=== PATIENT | female | born 1965 | race Caucasian/White ===

== ENCOUNTER 2016-12-28 13:19 | Emergency (ER) ==
--- NOTE | 2016-12-28 14:07 | PROVIDER DOCUMENTATION ---
HPI-Abdominal Pain/GI Problem - General Source: patient - History of Present Illness-ABD Nature of Presenting Problems: 51 y/o F presents to ED cc of abd pain. Pt states she was vomiting on Saturday and Saturday and was running a low grade temperature. Pt reports abd pain x 2 days with no vomiting. Pt does have a stoma present with a localized rash around the edges.On exam pt has LLQ/RLQ tenderness. Pt also reports being Nausea on exam. Denies any rectal bleeding/cp/sob. Abdominal Pain Onset Location: reports: RLQ, LLQ Pain Radiation: reports: no radiation Quality of Pain: reports: aching Severity in ED: reports: mild Onset/Duration: reports: just prior to arrival Timing: reports: still present Activities at Onset: reports: light activity Modifying Factors: improves with: nothing Associated Symptoms: reports: fever/chills, nausea, vomiting, other (RLQ/LLQ pain). denies: chest pain, shortness of breath Rectal Bleeding: reports: none Rectal Pain: reports: none Bruising or Bleeding Gums?: No Similar Symptoms Previously?: No Recently seen or treated by another doctor?: No <Keyanna Medeiros - Last Filed: 12/28/16 16:45> <Wolf Larios - Last Filed: 12/29/16 06:15> - General Chief Complaint: Flank Pain Stated Complaint: LT FLANK/BACK PAIN Time Seen by Provider: 12/28/16 13:45 Allergies/Adverse Reactions: Patient Allergies Allergy/AdvReac Type Severity Reaction Status Date / Time latex Allergy Unknown Verified 12/28/16 14:10 Home Medications: Home Medication List Medication Instructions Recorded Confirmed Last Taken Type Acetaminophen with Codeine 1 each PO BID #10 tablet 12/28/16 Unknown Rx [Tylenol with Codeine #3 Tablet] Sulfamethoxazole/Trimethoprim 1 each PO BID #14 tablet 12/28/16 Unknown Rx [Septra 80-400 Tablet] Review of Systems - Adult - REVIEW OF SYSTEMS - ADULT Constitutional: reports: chills, fever Ears, Nose, Mouth & Throat: denies: ear pain, throat pain Cardiovascular: denies: chest pain, palpitations Respiratory: denies: cough, shortness of breath Gastrointestinal: reports: abdominal pain, nausea, vomiting. denies: diarrhea Genitourinary: denies: dysuria, hematuria Musculoskeletal: denies: bone pain, back pain Neurological: denies: dizziness/vertigo, headache/migraines <MedeirosKeyanna - Last Filed: 12/28/16 16:45> Past History - Adult - PAST MEDICAL HISTORY-ADULT Review of Records: reports: Old Records Reviewed, Nursing Assessment Review Gastrointestinal: reports: cholelithiasis Other Conditions: reports: denies history - PRIOR SURGERIES/PROCEDURES Surgical/Procedure History: reports: - IMMUNIZATION STATUS Childhood Immunizations: See Nurse Assessment Flu Vaccine: See Nurse Assessment - SOCIAL HISTORY Smoking: greater than 1 pack/day Provider spent 3-5 mins advising pt. on dangers of tobacco.: Discussed manners to quit use, and f/u contacts for add'l counseling. Substance Use: denies <MedeirosKeyanna - Last Filed: 12/28/16 16:45> Physical Exam-General - CONSTITUTIONAL General Appearance: appears well, alert, no apparent distress - EYES Eyes: PERRL/EOMI, pink conjunctivae, fundi clear, no AV nicking - NECK Neck: non-tender, full range of motion - RESPIRATORY Respiratory: chest non-tender, lungs clear, normal breath sounds - CARDIOVASCULAR Cardiovascular: normal peripheral pulses, no edema, tachycardia - GASTROINTESTINAL (ABDOMEN) Abdominal Exam: normal bowel sounds, soft, tenderness (RLQ/LLQ) - LYMPHATIC Lymphatic: no adenopathy - MUSCULOSKELETAL Back Exam: normal inspection, no CVA tenderness Extremity: normal range of motion, non-tender, normal gait - SKIN Integumentary: normal color, normal turgor, warm/dry - 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 DR LARIOS REVIEWED AND HAS ORDERED NEW MEDICATIONS Laboratory Tests 12/28/16 12/28/16 12/28/16 13:58 13:58 13:58 WBC 11.18 H RBC 3.71 L Hgb 10.2 L Hct 30.1 L MCV 81.1 MCH 27.5 MCHC 33.9 RDW Std Deviation 12.8 Plt Count 368 MPV 9.9 Immature Gran % (Auto) 0.4 Neut % (Auto) 73.2 Lymph % (Auto) 13.5 L Posey % (Auto) 11.7 H Eos % (Auto) 0.9 Baso % (Auto) 0.3 Immature Gran # (Auto) 0.04 Neut # (Auto) 8.19 H Lymph # (Auto) 1.51 Posey # (Auto) 1.31 H Eos # (Auto) 0.10 Baso # (Auto) 0.03 Sodium 135 L Potassium 2.7 L Chloride 94 L Carbon Dioxide 26 Anion Gap 15 BUN 12 Creatinine 0.9 Estimated GFR/1.73 m2 > 60 BUN/Creatinine Ratio 13 Glucose 98 Calculated Osmolality 270 Calcium 9.1 Total Bilirubin 0.57 AST 15 ALT 14 Alkaline Phosphatase 145 H Total Protein 7.8 Albumin 3.3 L Globulin 4.5 Albumin/Globulin Ratio 0.7 Amylase 26 Lipase 22 Urine Source CLEAN CATCH Urine Color ORANGE Urine Turbidity TURBID Urine pH 6.5 Ur Specific [place] 1.026 Urine Protein 200 A Ur Glucose (Stick) NEGATIVE Ur Ketones (Stick) NEGATIVE Urine Blood MODERATE A Urine Nitrite NEGATIVE Urine Bilirubin NEGATIVE Urobilinogen Dipstick NORMAL Urine Leukocytes LARGE A Urine WBC (Auto) TNTC A Urine RBC (Auto) 20-40 A U Epithel Cells (Auto) <10 Urine Bacteria (Auto) 2+ Urine Crystals NONE SEEN Small Round Cells NONE SEEN Urine Casts NONE SEEN Urine Yeast-like Cells PRESENT Orders Category Date Time Status Saline Loc DIRECTED Care 12/28/16 14:[address] ABD/PELVIS W/ IV CONT ONLY [CT] Stat Exams 12/28/16 14:12 Completed AMYLASE [CHEM] Stat Lab 12/28/16 13:58 Completed CBC WITH ELECTRONIC DIFF [HEME] Stat Lab 12/28/16 13:58 Completed COMPREHENSIVE METABOLIC PANEL [CHEM] Stat Lab 12/28/16 13:58 Completed LIPASE [CHEM] Stat Lab 12/28/16 13:58 Completed URINALYSIS W/POSS RFLX CULT [URINALYSIS] Stat Lab 12/28/16 13:58 Completed URINE CULTURE [RM] Routine Lab 12/28/16 15:10 Received URINE MANUAL MICROSCOPIC [URINALYSIS] Stat Lab 12/28/16 13:58 Completed CefTRIAXONE 1 GM/NS [Rocephin 1 gm/Ns] 50 ml Med 12/28/16 16:31 Active IV NOW Ketorolac [Toradol] Med 12/28/16 16:39 Discontinued 15 mg IV NOW ONE Morphine Med 12/28/16 16:31 Discontinued 4 mg IV NOW ONE Ondansetron [Zofran] Med 12/28/16 16:32 Discontinued 4 mg IV NOW ONE Vital Signs - 24 hr 12/28/16 13:23 Temperature 98.3 F Pulse Rate 111 H Respiratory 16 Rate Blood Pressure 144/96 O2 Sat by Pulse 100 Oximetry - REASSESSMENT Reassessment #1 Time Reassessed: 16:30 Status: improving (Pt reports she is still in pain but does not want morphine . Pt understands results of labs/scans and understands the plan.) - CT/MRI 1 CT Study: Abdomen, Pelvis Impression: Normal (1.status post interval colectomy with RLQ.Herniation of the remaining distal ileum through the colostomy defect. No identaction of bowel obstruction.(2) round and fluid denstiy lesions at left adnexa which may relate to ovarian CS or tuboovarian abscesses.There are possibly a coupld of small low density at the right adnexa.(3) apparent proctitis (4) small amount of free fluid. No free air.) CT Results: see results- (radiologist) <Keyanna Medeiros - Last Filed: 12/28/16 16:45> Departure - Departure Time of Disposition Order: 16:33 Certified Medical Emergency: Emergent <Keyanna Medeiros - Last Filed: 12/28/16 16:45> <Wolf Larios - Last Filed: 12/29/16 06:15> - Departure DIAGNOSIS: UTI (urinary tract infection) Qualifiers: Urinary tract infection type: site unspecified Hematuria presence: without hematuria Qualified Code(s): N39.0 - Urinary tract infection, site not specified Ovarian cyst Qualifiers: Laterality: unspecified laterality Qualified Code(s): N83.209 - Unspecified ovarian cyst, unspecified side Abdominal pain Qualifiers: Abdominal location: unspecified location Qualified Code(s): R10.9 - Unspecified abdominal pain Disposition: HOME 01 Condition: Stable Additional Instructions: ED Follow Up Instructions: You have been treated by a care provider in the Emergency Department. These instructions are being provided to you so you can have an understanding of how to care for yourself upon discharge. Upon discharge from the Emergency Department, you are responsible for making arrangements for follow-up care by a physician of your choice. Take all prescribed medications as directed. Return to the Emergency Department immediately for any new or worsening symptoms. You may call the Physician Referral phone number at [phone] to obtain a list of Physicians who are taking new patients. Prescriptions: Sulfamethoxazole/Trimethoprim [Septra 80-400 Tablet] 1 each PO BID #14 tablet Acetaminophen with Codeine [Tylenol with Codeine #3 Tablet] 1 each PO BID #10 tablet Referrals: None,PCP [Primary Care Provider] - Forms: Return to School/Parent Work Instructions: Abdominal Pain, Adult, Urinary Tract Infection, [id number], Ovarian Cyst, [id number] Attestation - Scribe Verification/Attestation Scribe:: Keyanna Medeiros Acting as Scribe for:: Wolf Larios Scribe documention review:: This chart was documented by a scribe and accurately reflects the service the provider performed and the decisions made by the provider. <Keyanna Medeiros - Last Filed: 12/28/16 16:45> Physician Attestation - Physician Attestation I, the provider, attest to the following statement:: Wolf Larios Physician documentation Attestation:: This documentation recorded by the scribe accurately reflects the service I personally performed and the decisions made by me. <Wolf Larios - Last Filed: 12/29/16 06:15>
[2016-12-28 14:39] LABS: MANUAL DIFF NEEDED? NO; URINE SOURCE CLEAN CATCH
[2016-12-28 14:45] LABS: BASO% 0.3 % (0.0-0.8); BILIRUBIN URINE NEGATIVE (NEGATIVE); BLOOD URINE MODERATE (NEGATIVE); COLOR ORANGE; EOS% 0.9 % (0.0-10.0); GLUCOSE URINE NEGATIVE (NEGATIVE); HEMATOCRIT 30.1 % (37.0-47.0); HEMOGLOBIN 10.2 g/dL (12.0-16.0); IMM GRAN# 0.04 X1000 (0.0-0.04); IMM GRAN% 0.4 % (0.0-0.5); LEUKOCYTES URINE LARGE (NEGATIVE); LYMPH# 1.51 X1000 (1.2-3.4); LYMPH% 13.5 % (20.5-51.1); MCH 27.5 PG (27-31); MCHC 33.9 g/dL (33-37); MCV 81.1 FL (81-99); MONO# 1.31 X1000 (0.11-0.59); MONO% 11.7 % (1.7-9.3); MPV 9.9 FL (7.4-10.4); NEUT% 73.2 % (42.2-75.2); NITRITE URINE NEGATIVE (NEGATIVE); PH URINE 6.5; PLT 368 X1000 (130-400); PROTEIN URINE 200 mg/dL (NEGATIVE); RBC 3.71 XMIL (4.2-5.4); SP GRAVITY URINE 1.026; TURBIDITY URINE TURBID (CLEAR); UROBILINOGEN URINE NORMAL (NORMAL)
[2016-12-28 15:00] LABS: AGAP 15; ALBUMIN 3.3 g/dL (3.5-5.0); ALKALINE PHOSPHATASE 145 U/L (32-104); AMYLASE 26 U/L (20-200); BUN 12 mg/dL (8-22); CALCIUM 9.1 mg/dL (8.8-10.2); CHLORIDE 94 mmol/L (98-107); COSMO 270; GOT 15 U/L (10-30); GPT 14 U/L (10-36); LIPASE 22 U/L (13-60); POTASSIUM 2.7 mmol/L (3.5-5.1); SODIUM 135 mmol/L (136-145); TCO2 26 mmol/L (25-35); TOTAL BILIRUBIN 0.57 mg/dL (0.20-1.00); TOTAL PROTEIN 7.8 g/dL (6.3-8.3)
[2016-12-28 15:05] LABS: UR EPITHELIAL CELLS <10 /HPF (<10); URINE BACTERIA 2+ /HPF; URINE CULTURE NEEDED? YES; URINE MICRO REVIEW NEEDED? YES; URINE RBC 20-40 /HPF (<10); URINE WBC TNTC /HPF (<10)
[2016-12-28 15:11] LABS: URINE CASTS NONE SEEN; URINE CRYSTALS NONE SEEN; URINE SMALL ROUND CELLS NONE SEEN
--- NOTE | 2016-12-28 16:13 | Diag Imaging Result Document ---
PROCEDURE NAME: CT ABD/PELVIS W/ IV CONT ONLY - 12/28/2016 CT ABDOMEN PELVIS WITH IV CONTRAST ONLY: FINDINGS: Exam performed with intravenous contrast only per request of the referring provider. A dose reduction protocol was used. Compared without contrast exam of 02/14/2015. There has been an interval colectomy. There is a right lower quadrant ileostomy. There is herniation of the remaining distal ileum through the colostomy defect. There is no substantial small bowel distention identified to indicate small bowel obstruction. There are rounded and serpiginous fluid density lesions at the left adnexa. These may relate to ovarian cysts or tuboovarian abscesses. There are low-density lesions at the right adnexa which are smaller number and smaller in size than those on the left. There is a small amount of free fluid. There is no free air identified. The li of the rectal stump appear thickened and there is mild presacral edema , suggesting proctitis. There are no acute abnormalities of the liver, spleen, adrenal glands, or pancreas identified. There are no calcified gallstones identified. There is chronic obstruction of lower probability of the left kidney by a 1 cm stone at the lower pole ureteropelvic junction, similar to the previous exam. There is progressive thinning of renal cortex at the lower pole of left kidney. There is some thickening of the margins of the left renal pelvis. There is no gross perinephric edema identified. There is a small nonobstructing stone in the upper left kidney. The upper left kidney and the right kidney enhances homogeneously. There is no right hydronephrosis. IMPRESSION: 1. Status post interval colectomy with right lower quadrant ileostomy. Herniation of the remaining distal ileum through the colostomy defect. No indication of bowel obstruction. 2. Round and serpiginous fluid density lesions at left adnexa which may relate to ovarian cysts or tuboovarian abscesses. There are a couple of small low-density lesion at the right adnexa. 3. Apparent proctitis. 4. Small amount of free fluid. No free air. [facility]
[2016-12-28] MEDS ORDERED: MORPHINE IV ONE (16:31)
[2016-12-28] MEDS ORDERED: ROCEPHIN 1 GM/NS 50 ML IV ONE (16:31)
[2016-12-28] MEDS ORDERED: ZOFRAN IV ONE (16:32)
[2016-12-28] MEDS ORDERED: TORADOL IV ONE (16:39)
[2016-12-28 18:16] VITALS: BP 129/79
== END 2016-12-28 18:14 | disposition home or self-care (01) ==
LOC: ED 13:19
DX: N39.0 Urinary tract infection, site not specified (principal); N83.209 Unspecified ovarian cyst, unspecified side; R10.9 Unspecified abdominal pain; R10.31 Right lower quadrant pain; R10.32 Left lower quadrant pain; R50.9 Fever, unspecified; R21 Rash and other nonspecific skin eruption; R10.814 Left lower quadrant abdominal tenderness; R10.813 Right lower quadrant abdominal tenderness; R11.2 Nausea with vomiting, unspecified; M54.9 Dorsalgia, unspecified; R00.0 Tachycardia, unspecified; F17.210 Nicotine dependence, cigarettes, uncomplicated; Z71.6 Tobacco abuse counseling; Z90.49 Acquired absence of other specified parts of digestive tract
CPT/HCPCS: 74177; 80053; 81001; 82150; 83690; 85025; 87077; 87088; 87186; J0696; J1885; J2405; Q9967

== ENCOUNTER 2018-11-27 09:04 | Inpatient (IN) ==
[2018-11-27] MEDS ORDERED: TYLENOL ONE (14:17)
[2018-11-27] MEDS ORDERED: ZOFRAN 16 MG in NS 100 ML IV ONE (14:30)
[2018-11-27] MEDS ORDERED: BENADRYL 25 MG in NS 100 ML INJ ONE (15:00)
[2018-11-27] MEDS ORDERED: [UNRECOGNIZED DRUG - OTHER] IV ONE (15:30)
[2018-11-27] MEDS ORDERED: NS IV ONE ×3 (15:30→18:30)
[2018-11-27] MEDS ORDERED: DECADRON IV ONE (16:00)
[2018-11-27] MEDS ORDERED: CAMPTOSAR IV ONE (16:30)
[2018-11-27] MEDS ORDERED: [UNRECOGNIZED DRUG - OTHER] IV ONE (16:30)
[2018-11-27] MEDS ORDERED: D5W IV ONE ×2 (16:30)
[2018-11-27] MEDS ORDERED: ATROPINE IV ONE (16:30)
[2018-11-27] MEDS ORDERED: [UNRECOGNIZED DRUG - OTHER] IV ONE (18:30)
[2018-11-27] MEDS ORDERED: DILUENT IV ONE (18:30)
[2018-11-27] MEDS ORDERED: [UNRECOGNIZED DRUG - OTHER] IV ONE (18:30)
[2018-11-27] MEDS ORDERED: ZOFRAN ODT PO PRN (19:57)
[2018-11-27] MEDS ORDERED: PHENERGAN PO PRN (19:57)
[2018-11-27] MEDS: PRILOSEC PO SCH (20:57)
[2018-11-27] MEDS: MS CONTIN PO SCH (20:57)
[2018-11-28] MEDS: MORPHINE IR PO PRN ×2 (05:40→17:15)
--- NOTE | 2018-11-28 08:40 | HISTORY AND PHYSICAL ---
CHIEF COMPLAINT: The patient has been admitted for her metastatic rectal carcinoma to her liver where she will receive her 3 day treatment of chemotherapy while in the hospital. HISTORY OF PRESENT ILLNESS: Ms. Post is a 52-year-old female who follows in the clinic for rectal adenocarcinoma with metastasis to liver. The patient will be admitted to the hospital while she receives her chemotherapy. The patient will continue with her FOLFIRI at 100% of the dose, in as well as her Vectibix at 100% of the dose. PAST MEDICAL HISTORY: Stage IV colorectal cancer, obstructive uropathy, perforated abdominal viscus, peritonitis, nicotine dependence, pelvic abscesses. PAST SURGICAL HISTORY: Colostomy, multiple biopsies, Port-A-Cath placement, ureteral stenting. SOCIAL HISTORY: The patient continues to smoke daily. The patient denies any alcohol or illicit drug use. FAMILY HISTORY: Liver failure and brain aneurysms. ALLERGIES: Latex. HOME MEDICATIONS: MS Contin, morphine R, Prilosec, Zofran, Reglan, and Phenergan. REVIEW OF SYSTEMS: Negative. PHYSICAL EXAMINATION: VITAL SIGNS: Temperature 97.6 degrees, heart rate 77, respiratory rate 20, blood pressure 107/60, saturation 100% on room air. GENERAL: The patient is awake, lying in bed, no acute distress noted. HEENT: Anicteric. Pupils PERRLA. Mucous membranes appear to be moist. NECK: Supple. Trachea midline. No JVD. LYMPH NODE SURVEY: No palpable lymphadenopathy. CARDIOVASCULAR: S1, S2. Regular rate and rhythm. LUNGS: Bilateral breath sounds, clear to auscultation. ABDOMEN: Soft, nontender. Bowel sounds present in all 4 quadrants. SKIN: Warm, dry, and intact. No petechiae, no clubbing, no rashes, cyanosis. NEUROLOGIC: Alert and oriented x3. No focal deficits noted. ASSESSMENT AND PLAN: 1. Metastatic rectal adenocarcinoma: The patient will receive her FOLFIRI and Vectibix at 100% of the doses. We will continue to monitor the patient's side effects and monitor closely. 2. Antinausea prophylaxis: The patient will receive Zofran prior to treatments. The patient also has Reglan and Phenergan that she can take on an as needed basis if needed for any nausea. We will continue to monitor her closely. 3. Neutropenia prophylaxis: We will continue to monitor for any fevers greater than 100.5. 4. Antidiarrhea prophylaxis. The patient will continue to receive atropine prior to treatment. The patient also has Imodium ordered for on an as needed basis if needed. 5. Deep venous thrombosis prophylaxis. The patient will get out of bed as much as possible. 6. Supportive care. The patient will continue protein shakes 4 times daily. The patient will get out of bed as much as possible. The patient will continue exercises as instructed while in the hospital. Dictated by CHRISTIAN Acuna for Asa Hein MD cc: CHRISTIAN Acuna MD [facility]
[2018-11-28] MEDS: PRILOSEC PO SCH ×2 (10:27→20:54)
[2018-11-28] MEDS: MS CONTIN PO SCH ×2 (10:27→20:54)
[2018-11-28] MEDS ORDERED: ZOFRAN ODT PO PRN (10:39)
[2018-11-28] MEDS ORDERED: ZOFRAN 16 MG in NS 100 ML IV ONE (16:30)
[2018-11-28] MEDS ORDERED: [UNRECOGNIZED DRUG - OTHER] IV ONE (17:00)
[2018-11-28] MEDS ORDERED: NS IV ONE (17:00)
[2018-11-28] MEDS ORDERED: [UNRECOGNIZED DRUG - OTHER] IV ONE (17:00)
[2018-11-28] MEDS ORDERED: DILUENT IV ONE (17:00)
[2018-11-29] MEDS: PRILOSEC PO SCH (08:19)
[2018-11-29] MEDS: MS CONTIN PO SCH (08:19)
[2018-11-29] MEDS: MORPHINE IR PO PRN (13:03)
[2018-11-29 14:59] VITALS: BP 98/61
--- NOTE | 2018-11-29 22:45 | HEMO/ONC PROGRESS NOTE ---
DATE: 11/29/2018 SUBJECTIVE: The patient continues tolerating chemotherapy well. The patient denies any complaints at this time. OBJECTIVE: Vital Signs: Temperature 97.8 degrees, heart rate 61, respiratory rate 20, blood pressure 133/71, saturating 99% on room air. General: Patient is awake, lying in bed. No acute distress noted. HEENT: Anicteric pupils. PERRLA. ENT moist. Cardiovascular: S1, S2. Regular rate and rhythm. Chest: Breath sounds clear to auscultation. Abdomen: Soft, nontender. Bowel sounds present in all 4 quadrants. Neurologic: Alert and oriented x3. No focal deficits noted. ASSESSMENT AND PLAN: 1. Metastatic rectal adenocarcinoma: Patient will continue with Vectibix while in the hospital. Patient tolerating well. We will continue to monitor closely. 2. Nausea prophylaxis: Patient denies any nausea at this time. Patient has Reglan. He should take on an as needed basis if needed. We will continue to monitor. 3. Neutropenia prophylaxis: We will continue to monitor. Count at 105. 4. Deep venous thrombosis prophylaxis: Patient getting out of bed as much as possible. 5. Supportive care: Patient will continue protein shakes 4 times a day. Patient will continue to get out of bed as much possible. Patient will continue exercises and stretches while in the hospital. Dictated by CHRISTIAN Acuna for Asa Hein MD cc: CHRISTIAN Acuna MD
== END 2018-11-29 18:40 | disposition home or self-care (01) | DRG 847 ==
LOC: DIRADM 09:04 → 3N 16:46
PROVIDERS: ADMIT Internal Medicine Medical Oncology; ATTEND Internal Medicine Medical Oncology
CPT/HCPCS: A9270; J0461; J0641; J1200; J2405; J7030; J7060; J9190; J9205; J9206; J9303

== ENCOUNTER 2019-01-07 10:10 | Inpatient (IN) ==
[2019-01-07 14:28] LABS: BASO# 0.03 X1000 (0.0-0.2); BASO% 0.3 % (0.0-0.8); EOS# 0.17 X1000 (0.0-0.7); EOS% 1.9 % (0.0-10.0); HEMATOCRIT 34.7 % (37.0-47.0); HEMOGLOBIN 11.4 g/dL (12.0-16.0); IMM GRAN# 0.02 X1000 (0.0-0.04); IMM GRAN% 0.2 % (0.0-0.5); LYMPH# 1.99 X1000 (1.2-3.4); LYMPH% 22.3 % (20.5-51.1); MCH 29.8 PG (27-31); MCHC 32.9 g/dL (33-37); MCV 90.8 FL (81-99); MONO# 0.36 X1000 (0.11-0.59); MPV 9.5 FL (7.4-10.4); NEUT# 6.36 X1000 (1.4-6.5); NEUT% 71.3 % (42.2-75.2); PLT 260 X1000 (130-400); RBC 3.82 XMIL (4.2-5.4); RDW 13.4 % (11.5-14.5); WBC 8.93 X1000 (4.8-10.8)
[2019-01-07 15:01] LABS: AGAP 9; ALB/GLOB RATIO 0.9; ALBUMIN 3.7 g/dL (3.5-5.0); ALKALINE PHOSPHATASE 66 U/L (32-104); BUN 9 mg/dL (8-22); CALCIUM 9.5 mg/dL (8.8-10.2); CHLORIDE 100 mmol/L (98-107); COSMO 268; ESTIMATED GFR 58; GLUCOSE 109 mg/dL (70-104); GOT 8 U/L (10-30); GPT < 5 U/L (10-36); MAGNESIUM 1.6 mg/dL (1.5-2.7); POTASSIUM 3.7 mmol/L (3.5-5.1); SODIUM 134 mmol/L (136-145); TCO2 25 mmol/L (25-35); TOTAL PROTEIN 7.8 g/dL (6.3-8.3)
[2019-01-07] MEDS ORDERED: DECADRON IV ONE ×2 (18:00→20:30)
[2019-01-07] MEDS ORDERED: NS IV ONE ×4 (18:00→23:00)
[2019-01-07] MEDS ORDERED: MAGNESIUM SULFATE 2 GM/S.W.I. 2 GM/50 ML IVPB IV SCH (18:00)
[2019-01-07] MEDS ORDERED: TYLENOL PO ONE (19:00)
[2019-01-07] MEDS ORDERED: ZOFRAN 16 MG in NS 100 ML IV ONE (19:00)
[2019-01-07] MEDS ORDERED: BENADRYL 25 MG in NS 100 ML INJ ONE ×5 (19:20→20:30)
[2019-01-07] MEDS: PRILOSEC PO SCH (20:00)
[2019-01-07] MEDS: MS CONTIN PO SCH (20:00)
[2019-01-07] MEDS ORDERED: [UNRECOGNIZED DRUG - OTHER] IV ONE (20:00)
[2019-01-07] MEDS ORDERED: D5W IV ONE ×2 (21:00)
[2019-01-07] MEDS ORDERED: CAMPTOSAR IV ONE (21:00)
[2019-01-07] MEDS ORDERED: ATROPINE IV ONE (21:00)
[2019-01-07] MEDS ORDERED: LEUCOVORIN IV ONE (21:00)
[2019-01-07] MEDS ORDERED: [UNRECOGNIZED DRUG - OTHER] IV ONE (23:00)
[2019-01-07] MEDS ORDERED: DILUENT IV ONE (23:00)
[2019-01-07] MEDS ORDERED: [UNRECOGNIZED DRUG - OTHER] IV ONE (23:00)
[2019-01-07] MEDS: MORPHINE IR PO PRN (23:55)
[2019-01-08] MEDS: PRILOSEC PO SCH ×2 (06:20→18:06)
[2019-01-08] MEDS: MORPHINE IR PO PRN ×2 (06:21→17:03)
[2019-01-08] MEDS: PHENERGAN PO PRN ×2 (06:23→20:32)
--- NOTE | 2019-01-08 08:42 | HISTORY AND PHYSICAL ---
CHIEF COMPLAINT: The patient has been admitted for a metastatic rectal adenocarcinoma to her liver where she will receive her three day treatment of chemotherapy while in the hospital. HISTORY OF PRESENT ILLNESS: Ms. Post is a 52-year-old female who follows in the clinic for rectal adenocarcinoma with metastasis to the liver. The patient has been admitted to the hospital while she received her chemotherapy. The patient receiving 100% of her FOLFIRI and Vectibix. Patient has tolerated previous treatments very well. PAST MEDICAL HISTORY: Stage IV colorectal cancer, obstructive uropathy, perforated abdominal viscus, peritonitis, nicotine dependence, and pelvic abscesses. PAST SURGICAL HISTORY: Colostomy, multiple biopsies, Port-A-Cath placement, ureteral stenting. SOCIAL HISTORY: Smokes daily. Denies any alcohol or illicit drug use. FAMILY HISTORY: Liver failure and brain aneurysms. ALLERGIES: Latex. HOME MEDICATIONS: MS Contin, morphine IR, Prilosec, Zofran, Reglan, and Phenergan. REVIEW OF SYSTEMS: Negative unless noted in the HPI. PHYSICAL EXAMINATION: VITAL SIGNS: Temperature of 98.2 degrees, heart rate 84, respiratory rate 16, blood pressure 113/65, saturating 97% on room air. GENERAL: Patient is awake, lying in bed. No acute distress noted. HEENT: Anicteric. Mucous membranes appear to be moist. CARDIOVASCULAR: S1, S2. Regular rate and rhythm. CHEST: Bilateral breath sounds clear to auscultation. ABDOMEN: Soft, nontender. Bowel sounds present in all 4 quadrants. SKIN: Warm, dry, and intact. NEUROLOGIC: Alert and oriented x3. No focal deficits noted. LABORATORY DATA: White cell count 8.93, hemoglobin 11.4, hematocrit 34.7, platelets are 260,000. Potassium 3.7, BUN 9, creatinine 1.0. ASSESSMENT AND PLAN: 1. Metastatic rectal adenocarcinoma: The patient will receive her next cycle of FOLFIRI and Vectibix at 100% of doses. Continue to monitor closely for any side effects and infusion reactions. 2. Antinausea prophylaxis: Patient will receive Zofran prior to treatments. Patient also has Reglan and Phenergan that she can take on as needed basis for any nausea. We will continue to monitor. 3. Neutropenia prophylaxis: Continue to monitor for any temperature greater than 100.5. 4. Antidiarrheal prophylaxis: Patient will receive atropine prior to treatment. The patient also has Imodium if needed on an as-needed basis. 5. Deep venous thrombosis prophylaxis: The patient will get out of bed as much as possible. 6. Supportive care: The patient will continue her protein shakes 3 times a day. The patient will get out of bed as much as possible. Patient will continue exercises as instructed. 7. Nicotine cessation: Nicotine cessation education was provided. Dictated by CHRISTIAN Acuna for Asa Hein MD Patient seen and examined. As above. Patient admitted for next cycle of chemotherapy for metastatic rectal adenocarcinoma. Continue current management. Monitor for side effects. Asa Hein M.D. cc: CHRISTIAN Acuna MD [facility]
[2019-01-08] MEDS: MS CONTIN PO SCH ×2 (09:22→20:32)
[2019-01-08] MEDS ORDERED: PHENERGAN IV PRN (09:30)
[2019-01-08] MEDS ORDERED: SODIUM CHLORIDE 0.9% INJ PRN (09:30)
[2019-01-08] MEDS: REGLAN IV PRN (16:54)
[2019-01-08] MEDS ORDERED: ZOFRAN 16 MG in NS 100 ML IV ONE (21:00)
[2019-01-08] MEDS ORDERED: DILUENT IV ONE (21:30)
[2019-01-08] MEDS ORDERED: NS IV ONE (21:30)
[2019-01-08] MEDS ORDERED: [UNRECOGNIZED DRUG - OTHER] IV ONE (21:30)
[2019-01-08] MEDS ORDERED: [UNRECOGNIZED DRUG - OTHER] IV ONE (21:30)
[2019-01-09] MEDS: MORPHINE IR PO PRN ×3 (00:15→16:15)
[2019-01-09] MEDS: PRILOSEC PO SCH ×2 (06:11→18:44)
--- NOTE | 2019-01-09 08:40 | HEMO/ONC PROGRESS NOTE ---
DATE: 01/09/2019 SUBJECTIVE: Patient tolerating chemotherapy well. Patient denies any complaints at this time. OBJECTIVE: Vital Signs: Temperature 98.2 degrees, heart rate 59, respiratory rate 17, blood pressure was 102/65, saturation 97% on room air. General: Patient is awake, lying in bed, no acute distress noted. HEENT: Anicteric. Pupils PERRLA. Mucous membranes moist. Cardiovascular: S1, S2. Regular rate and rhythm. Chest: Bilateral breath sounds clear to auscultation. Abdomen: Soft, nontender. Bowel sounds present all 4 quadrants. Neurologic: Alert and oriented x3. No focal deficits noted. ASSESSMENT AND PLAN: 1. Metastatic rectal adenocarcinoma: The patient will continue at 3 day treatment of chemotherapy. Patient tolerating therapy very well. We will continue to monitor. 2. Antinausea prophylaxis. The patient denies any nausea at this time. The patient does have p.r.n. medications as needed. We will continue to monitor. 3. Neutropenia prophylaxis. Continue to monitor for any fevers greater than 100.5. 4. Deep venous thrombosis prophylaxis. Continue to have the patient get out of bed as much possible. 5. Supportive care: The patient can be protein shakes t.i.d. Patient will get out of bed as much as possible. Patient will continue exercises as instructed. Dictated by CHRISTIAN Acuna for Asa Hein MD cc: CHRISTIAN Acuna MD
[2019-01-09] MEDS: MS CONTIN PO SCH ×2 (09:16→21:14)
[2019-01-09] MEDS: PHENERGAN PO PRN (09:20)
[2019-01-09] MEDS: REGLAN IV PRN (16:11)
[2019-01-09 20:04] VITALS: BP 111/98
== END 2019-01-09 22:30 | disposition home or self-care (01) | DRG 847 ==
LOC: DIRADM 10:10 → 3N 13:04
PROVIDERS: ADMIT Internal Medicine Medical Oncology; ATTEND Internal Medicine Medical Oncology
CPT/HCPCS: 80053; 82378; 83735; 85025; A9270; J0461; J0640; J1200; J2405; J2550; J2765; J3475; J7030; J7060; J9190; J9205; J9206; J9303

== ENCOUNTER 2019-01-21 08:36 | Inpatient (IN) ==
[2019-01-21 17:12] LABS: BASO# 0.03 X1000 (0.0-0.2); BASO% 0.6 % (0.0-0.8); EOS# 0.15 X1000 (0.0-0.7); EOS% 2.9 % (0.0-10.0); HEMATOCRIT 31.4 % (37.0-47.0); HEMOGLOBIN 10.5 g/dL (12.0-16.0); LYMPH# 2.01 X1000 (1.2-3.4); LYMPH% 38.6 % (20.5-51.1); MCH 29.8 PG (27-31); MCHC 33.4 g/dL (33-37); MCV 89.2 FL (81-99); MONO# 0.39 X1000 (0.11-0.59); MONO% 7.5 % (1.7-9.3); MPV 9.3 FL (7.4-10.4); NEUT# 2.63 X1000 (1.4-6.5); NEUT% 50.4 % (42.2-75.2); PLT 216 X1000 (130-400); RBC 3.52 XMIL (4.2-5.4); RDW 13.3 % (11.5-14.5); WBC 5.21 X1000 (4.8-10.8)
[2019-01-21 17:40] LABS: AGAP 10; ALBUMIN 3.9 g/dL (3.5-5.0); ALKALINE PHOSPHATASE 69 U/L (32-104); BUN 7 mg/dL (8-22); CALCIUM 9.1 mg/dL (8.8-10.2); CHLORIDE 99 mmol/L (98-107); COSMO 269; CREATININE 0.9 mg/dL (0.5-0.9); ESTIMATED GFR > 60; GLUCOSE 113 mg/dL (70-104); GOT 10 U/L (10-30); GPT < 5 U/L (10-36); MAGNESIUM 1.8 mg/dL (1.5-2.7); POTASSIUM 2.5 mmol/L (3.5-5.1); SODIUM 135 mmol/L (136-145); TCO2 26 mmol/L (25-35); TOTAL BILIRUBIN 0.41 mg/dL (0.20-1.00); TOTAL PROTEIN 7.8 g/dL (6.3-8.3)
[2019-01-21] MEDS ORDERED: PHENERGAN PO PRN (17:45)
[2019-01-21] MEDS ORDERED: TYLENOL PO ONE (18:00)
[2019-01-21] MEDS ORDERED: POTASSIUM CHLORIDE 40 MEQ/SWI 40 MEQ/100 ML IVPB IV ONE (18:08)
[2019-01-21] MEDS ORDERED: ZOFRAN 16 MG in NS 100 ML IV ONE (18:30)
[2019-01-21] MEDS ORDERED: BENADRYL 25 MG in NS 100 ML INJ ONE (18:40)
[2019-01-21] MEDS ORDERED: NS IV ONE ×3 (19:00→22:00)
[2019-01-21] MEDS ORDERED: [UNRECOGNIZED DRUG - OTHER] IV ONE (19:00)
[2019-01-21] MEDS ORDERED: DECADRON IV ONE (19:30)
[2019-01-21] MEDS ORDERED: ATROPINE IV ONE (19:50)
[2019-01-21] MEDS ORDERED: LEUCOVORIN IV ONE (20:00)
[2019-01-21] MEDS ORDERED: D5W IV ONE ×2 (20:00)
[2019-01-21] MEDS ORDERED: CAMPTOSAR IV ONE (20:00)
[2019-01-21] MEDS: MORPHINE IR PO PRN (20:05)
[2019-01-21] MEDS: MS CONTIN PO SCH (21:18)
[2019-01-21] MEDS ORDERED: DILUENT IV ONE (22:00)
[2019-01-21] MEDS ORDERED: [UNRECOGNIZED DRUG - OTHER] IV ONE (22:00)
[2019-01-21] MEDS ORDERED: [UNRECOGNIZED DRUG - OTHER] IV ONE (22:00)
[2019-01-22] MEDS: MORPHINE IR PO PRN ×2 (03:08→17:18)
[2019-01-22] MEDS: PRILOSEC PO SCH ×3 (04:26→21:35)
[2019-01-22 07:59] LABS: AGAP 10; ALB/GLOB RATIO 0.9; ALBUMIN 3.4 g/dL (3.5-5.0); ALKALINE PHOSPHATASE 69 U/L (32-104); BUN 8 mg/dL (8-22); CALCIUM 9.5 mg/dL (8.8-10.2); CHLORIDE 107 mmol/L (98-107); COSMO 279; CREATININE 0.9 mg/dL (0.5-0.9); ESTIMATED GFR > 60; GLUCOSE 118 mg/dL (70-104); GOT 10 U/L (10-30); GPT 5 U/L (10-36); POTASSIUM 3.6 mmol/L (3.5-5.1); SODIUM 140 mmol/L (136-145); TCO2 23 mmol/L (25-35); TOTAL BILIRUBIN 0.42 mg/dL (0.20-1.00); TOTAL PROTEIN 7.1 g/dL (6.3-8.3)
[2019-01-22] MEDS: MS CONTIN PO SCH ×2 (09:15→21:35)
[2019-01-22] MEDS ORDERED: REGLAN IV PRN (09:15)
[2019-01-22] MEDS: PHENERGAN IV PRN (09:39)
--- NOTE | 2019-01-22 13:38 | HISTORY AND PHYSICAL ---
CHIEF COMPLAINT: Patient being admitted for metastatic rectal adenocarcinoma and to receive her 3 day treatment of chemotherapy while in the hospital. HISTORY OF PRESENT ILLNESS: Ms. Post is a 52-year-old female who follows up in clinic for rectal adenocarcinoma metastasis to liver. The patient is admitted to the hospital now to receive a 3 day restrictive chemotherapy. Patient receiving 100% of her FOLFIRI and Vectibix. The patient has tolerated previous treatments extremely well. PAST MEDICAL HISTORY: Stage IV colorectal cancer, obstructive uropathy, perforated abdominal viscus, peritonitis, nicotine dependence, and pelvic abscesses. PAST SURGICAL HISTORY: Colostomy, multiple biopsies, Port-A-Cath placement, and ureteral stenting. SOCIAL HISTORY: Smokes daily. Denies any alcohol or illicit drug use. FAMILY HISTORY: Liver failure and brain aneurysm. ALLERGIES: Allergies to latex. HOME MEDICATIONS: MS Contin, morphine R, Prilosec, Zofran, Reglan, and Phenergan. REVIEW OF SYSTEMS: Negative other than HPI. PHYSICAL EXAMINATION: VITAL SIGNS: Temperature 97.6 degrees, heart rate 67, respiratory rate 14, blood pressure 97/61 and satting 99% on room air. GENERAL: Patient is awake, lying in bed in no acute distress noted. HEENT: Anicteric. Pupils equal, round, and reactive to light. Mucous membranes moist. CARDIOVASCULAR: S1, S2. Regular rate and rhythm. NECK: Supple. Trachea midline. No JVD. No evidence of any palpable lymphadenopathy. CHEST: Bilateral breath sounds. Clear to auscultation. ABDOMEN: Soft, nontender. Bowel sounds present in all 4 quadrants neurologic. SKIN: Warm, dry and intact. NEUROLOGIC: Alert and oriented x3. No focal deficits noted. LABORATORY DATA: White blood cell count is 5.1, hemoglobin 10.5, hematocrit 1.4, and platelets are 216,000. Potassium 3.6, BUN 8, and creatinine 0.9. ASSESSMENT AND PLAN: 1. Metastatic rectal adenocarcinoma: Patient received her next cycle of FOLFIRI and Vectibix at 100% of dose while in the hospital. We will continue to monitor closely for any reactions or side effects. 2. Hypokalemia: The patient's potassium was 3.5. Patient received 40 mEq of potassium. Potassium is improved at this time. Continue to monitor closely. 3. Antinausea prophylaxis. Patient continues to receive Zofran prior to treatment. The patient also has Reglan and Phenergan that she can take on an as needed basis if needed for nausea. We will continue to monitor closely. 4. Neutropenia prophylaxis. We will continue to monitor for any fevers greater than 100.5. 5. Antidiarrheal prophylaxis: Patient will receive atropine prior to treatment. The patient has Imodium ordered as needed. 6. Deep venous thrombosis prophylaxis: Patient continue to get out of bed as much as possible. 7. Supportive care: The patient to continue eating protein shakes 3 times a day. The patient will be up as much as possible. The patient to continue strength exercises as instructed. 8. Nicotine cessation: Nicotine cessation education provided. 9. Plan of care discussed with Dr. Hein. Dictated by CHRISTIAN Acnua for Asa Hein MD cc: CHRISTIAN Acuna MD
[2019-01-22] MEDS ORDERED: ZOFRAN 16 MG in NS 100 ML IV ONE (20:00)
[2019-01-22] MEDS ORDERED: DILUENT IV ONE (20:30)
[2019-01-22] MEDS ORDERED: NS IV ONE (20:30)
[2019-01-22] MEDS ORDERED: [UNRECOGNIZED DRUG - OTHER] IV ONE (20:30)
[2019-01-22] MEDS ORDERED: [UNRECOGNIZED DRUG - OTHER] IV ONE (20:30)
[2019-01-23] MEDS: PHENERGAN IV PRN ×3 (01:41→22:59)
[2019-01-23] MEDS: MORPHINE IR PO PRN ×4 (01:42→22:59)
[2019-01-23] MEDS: SODIUM CHLORIDE 0.9% INJ PRN ×2 (01:42→22:59)
[2019-01-23] MEDS ORDERED: NS 500 ML ONE (02:03)
[2019-01-23] MEDS: MS CONTIN PO SCH ×2 (09:48→21:02)
[2019-01-23] MEDS: PRILOSEC PO SCH ×2 (09:48→21:02)
--- NOTE | 2019-01-23 13:27 | HEMO/ONC PROGRESS NOTE ---
DATE: 01/23/2019 SUBJECTIVE: Patient is tolerating chemotherapy well. Patient has no complaints at this time. OBJECTIVE: Vital Signs: Temperature 97.9 degrees, heart rate 61, respiratory rate 20, blood pressure 94/50, saturations 99% on room air. General: Patient is awake lying in bed in no acute distress noted. HEENT: Anicteric. Pupils PERRLA, mucous membranes moist. Cardiovascular: S1, S2. Regular rate and rhythm. Chest: Bilateral breath sounds clear to auscultation. Abdomen: Soft, nontender, bowel sounds present in all 4 quadrants. Neurologic: Alert and oriented x3, no focal deficits noted. ASSESSMENT AND PLAN: 1. Metastatic rectal adenocarcinoma: Patient tolerating chemotherapy extremely well at this time. Continue to monitor closely. 2. Antinausea prophylaxis: Patient continue receive Zofran prior to treatments. Patient's nausea has been well controlled. Patient has p.r.n. medications as needed. Will continue to monitor. 3. Neutropenia prophylaxis: Continue to monitor for fever 100.5. The patient no nausea at this time. 4. Antidiarrhea prophylaxis. Patient has Imodium ordered as needed no diarrhea at this time. 5. Deep venous thrombosis prophylaxis: The patient will continue out of bed as much as possible. Plan of care discussed Hein. Dictated by CHRISTIAN Acuna for Asa Hein MD cc: CHRISTIAN Acuna MD [facility]
[2019-01-23] MEDS ORDERED: REGLAN IV PRN (20:00)
[2019-01-23] MEDS ORDERED: PHENERGAN IV PRN (20:00)
[2019-01-24 04:34] VITALS: BP 102/59
[2019-01-24] MEDS: MORPHINE IR PO PRN (06:14)
== END 2019-01-24 06:25 | disposition home or self-care (01) | DRG 847 ==
LOC: DIRADM 08:36 → 3N 14:25
PROVIDERS: ADMIT Internal Medicine Medical Oncology; ATTEND Internal Medicine Medical Oncology
CPT/HCPCS: 80053; 83735; 85025; A9270; J0461; J0640; J1200; J2405; J2550; J2765; J3480; J7030; J7040; J7060; J9190; J9205; J9206; J9303

== ENCOUNTER 2019-02-04 12:16 | Inpatient (IN) ==
[2019-02-04 13:09] LABS: HEMATOCRIT 29.7 % (37.0-47.0); HEMOGLOBIN 10.3 g/dL (12.0-16.0); MCH 29.9 PG (27-31); MCHC 34.7 g/dL (33-37); MCV 86.3 FL (81-99); MPV 9.6 FL (7.4-10.4); RBC 3.44 XMIL (4.2-5.4); RDW 13.1 % (11.5-14.5); WBC 5.28 X1000 (4.8-10.8)
[2019-02-04 13:50] LABS: ALB/GLOB RATIO 0.9; ALBUMIN 3.8 g/dL (3.5-5.0); CALCIUM 9.4 mg/dL (8.8-10.2); MAGNESIUM 1.8 mg/dL (1.5-2.7); TOTAL BILIRUBIN 0.43 mg/dL (0.20-1.00); TOTAL PROTEIN 8.2 g/dL (6.3-8.3)
--- NOTE | 2019-02-05 11:28 | HISTORY AND PHYSICAL ---
CHIEF COMPLAINT: The patient is being admitted for metastatic rectal adenocarcinoma and to receive her 3 day treatment of chemotherapy while in the hospital. HISTORY OF PRESENT ILLNESS: Ms. Post is a 53-year-old female who follows up in our clinic for rectal adenocarcinoma with metastasis to the liver. The patient has been admitted to the hospital now to receive her 3 day treatment of chemotherapy. The patient has been receiving 100% of her dose FOLFIRI and Vectibix, and doing well with it. PAST MEDICAL HISTORY: Stage IV colorectal cancer, obstructive uropathy, perforated abdominal viscus, peritonitis, nicotine dependence, pelvic abscesses. PAST SURGICAL HISTORY: Colostomy, multiple biopsies, Port-A-Cath placement, ureteral stenting. SOCIAL HISTORY: She smokes daily. Denies any alcohol or illicit drug use. FAMILY HISTORY: Liver failure and brain aneurysm. ALLERGIES: Latex. HOME MEDICATIONS: MS Contin, morphine R, Prilosec, Zofran, Reglan, and Phenergan. REVIEW OF SYSTEMS: Negative other than the HPI. PHYSICAL EXAMINATION: VITAL SIGNS: Temperature 97.6, heart rate 76, respiratory rate 16, blood pressure is 118/82, saturating 98% on room air. GENERAL: Patient is awake, lying in bed. No acute distress noted. HEENT: Anicteric. Pupils PERRLA. Mucous membranes appear to be moist. CARDIOVASCULAR: S1, S2. Regular rate and rhythm. NECK: Supple. Trachea midline. No JVD. LYMPH NODE SURVEY: No palpable lymphadenopathy. CHEST: Bilateral breath sounds clear to auscultation. ABDOMEN: Soft, nontender. Bowel sounds present in all 4 quadrants. SKIN: Warm, dry, and intact. No petechiae. No clubbing, no rashes, no cyanosis. NEUROLOGIC: Alert and oriented x3. No focal deficits noted. LABORATORY DATA: White blood cell count is 5.28, hemoglobin 10.2, hematocrit 29.7, platelets are 252,000. Potassium 3.0, BUN 10, creatinine 1.0. ASSESSMENT AND PLAN: 1. Metastatic rectal adenocarcinoma: Patient will continue to receive her next cycle of FOLFIRI and Vectibix at 100% of dose while in the hospital. The patient tolerated all previous treatments very well. We will continue to monitor closely for any reactions or side effects. 2. Antinausea prophylaxis: The patient will continue to receive Zofran prior to treatment. The patient also has Reglan and Phenergan that she can take on an as needed basis for nausea. We will continue to monitor. 3. Neutropenia prophylaxis: We will continue to monitor for any fevers greater than 100.5. 4. Antidiarrheal prophylaxis: The patient will receive atropine prior to treatment. The patient has Imodium ordered as needed. 5. Deep venous thrombosis prophylaxis: The patient will continue to get out of bed as much as possible. 6. Supportive care: The patient will receive protein shakes 3 times a day. The patient will be out of bed as much as possible. The patient will continue strengthening exercises as instructed. 7. Nicotine cessation: Nicotine cessation education provided. Dictated by CHRISTIAN Acuna for Asa Hein MD Patient seen and examined. As above. Asa Hein M.D. cc: Asa Hein MD [facility]
[2019-02-05] MEDS ORDERED: PHENERGAN PO PRN (13:02)
[2019-02-05] MEDS: MS CONTIN PO SCH (13:28)
[2019-02-05] MEDS: MORPHINE IR PO PRN ×2 (13:29→19:38)
[2019-02-05] MEDS: PRILOSEC PO SCH ×2 (13:29→21:17)
[2019-02-05 14:36] LABS: BASO# 0.03 X1000 (0.0-0.2); BASO% 0.7 % (0.0-0.8); EOS# 0.05 X1000 (0.0-0.7); EOS% 1.2 % (0.0-10.0); HEMATOCRIT 26.4 % (37.0-47.0); HEMOGLOBIN 9.1 g/dL (12.0-16.0); LYMPH# 1.99 X1000 (1.2-3.4); LYMPH% 47.5 % (20.5-51.1); MCH 29.4 PG (27-31); MCHC 34.5 g/dL (33-37); MCV 85.2 FL (81-99); MONO# 0.48 X1000 (0.11-0.59); MONO% 11.5 % (1.7-9.3); MPV 9.8 FL (7.4-10.4); NEUT# 1.64 X1000 (1.4-6.5); NEUT% 39.1 % (42.2-75.2); PLT 281 X1000 (130-400); RDW 12.9 % (11.5-14.5); WBC 4.19 X1000 (4.8-10.8)
[2019-02-05] MEDS: KLOR-CON PO SCH ×2 (14:39→21:18)
[2019-02-05] MEDS ORDERED: TYLENOL PO ONE (15:30)
[2019-02-05] MEDS ORDERED: ZOFRAN 16 MG in NS 100 ML IV ONE (15:30)
[2019-02-05] MEDS ORDERED: BENADRYL 25 MG in NS 100 ML INJ ONE (16:00)
[2019-02-05] MEDS ORDERED: REGLAN IV PRN (16:16)
[2019-02-05] MEDS ORDERED: NS IV ONE ×3 (16:30→20:00)
[2019-02-05] MEDS ORDERED: [UNRECOGNIZED DRUG - OTHER] IV ONE (16:30)
[2019-02-05] MEDS ORDERED: DECADRON IV ONE (17:00)
[2019-02-05] MEDS ORDERED: LEUCOVORIN IV ONE (17:30)
[2019-02-05] MEDS ORDERED: CAMPTOSAR IV ONE (17:30)
[2019-02-05] MEDS ORDERED: ATROPINE IV ONE (17:30)
[2019-02-05] MEDS ORDERED: D5W IV ONE ×2 (17:30)
[2019-02-05] MEDS ORDERED: [UNRECOGNIZED DRUG - OTHER] IV ONE (19:30)
[2019-02-05] MEDS ORDERED: DILUENT IV ONE (19:30)
[2019-02-05] MEDS ORDERED: [UNRECOGNIZED DRUG - OTHER] IV ONE (20:00)
[2019-02-05] MEDS: PHENERGAN IV PRN (21:16)
[2019-02-05] MEDS: SODIUM CHLORIDE 0.9% INJ PRN (21:19)
[2019-02-06] MEDS ORDERED: NS 250 ML ONE
[2019-02-06] MEDS: MORPHINE IR PO PRN ×4 (00:04→23:45)
[2019-02-06] MEDS: MS CONTIN PO SCH ×3 (03:30→21:32)
[2019-02-06] MEDS: PHENERGAN IV PRN ×2 (07:02→16:42)
[2019-02-06] MEDS: SODIUM CHLORIDE 0.9% INJ PRN ×2 (07:02→16:42)
[2019-02-06] MEDS: PRILOSEC PO SCH ×2 (09:48→21:32)
[2019-02-06] MEDS: KLOR-CON PO SCH ×2 (09:48→21:32)
--- NOTE | 2019-02-06 11:52 | HEMO/ONC PROGRESS NOTE ---
DATE: 02/06/2019 SUBJECTIVE: The patient tolerated chemotherapy well. The patient has no complaints at this time. OBJECTIVE: Vital Signs: Temperature 98.5 degrees, heart rate 61, respiratory rate 18, blood pressure is 89/58, sat 98% on room air. General: The patient is awake, lying in bed, no acute distress noted. HEENT: Anicteric. PERRLA. Mucous membranes moist. Cardiovascular: S1, S2. Regular rate and rhythm. Chest: Bilateral breath sounds clear to auscultation. Abdomen: Soft, nontender. Bowel sounds present in all 4 quadrants. Neurologic: Alert and oriented x3. No focal deficits noted. ASSESSMENT AND PLAN: 1. Metastatic rectal adenocarcinoma: The patient will continue with her chemotherapy at this time. The patient is tolerating it well. We will continue to monitor the patient for side effects. 2. Antinausea prophylaxis: The patient will continue to receive Zofran prior to treatments. The patient also has Reglan and Phenergan that she can take on as needed basis for nausea. The nausea has been well controlled. We will continue to monitor. 3. Neutropenia prophylaxis: Continue to monitor for temp greater than 100.5. 4. Antidiarrheal prophylaxis: The patient has Imodium ordered as needed. No diarrhea at this time. 5. Deep venous thrombosis prophylaxis. Continue out of bed as much possible. 6. Supportive care: The patient will continue protein shakes 3 times a day. The patient will continue out of bed as much as possible. The patient will continue strengthening exercises as instructed. Dictated by CHRISTIAN Acuna for Asa Hein MD Patient seen and examined. As above. Asa Hein MD cc: CHRISTIAN Acuna MD [facility]
[2019-02-06] MEDS ORDERED: ZOFRAN 16 MG in NS 100 ML IV ONE ×2 (17:30→18:00)
[2019-02-06] MEDS ORDERED: [UNRECOGNIZED DRUG - OTHER] IV ONE (18:00)
[2019-02-06] MEDS ORDERED: NS IV ONE (18:00)
[2019-02-06] MEDS ORDERED: DILUENT IV ONE (18:00)
[2019-02-06] MEDS ORDERED: [UNRECOGNIZED DRUG - OTHER] IV ONE (18:00)
[2019-02-07] MEDS: MORPHINE IR PO PRN ×2 (07:43→16:20)
[2019-02-07] MEDS: PHENERGAN IV PRN ×2 (07:53→18:14)
[2019-02-07] MEDS: SODIUM CHLORIDE 0.9% INJ PRN ×2 (07:53→18:14)
[2019-02-07] MEDS: MS CONTIN PO SCH ×2 (09:59→21:31)
[2019-02-07] MEDS: PRILOSEC PO SCH ×2 (09:59→21:31)
[2019-02-07] MEDS: KLOR-CON PO SCH ×2 (09:59→21:31)
[2019-02-08 04:10] VITALS: BP 140/78
== END 2019-02-08 04:27 | disposition home or self-care (01) | DRG 847 ==
LOC: LABPTONLY 12:16 → DIRADM 14:32 → EDIPHOLD 19:16 → 3N 02-05 10:31
PROVIDERS: ADMIT Internal Medicine Medical Oncology; ATTEND Internal Medicine Medical Oncology
CPT/HCPCS: 36415; 80053; 83735; 85025; 85027; A9270; J0461; J0640; J1200; J2405; J2550; J7030; J7050; J7060; J9190; J9205; J9206; J9303

== ENCOUNTER 2019-02-18 11:05 | Inpatient (IN) ==
[2019-02-18 13:30] LABS: BASO# 0.03 X1000 (0.0-0.2); BASO% 0.6 % (0.0-0.8); EOS# 0.06 X1000 (0.0-0.7); EOS% 1.3 % (0.0-10.0); HEMOGLOBIN 9.1 g/dL (12.0-16.0); LYMPH# 2.07 X1000 (1.2-3.4); LYMPH% 43.8 % (20.5-51.1); MCV 85.8 FL (81-99); MONO# 0.54 X1000 (0.11-0.59); MONO% 11.4 % (1.7-9.3); MPV 9.1 FL (7.4-10.4); NEUT# 2.03 X1000 (1.4-6.5); NEUT% 42.9 % (42.2-75.2); PLT 284 X1000 (130-400); RBC 3.03 XMIL (4.2-5.4); RDW 14.1 % (11.5-14.5); WBC 4.73 X1000 (4.8-10.8)
[2019-02-18 14:26] LABS: AGAP 13; ALB/GLOB RATIO 0.9; ALBUMIN 3.7 g/dL (3.5-5.0); ALKALINE PHOSPHATASE 83 U/L (32-104); BUN 6 mg/dL (8-22); CHLORIDE 99 mmol/L (98-107); COSMO 266; CREATININE 0.8 mg/dL (0.5-0.9); ESTIMATED GFR > 60; GLUCOSE 100 mg/dL (70-104); GOT 8 U/L (10-30); GPT < 5 U/L (10-36); MAGNESIUM 1.6 mg/dL (1.5-2.7); POTASSIUM 2.4 mmol/L (3.5-5.1); SODIUM 134 mmol/L (136-145); TCO2 22 mmol/L (25-35); TOTAL BILIRUBIN 0.49 mg/dL (0.20-1.00); TOTAL PROTEIN 7.7 g/dL (6.3-8.3)
[2019-02-18] MEDS ORDERED: D5W IV ONE ×3 (16:00→20:00)
[2019-02-18] MEDS ORDERED: LEUCOVORIN IV ONE ×2 (16:00→20:00)
[2019-02-18] MEDS ORDERED: POTASSIUM CHLORIDE 60 MEQ in NS 500 ML IV ONE (16:00)
[2019-02-18] MEDS ORDERED: SODIUM CHLORIDE 0.9% INJ PRN (16:02)
[2019-02-18] MEDS ORDERED: REGLAN IV PRN (16:02)
[2019-02-18] MEDS: MORPHINE IR PO PRN ×2 (17:20→22:38)
[2019-02-18] MEDS: PHENERGAN PO PRN (17:21)
[2019-02-18] MEDS ORDERED: BENADRYL 25 MG in NS 100 ML INJ ONE (18:30)
[2019-02-18] MEDS ORDERED: TYLENOL PO ONE (18:30)
[2019-02-18] MEDS ORDERED: ZOFRAN 16 MG in NS 100 ML IV ONE (18:30)
[2019-02-18] MEDS ORDERED: NS IV ONE ×3 (19:00→22:00)
[2019-02-18] MEDS ORDERED: [UNRECOGNIZED DRUG - OTHER] IV ONE (19:00)
[2019-02-18] MEDS ORDERED: DECADRON IV ONE (19:30)
[2019-02-18] MEDS ORDERED: ATROPINE IV ONE (20:00)
[2019-02-18] MEDS ORDERED: CAMPTOSAR IV ONE (20:00)
[2019-02-18] MEDS: MS CONTIN PO SCH (21:09)
[2019-02-18] MEDS: PRILOSEC PO SCH (21:09)
[2019-02-18] MEDS ORDERED: [UNRECOGNIZED DRUG - OTHER] IV ONE (22:00)
[2019-02-18] MEDS ORDERED: DILUENT IV ONE (22:00)
[2019-02-18] MEDS ORDERED: [UNRECOGNIZED DRUG - OTHER] IV ONE (22:00)
[2019-02-19] MEDS: PHENERGAN PO PRN (07:56)
[2019-02-19] MEDS: MS CONTIN PO SCH ×2 (07:59→20:16)
[2019-02-19] MEDS ORDERED: POTASSIUM CHLORIDE 60 MEQ in NS 500 ML IV PRN (08:00)
[2019-02-19] MEDS: PRILOSEC PO SCH ×2 (08:02→20:17)
[2019-02-19] MEDS: MORPHINE IR PO PRN ×2 (14:16→22:26)
[2019-02-19] MEDS: PHENERGAN IV PRN ×2 (14:24→20:17)
[2019-02-19] MEDS ORDERED: ZOFRAN 16 MG in NS 100 ML IV ONE (19:30)
[2019-02-19] MEDS ORDERED: DILUENT IV ONE (21:00)
[2019-02-19] MEDS ORDERED: [UNRECOGNIZED DRUG - OTHER] IV ONE (21:00)
[2019-02-19] MEDS ORDERED: [UNRECOGNIZED DRUG - OTHER] IV ONE (21:00)
[2019-02-19] MEDS ORDERED: NS IV ONE (21:00)
[2019-02-20] MEDS ORDERED: NS 250 ML ONE (01:44)
[2019-02-20] MEDS: PHENERGAN IV PRN ×3 (01:47→21:30)
[2019-02-20] MEDS: MORPHINE IR PO PRN ×4 (03:21→21:40)
--- NOTE | 2019-02-20 07:55 | GENERAL SURGERY CONSULTATION ---
DATE: 02/19/2019 REASON FOR CONSULTATION: Rectal mass. HISTORY OF PRESENT ILLNESS: This is a 53-year-old female well known to me from previous admissions, who has a known history of metastatic rectal cancer. She also has undergone total abdominal colectomy with end ileostomy, but has a remaining mass in the rectal pouch of the primary rectal tumor. She has undergone numerous drainage procedures for pelvic abscesses, and this has required frequent hospitalizations. However, that appears to have significantly decreased over the last year. She has been undergoing palliative chemotherapy under Dr. Hein's care, and has generally been doing better. She denies severe pelvic or rectal pain. She has good function of her ileostomy, and she is eating a little better, has gained some weight, and recently had some scans that showed some regression of her disease. Recently she started noticing a change in the rectal discharge that she experiences. She normally has mucus pass from her rectum daily. However, recently she has noted having stool that is just like what she is passing in her ileostomy. It causes some burning around the anus, but otherwise is not causing any other trouble. It happens several minutes after she eats. She denies fever or chills, nausea or vomiting, and I have been asked to evaluate her for these concerns. PAST MEDICAL HISTORY: Metastatic rectal cancer, history of colon perforation, chronic left ureteropelvic stone obstruction and hydronephrosis. PAST SURGICAL HISTORY: Total abdominal colectomy with end-ileostomy, exploratory laparotomy with drainage of intra-abdominal abscess, insertion of Port-A-Cath, placement of ureteral stents and cystoscopy. ALLERGIES: Latex. FAMILY HISTORY: Reviewed and noncontributory. HOME MEDICATIONS: MS Contin, morphine, Prilosec, Zofran, Reglan, Phenergan. SOCIAL HISTORY: She smokes daily. She denies alcohol or illicit drug use. REVIEW OF SYSTEMS: Ten systems reviewed and negative, except as noted above. PHYSICAL EXAMINATION: Vital Signs: Temperature 98 degrees, pulse 69, respirations 20, blood pressure 96/58. General: She is well developed, fairly well nourished, no acute distress, looks her stated age. HEENT: Normocephalic, atraumatic. Extraocular muscles intact. Pupils equal, round, reactive to light. Sclerae anicteric. Neck: Supple. No thyromegaly. Lymph: No cervical, supraclavicular or periumbilical lymph nodes appreciated. CV: Regular rate and rhythm. Respiratory: Bilateral equal breath sounds. No work of breathing. GI: Soft, nontender, nondistended. She has a functioning right lower quadrant ileostomy. Well-healed midline incision. Rectal Exam: Deferred. Extremities: No clubbing, cyanosis or edema. Skin: Warm and dry. No rash. Musculoskeletal: Moves all extremities equally and well. LABORATORY: White blood cell count 4.7, hemoglobin 9.1, hematocrit 26, platelet count 284. Electrolytes reviewed and unremarkable. CEA level is 5.2, albumin 3.7. IMAGING: None this admission, but CT scan of the chest, abdomen and pelvis from 01/19/2019 shows improved hepatic metastatic disease, improved pelvic mass on the left, and postsurgical changes in the pelvis. ASSESSMENT/PLAN: A 53-year-old female with stage IV rectal cancer, now passing stool through the rectum and anus. 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 It probably is of little clinical significance. We will check a barium enema for further evaluation, but I have given her some reassurance that this does not require emergent surgery for her, and she can manage this as she normally would by making sure she is near a toilet whenever she eats, and to notify me if anything changes. cc: MD Asa Pope MD
--- NOTE | 2019-02-20 08:01 | HISTORY AND PHYSICAL ---
CHIEF COMPLAINT/HISTORY OF PRESENT ILLNESS: Patient is a 53-year-old female with rectal adenocarcinoma and liver metastasis, admitted to the hospital for her chemotherapy. She has been tolerating chemotherapy reasonably well. Last scans revealed good response. She has mild nausea with chemotherapy which is managed well. During this period of time, she has gained weight. She has a colostomy bag and denies any diarrhea. Recently she did notice some rectal pain with some stool from the rectum. She would like to discuss this with Dr. Torres. PAST MEDICAL HISTORY: Obstructive uropathy with stents, pelvic abscesses status post drainage. PAST SURGICAL HISTORY: Colostomy, Port-A-Cath placement, ureteral stenting. FAMILY HISTORY: History of liver failure and brain aneurysms. SOCIAL HISTORY: Patient is a chronic smoker. She denies alcohol or substance abuse. HOME MEDICATION: 1. MSIR. 2. MS Contin. 3. Prilosec. 4. Zofran. 5. Reglan. ALLERGIES: Latex. REVIEW OF SYSTEMS: As dictated above. All other review of systems are negative. PHYSICAL EXAMINATION: GENERAL: The patient is a thinly developed female, in no acute distress. VITAL SIGNS: Temperature 97.7 degrees, pulse 59, blood pressure 76/48. HEENT: Eyes EOMI. PERRLA. Anicteric. Mucous membranes are moist. CARDIOVASCULAR: Regular rate and rhythm. Normal S1, S2. CHEST: Clear to auscultation. ABDOMEN: Soft, nontender, without hepatosplenomegaly or masses. EXTREMITIES: No cyanosis, clubbing, or edema. NEUROLOGICAL: Alert and oriented x3. No focal motor deficits. ASSESSMENT AND PLAN: 1. Metastatic colorectal adenocarcinoma: She appears to be responding well to chemotherapy. Continue current chemotherapy. Monitor for infection reactions and side effects. Next dose in 2 weeks. 2. Nausea prophylaxis: Continue Zofran and Decadron. She will take Reglan and Zofran p.r.n. 3. Neutropenic prophylaxis: Continue to monitor for fevers and neutropenia. 4. Pain management: Continue current MS Contin and MSIR. She is doing well. 5. Rectal discomfort: She has had on and off rectal discomfort. This may be related to her tumor and prior infection and scarring. Lately she has also started to have stool from her rectum and wanted to discuss this further with Dr. Torres. We will consult with him. cc: Asa Hein MD
[2019-02-20] MEDS: MS CONTIN PO SCH ×2 (09:18→21:30)
[2019-02-20] MEDS: PRILOSEC PO SCH ×2 (09:19→21:30)
--- NOTE | 2019-02-20 13:45 | Diag Imaging Result Doc PS360 ---
EXAM: BARIUM ENEMA INDICATION: evaluate rectal stump for colorectal fistula TECHNIQUE: Water-soluble iodinated contrast was infused per rectum under fluoroscopy. Spot images were obtained. COMPARISON: None. FINDINGS: There was normal filling of the rectal pouch with contrast. No abnormal contrast extravasation is appreciated. Specifically, there is no evidence of colorectal fistula. Postevacuation images show essentially complete clearance of the contrast from the rectal pouch. IMPRESSION: No evidence of colorectal fistula. Electronically signed by Nick Velázquez 02/20/2019 1:43 PM
[2019-02-21] MEDS: PHENERGAN IV PRN ×2 (06:27→12:05)
[2019-02-21] MEDS: MORPHINE IR PO PRN ×2 (06:27→12:05)
[2019-02-21] MEDS: MS CONTIN PO SCH (08:47)
[2019-02-21] MEDS: PRILOSEC PO SCH (08:48)
[2019-02-21 09:07] VITALS: BP 122/77
--- NOTE | 2019-02-21 14:17 | HEMO/ONC PROGRESS NOTE ---
DATE: 02/20/2019 SUBJECTIVE: Patient reports that she is doing well without any nausea issues with chemotherapy. She is eating well. Dr. Torres has seen her and obtained barium study. No other complaints at this time. OBJECTIVE: Vital signs: Temperature 97.8 degrees, pulse 74, blood pressure 100/63. HEENT: Eyes anicteric. Mucous membranes are moist. Cardiac: Regular rate and rhythm. Normal S1, S2. Chest: Clear to auscultation. Abdomen: Soft, nontender. Colostomy bag in place. Extremities: No edema. ASSESSMENT AND PLAN: 1. Stage IV colorectal cancer: She is tolerating chemotherapy well. Continue to monitor. Discharge home when done. 2. Nausea prophylaxis: Continue Zofran, Reglan and Phenergan per protocol. 3. Hypokalemia: She received a dose of IV potassium. Potassium level is back to normal. She has been advised to be compliant with her potassium at home. 4. Pain management: Pain is well controlled on MS Contin 60 mg q.12 and MSIR 15 mg as needed. cc: Asa Hein MD
== END 2019-02-21 16:19 | disposition home or self-care (01) | DRG 847 ==
LOC: DIRADM 11:05 → 3N 12:18
PROVIDERS: ADMIT Internal Medicine Medical Oncology; ATTEND Internal Medicine Medical Oncology
CPT/HCPCS: 74270; 80053; 82378; 83735; 84132; 85025; A9270; J0461; J0640; J1200; J2405; J2550; J3480; J7030; J7040; J7050; J7060; J9190; J9205; J9206; J9303; Q9958

== ENCOUNTER 2019-03-18 10:23 | Inpatient (IN) ==
[2019-03-18 15:46] LABS: AGAP 16; ALB/GLOB RATIO 0.9; ALBUMIN 3.3 g/dL (3.5-5.0); ALKALINE PHOSPHATASE 90 U/L (32-104); BUN 7 mg/dL (8-22); CALCIUM 7.7 mg/dL (8.8-10.2); CHLORIDE 93 mmol/L (98-107); COSMO 261; ESTIMATED GFR 58; GLUCOSE 110 mg/dL (70-104); GOT 8 U/L (10-30); GPT < 5 U/L (10-36); SODIUM 131 mmol/L (136-145); TCO2 22 mmol/L (25-35); TOTAL BILIRUBIN 0.79 mg/dL (0.20-1.00); TOTAL PROTEIN 6.9 g/dL (6.3-8.3)
[2019-03-18 15:52] LABS: BASO# 0.02 X1000 (0.0-0.2); BASO% 0.8 % (0.0-0.8); EOS# 0.04 X1000 (0.0-0.7); EOS% 1.5 % (0.0-10.0); HEMATOCRIT 22.1 % (37.0-47.0); HEMOGLOBIN 7.6 g/dL (12.0-16.0); LYMPH# 1.06 X1000 (1.2-3.4); LYMPH% 40.9 % (20.5-51.1); MCH 30.3 PG (27-31); MCHC 34.4 g/dL (33-37); MONO# 0.84 X1000 (0.11-0.59); MONO% 32.4 % (1.7-9.3); MPV 9.9 FL (7.4-10.4); NEUT# 0.63 X1000 (1.4-6.5); NEUT% 24.4 % (42.2-75.2); PLT 261 X1000 (130-400); RBC 2.51 XMIL (4.2-5.4); WBC 2.59 X1000 (4.8-10.8)
[2019-03-18 15:56] LABS: POTASSIUM 2.2 mmol/L (3.5-5.1)
[2019-03-18] MEDS ORDERED: EPOGEN SUBQ ONE (16:28)
[2019-03-18] MEDS ORDERED: MAGNESIUM SULFATE 2 GM/S.W.I. 2 GM/50 ML IVPB IV ONE (16:30)
[2019-03-18] MEDS ORDERED: PHENERGAN PO PRN (16:32)
[2019-03-18 16:55] LABS: LARGE PLATELETS OCCASIONAL; LYMPHS 50 % (21-51); MONO 21 % (1-9); SEGS 28 % (42-75)
[2019-03-18 16:59] LABS: ANISOCYTOSIS 1+
[2019-03-18] MEDS: LEVAQUIN PO SCH (17:07)
[2019-03-18] MEDS: MORPHINE IR PO PRN (17:20)
[2019-03-18] MEDS: PRILOSEC PO SCH (18:27)
[2019-03-18] MEDS ORDERED: POTASSIUM CHLORIDE 60 MEQ in NS 500 ML IV ONE (20:00)
--- NOTE | 2019-03-18 20:47 | HISTORY AND PHYSICAL ---
CHIEF COMPLAINT: The patient is being admitted for IV antibiotics and potassium replacement. HISTORY OF PRESENT ILLNESS: Ms. Post is a 53-year-old female with rectal adenocarcinoma with liver metastasis, who is undergoing chemotherapy. The patient has been tolerating chemotherapy every month very well. She has had a good response to chemotherapy. She has some nausea, which she manages well at home. The patient's appetite has improved and she has gained some weight. We originally intended to admit for her next round of chemo but her labs showed severe neutropenia and hypokalemia. PAST MEDICAL HISTORY: Obstructive uropathy with stents; pelvic abscesses, status post drainage. PAST SURGICAL HISTORY: Colostomy, Port-A-Cath placement, ureteral stenting. FAMILY HISTORY: Liver failure and brain aneurysm. SOCIAL HISTORY: She currently smokes. She denies any alcohol or substance abuse. HOME MEDICATIONS: MS Contin, Prilosec, Zofran, Reglan, MSIR. ALLERGIES: Latex. REVIEW OF SYSTEMS: Negative other than HPI. PHYSICAL EXAMINATION: VITAL SIGNS: Temperature 100.4 degrees, pulse rate 95, respiratory rate 16, blood pressure 101/62, 100% on room air. Pain 8/10. GENERAL: The patient is awake, lying in bed, in no acute distress. HEENT: Anicteric. PERRLA. Mucous membranes appear moist. NECK: Supple. Trachea midline. LYMPHATIC: On lymph node survey, no palpable lymphadenopathy. CARDIOVASCULAR: S1, S2 noted. Regular rate and rhythm. CHEST: Clear to auscultation. ABDOMEN: Soft, nontender. No pain with palpation. SKIN: In the abdominal scar line is a small open wound. NEUROLOGIC: Alert and oriented x3. No focal deficits. LABORATORY DATA: White blood cells 2.59, hemoglobin 7.6, hematocrit 22.1, platelets 261,000, ANC 0.63. Sodium 131, potassium 2.2, creatinine 1.0, calcium 7.7, magnesium 0.8. ASSESSMENT AND PLAN: 1. Metastatic colorectal adenocarcinoma: We will hold FOLFIRI and Vectibix this week due to neutropenia. Patient will require antibiotics. We will evaluate restarting it next week. 3. Pain management. Continue home pain medications as ordered. 4. Supportive care. The patient will continue protein shakes and exercises while in the hospital. 5. Hypokalemia. The patient will receive intravenous potassium replacement. 6. Hypomagnesemia. The patient will receive intravenous magnesium replacement. Plan of care was discussed with Dr. Hein. Dictated by CHRISTIAN Mckinney for Asa Hein MD Patient seen and examined. Patient admitted for next round of chemotherapy but noted to have neutropenia and severe hypokalemia. She has been on potassium replacement. She reports of having diarrhea, however she is not following diarrhea protocol at home. We will start her on Levaquin to prevent neutropenic fever. Proceed with IV potassium and magnesium replacement. Imodium per protocol. Hold chemotherapy. Plan for chemotherapy next week. Asa Hein M.D. cc: Asa Hein MD [facility]
[2019-03-18 21:09] LABS: MAGNESIUM 0.8 mg/dL (1.5-2.7)
[2019-03-18] MEDS: MS CONTIN PO SCH (22:02)
[2019-03-19] MEDS: PRILOSEC PO SCH ×2 (05:27→07:25)
[2019-03-19] MEDS: MORPHINE IR PO PRN ×2 (05:27→10:09)
[2019-03-19 07:00] LABS: BASO# 0.01 X1000 (0.0-0.2); BASO% 0.4 % (0.0-0.8); EOS# 0.07 X1000 (0.0-0.7); EOS% 2.6 % (0.0-10.0); HEMOGLOBIN 7.3 g/dL (12.0-16.0); LYMPH# 1.19 X1000 (1.2-3.4); LYMPH% 43.6 % (20.5-51.1); MCH 29.7 PG (27-31); MCHC 33.2 g/dL (33-37); MCV 89.4 FL (81-99); MONO# 0.76 X1000 (0.11-0.59); MONO% 27.8 % (1.7-9.3); MPV 9.7 FL (7.4-10.4); NEUT% 25.6 % (42.2-75.2); PLT 261 X1000 (130-400); RBC 2.46 XMIL (4.2-5.4); RDW 15.1 % (11.5-14.5); WBC 2.73 X1000 (4.8-10.8)
[2019-03-19 07:12] LABS: EOS 2 % (1-10); LYMPHS 49 % (21-51); MONO 22 % (1-9); SEGS 27 % (42-75)
[2019-03-19 07:29] LABS: AGAP 10; ALB/GLOB RATIO 0.8; ALBUMIN 2.8 g/dL (3.5-5.0); ALKALINE PHOSPHATASE 83 U/L (32-104); BUN 5 mg/dL (8-22); CALCIUM 7.7 mg/dL (8.8-10.2); CHLORIDE 100 mmol/L (98-107); COSMO 267; CREATININE 0.9 mg/dL (0.5-0.9); ESTIMATED GFR > 60; GLUCOSE 101 mg/dL (70-104); GOT 7 U/L (10-30); GPT < 5 U/L (10-36); POTASSIUM 2.8 mmol/L (3.5-5.1); SODIUM 135 mmol/L (136-145); TCO2 25 mmol/L (25-35); TOTAL BILIRUBIN 0.58 mg/dL (0.20-1.00); TOTAL PROTEIN 6.4 g/dL (6.3-8.3)
[2019-03-19] MEDS: MS CONTIN PO SCH (08:10)
[2019-03-19] MEDS ORDERED: POTASSIUM CHLORIDE 60 MEQ in NS 500 ML IV ONE ×2 (09:02→11:49)
[2019-03-19 13:51] VITALS: BP 86/56
[2019-03-19] MEDS: LEVAQUIN PO SCH (15:04)
--- NOTE | 2019-03-19 19:58 | HEMO/ONC PROGRESS NOTE ---
DATE: 03/19/2019 SUBJECTIVE: The patient is sitting up in bed, eating her breakfast. She has no complaints today. She denies any pain. Her appetite is good, and she feels well. OBJECTIVE: Vital signs: Temperature 97.8 degrees, heart rate 76, respiratory rate 16, blood pressure 100/64. She is 100% on room air. She denies pain to me. General: The patient is awake, sitting up in bed eating breakfast, in no acute distress.HEENT: Anicteric. PERRLA. Mucous membranes moist. Cardiovascular: S1, S2 noted. Regular rate and rhythm. Respiratory: Chest is clear to auscultation. Abdomen: Soft and nontender. No masses felt. Neurologic: Alert and oriented x3. No focal deficits. LABORATORY DATA: WBC 2.73, hemoglobin 7.3, hematocrit 22.0, platelet count 261,000. Sodium 135, potassium 2.8, creatinine 0.9, magnesium 1.5, albumin 2.8. ASSESSMENT AND PLAN: 1. Metastatic colorectal adenocarcinoma: We will hold the patient's chemotherapy for another week due to neutropenia. We will evaluate restarting it next week. 2. Pain management: Continue the patient on her home medications as ordered. 3. Hypokalemia: The patient will receive one more intravenous dose of potassium today. 4. Hypomagnesemia: The patient's magnesium has resolved to a normal level. We will continue to monitor. 5. Supportive care: The patient will continue protein shakes and exercises while in the hospital. Discharge home. Dictated by CHRISTIAN Mckinney for Asa Hein MD cc: Asa Hein MD [facility]
== END 2019-03-19 15:37 | disposition home or self-care (01) | DRG 809 ==
LOC: DIRADM 10:23 → 3N 14:18
PROVIDERS: ADMIT Internal Medicine Medical Oncology; ATTEND Internal Medicine Medical Oncology
CPT/HCPCS: 80053; 82378; 83735; 85025; A9270; J0885; J3475; J3480; J7040

== ENCOUNTER 2019-03-25 14:01 | Inpatient (IN) ==
--- NOTE | 2019-03-25 17:03 | HISTORY AND PHYSICAL ---
CHIEF COMPLAINT: The patient is being admitted for a course of chemotherapy. HISTORY OF PRESENT ILLNESS: Ms. Post is a 53-year-old female with rectal adenocarcinoma with liver metastasis, who is undergoing chemotherapy. The patient has been tolerating her chemotherapy every month very well. She has had a good response to chemotherapy. The patient has had some very mild nausea with chemotherapy, which has been managed well at home. The patient's appetite has improved, and she has been gaining weight. The patient had a low potassium and a low ANC last week and, therefore, chemotherapy could not be given. Her levels have improved this week, and we will proceed with therapy. PAST MEDICAL HISTORY: Obstructive uropathy with stent, pelvic abscesses status post drainage. PAST SURGICAL HISTORY: Colostomy, Port-A-Cath placement, and ureteral stenting. FAMILY HISTORY: Liver failure and brain aneurysm. SOCIAL HISTORY: She currently smokes. She denies any alcohol or substance use. HOME MEDICATIONS: MS Contin, Prilosec, Zofran, and Reglan. ALLERGIES: Latex. REVIEW OF SYSTEMS: Negative other than HPI. PHYSICAL EXAMINATION: VITAL SIGNS: Temperature 98 degrees, pulse rate 85, respiratory rate 16, blood pressure 93/61, and O2 saturation 100% on room air. She is in 8/10 back and hip pain. GENERAL: The patient is awake and alert and in no acute distress. HEENT: Anicteric. Pupils PERRLA. Mucous membranes appear to be moist. LYMPH NODE SURVEY,: No palpable lymph nodes. CARDIOVASCULAR: S1, S2 noted. CHEST: Clear to auscultation. ABDOMEN: Soft, nontender, nondistended. Bowel sounds present in all 4 quadrants. SKIN: Warm, dry, and intact. NEUROLOGICAL: Oriented x3. No focal deficits noted. LABORATORY DATA: WBC 12.6, hemoglobin 9.2, hematocrit 27.7, platelet count 376,000, potassium 2.9, creatinine 1, magnesium 1.1, CEA 3.6. ASSESSMENT AND PLAN: 1. Metastatic colorectal adenocarcinoma: The patient has been tolerating chemotherapy and receiving every month. Patient will continue on FOLFIRI and Vectibix at 100% of the dose. We will continue to monitor for side effects. 2. Nausea prophylaxis. The patient will continue to receive Zofran and Decadron prior to treatment. The patient also has Reglan and Zofran to take at home on an as-needed basis. 3. Neutropenia prophylaxis. Continue to monitor for any fevers greater than 100.5 and neutropenia. 4. Pain management: Continue home pain medications as ordered. 5. Diarrhea prophylaxis: The patient will receive atropine prior to infusion. Patient has p.r.n. medications as needed. 6. Supportive care: The patient will continue protein shakes and exercise as well in the hospital. Dictated by CHRISTIAN Mckinney for Asa Hein MD cc: Asa Hein MD
[2019-03-25] MEDS: MAGNESIUM SULFATE 2 GM/S.W.I. 2 GM/50 ML IVPB IV SCH (17:36)
[2019-03-25] MEDS: KLOR-CON PO SCH (17:37)
[2019-03-25] MEDS ORDERED: PHENERGAN PO PRN (18:23)
[2019-03-25] MEDS: MS CONTIN PO SCH (20:51)
[2019-03-25] MEDS: PRILOSEC PO SCH (20:52)
[2019-03-26] MEDS: MORPHINE IR PO PRN ×3 (02:07→16:55)
[2019-03-26] MEDS: MAGNESIUM SULFATE 2 GM/S.W.I. 2 GM/50 ML IVPB IV SCH (04:27)
[2019-03-26] MEDS: PRILOSEC PO SCH ×3 (07:53→21:10)
[2019-03-26 08:39] LABS: BASO# 0.04 X1000 (0.0-0.2); BASO% 0.4 % (0.0-0.8); EOS# 0.15 X1000 (0.0-0.7); EOS% 1.4 % (0.0-10.0); HEMATOCRIT 30.4 % (37.0-47.0); IMM GRAN# 0.08 X1000 (0.0-0.04); IMM GRAN% 0.7 % (0.0-0.5); LYMPH# 2.84 X1000 (1.2-3.4); LYMPH% 25.9 % (20.5-51.1); MCH 30.5 PG (27-31); MCHC 32.9 g/dL (33-37); MCV 92.7 FL (81-99); MONO# 0.86 X1000 (0.11-0.59); MONO% 7.9 % (1.7-9.3); MPV 9.5 FL (7.4-10.4); NEUT# 6.98 X1000 (1.4-6.5); NEUT% 63.7 % (42.2-75.2); PLT 359 X1000 (130-400); RBC 3.28 XMIL (4.2-5.4); RDW 16.6 % (11.5-14.5); WBC 10.95 X1000 (4.8-10.8)
[2019-03-26 08:45] LABS: AGAP 12; BUN 5 mg/dL (8-22); CHLORIDE 99 mmol/L (98-107); COSMO 268; CREATININE 0.8 mg/dL (0.5-0.9); ESTIMATED GFR > 60; GLUCOSE 106 mg/dL (70-104); POTASSIUM 2.7 mmol/L (3.5-5.1); SODIUM 135 mmol/L (136-145); TCO2 24 mmol/L (25-35)
[2019-03-26 08:46] LABS: ALB/GLOB RATIO 0.7; ALBUMIN 3.2 g/dL (3.5-5.0); ALKALINE PHOSPHATASE 116 U/L (32-104); CALCIUM 8.8 mg/dL (8.8-10.2); GOT 11 U/L (10-30); GPT < 5 U/L (10-36); TOTAL BILIRUBIN 0.57 mg/dL (0.20-1.00); TOTAL PROTEIN 7.6 g/dL (6.3-8.3)
[2019-03-26] MEDS ORDERED: REGLAN IV PRN (09:26)
[2019-03-26] MEDS ORDERED: ZOFRAN 16 MG in NS 100 ML IV ONE (09:30)
[2019-03-26] MEDS ORDERED: TYLENOL PO ONE (09:30)
[2019-03-26] MEDS: KLOR-CON PO SCH (09:38)
[2019-03-26] MEDS: MS CONTIN PO SCH ×2 (09:39→21:13)
[2019-03-26] MEDS ORDERED: KLOR-CON PO ONE (09:46)
[2019-03-26 09:50] LABS: BANDS 1 % (0-1); EOS 1 % (1-10); LYMPHS 25 % (21-51); MONO 9 % (1-9); NRBC 2 % (0-0); SEGS 62 % (42-75)
[2019-03-26 09:51] LABS: LARGE PLATELETS 1+; POLYCHROM 1+
[2019-03-26] MEDS ORDERED: BENADRYL 25 MG in NS 100 ML INJ ONE (10:00)
[2019-03-26] MEDS ORDERED: [UNRECOGNIZED DRUG - OTHER] IV ONE (10:30)
[2019-03-26] MEDS ORDERED: NS IV ONE ×3 (10:30→13:30)
[2019-03-26] MEDS ORDERED: DECADRON IV ONE (11:00)
[2019-03-26] MEDS ORDERED: LEUCOVORIN IV ONE (11:30)
[2019-03-26] MEDS ORDERED: CAMPTOSAR IV ONE (11:30)
[2019-03-26] MEDS ORDERED: D5W IV ONE ×2 (11:30)
[2019-03-26] MEDS ORDERED: ATROPINE IV ONE (11:30)
[2019-03-26] MEDS ORDERED: [UNRECOGNIZED DRUG - OTHER] IV ONE (13:30)
[2019-03-26] MEDS ORDERED: [UNRECOGNIZED DRUG - OTHER] IV ONE (13:30)
[2019-03-26] MEDS ORDERED: DILUENT IV ONE (13:30)
--- NOTE | 2019-03-26 14:05 | HEMO/ONC PROGRESS NOTE ---
DATE: 03/26/2019 SUBJECTIVE: The patient is sitting up in bed, comfortable, watching TV. No complaints of pain. She is feeling quite well. Does not verbalize any needs today. OBJECTIVE: Vital signs: Temperature 98.1, pulse rate 79, respiratory rate 14, blood pressure 104/57, O2 saturation 100% on room air. She tells nursing staff 5/10 pain in her back and hip. General: The patient is awake and alert, in no acute distress. Lymph node survey, no palpable lymph nodes. Cardiovascular: S1, S2 noted. Regular rate and rhythm. Chest: Clear to auscultation. Abdomen: Soft, nontender, nondistended. Skin: Warm, dry, intact. Neurologic: Alert and oriented x3. No focal deficits. LABORATORY DATA: WBC 10.95, hemoglobin 10.0, hematocrit 38.4, platelet count 359. Sodium 135, potassium 2.7, creatinine 0.8. ASSESSMENT: 1. Metastatic colorectal adenocarcinoma. 2. Pain management. 3. Supportive care. PLAN: Patient will continue to receive chemotherapy with FOLFIRI and Vectibix at 100% of the dose. We will continue to monitor for side effects. She will continue Zofran and Decadron prior to her treatment. We will continue to monitor for any fevers greater than 100.5 with neutropenia. Nursing staff should notify our office for any of the above. Continue her home pain medications as ordered. Diarrhea prevention. Patient will receive atropine prior to her infusion. The patient needs to have protein shakes to get out of bed as often as possible and exercise while in the hospital. Dictated by CHRISTIAN Mckinney for Asa Hein MD cc: Asa Hein MD
[2019-03-26] MEDS: PHENERGAN IV PRN (16:55)
[2019-03-26] MEDS: SODIUM CHLORIDE 0.9% INJ PRN (16:56)
[2019-03-27] MEDS: MORPHINE IR PO PRN ×2 (03:11→15:34)
[2019-03-27] MEDS: MS CONTIN PO SCH ×2 (09:08→20:33)
[2019-03-27] MEDS: KLOR-CON PO SCH (09:08)
[2019-03-27] MEDS: PRILOSEC PO SCH ×2 (09:08→20:33)
[2019-03-27] MEDS: PHENERGAN IV PRN ×3 (09:12→20:36)
[2019-03-27] MEDS: SODIUM CHLORIDE 0.9% INJ PRN ×2 (09:12→15:34)
[2019-03-27] MEDS ORDERED: ZOFRAN 16 MG in NS 100 ML IV ONE (11:30)
[2019-03-27] MEDS ORDERED: DILUENT IV ONE (12:00)
[2019-03-27] MEDS ORDERED: [UNRECOGNIZED DRUG - OTHER] IV ONE (12:00)
[2019-03-27] MEDS ORDERED: NS IV ONE (12:00)
[2019-03-27] MEDS ORDERED: [UNRECOGNIZED DRUG - OTHER] IV ONE (12:00)
--- NOTE | 2019-03-27 17:16 | HEMO/ONC PROGRESS NOTE ---
DATE: 03/27/2019 SUBJECTIVE: Ms. Post is sitting up in bed. She is comfortable. She feels good. She denies any complaints. I brought her 2-week prescription for her pain medication to her this morning, placed it in her front pocket of her bag per her instructions. OBJECTIVE: Vital Signs: Temperature 98.0 degrees, pulse rate 77, respiratory rate 19, blood pressure 95/53, O2 saturation 100% on room air, 3/10 pain. General: The patient is awake and alert. She does not appear to be in any acute distress. Respiratory: Lungs clear to auscultation. Cardiovascular: S1 and S2 noted. Regular rate and rhythm. Abdomen: Soft, nontender, nondistended. Appetite good. Skin: Warm, dry, and intact. Neurological: Alert and oriented x3. No focal motor deficits. LABORATORY DATA: Labs today are pending. ASSESSMENT: 1. Metastatic colorectal adenocarcinoma. 2. Pain management. 3. Supportive care. PLAN: We will continue to do her day 2 of chemotherapy today with FOLFIRI and Vectibix at 100% of the dose. We will continue to monitor for side effects. She will continue Zofran and Decadron prior to her treatments for nausea prophylaxis. She will continue to have atropine prior to her infusions for diarrhea prevention. Nursing staff has been instructed to notify us for any fevers greater than 100.5. We will continue to monitor for neutropenia. The patient should continue to have protein shakes at will and get out of bed as much as possible and continue her exercise as well in the hospital. The patient should be discharged tomorrow. Dictated by CHRISTIAN Mckinney for Asa Hein MD cc: Asa Hein MD [facility]
[2019-03-28] MEDS: SODIUM CHLORIDE 0.9% INJ PRN ×2 (06:42→12:22)
[2019-03-28] MEDS: PHENERGAN IV PRN ×2 (06:43→12:22)
[2019-03-28] MEDS: MORPHINE IR PO PRN ×2 (06:43→12:22)
[2019-03-28] MEDS: PRILOSEC PO SCH (08:20)
[2019-03-28] MEDS: MS CONTIN PO SCH (08:20)
[2019-03-28] MEDS: KLOR-CON PO SCH (08:20)
[2019-03-28 09:21] LABS: BASO# 0.03 X1000 (0.0-0.2); BASO% 0.4 % (0.0-0.8); EOS# 0.03 X1000 (0.0-0.7); EOS% 0.4 % (0.0-10.0); HEMATOCRIT 27.3 % (37.0-47.0); HEMOGLOBIN 8.5 g/dL (12.0-16.0); IMM GRAN# 0.04 X1000 (0.0-0.04); IMM GRAN% 0.5 % (0.0-0.5); LYMPH# 2.07 X1000 (1.2-3.4); LYMPH% 24.5 % (20.5-51.1); MCH 29.9 PG (27-31); MCHC 31.1 g/dL (33-37); MCV 96.1 FL (81-99); MONO# 0.24 X1000 (0.11-0.59); MONO% 2.8 % (1.7-9.3); MPV 9.5 FL (7.4-10.4); NEUT# 6.04 X1000 (1.4-6.5); NEUT% 71.4 % (42.2-75.2); PLT 224 X1000 (130-400); RBC 2.84 XMIL (4.2-5.4); RDW 16.7 % (11.5-14.5); WBC 8.45 X1000 (4.8-10.8)
[2019-03-28 09:33] LABS: AGAP 11; ALB/GLOB RATIO 0.8; ALBUMIN 2.7 g/dL (3.5-5.0); ALKALINE PHOSPHATASE 90 U/L (32-104); BUN 12 mg/dL (8-22); CALCIUM 8.4 mg/dL (8.8-10.2); CHLORIDE 107 mmol/L (98-107); COSMO 277; ESTIMATED GFR 58; GLUCOSE 96 mg/dL (70-104); GOT 9 U/L (10-30); GPT < 5 U/L (10-36); POTASSIUM 3.6 mmol/L (3.5-5.1); SODIUM 139 mmol/L (136-145); TCO2 21 mmol/L (25-35); TOTAL BILIRUBIN 0.53 mg/dL (0.20-1.00); TOTAL PROTEIN 6.1 g/dL (6.3-8.3)
[2019-03-28 12:01] VITALS: BP 90/54
== END 2019-03-28 16:20 | disposition home or self-care (01) | DRG 847 ==
LOC: DIRADM 14:01 → 3N 15:10
PROVIDERS: ADMIT Internal Medicine Medical Oncology; ATTEND Internal Medicine Medical Oncology
CPT/HCPCS: 80053; 85025; A9270; J0461; J0640; J1200; J2405; J2550; J3475; J7030; J7060; J9190; J9205; J9206; J9303

== ENCOUNTER 2019-04-08 11:56 | Inpatient (IN) ==
[2019-04-08] MEDS ORDERED: REGLAN IV PRN (16:13)
[2019-04-08] MEDS ORDERED: ZOFRAN 16 MG in NS 100 ML IV ONE (16:30)
[2019-04-08] MEDS ORDERED: BENADRYL 25 MG in NS 100 ML INJ ONE (16:30)
[2019-04-08] MEDS ORDERED: TYLENOL PO ONE (16:30)
[2019-04-08] MEDS: MAGNESIUM SULFATE 4 GM/S.W.I. 4 GM/100 ML IVPB IV SCH (16:32)
[2019-04-08] MEDS ORDERED: [UNRECOGNIZED DRUG - OTHER] IV ONE (17:00)
[2019-04-08] MEDS ORDERED: NS IV ONE ×3 (17:00→20:00)
--- NOTE | 2019-04-08 17:25 | HISTORY AND PHYSICAL ---
CHIEF COMPLAINT: The patient is being admitted for a course of chemotherapy for metastatic rectal carcinoma. HISTORY OF PRESENT ILLNESS: Ms. Post is a 53-year-old female with rectal adenocarcinoma with liver metastasis, who is undergoing chemotherapy. She has continued to tolerate her chemotherapy very well every month. She has had a good response so far to therapy. The patient's appetite continues to improve. Her weight is stable. PAST MEDICAL HISTORY: Obstructive uropathy with stent pelvic abscess due to status post drainage. PAST SURGICAL HISTORY: Colostomy, Port-A-Cath placement, and ureteral stenting. FAMILY HISTORY: Liver failure and brain aneurysm. SOCIAL HISTORY: She currently smokes. She denies alcohol or substance use. HOME MEDICATIONS: MS Contin, MSIR, Phenergan, Reglan, Zofran, Prilosec. ALLERGIES: Latex. REVIEW OF SYSTEMS: Negative other than HPI. PHYSICAL EXAMINATION: Pulse rate 84, blood pressure 91/61, blood pressure 91/64, O2 saturation 100% on room air. PAIN: She is in 0/10 pain. GENERAL: The patient is awake, alert, and in no acute distress. HEENT: Anicteric. Pupils: PERRLA. Mucous membranes appear to be moist. LYMPH NODE SURVEY: No palpable lymph nodes. CARDIOVASCULAR: S1, S2 noted. Regular rate and rhythm. CHEST: Clear to auscultation. Normal respiratory effort. ABDOMEN: Soft, nontender, nondistended. Bowel sounds present in all 4 quadrants. SKIN: Warm, dry, and intact. There is an open area along the scar line below her umbilicus. NEUROLOGICAL: Oriented x3. No focal deficits. DIAGNOSTIC STUDIES: WBCs 4.11, hemoglobin is 8.7, hematocrit 26.3, platelet count is 327,000. Sodium is 126, potassium 3.2, creatinine is 1.2, magnesium is 1.1. CEA is 2.9. ASSESSMENT AND PLAN: 1. Metastatic colorectal adenocarcinoma: The patient has been tolerating chemotherapy and receiving it every month. The patient will continue FOLFIRI and Vectibix at 100% of the dose. We will continue to monitor for side effects. 2. Nausea prophylaxis. The patient will continue to receive Zofran and Decadron prior to treatment. The patient also has Reglan and Zofran to take at home on an as-needed basis. 3. Neutropenia prophylaxis. Continue to monitor for any fevers greater than 100.5 and neutropenia. 4. Pain management. Continue home pain medications as ordered. 5. Diarrhea prophylaxis. The patient will receive atropine prior to infusion. Patient has p.r.n. medications as needed. 6. Supportive care. The patient will continue protein shakes and exercises while in the hospital. Dictated by CHRISTIAN Mckinney for Asa Hein MD cc: Asa Hein MD
[2019-04-08] MEDS ORDERED: DECADRON IV ONE (17:30)
[2019-04-08] MEDS ORDERED: PHENERGAN PO PRN (17:33)
[2019-04-08] MEDS ORDERED: D5W IV ONE ×2 (18:00)
[2019-04-08] MEDS ORDERED: ATROPINE IV ONE (18:00)
[2019-04-08] MEDS ORDERED: LEUCOVORIN IV ONE (18:00)
[2019-04-08] MEDS ORDERED: CAMPTOSAR IV ONE (18:00)
[2019-04-08] MEDS: MORPHINE IR PO PRN (18:41)
[2019-04-08] MEDS ORDERED: [UNRECOGNIZED DRUG - OTHER] IV ONE (20:00)
[2019-04-08] MEDS ORDERED: [UNRECOGNIZED DRUG - OTHER] IV ONE (20:00)
[2019-04-08] MEDS ORDERED: DILUENT IV ONE (20:00)
[2019-04-08] MEDS: MS CONTIN PO SCH (20:44)
[2019-04-08] MEDS: PRILOSEC PO SCH (20:45)
[2019-04-08] MEDS: KLOR-CON PO SCH (20:45)
[2019-04-09] MEDS: PHENERGAN IV PRN ×4 (03:44→22:28)
[2019-04-09] MEDS: MORPHINE IR PO PRN ×2 (03:44→16:17)
[2019-04-09] MEDS: KLOR-CON PO SCH ×2 (09:32→21:09)
[2019-04-09] MEDS: PRILOSEC PO SCH ×2 (09:32→21:09)
[2019-04-09] MEDS: MS CONTIN PO SCH ×2 (09:32→21:08)
--- NOTE | 2019-04-09 13:34 | HEMO/ONC PROGRESS NOTE ---
DATE: 04/09/2019 SUBJECTIVE: Ms. Post is awake sitting up in bed this morning. She has eaten her breakfast. She continues to feel well. She says she has a good appetite. She denies any side effects from her chemotherapy. Her pain is tolerable. OBJECTIVE: Vital signs: Temperature 97.5, pulse rate 62, blood pressure 82/49, O2 saturation 99% on room air. She states 7/10 pain to bilateral hip and back. PHYSICAL EXAMINATION: General: The patient is awake, alert, and in no acute distress. Cardiovascular: S1, S2 noted. Chest: Clear to auscultation. Normal respiratory effort. Abdomen: Soft, nontender, nondistended, bowel sounds in all 4 quadrants. Colostomy bag in place. Skin: Warm, dry, and intact. There is a wound along the scar line below her umbilicus. She is following up with Dr. Torres. Neurological: Awake, alert, and oriented x3, no focal deficits. No diagnostic studies today. ASSESSMENT AND PLAN: 1. Metastatic colorectal adenocarcinoma: The patient continues to tolerate chemotherapy very well. She will continue to receive it monthly. She is receiving FOLFIRI and Vectibix 100% of the dose. We will continue to monitor for infusional reactions and side effects. 2. Nausea prophylaxis: The patient will continue to receive Zofran and Decadron prior to the treatments. The patient also has Reglan and Zofran to take home on as needed basis. 3. Neutropenia prophylaxis: Continue to monitor for any fevers greater than 100.5 and neutropenia. 4. Pain management: Continue home pain medications as ordered. 5. Diarrhea prophylaxis: The patient will receive atropine prior to infusion. The patient has p.r.n. medications as needed for home care. 6. Supportive care: The patient will continue protein shakes and exercises while in the hospital. Dictated by CHRISTIAN Mckinney for Asa Hein MD cc: Asa Hein MD [facility]
[2019-04-09] MEDS: MAGNESIUM SULFATE 4 GM/S.W.I. 4 GM/100 ML IVPB IV SCH (15:18)
[2019-04-09] MEDS: SODIUM CHLORIDE 0.9% INJ PRN ×2 (16:18→22:28)
[2019-04-09] MEDS ORDERED: ZOFRAN 16 MG in NS 100 ML IV ONE (19:30)
[2019-04-09] MEDS ORDERED: [UNRECOGNIZED DRUG - OTHER] IV ONE (20:00)
[2019-04-09] MEDS ORDERED: [UNRECOGNIZED DRUG - OTHER] IV ONE (20:00)
[2019-04-09] MEDS ORDERED: NS IV ONE (20:00)
[2019-04-09] MEDS ORDERED: DILUENT IV ONE (20:00)
[2019-04-09] MEDS ORDERED: MAGNESIUM SULFATE 4 GM/S.W.I. 4 GM/100 ML IVPB IV ONE (22:00)
[2019-04-10] MEDS ORDERED: ZOFRAN 16 MG in NS 100 ML IV ONE ×2
[2019-04-10] MEDS ORDERED: [UNRECOGNIZED DRUG - OTHER] IV ONE (00:30)
[2019-04-10] MEDS ORDERED: DILUENT IV ONE (00:30)
[2019-04-10] MEDS ORDERED: [UNRECOGNIZED DRUG - OTHER] IV ONE (00:30)
[2019-04-10] MEDS ORDERED: NS IV ONE (00:30)
[2019-04-10 07:09] LABS: BASO# 0.01 X1000 (0.0-0.2); BASO% 0.3 % (0.0-0.8); EOS# 0.04 X1000 (0.0-0.7); EOS% 1.2 % (0.0-10.0); HEMATOCRIT 24.8 % (37.0-47.0); HEMOGLOBIN 8.1 g/dL (12.0-16.0); LYMPH% 34.1 % (20.5-51.1); MCH 29.6 PG (27-31); MCHC 32.7 g/dL (33-37); MCV 90.5 FL (81-99); MONO# 0.44 X1000 (0.11-0.59); MONO% 13.6 % (1.7-9.3); MPV 9.3 FL (7.4-10.4); NEUT# 1.64 X1000 (1.4-6.5); NEUT% 50.8 % (42.2-75.2); PLT 250 X1000 (130-400); RBC 2.74 XMIL (4.2-5.4); RDW 14.3 % (11.5-14.5); WBC 3.23 X1000 (4.8-10.8)
[2019-04-10] MEDS: PHENERGAN IV PRN ×3 (07:15→18:08)
[2019-04-10] MEDS: MORPHINE IR PO PRN ×3 (07:15→18:08)
[2019-04-10 07:32] LABS: ALBUMIN 3.2 g/dL (3.5-5.0); CALCIUM 8.3 mg/dL (8.8-10.2); CREATININE 1.1 mg/dL (0.5-0.9); MAGNESIUM 3.2 mg/dL (1.5-2.7); TOTAL BILIRUBIN 0.34 mg/dL (0.20-1.00); TOTAL PROTEIN 6.5 g/dL (6.3-8.3)
[2019-04-10] MEDS: PRILOSEC PO SCH ×2 (08:31→20:29)
[2019-04-10] MEDS: KLOR-CON PO SCH ×2 (08:31→20:29)
[2019-04-10] MEDS: MS CONTIN PO SCH ×2 (08:31→20:28)
--- NOTE | 2019-04-10 12:24 | DISCHARGE SUMMARY ---
ADMISSION DATE: 04/08/2019 DISCHARGE DATE: 04/10/2019 DIAGNOSIS: Metastatic rectal adenocarcinoma. HOSPITAL SUMMARY: The patient was admitted for her 3 day rounds of chemotherapy while in the hospital. The patient tolerated FOLFIRI and Vectibix at 100% of the doses very well. She understands her outpatient schedule and knows to follow up. She will continue to have chemotherapy every 2 weeks. DISCHARGE MEDICATIONS: 1. MS Contin. 2. MSIR. 3. Phenergan. 4. Reglan. 5. Zofran. FOLLOW-UP: The patient has been given a schedule of her routine follow appointment. She verbalized understanding of the plan. The patient is stable at this time. Dictated by CHRISTIAN Mckinney for Asa Hein MD cc: Asa Hein MD
[2019-04-10] MEDS ORDERED: EPOGEN SQ ONE (20:00)
[2019-04-11] MEDS: MORPHINE IR PO PRN (02:41)
[2019-04-11] MEDS: PHENERGAN IV PRN (02:41)
[2019-04-11 03:48] VITALS: BP 83/49
== END 2019-04-11 06:30 | disposition home or self-care (01) | DRG 847 ==
LOC: DIRADM 11:56 → 3N 13:21
PROVIDERS: ADMIT Internal Medicine Medical Oncology; ATTEND Internal Medicine Medical Oncology
CPT/HCPCS: 80053; 83735; 85025; A9270; J0461; J0640; J0885; J1200; J2405; J2550; J3475; J7030; J7060; J9190; J9205; J9206; J9303

== ENCOUNTER 2019-04-17 10:35 | Inpatient (IN) ==
--- NOTE | 2019-04-17 11:02 | Diag Imaging Result Doc PS360 ---
EXAM: CHEST-1 VIEW HISTORY: POSSIBLE SEPSIS TECHNIQUE: Chest single view COMPARISON: 11/05/2018 FINDINGS: The lungs are well expanded. No change in the right jugular portacatheter. No pneumothorax. The heart is not enlarged. The vessels are not distended. There are no infiltrates. No effusion identified. IMPRESSION: No pneumonia. Electronically signed by Denny Estrella 04/17/2019 11:00 AM
[2019-04-17] MEDS ORDERED: VANCOMYCIN 1 GM/NS 1 GM/250 ML IVPB IV ONE (11:40)
[2019-04-17] MEDS ORDERED: ZOSYN 4.5 GM in NS 100 ML IV ONE (11:40)
[2019-04-17] MEDS ORDERED: NS 1,000 ML IV ONE ×3 (11:40→22:50)
[2019-04-17] MEDS ORDERED: ZOFRAN IV ONE (11:40)
[2019-04-17] MEDS ORDERED: MORPHINE IV ONE (11:40)
[2019-04-17 11:57] LABS: INR 1.33; PROTIME 17.5 Seconds (11.0-16.0)
[2019-04-17 11:58] LABS: PTT 23.7 Seconds (22.3-41.8)
[2019-04-17 12:07] LABS: BASO# 0.01 X1000 (0.0-0.2); BASO% 0.6 % (0.0-0.8); EOS# 0.01 X1000 (0.0-0.7); EOS% 0.6 % (0.0-10.0); HEMOGLOBIN 6.9 g/dL (12.0-16.0); IMM GRAN# 0.16 X1000 (0.0-0.04); IMM GRAN% 10.3 % (0.0-0.5); LYMPH# 0.64 X1000 (1.2-3.4); LYMPH% 41.3 % (20.5-51.1); MCH 29.7 PG (27-31); MCHC 34.5 g/dL (33-37); MCV 86.2 FL (81-99); MONO# 0.49 X1000 (0.11-0.59); MONO% 31.6 % (1.7-9.3); MPV 11.3 FL (7.4-10.4); NEUT# 0.24 X1000 (1.4-6.5); NEUT% 15.6 % (42.2-75.2); PLT 85 X1000 (130-400); RBC 2.32 XMIL (4.2-5.4); RDW 13.1 % (11.5-14.5); WBC 1.55 X1000 (4.8-10.8)
[2019-04-17 12:08] LABS: ALB/GLOB RATIO 0.9; ALBUMIN 3.2 g/dL (3.5-5.0); CALCIUM 8.8 mg/dL (8.8-10.2); POTASSIUM 2.7 mmol/L (3.5-5.1); TOTAL BILIRUBIN 1.4 mg/dL (0.20-1.00); TOTAL PROTEIN 6.9 g/dL (6.3-8.3)
[2019-04-17 12:18] LABS: BANDS 4 % (0-1); LYMPHS 54 % (21-51); MONO 10 % (1-9); SEGS 32 % (42-75)
[2019-04-17] MEDS: POTASSIUM CHLORIDE 20 MEQ/SWI 20 MEQ/100 ML IVPB IV ONE ×2 (13:00→20:15)
--- NOTE | 2019-04-17 13:08 | PROVIDER DOCUMENTATION ---
This chart was entered by Chelsi Valentine Scribe, acting as scribe for Felton Tate MD. HPI-Abdominal Pain/GI Problem - General Chief Complaint: SEPSIS ALERT - D Stated Complaint: WEAKNESS,VOMITING/COLON CANCER Time Seen by Provider: 04/17/19 11:22 Source: patient Allergies/Adverse Reactions: Patient Allergies Allergy/AdvReac Type Severity Reaction Status Date / Time latex Allergy SWELLING Verified 03/04/19 14:36 Home Medications: Home Medication List Medication Instructions Recorded Confirmed Last Taken Type Promethazine [Phenergan] 25 mg PO Q4H PRN PRN 06/10/18 04/08/19 03/25/19 History Omeprazole [Prilosec] 20 mg PO BID 09/09/18 04/08/19 03/25/19 History Morphine Ir 15 mg PO Q4H PRN PRN 11/27/18 04/08/19 03/25/19 History Morphine E.r. [Ms Contin] 30 mg PO Q12HR tab 03/19/19 04/08/19 03/25/19 Rx Potassium Chloride 20 meq PO BID #60 tablet.er 03/19/19 04/08/19 03/25/19 Rx - History of Present Illness-ABD Nature of Presenting Problems: Patient is a 53 year old female who presents with generalized abdominal pain, nausea, vomiting, weakness, and fever that has been present for 5 days. Reports she was discharged from the hospital 6 days ago. History of colon cancer that is monitored by Dr. Hein. States last chemo was 6 days ago. Abdominal Pain Onset Location: reports: generalized abdomen Pain Radiation: reports: no radiation Quality of Pain: reports: aching, cramping Severity in ED: reports: mild Onset/Duration: reports: 5 days ago Timing: reports: still present, getting worse Associated Symptoms: reports: fever/chills (fever), nausea, vomiting, weakness Rectal Bleeding: reports: none Bruising or Bleeding Gums?: No Similar Symptoms Previously?: Yes Recently seen or treated by another doctor?: Yes Review of Systems - Adult - REVIEW OF SYSTEMS - ADULT Constitutional: reports: see HPI, fever. denies: chills, fatique Eyes: reports: no symptoms reported Ears, Nose, Mouth & Throat: reports: sinus problem (drainage). denies: ear pain, nose pain, throat pain Cardiovascular: reports: no symptoms reported Respiratory: reports: cough. denies: shortness of breath, wheezing Gastrointestinal: reports: see HPI, abdominal pain (generalized), nausea, vomiting. denies: diarrhea Genitourinary: reports: dysuria. denies: flank pain, hematuria Musculoskeletal: reports: see HPI, muscle weakness. denies: back pain, neck pain Integumentary: reports: no symptoms reported Neurological: reports: no symptoms reported Psychiatric: reports: no symptoms reported Endocrine: reports: no symptoms reported Hematologic/Lymphatic: reports: no symptoms reported Allergic/Immunologic: reports: no symptoms reported All Other Systems: Reviewed and Negative Past History - Adult - PAST MEDICAL HISTORY-ADULT Review of Records: reports: Old Records Reviewed, Nursing Assessment Review, Medications Reviewed, Social history reviewed & non-contributory. Major Childhood Illnesses: reports: denies history Cardiovascular: reports: denies history Respiratory: reports: denies history Gastrointestinal: reports: cholelithiasis, cancer, other Obstetrical/Gynecological: reports: denies history Genitourinary: reports: kidney stones, other Musculoskeletal: reports: cancer, chronic pain Neurological: reports: denies history Psychiatric: reports: denies history Endocrine/Immune: reports: denies history Other Conditions: reports: denies history - PRIOR SURGERIES/PROCEDURES Surgical/Procedure History: reports: BTL, , other (colostomy bag) - IMMUNIZATION STATUS Childhood Immunizations: See Nurse Assessment Flu Vaccine: See Nurse Assessment - FAMILY HISTORY Family History: reviewed, not pertinent - SOCIAL HISTORY Smoking: cigarettes, greater than 1 pack/day Provider spent 3-5 mins advising pt. on dangers of tobacco.: Discussed manners to quit use, and f/u contacts for add'l counseling. Substance Use: denies Physical Exam-General - PHYSICAL EXAM-ADULT Initial Vital Signs Reviewed: Yes - CONSTITUTIONAL General Appearance: alert, no apparent distress, thin - RESPIRATORY Respiratory: chest non-tender, lungs clear, normal breath sounds. negative: rales, rhonchi, wheezing - CARDIOVASCULAR Cardiovascular: normal peripheral pulses, regular rate, rhythm. negative: tachycardia, systolic murmur - GASTROINTESTINAL (ABDOMEN) Abdominal Exam: tenderness (generalized), other (colostomy bag to RLQ. 1 cm fistula to right midline scar with surround yeast type rash). negative: distended, rigid - MUSCULOSKELETAL Extremity: non-tender, normal inspection. negative: deformity, erythema - SKIN Integumentary: normal turgor, warm/dry, other (1 cm open skin wound to right midline scar with surround yeast type rash). negative: cyanosis, ecchymosis, jaundice - NEUROLOGIC Neurologic: grossly normal. negative: aphasia, facial droop - PSYCHIATRIC Psych/Mental Status: normal mood/affect, oriented x 3. negative: anxious Progress - PLAN OF CARE/RESULTS Progress/Plan/Lab Results: Vital Signs - 8 hr 04/17/19 10:39 Temperature 97.5 F L Pulse Rate 123 H Respiratory Rate 22 Blood Pressure 110/70 O2 Sat by Pulse Oximetry 100 Orders Category Date Time Status Cardiac Monitoring DIRECTED Care 04/17/19 10:45 Active IV Insertion ORDERED Care 04/17/19 10:45 Active Notify MD of + Sepsis Screen NOW Care 04/17/19 10:45 Active Notify Physician As Ordered Care 04/17/19 10:45 Active Wound Care/ET Consult Routine Cons 04/17/19 11:00 Active CHEST-1 VIEW [RAD] Stat Exams 04/17/19 10:45 Completed BLOOD CULTURE [BLDCUL] Stat Lab 04/17/19 10:45 Uncollected CBC WITH DIFF [HEME] Stat Lab 04/17/19 10:45 Uncollected CK PROFILE [SP CHEM] Stat Lab 04/17/19 10:45 Uncollected COMPREHENSIVE METABOLIC PANEL [CHEM] Stat Lab 04/17/19 10:45 Uncollected LACTATE, PLASMA [CHEM] Lab 04/17/19 10:45 Uncollected LACTATE, PLASMA [CHEM] Lab 04/17/19 13:45 Uncollected LACTATE, PLASMA [CHEM] Lab 04/17/19 16:45 Uncollected PROTIME WITH INR [COAG] Stat Lab 04/17/19 10:45 Uncollected PTT [COAG] Stat Lab 04/17/19 10:45 Uncollected ROUTINE CULTURE [RM] Stat Lab 04/17/19 10:45 Uncollected TROPONIN T Stat Lab 04/17/19 10:45 Uncollected URINALYSIS W/POSS RFLX CULT [URINALYSIS] Stat Lab 04/17/19 10:45 Uncollected Oxygen Device Stat Oth 04/17/19 10:45 Active Result Diagrams: 04/17/19 11:29 04/17/19 11:29 - REASSESSMENT Reassessment #1 Time Reassessed: 12:58 Status: improving (WIth IVF and IV antibiotics. Patient states she is NOT a Dr. Martinez patient, that she has no primary care provider. Patient meets criteria for sepsis, likely d/t GI related with fistula. CT pending. Will admit to hospitlaist. Has been given Vanco/Zosyn and IVF) - XRAY 1 XRAY Study: Chest Impression: See EMR Report ( EXAM: CHEST-1 VIEW HISTORY: POSSIBLE SEPSIS TECHNIQUE: Chest single view COMPARISON: 11/05/2018 FINDINGS: The lungs are well expanded. No change in the right jugular portacatheter. No pneumothorax. The heart is not enlarged. The vessels are not distended. There are no infiltrates. No effusion identified. IMPRESSION: No pneumonia. Electronically signed by Denny Estrella 04/17/2019 11:00 AM 04/17/19 1100 Interpreting Physician: Denny Estrella MD Dictated Date/Time: 04/17/19 1100 cc: Felton Tate MD; None,PCP) - CT/MRI 1 CT Study: Abdomen, Pelvis Impression: See EMR Report ( EXAM: CT ABD/PELVIS W/PO AND IV CON HISTORY: abd pain, colon ca, open fistula lower abdomen TECHNIQUE: CT abdomen and pelvis with intravenous contrast COMPARISON: 01/19/2019 FINDINGS: There are scattered calcified hepatic masses. These have not increased in size or number. The larger lesions are slightly smaller. The largest lesion measures 2.3 cm in maximum diameter. The spleen is not enlarged. Prominent gastrosplenic varices. Normal pancreas, gallbladder, and adrenal glands. The lower pole of the left kidney is atrophic. There are several left renal stones. There are two right ureteral stents. The right kidney is hypertrophic compared to the left. There is dilatation of the renal pelvis and calyces similar to the prior study. No aortic aneurysm. Prominent atherosclerosis. There is a right anterior abdo elkin wall ostomy with bowel loops in the subcutaneous fat. No obstruction. No wall thickening. The urinary bladder is moderately distended and is normal. Slight decrease in the size of the left adnexal cyst measuring 4.0 cm in maximum diameter. There is presacral soft tissue fullness with several oblong thick- walled fluid collections. The largest measures 1.2 x 3.1 cm anterior to the sacrum. Several of these contain air. There is thickening to the wall of the rectum. IMPRESSION: 1.Stable to slightly improved hepatic masses 2.Slight decrease in the size of the left adnexal cystic mass 3.Right-sided hydronephrosis remains even though there are two ureteral stents 4.Small presacral fluid collections now contain air. These may represent small abscesses. This exam was performed using automated exposure control, adjustment of mA or kV according to patient size, and/or use of iterative re construction technique. Electronically signed by Denny Estrella 04/17/2019 2:32 PM 04/17/19 1432 Interpreting Physician: Denny Estrella MD Dictated Date/Time: 04/17/19 1422 cc: Felton Tate MD; None,PCP) - CONSULTS/PCP/HOSPITALIST Notification #1 *Consult/PCP/Hospitalist*: Mary Jane hospitalist CHRISTIAN, paged at 1300 Time Discussed: 13:07 Consult Disposition: Will see in ED (Lucio to admit) #2 Consult: Dr. Torres, surgeon, paged at 1300 Time Discussed: 13:24 Reason/Comments: Dr. Tate consulted with Dr. Torres about patient. Consult Disposition: other (Dr. Torres states call online activist surgeon) #3 Consult: Georges Time Discussed: 14:00 Consult Disposition: Will see in ED Departure - Departure Date of Disposition Decision: 04/17/19 Time of Disposition Decision: 13:04 DIAGNOSIS: Severe sepsis with acute organ dysfunction, Pancytopenia with fever, Primary colon cancer with metastasis to other site, Abdominal wall fistula, Hyponatremia syndrome, Hypokalemia due to loss of potassium Disposition: ADMITTED INPATIENT 09 Certified Medical Emergency: Emergent Condition: Critical - Critical Care Note This patient required my direct & personal management of CC.: Yes Total Time (mins): 45 (multiple physician consults, CVS stabilization necessary) Critical Care Statement: This patient required my direct personal management to treat or rule out processes, the absence of which, could potentiallly result in sudden, clinically significant life or limb threatening deterioration. Attestation - Physician/ ABY Attestation The physician spent face to face time with patient:: Yes Advanced Practice Provider documentation review:: Supervising physician onsite and consulted in the evaluation and care of this patient. The physician did have a face to face encounter with the patient. This chart was documented by the indicated scribe, (Chelsi Valentine, Hussain) and accurately reflects the services I performed and decisions made by me, Felton Tate MD, as attested by the provider's signature.
[2019-04-17] MEDS: TOBRAMYCIN IV ONE ×2 (14:00→19:08)
[2019-04-17] MEDS: NS IV ONE ×2 (14:00→19:08)
--- NOTE | 2019-04-17 14:06 | HISTORY AND PHYSICAL ---
HISTORY: The patient presented on 04/17/2019. She was last in the hospital on 04/08/2019. I do not believe she has a primary care physician, but she is followed by Dr. Hein. The last time she was admitted for course of chemotherapy for metastatic rectal carcinoma. This is a 53-year-old with rectal adenocarcinoma and liver metastasis undergoing chemotherapy. She has continued to tolerate chemotherapy fairly well every month with good response up to this point. PAST MEDICAL HISTORY: Obstructive uropathy with stent placed. Pelvic abscess due to status post drainage of pelvic abscess related to the cancer. Rectal cancer. PAST SURGICAL HISTORY: 1. Status post colostomy. 2. Port-A-Cath placement. 3. Ureteral stenting. FAMILY HISTORY: Liver failure and brain aneurysm. SOCIAL HISTORY: Continues to smoke. Denies alcohol or substance use. MEDICATIONS: MS Contin, MSIR, Phenergan, Reglan, Zofran, and Prilosec. ALLERGIES: Latex. REVIEW OF SYSTEMS: She has continued to lose weight, and in general has not felt good since her discharge from hospital. She has denied fever or chills.HEENT: No change in visual or hearing acuity. Respiratory: No increased work of breathing or dyspnea. Cardiovascular: No chest pain or tachy palpitation. GI/: As above. Her main complaint, she has felt weak and then she noticed today that she has leaking from her abdomen. It is right below her navel, but she has fecal material. Anytime, she eats or drinks, she has liquid leaking from it consistent with a colocutaneous fistula. PHYSICAL EXAMINATION: VITAL SIGNS: Otherwise, temperature 97.5 degrees, pulse 120, respirations 22, blood pressure 110/70. Weight 115 pounds. Height 5 feet 5 inches. HEENT AND NECK: Pupils are equal and round. No distended neck veins. Conjunctiva pale. LUNGS: Clear in all lung sarmiento. CARDIOVASCULAR: Regular rhythm and rate without murmur or S3. Blood pressure in the 80's. ABDOMEN: Soft. SKIN: Warm and dry. NEUROLOGIC: She is mentating well. No focal neurologic deficit. She has marked erythema and atrophy in the anterior abdomen and liquid through the fistula and skin. LABORATORY DATA: White count 1550, hematocrit is 20, hemoglobin 6.9, and platelet count 85,000. Sodium 126, potassium 2.7, chloride 87, BUN 9, and creatinine 1.0, calcium 8.8. AST is 14, ALT is 8, alkaline phosphatase is 72, albumin is 3.7. ProTime is 17.5, PTT is 23. Chest x-ray: No pneumonia. There is a right jugular Port-A-Cath. No pneumothorax. No sign of infiltrate. ASSESSMENT/PLAN: Fistula, rectal cancer, metastatic. We will have General Surgery evaluate. I am going to give her normal saline. Blood pressure is marginal, so I am going to type and cross her for 2 units and plan on transfusing those now. Her hemoglobin 6.9 and hematocrit 20. Note that her white count is low at 1550, but believe adequate neutrophils. We are going to cover with broad-spectrum antibiotics for anaerobes, gram-negative and gram-positive. Platelet count was 85,000. She particularly has some neutropenia as well with only 15% of 1500 white blood cells and neutrophils. We will ask Dr. Hein to help and see what we can do. Obviously, this is a poor prognosis. cc: Markus Lucio MD
--- NOTE | 2019-04-17 14:34 | Diag Imaging Result Doc PS360 ---
EXAM: CT ABD/PELVIS W/PO AND IV CON HISTORY: abd pain, colon ca, open fistula lower abdomen TECHNIQUE: CT abdomen and pelvis with intravenous contrast COMPARISON: 01/19/2019 FINDINGS: There are scattered calcified hepatic masses. These have not increased in size or number. The larger lesions are slightly smaller. The largest lesion measures 2.3 cm in maximum diameter. The spleen is not enlarged. Prominent gastrosplenic varices. Normal pancreas, gallbladder, and adrenal glands. The lower pole of the left kidney is atrophic. There are several left renal stones. There are two right ureteral stents. The right kidney is hypertrophic compared to the left. There is dilatation of the renal pelvis and calyces similar to the prior study. No aortic aneurysm. Prominent atherosclerosis. There is a right anterior abdominal wall ostomy with bowel loops in the subcutaneous fat. No obstruction. No wall thickening. The urinary bladder is moderately distended and is normal. Slight decrease in the size of the left adnexal cyst measuring 4.0 cm in maximum diameter. There is presacral soft tissue fullness with several oblong thick-walled fluid collections. The largest measures 1.2 x 3.1 cm anterior to the sacrum. Several of these contain air. There is thickening to the wall of the rectum. IMPRESSION: 1.Stable to slightly improved hepatic masses 2.Slight decrease in the size of the left adnexal cystic mass 3.Right-sided hydronephrosis remains even though there are two ureteral stents 4.Small presacral fluid collections now contain air. These may represent small abscesses. This exam was performed using automated exposure control, adjustment of mA or kV according to patient size, and/or use of iterative reconstruction technique. Electronically signed by Denny Estrella 04/17/2019 2:32 PM
[2019-04-17 15:19] LABS: URINE SOURCE CATH
[2019-04-17 15:34] LABS: BILIRUBIN URINE NEGATIVE (NEGATIVE); BLOOD URINE SMALL (NEGATIVE); COLOR YELLOW; GLUCOSE URINE NEGATIVE (NEGATIVE); KETONE URINE NEGATIVE (NEGATIVE); LEUKOCYTES URINE LARGE (NEGATIVE); NITRITE URINE NEGATIVE (NEGATIVE); PH URINE 6.5; PROTEIN URINE 70 mg/dL (NEGATIVE); SP GRAVITY URINE 1.007; TURBIDITY URINE HAZY (CLEAR); UROBILINOGEN URINE NORMAL (NORMAL)
[2019-04-17 15:36] LABS: UR EPITHELIAL CELLS <10 /HPF (<10); URINE BACTERIA 2+ /HPF; URINE RBC <10 /HPF (<10); URINE WBC TNTC /HPF (<10)
[2019-04-17] MEDS ORDERED: MAGNESIUM SULFATE 4 GM/S.W.I. 4 GM/100 ML IVPB IV ONE (15:38)
[2019-04-17] MEDS ORDERED: VANCOMYCIN IV PER PHARMACY MISC SCH (15:38)
[2019-04-17] MEDS: NS 1,000 ML IV SCH ×2 (17:37→22:57)
[2019-04-17] MEDS ORDERED: VANCOMYCIN 1.3 GM in NS 250 ML IV ONE (20:00)
[2019-04-17] MEDS: MORPHINE IV PRN (21:22)
[2019-04-17] MEDS: ZOSYN 3.375 GM in NS 50 ML IV SCH (21:54)
--- NOTE | 2019-04-17 23:41 | GENERAL SURGERY CONSULTATION ---
DATE: 04/17/2019 HPI: In brief, this is a 53-year-old female who has metastatic rectal carcinoma. Several years ago she underwent a total abdominal colectomy by Dr. Torres with end ileostomy. She has undergone palliative therapy after she was found to have cancer within the rectal stump and liver metastasis. Several months ago, there was some question as to the fact that she may have developed a entero rectal fistula but workup did not really demonstrate this. She has had an ileostomy and she has noted drainage from her lower midline wound succus and pretty much anything she drinks comes out of this would diminish ileostomy output. She was admitted through the ER. She was found to be pancytopenic with significant electrolyte abnormalities. She is quite weak and dehydrated. MEDICAL HISTORY: Obstructive uropathy related to pelvic disease, pelvic abscess with drainage, metastatic rectal cancer, undergoing palliative chemotherapy. SURGICAL HISTORY: She has had an ileostomy and a total abdominal colectomy, Port-A-Cath and bilateral ureteral stenting. SOCIAL HISTORY: She does smoke. No alcohol. No other drugs. REVIEW OF SYSTEMS: Ten point negative. FAMILY HISTORY: Reviewed noncontributory. EXAM: She is very frail and ill appearing but no fevers in the ER. No tachycardia. Blood pressure 100/62, oxygen saturation 100%. General: She is cachectic, chronically ill. HEENT: Is no scleral icterus. No cervical masses. Cardiovascular: Normal rate. Pulmonary: No increased work of breathing. Abdomen: Is soft. She has a right upper quadrant ileostomy. She also has succus draining from a lower midline wound consistent with an enterocutaneous fistulas bilious and significant excoriation of the skin and ulcerations surrounding this. There is no crepitus. There is no necrosis. Integument: Is warm, dry without jaundice. Psychiatric: Appropriate affect. Neurologic: She is generally weak. Peripheral vascular: No lower extremity edema. LABS: White count is 1, hematocrit 20, platelets are 85,000. INR is 1.33. Creatinine is 1.0, magnesium 0.9, potassium is 2.7, sodium is low at 126, troponins are clear. Urinalysis does show large leukocytes. I reviewed her CT scan. ASSESSMENT AND PLAN: This is a 53-year-old female with metastatic rectal carcinoma. She has significant electrolyte and hematologic abnormalities related to her chemotherapy and dehydration. 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 Unfortunately she is not a surgical candidate for this right now, she needs volume resuscitation, transfusion, electrolyte correction, will work on her local wound care and skin care here with barrier protectant and ostomy appliances to hopefully contain this fistula. Will keep her N.P.O., start TPN as well. Discussed plan with her nurse, Dr. Lucio. Would recommend engaging Hein as well regarding her pancytopenia. Very grim prognosis for this unfortunate lady. cc: Eliza Su MD
[2019-04-18] MEDS: LEVOPHED 8 MG in D5 1/2 NS 250 ML IV SCH ×2 (00:41→23:49)
[2019-04-18] MEDS: MORPHINE IV PRN ×10 (01:02→21:50)
[2019-04-18] MEDS: NS 1,000 ML IV SCH ×7 (01:16→21:02)
[2019-04-18] MEDS: ZOSYN 3.375 GM in NS 50 ML IV SCH ×4 (03:40→21:03)
[2019-04-18 05:18] LABS: WBC 1.78 X1000 (4.8-10.8)
[2019-04-18 05:19] LABS: BASO# 0.02 X1000 (0.0-0.2); BASO% 1.1 % (0.0-0.8); EOS# 0.07 X1000 (0.0-0.7); EOS% 3.9 % (0.0-10.0); HEMATOCRIT 26.9 % (37.0-47.0); HEMOGLOBIN 9.2 g/dL (12.0-16.0); LYMPH% 50.6 % (20.5-51.1); MCH 30.7 PG (27-31); MCHC 34.2 g/dL (33-37); MCV 89.7 FL (81-99); MONO# 0.56 X1000 (0.11-0.59); MONO% 31.5 % (1.7-9.3); MPV 11.1 FL (7.4-10.4); NEUT# 0.23 X1000 (1.4-6.5); NEUT% 12.9 % (42.2-75.2); PLT 60 X1000 (130-400); RDW 13.6 % (11.5-14.5)
[2019-04-18 06:14] LABS: BASO 1 % (0-1); EOS 2 % (1-10); LYMPHS 58 % (21-51); MONO 24 % (1-9); SEGS 15 % (42-75)
[2019-04-18 07:11] LABS: AGAP 20; ALB/GLOB RATIO 0.6; ALBUMIN 2.2 g/dL (3.5-5.0); ALKALINE PHOSPHATASE 59 U/L (32-104); BUN 9 mg/dL (8-22); CALCIUM 7.7 mg/dL (8.8-10.2); CHLORIDE 102 mmol/L (98-107); COSMO 268; CREATININE 0.7 mg/dL (0.5-0.9); ESTIMATED GFR > 60; GLUCOSE 76 mg/dL (70-104); GOT 18 U/L (10-30); GPT 9 U/L (10-36); SODIUM 135 mmol/L (136-145); TCO2 13 mmol/L (25-35); TOTAL BILIRUBIN 3.08 mg/dL (0.20-1.00); TOTAL PROTEIN 5.6 g/dL (6.3-8.3)
[2019-04-18 07:13] LABS: POTASSIUM 2.4 mmol/L (3.5-5.1)
[2019-04-18] MEDS: POTASSIUM CHLORIDE 20 MEQ/SWI 20 MEQ/100 ML IVPB IV SCH ×2 (08:30→10:24)
[2019-04-18] MEDS ORDERED: NEUPOGEN SUBQ ONE (11:10)
[2019-04-18] MEDS: GRANIX SUBQ ONE ×2 (11:21→12:21)
[2019-04-18] MEDS ORDERED: NS 250 ML ONE (11:47)
--- NOTE | 2019-04-18 18:52 | GENERAL SURGERY PROGRESS NOTE ---
DATE: 04/18/2019 SUBJECTIVE: Ostomy appliance was placed and is doing well. She was hemodynamically stable overnight with improved hypertension. No fevers. OBJECTIVE: Ostomy is in place as well an appliance over her enterocutaneous fistula. LABORATORY DATA: White count is 1.78, hematocrit is up to 26, platelets remain low. Potassium is low at 2.4. Creatinine 0.7. Her magnesium is now 2. ASSESSMENT AND PLAN: A 53-year-old female with metastatic rectal cancer. She has an enterocutaneous fistulas that is quite proximal. We can give her some clear liquids for comfort. We are going to start total parenteral nutrition via peripherally inserted central catheter line and continue to replace her electrolytes and manage her pancytopenia going forward. No plans for surgical intervention. cc: Eliza Su MD
[2019-04-19] MEDS: NS 1,000 ML IV SCH ×5 (01:24→20:36)
[2019-04-19] MEDS: MORPHINE IV PRN ×8 (01:24→21:36)
[2019-04-19] MEDS: ZOSYN 3.375 GM in NS 50 ML IV SCH ×4 (03:07→21:37)
--- NOTE | 2019-04-19 08:30 | PROGRESS NOTE ---
DATE: 04/19/2019 Ms. Post was requesting something, some broth or Jell-O by mouth, and so I will advance her to a full liquid diet. She is leaking from around her bag, but she has a fistula, colo or an enterocutaneous fistula. OBJECTIVE: Vitals: She has remained afebrile. Pulse 59, respirations 16, blood pressure 95/59. Eyes: Pupils are equal and round. Lungs: Clear in all lung sarmiento. Cardiovascular: Regular rate without murmur or S3. LABS: Urine output was 5200 mL. ASSESSMENT AND PLAN: Metastatic rectal cancer. Has an enterocutaneous fistula, several fistulas in her quite proximal. We will give her full liquids at her request. We are going to start parenteral nutrition. I will get Nutrition to help. We have a PICC line in place and continue to work on replacing her electrolytes. Of course, malabsorption is going to be a problem. Her potassium is 2.4 from yesterday, and we supplemented that, and we supplemented her magnesium. We will try and get her on parenteral nutrition. cc: Markus Lucio MD
[2019-04-19] MEDS ORDERED: GRANIX SUBQ SCH (09:00)
[2019-04-19] MEDS: VANCOMYCIN 1 GM/NS 1 GM/250 ML IVPB IV SCH (09:11)
[2019-04-19] MEDS: LOVENOX SUBQ SCH (11:38)
--- NOTE | 2019-04-19 11:45 | HEMO/ONC CONSULTATION ---
DATE: 04/19/2019 REQUESTING PHYSICIAN: Dr. Lucio. REASON FOR CONSULTATION: Colon cancer, known to you, now with a fistula. HISTORY OF PRESENT ILLNESS: The patient is a 53-year-old female who is well known to me. She has been on chemotherapy for metastatic colorectal cancer since 08/2018. Last chemotherapy here about a week ago or so. She went home and subsequently started having stool draining through her fistula. She had a small wound in the midline that had been draining serous fluid for the last couple of months or so. Dr. Torres had seen her and told her that this was a fistula. Now, about a week ago, she started draining stool from this area. She came in for further management. She was noted to be hypotensive upon evaluation in the ER. She was admitted to the ICU for Levophed, IV antibiotics, and IV fluids. Currently, there are plans for TPN through a PICC line. Dr. Su has seen her. She has hypokalemia and hypomagnesemia which is being repleted. She denies fevers or chills at home. PAST MEDICAL HISTORY: Stage IV colorectal cancer, perforated abdominal viscus with pelvic abscesses requiring drainage in the past, fistula. PAST SURGICAL HISTORY: Colostomy, intra-abdominal/pelvic abscesses requiring multiple drainages in the past, ureteral stents. ALLERGIES: Latex. SOCIAL HISTORY: Patient is a smoker. Denies alcohol or substance abuse. She has poor family support. She has transportation issues and due to this, sometimes is noncompliant with her chemotherapy appointments. FAMILY HISTORY: Positive for brain aneurysm and liver disease. CURRENT MEDICATIONS: Vancomycin, Zosyn, Neupogen, normal saline. REVIEW OF SYSTEMS: She denies nausea or vomiting at this time. Pain is well controlled. No cough, shortness of breath, or chest pain. No tingling or numbness in her extremities. All other review of systems are negative. PHYSICAL EXAMINATION: Temperature 97.6 degrees, pulse 64, blood pressure 99/65. Eyes: EOMI. PERRLA. Anicteric. Mucous membranes appear partly moist. Neck: Supple without JVD, thyromegaly, or nodules. Cardiac Examination: Regular rate and rhythm. Normal S1, S2. Chest: Clear to auscultation. Abdomen: Soft, nontender. Right-sided colostomy bag is noted. Midline fistula is noted which is leaking stool. A bag is over that. Extremities: No cyanosis, clubbing, or edema. Neurological Examination: Alert and oriented x3. No focal motor deficits. Constitutional Examination: In no acute distress and looks like her baseline. LABS: On 04/18/2019, white count 1.78, hemoglobin 9.2, platelets 60,000, ANC 0.23. BUN 9, creatinine 0.7, potassium 2.4, magnesium 2.0. On 04/17/2019, magnesium 0.9, potassium 2.7, ANC 0.24. ASSESSMENT/PLAN: 1. Metastatic colorectal cancer: Patient has been on FOLFIRI and Vectibix chemotherapy since August 2018. Her scans show control of disease. Last chemotherapy was about a week ago. Some of her cytopenias are likely related to chemotherapy. In the past, she has not had significant neutropenia. 2. Neutropenia: Continue Neupogen support daily until ANC is greater than 1.0. Check CBC today. 3. Hypokalemia: Continue to monitor BMP and replete potassium. 4. Hypomagnesemia: This is most likely due to her Vectibix therapy. Continue to give intravenous magnesium as needed. 5. Deep venous thrombosis prophylaxis: Start Lovenox subcutaneous daily. She is at high risk for deep venous thromboses. 6. Anemia: She is status post 2 units of packed red blood cells. Hemoglobin and hematocrit have improved nicely. Continue to monitor for now. She is a candidate for Procrit. 7. Enterocutaneous fistula: Surgery on board. She is on intravenous antibiotics. Total parenteral nutrition is being considered. cc: MD BLAKE Yang
[2019-04-19 11:57] LABS: AGAP 13; BUN 6 mg/dL (8-22); CALCIUM 7.8 mg/dL (8.8-10.2); CHLORIDE 107 mmol/L (98-107); COSMO 272; CREATININE 0.7 mg/dL (0.5-0.9); ESTIMATED GFR > 60; GLUCOSE 83 mg/dL (70-104); POTASSIUM 2.2 mmol/L (3.5-5.1); SODIUM 138 mmol/L (136-145); TCO2 18 mmol/L (25-35)
[2019-04-19 12:02] LABS: BASO# 0.01 X1000 (0.0-0.2); BASO% 0.4 % (0.0-0.8); EOS# 0.04 X1000 (0.0-0.7); EOS% 1.5 % (0.0-10.0); HEMATOCRIT 25.1 % (37.0-47.0); HEMOGLOBIN 8.4 g/dL (12.0-16.0); LYMPH# 0.93 X1000 (1.2-3.4); LYMPH% 33.9 % (20.5-51.1); MCH 29.1 PG (27-31); MCHC 33.5 g/dL (33-37); MCV 86.9 FL (81-99); MONO# 0.71 X1000 (0.11-0.59); MONO% 25.9 % (1.7-9.3); MPV 10.9 FL (7.4-10.4); NEUT# 1.05 X1000 (1.4-6.5); NEUT% 38.3 % (42.2-75.2); PLT 123 X1000 (130-400); RBC 2.89 XMIL (4.2-5.4); RDW 14.3 % (11.5-14.5); WBC 2.74 X1000 (4.8-10.8)
[2019-04-19] MEDS: ZOFRAN IV PRN (12:17)
[2019-04-19 13:01] LABS: BANDS 8 % (0-1); SEGS 36 % (42-75)
[2019-04-19 13:02] LABS: ANISOCYTOSIS 1+; HYPOCHROM 1+; LYMPHS 36 % (21-51); MONO 16 % (1-9); POIKILOCYTOSIS 1+
[2019-04-19 13:03] LABS: LARGE PLATELETS 1+
[2019-04-19] MEDS: POTASSIUM CHLORIDE 40 MEQ/SWI 40 MEQ/100 ML IVPB IV SCH ×2 (13:27→16:29)
--- NOTE | 2019-04-19 13:53 | GENERAL SURGERY PROGRESS NOTE ---
DATE: 04/19/2019 SUBJECTIVE: Feels much better, more alert, more energy. Hemodynamically, she is much better. OBJECTIVE: Marginal pouching of her fistula. No tachycardia. The skin being protected with barrier creams. DIAGNOSTIC STUDIES: I reviewed her labs that are pending this morning, but yesterday's were showing some improvement. ASSESSMENT AND PLAN: A 53-year-old female with: 1. Enterocutaneous fistula. 2. Metastatic rectal cancer. 3. Pancytopenia. We will continue TPN which is being started today via the left arm PICC line. They are going to give her clear liquids. This is reasonable for comfort. Otherwise, we will continue local wound care and ostomy and fistula care. cc: Eliza Su MD
[2019-04-19] MEDS: PHENERGAN IV PRN ×2 (14:35→20:33)
[2019-04-19] MEDS ORDERED: MAGNESIUM SULFATE 2 GM/S.W.I. 2 GM/50 ML IVPB IV ONE (14:50)
[2019-04-19] MEDS ORDERED: POTASSIUM PHOSPHATE 40 MEQ in NS 250 ML IV ONE (15:16)
[2019-04-19] MEDS: LIPOSYN 20% 250 ML IV SCH (16:29)
[2019-04-19] MEDS ORDERED: D10W 1,000 ML IV PRN (17:00)
[2019-04-19] MEDS ORDERED: TPN ELECTROLYTES 20 ML, MAGNESIUM SULFATE 5 MEQ, POTASSIUM CHLORIDE 20 MEQ, SODIUM PHOS... IV SCH ×7 (17:00)
[2019-04-19] MEDS: SODIUM CHLORIDE 0.9% INJ PRN (20:33)
[2019-04-19] MEDS: VALIUM PO ONE ×2 (22:01→22:03)
[2019-04-19 23:35] LABS: MAGNESIUM 1.5 mg/dL (1.5-2.7); POTASSIUM 2.7 mmol/L (3.5-5.1)
[2019-04-20] MEDS ORDERED: KLOR-CON PO ONE (00:31)
[2019-04-20] MEDS ORDERED: POTASSIUM CHLORIDE 40 MEQ/SWI 40 MEQ/100 ML IVPB IV ONE (00:33)
[2019-04-20] MEDS: MORPHINE IV PRN ×7 (01:30→20:15)
[2019-04-20] MEDS: NS 1,000 ML IV SCH ×3 (04:34→17:25)
[2019-04-20] MEDS: ZOSYN 3.375 GM in NS 50 ML IV SCH ×4 (04:34→21:45)
[2019-04-20] MEDS: PHENERGAN IV PRN ×3 (04:49→17:00)
[2019-04-20] MEDS: SODIUM CHLORIDE 0.9% INJ PRN ×3 (04:49→17:00)
[2019-04-20 06:40] LABS: BASO# 0.02 X1000 (0.0-0.2); BASO% 0.6 % (0.0-0.8); EOS# 0.03 X1000 (0.0-0.7); EOS% 0.9 % (0.0-10.0); HEMOGLOBIN 8.5 g/dL (12.0-16.0); IMM GRAN# 0.11 X1000 (0.0-0.04); IMM GRAN% 3.2 % (0.0-0.5); LYMPH# 1.41 X1000 (1.2-3.4); LYMPH% 41.3 % (20.5-51.1); MCH 29.6 PG (27-31); MCV 87.1 FL (81-99); MONO# 0.64 X1000 (0.11-0.59); MONO% 18.8 % (1.7-9.3); NEUT% 35.2 % (42.2-75.2); PLT 127 X1000 (130-400); RBC 2.87 XMIL (4.2-5.4); RDW 14.4 % (11.5-14.5); WBC 3.41 X1000 (4.8-10.8)
[2019-04-20 07:12] LABS: AGAP 8; BUN 3 mg/dL (8-22); CALCIUM 7.6 mg/dL (8.8-10.2); CHLORIDE 115 mmol/L (98-107); CHOLESTEROL 67 mg/dL (0-200); COSMO 280; CREATININE 0.6 mg/dL (0.5-0.9); ESTIMATED GFR > 60; GLUCOSE 101 mg/dL (70-104); GOT 15 U/L (10-30); MAGNESIUM 1.4 mg/dL (1.5-2.7); PHOSPHORUS 2.5 mg/dL (2.7-4.5); POTASSIUM 3.5 mmol/L (3.5-5.1); PREALBUMIN 6.4 mg/dL (20-40); SODIUM 142 mmol/L (136-145); TCO2 19 mmol/L (25-35); TRIGLYCERIDES 57 mg/dL (35-135)
[2019-04-20 07:44] LABS: BANDS 15 % (0-1); EOS 2 % (1-10); LYMPHS 41 % (21-51); MONO 15 % (1-9); SEGS 23 % (42-75)
[2019-04-20] MEDS: ATIVAN IV PRN ×3 (09:20→20:15)
[2019-04-20] MEDS: LOVENOX SUBQ SCH (10:00)
--- NOTE | 2019-04-20 10:40 | GENERAL SURGERY PROGRESS NOTE ---
DATE: 04/20/2019 SUBJECTIVE: The patient complains of drainage and pain of her lower midline abdominal wound. OBJECTIVE: Vital Signs: She is afebrile. Vital signs are stable. General: She is awake, alert, and oriented x3. No acute distress. CV: Regular rate and rhythm. Respiratory: No work of breathing. GI: Soft, nondistended. She has a lower midline enterocutaneous fistula draining quite a bit of succus. The surrounding skin is severely erythematous and tender to palpation. Her ileostomy is patent with succus in the bag. LABORATORY DATA: White blood cell count 3.4, hemoglobin 8.5, hematocrit 25, platelet count 127,000. Electrolytes were reviewed and unremarkable, except for a low magnesium. Prealbumin is 6.4. IMAGING: Her abdomen and pelvis CT scan on 04/17/2019 was reviewed and it shows stable hepatic masses, decrease in left adnexal cystic mass, stable right-sided hydronephrosis, possible presacral small abscesses. ASSESSMENT AND PLAN: A 53-year-old female with stage IV rectal cancer, undergoing chemotherapy. She is status post total colectomy with end ileostomy. She now has developed an enterocutaneous fistula of her lower midline wound. The skin is severely inflamed and macerated. It is in a difficult panniculus fold. Therefore, pouching it will be difficult. The location of the fistula along her gastrointestinal tract is unclear whether it is very proximal or in her distal ileum. We are going to make her nothing by mouth for the time being to decrease the output of the fistula and try to get some healing of the skin so we can pouch it, and then make further recommendations. cc: Blaine Torres MD
--- NOTE | 2019-04-20 10:41 | PROGRESS NOTE ---
DATE: 04/20/2019 SUBJECTIVE: Ms. Post is feeling much better she said than when she came into the hospital. She would like something for anxiety and will have some Ativan. OBJECTIVE: Vital Signs: On exam, she remains afebrile. Blood pressure 121/77, pulse 74, respirations 18. Lungs: Clear in all lung sarmiento. Cardiovascular: Regular rate without murmur or S3. Abdomen: She has an abdominal fistula. Difficult time keeping the fistula sealed. We will see if Wound Care can help, Beth, can help at all with this. LABORATORY STUDIES: Urine output is 5900 mL. Of course a large amount of output from her fistula. Blood sugars 115, 103, 88. ASSESSMENT AND PLAN: 1. Metastatic colorectal cancer. Been on FOLFIRI and Vectibix chemotherapy since August 2018. Last scans revealed normal disease. Last chemotherapy was about a week ago and some of her cytopenia is related to chemotherapy in the past. She has not had any significant neutropenia. 2. Neutropenia. Continue Neupogen. Absolute neutrophil count is greater than 1000. 3. Replenish electrolytes, potassium and magnesium. 4. Deep venous thrombosis, gets subcutaneous Lovenox daily. 5. Anemia. We did give her 2 units of packed red blood cells and she is a candidate for Procrit apparently. 6. Enterocutaneous fistula. See if there is a way to control the drainage and Surgery and Oncology to discuss whether there are any surgical plans for fixing the fistula. Would want her nutrition and electrolytes maximized. cc: Markus Lucio MD
[2019-04-20 11:23] LABS: ALB/GLOB RATIO 0.9; ALBUMIN 2.4 g/dL (3.5-5.0); DIRECT BILIRUBIN 0.3 mg/dL (0.00-0.20); TOTAL BILIRUBIN 0.7 mg/dL (0.20-1.00); TOTAL PROTEIN 5.1 g/dL (6.3-8.3)
[2019-04-20] MEDS ORDERED: LMX 5 CREAM TOP PRN (11:34)
[2019-04-20] MEDS: DILAUDID IV PRN (11:53)
--- NOTE | 2019-04-20 13:23 | HEMO/ONC CONSULTATION ---
DATE: 04/20/2019 CHIEF COMPLAINT: We are consulted on the patient regarding her metastatic rectal adenocarcinoma. HISTORY OF PRESENT ILLNESS: Ms. Post is a 53-year-old female with rectal adenocarcinoma with liver metastases who is currently undergoing chemotherapy every 2 weeks. She is continuing to tolerate her chemotherapy very well. She has had a wound below her umbilicus for some time now and she is following up with Dr. Torres. She states that last week the leaking from the wound became increased. She became weak. She began noticing fecal material leaking from the wound. PHYSICAL EXAMINATION: Vital Signs: Temperature 98 degrees, pulse rate 79, respiratory rate 15, blood pressure 129/73, O2 saturation 100% on room air. 10/10 abdominal pain. General: The patient is awake and alert and in no acute distress. Lymph nodes: No palpable lymph nodes. Cardiovascular: S1, S2 noted. Regular heart rate and rhythm. Lungs: Chest is clear to auscultation. Normal respiratory rate. Abdomen: Upper abdomen soft, nontender, nondistended. Bowel sounds were present. Below umbilicus is covered in gauze. The wound appears open below umbilicus with dark yellow drainage. Neurological: Oriented x3. No focal deficits. LABORATORY: WBC 3.41, hemoglobin 8.5, hematocrit 25.0, platelet count 127,000. Potassium 3.5, magnesium 1.4. ASSESSMENT/PLAN: 1. Metastatic colorectal cancer: Patient has been on FOLFIRI and Vectibix chemotherapy since August 2018. Her scans show control of disease. Last chemotherapy was about a week ago. Some of her cytopenias are likely related to chemotherapy. In the past, she has not had significant neutropenia. 2. Neutropenia: Continue Neupogen support daily until ANC is greater than 1.0. Check CBC today. 3. Hypokalemia: Continue to monitor BMP and replete potassium. 4. Hypomagnesemia: This is most likely due to her Vectibix therapy. Continue to give intravenous magnesium as needed. 5. Deep venous thrombosis prophylaxis: Start Lovenox subcutaneous daily. She is at high risk for deep venous thromboses. 6. Anemia: She is status post 2 units of packed red blood cells. Hemoglobin and hematocrit have improved nicely. Continue to monitor for now. She is a candidate for Procrit. 7. Enterocutaneous fistula: Surgery on board. She is on intravenous antibiotics. Total parenteral nutrition. Dictated by CHRISTIAN Mckinney for Asa Hein MD cc: Asa Hein MD [facility]
[2019-04-20] MEDS ORDERED: TPN ELECTROLYTES IV SCH ×7 (17:00)
[2019-04-20] MEDS ORDERED: MAGNESIUM SULFATE IV SCH ×7 (17:00)
[2019-04-20] MEDS ORDERED: [UNRECOGNIZED DRUG - OTHER] IV SCH ×7 (17:00)
[2019-04-20] MEDS ORDERED: POTASSIUM CHLORIDE IV SCH ×7 (17:00)
[2019-04-20] MEDS: LIPOSYN 20% 250 ML IV SCH (17:26)
[2019-04-20] MEDS: VANCOMYCIN 1 GM/NS 1 GM/250 ML IVPB IV SCH (22:11)
[2019-04-21] MEDS: MORPHINE IV PRN ×8 (00:14→21:54)
[2019-04-21] MEDS: NS 1,000 ML IV SCH ×3 (01:06→15:13)
[2019-04-21] MEDS: ATIVAN IV PRN ×5 (03:10→22:26)
[2019-04-21] MEDS: ZOSYN 3.375 GM in NS 50 ML IV SCH ×3 (03:52→15:38)
[2019-04-21] MEDS: PHENERGAN IV PRN ×2 (06:03→16:55)
[2019-04-21] MEDS: SODIUM CHLORIDE 0.9% INJ PRN ×2 (06:03→16:55)
[2019-04-21 06:45] LABS: AGAP 9; BUN 5 mg/dL (8-22); CALCIUM 7.2 mg/dL (8.8-10.2); CHLORIDE 115 mmol/L (98-107); COSMO 286; CREATININE 0.7 mg/dL (0.5-0.9); ESTIMATED GFR > 60; GLUCOSE 96 mg/dL (70-104); MAGNESIUM 1.3 mg/dL (1.5-2.7); PHOSPHORUS 3.2 mg/dL (2.7-4.5); POTASSIUM 2.6 mmol/L (3.5-5.1); SODIUM 145 mmol/L (136-145); TCO2 21 mmol/L (25-35)
[2019-04-21 07:00] LABS: BASO# 0.02 X1000 (0.0-0.2); BASO% 0.5 % (0.0-0.8); EOS# 0.06 X1000 (0.0-0.7); EOS% 1.4 % (0.0-10.0); HEMATOCRIT 23.4 % (37.0-47.0); HEMOGLOBIN 7.7 g/dL (12.0-16.0); IMM GRAN# 0.08 X1000 (0.0-0.04); IMM GRAN% 1.9 % (0.0-0.5); LYMPH# 1.65 X1000 (1.2-3.4); LYMPH% 39.2 % (20.5-51.1); MCH 29.5 PG (27-31); MCHC 32.9 g/dL (33-37); MCV 89.7 FL (81-99); MONO# 0.51 X1000 (0.11-0.59); MONO% 12.1 % (1.7-9.3); MPV 10.4 FL (7.4-10.4); NEUT# 1.89 X1000 (1.4-6.5); NEUT% 44.9 % (42.2-75.2); PLT 153 X1000 (130-400); RBC 2.61 XMIL (4.2-5.4); RDW 14.6 % (11.5-14.5); WBC 4.21 X1000 (4.8-10.8)
[2019-04-21 07:10] LABS: BANDS 6 % (0-1); LYMPHS 44 % (21-51); MONO 4 % (1-9); SEGS 46 % (42-75)
[2019-04-21] MEDS ORDERED: MAGNESIUM SULFATE 2 GM/S.W.I. 2 GM/50 ML IVPB IV ONE (09:00)
--- NOTE | 2019-04-21 09:31 | PROGRESS NOTE ---
DATE: 04/21/2019 SUBJECTIVE: This patient is lying comfortably in bed. She is not complaining of pain at this moment. She feels anxious, though. Magnesium and potassium are low. I will replace them through her PICC line. OBJECTIVE: Vital Signs: Temperature 98 degrees, pulse 77, respiratory rate 19, blood pressure 103/70, oxygen saturation 99 on room air. HEENT: Head normocephalic. No trauma. PERRLA. Neck: Supple. No JVD. No masses. Central trachea. Chest: Clear to auscultation. No wheezing. No rales. Abdomen: Soft. She has a midline enterocutaneous fistula draining. Also, she has an ileostomy that is working fine. Her abdomen is soft. Neurological Examination: The patient is alert and oriented x3. No focal deficits. Laboratory: WBC 4.2, hemoglobin 7.7, hematocrit 23.4, platelets 153,000. Sodium 145, potassium 2.6, chloride 115, bicarbonate 21, BUN 5, creatinine 0.7, glucose 96, calcium 7.2, magnesium 1.3. ASSESSMENT AND PLAN: 1. Metastatic colon cancer. Now she has an enterocutaneous fistula that has been managed by the surgery department. Hematology/oncology department is also following this patient closely. We will monitor. 2. Enterocutaneous fistula. This patient has been placed nothing per oral and she is getting total parenteral nutrition. We will continue following the recommendations of the surgery department. 3. Neutropenia, better today. These has been followed closely by the hematology/oncology department. 4. Hypokalemia. I will replace it. 5. Hypomagnesemia. I will replace the magnesium as well. This is probably due to her treatment with Vectibix therapy. 6. Deep vein thrombosis prophylaxis with Lovenox. 7. Anemia, status post 2 units of packed red blood cells. We will monitor this closely. I will repeat a hemoglobin and hematocrit today at 6 p.m. 8. This patient is Full Code. 9. The patient seems to be getting better. I will probably transfer this patient to the medical floor. We will continue to monitor this patient closely. cc: Ricardo Ramirez MD
[2019-04-21] MEDS ORDERED: POTASSIUM CHLORIDE 40 MEQ/SWI 40 MEQ/100 ML IVPB IV ONE (10:00)
[2019-04-21] MEDS: LOVENOX SUBQ SCH (10:52)
[2019-04-21] MEDS ORDERED: LMX 5 CREAM TOP PRN (11:24)
[2019-04-21] MEDS: DILAUDID IV PRN (11:42)
[2019-04-21] MEDS: POTASSIUM CHLORIDE IV SCH ×8 (17:19)
[2019-04-21] MEDS: [UNRECOGNIZED DRUG - OTHER] IV SCH ×8 (17:19)
[2019-04-21] MEDS: TPN ELECTROLYTES IV SCH ×8 (17:19)
[2019-04-21] MEDS: MAGNESIUM SULFATE IV SCH ×8 (17:19)
[2019-04-21] MEDS: LIPOSYN 20% 250 ML IV SCH (17:23)
--- NOTE | 2019-04-21 18:16 | HEMO/ONC PROGRESS NOTE ---
DATE: 04/21/2019 SUBJECTIVE: She is lying in bed, resting this morning. She awakes easily to my voice. She is in a pleasant mood. She denies any pain. She states that her abdomen is actually getting better. OBJECTIVE: Vital Signs: Temperature 97.5, pulse rate 88, respiratory rate 19, blood pressure 115/73. O2 sat 98% on room air. She has 9/10 back pain. PHYSICAL EXAMINATION: Respiratory: Chest is clear to auscultation. Normal respiratory effort. Cardiovascular: Normal S1, S2. Regular rate and rhythm. Abdomen: Soft, nontender. Right- sided colostomy bag is noted. Midline fistula is noted. She has a midline enterocutaneous fistula draining. Abdomen is soft, nontender otherwise. Neurologic: Alert and oriented x 3. No focal deficits. LABORATORY: WBC is 4.21, hemoglobin 7.7, hematocrit 23.4, platelet count 153,000. Sodium 145, potassium 2.6, calcium 7.2, magnesium 1.3. ASSESSMENT AND PLAN: 1. Metastatic colorectal cancer. The patient has been on FOLFIRI and Vectibix chemotherapy since August 2018. Her scans now show control of her disease. Last chemotherapy was approximately 2 weeks ago. Some of her cytopenias most likely may be related to the chemotherapy in the past. She has not had a significant neutropenia. 2. Neutropenia. Continue Neupogen support daily until ANC is greater than 1.0. 3. Hypokalemia. Continue to monitor BMP and replete potassium per protocol. 4. Hypomagnesemia. This is most likely due to her Vectibix therapy. Continue to give her IV magnesium to replete. 5. Deep venous thrombosis prophylaxis. Lovenox daily. She is at high risk for DVT. 6. Anemia. She is status post 2 units packed red blood cells. Hemoglobin and hematocrit have improved somewhat. Continue to monitor. Continue the Procrit protocol. 7. Enterocutaneous fistula. Awaiting plans per Surgery. She is on intravenous antibiotics, total parenteral nutrition is being considered. Dictated by CHRISTIAN Mckinney for Asa Hein MD Patient seen and examined. As above. Continue surgical management per Dr. Torres for enterocutaneous fistula. I will hold chemotherapy for now. Asa Hein M.D. cc: Asa Hein MD [facility]
[2019-04-21 19:40] LABS: HEMATOCRIT 24.1 % (37.0-47.0); HEMOGLOBIN 7.8 g/dL (12.0-16.0)
--- NOTE | 2019-04-21 20:35 | GENERAL SURGERY PROGRESS NOTE ---
DATE: 04/21/2019 SUBJECTIVE: The patient feels better overall. She is having less drainage into the fistula and more into her ileostomy today since she has been made n.p.o. she does have a bag now intact over the fistula site. OBJECTIVE: Vital Signs: She is afebrile. Vital signs are stable. General: She is awake, alert, and oriented x3, in no acute distress. GI: Soft, nondistended, less tender. The red skin remains. LABORATORY: Reviewed and unremarkable. ASSESSMENT AND PLAN: A 53-year-old female with metastatic rectal cancer, now with enterocutaneous fistula. She will be kept n.p.o. and on total parenteral nutrition for now to try to decrease the drainage and allow the skin to heal. cc: Blaine Torres MD
[2019-04-21] MEDS: VANCOMYCIN 1,300 MG in NS 250 ML IV SCH (21:12)
[2019-04-22] MEDS: ZOSYN 3.375 GM in NS 50 ML IV SCH ×5 (00:55→18:23)
[2019-04-22] MEDS: NS 1,000 ML IV SCH ×3 (00:58→18:22)
[2019-04-22] MEDS: ZOFRAN IV PRN (05:19)
[2019-04-22] MEDS: MORPHINE IV PRN ×5 (05:19→18:24)
[2019-04-22] MEDS: PHENERGAN IV PRN ×3 (08:14→22:22)
[2019-04-22] MEDS: SODIUM CHLORIDE 0.9% INJ PRN ×2 (08:14→15:06)
--- NOTE | 2019-04-22 09:32 | PROGRESS NOTE ---
DATE: 04/22/2019 SUBJECTIVE: This patient is lying comfortably in bed. She is not complaining of pain at this moment. A little bit of anxiety and she is hungry. Pending lab work today. OBJECTIVE: Vital Signs: Temperature 98.3 degrees, pulse 76, respiratory rate 18, blood pressure 108/62, oxygen saturation 98 on room air. HEENT: Head normocephalic. No trauma. PERRLA. Neck: Supple. No JVD. No masses. Central trachea. Chest: Clear to auscultation. No wheezing. No rales. Abdomen: Soft. She has a midline enterocutaneous fistula draining. Also, she has an ileostomy that is working fine. Her abdomen is soft with a little bit of discomfort to palpation. Neurological Examination: This patient is alert and oriented x3. No focal deficits. Laboratory: Pending lab work today. Glucose 111. ASSESSMENT AND PLAN: 1. Metastatic colon cancer. Now, she has an enterocutaneous fistula that has been managed by the surgery department. She is getting total parenteral nutrition. She is nothing per oral. We will continue with the same management. 2. Enterocutaneous fistula. This patient has been placed nothing per oral and she is getting total parenteral nutrition. Like I mentioned before, we will continue following the recommendations of surgery department. The fistula is still draining. 3. Neutropenia. Pending lab work today. Hematology/oncology department on board. 4. Hypokalemia. This had been replaced yesterday. Pending lab work today. 5. Hypomagnesemia. Pending lab work today. 6. Deep vein thrombosis prophylaxis with Lovenox. 7. Anemia, status post 2 units of packed red blood cells. I rechecked her hemoglobin yesterday night and it was about the same compared with the morning. Pending lab work today. 8. This patient is Full Code. 9. The patient is feeling better. We will continue monitoring this patient closely. cc: Ricardo Ramirez MD
[2019-04-22 10:20] LABS: BASO# 0.02 X1000 (0.0-0.2); BASO% 0.5 % (0.0-0.8); EOS# 0.06 X1000 (0.0-0.7); EOS% 1.4 % (0.0-10.0); HEMATOCRIT 26.6 % (37.0-47.0); HEMOGLOBIN 8.6 g/dL (12.0-16.0); IMM GRAN# 0.21 X1000 (0.0-0.04); LYMPH# 1.37 X1000 (1.2-3.4); LYMPH% 32.8 % (20.5-51.1); MCH 29.2 PG (27-31); MCHC 32.3 g/dL (33-37); MCV 90.2 FL (81-99); MONO# 0.48 X1000 (0.11-0.59); MONO% 11.5 % (1.7-9.3); MPV 10.2 FL (7.4-10.4); NEUT# 2.04 X1000 (1.4-6.5); NEUT% 48.8 % (42.2-75.2); PLT 182 X1000 (130-400); RBC 2.95 XMIL (4.2-5.4); WBC 4.18 X1000 (4.8-10.8)
[2019-04-22] MEDS: ATIVAN IV PRN ×2 (10:20→16:31)
[2019-04-22] MEDS: DILAUDID IV PRN ×2 (10:22→22:09)
[2019-04-22 10:46] LABS: AGAP 12; BUN 10 mg/dL (8-22); CALCIUM 7.7 mg/dL (8.8-10.2); CHLORIDE 111 mmol/L (98-107); COSMO 290; CREATININE 0.7 mg/dL (0.5-0.9); ESTIMATED GFR > 60; GLUCOSE 104 mg/dL (70-104); MAGNESIUM 1.4 mg/dL (1.5-2.7); PHOSPHORUS 3.2 mg/dL (2.7-4.5); SODIUM 146 mmol/L (136-145); TCO2 23 mmol/L (25-35)
[2019-04-22 10:47] LABS: POTASSIUM 2.2 mmol/L (3.5-5.1)
[2019-04-22] MEDS ORDERED: POTASSIUM CHLORIDE 60 MEQ in NS 500 ML IV ONE (11:14)
[2019-04-22] MEDS ORDERED: MAGNESIUM SULFATE 2 GM/S.W.I. 2 GM/50 ML IVPB IV ONE (11:15)
[2019-04-22] MEDS: LOVENOX SUBQ SCH (12:16)
[2019-04-22] MEDS: TPN ELECTROLYTES IV SCH ×8 (16:47)
[2019-04-22] MEDS: [UNRECOGNIZED DRUG - OTHER] IV SCH ×8 (16:47)
[2019-04-22] MEDS: MAGNESIUM SULFATE IV SCH ×8 (16:47)
[2019-04-22] MEDS: POTASSIUM CHLORIDE IV SCH ×8 (16:47)
[2019-04-22] MEDS: LIPOSYN 20% 250 ML IV SCH (16:48)
--- NOTE | 2019-04-22 16:57 | HEMO/ONC PROGRESS NOTE ---
DATE: 04/22/2019 SUBJECTIVE: The patient is resting in bed at this time. She was moved to a floor bed last night. She wakes easily to voice. She appears comfortable. She is very happy with the pouch that protecting her skin and feels a lot better. OBJECTIVE: Vital Signs: Temperature 98.4 degrees, pulse rate 75, respiratory rate 16, blood pressure 111/67, O2 saturation 100% on room air. Pain: She is in 0/10 pain. Respiratory: Chest is clear to auscultation. Cardiovascular: Normal S1, S2. Regular rate and rhythm. Abdomen is soft and nontender. She has a bag over her fistula site now with minimal drainage. It is allowing her skin to heal. Neurological: Alert and oriented x3. LABORATORY: WBCs 4.18, hemoglobin 8.6, hematocrit 26.6, platelet count 882,000. Potassium 2.2, magnesium 1.4. ASSESSMENT AND PLAN: 1. Metastatic colon cancer. The patient has been on FOLFIRI and Vectibix chemotherapy since August 2018. Her scan shows control of her disease. Her last chemotherapy was 2 weeks ago today. Some of her cytopenias are most likely related to the chemotherapy. She has not had any significant neutropenia so far. 2. Neutropenia. ContinuesNuepogen support daily to keep her ANC greater than 1. 3. Hypokalemia. Continue to monitor BMP and replete potassium per protocol. 4. Hypomagnesemia. This is most likely due to her Vectibix therapy. Continue to give her IV magnesium to replete. 5. Deep vein thrombosis prophylaxis. The patient is to be on Lovenox daily. She is at high risk for DVT. 6. Anemia. She is status post 2 units packed red blood cells. Hemoglobin and hematocrit have improved somewhat but slow. Please continue to monitor and continue the Procrit protocol as needed. 7. Enterocutaneous fistula left. The patient is currently n.p.o. and is getting total parenteral nutrition in order to minimize the drainage to her fistula. She now has a bag over her fistula that is allowing the skin around it dry and heal. Dictated by CHRISTIAN Mckinney for Asa Hein MD cc: Asa Hein MD [facility]
--- NOTE | 2019-04-22 19:31 | GENERAL SURGERY PROGRESS NOTE ---
DATE: 04/22/2019 SUBJECTIVE: She is overall about the same. She is having some leakage from the fistula pouch, but most of it is being caught in the bag. OBJECTIVE: Vital Signs: She is afebrile. Vital signs are stable. General: She is awake, alert, oriented x3, in no acute distress. Gastrointestinal: Soft, nondistended. Mildly tender around her enterocutaneous fistula. 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 This is a very difficult problem. She is a poor operative candidate and, as best I can tell, this fistula has developed somewhat recently. We need to give this some time to scar in a fistulous tract. We need to keep her n.p.o. for the time being and support her with total parenteral nutrition. I anticipate several weeks of this and potentially an operation to resect the injured bowel; however, it would likely be a high risk operation, and we may decide it is not worth the risk if we can control her drainage. cc: Blaine Torres MD
[2019-04-22] MEDS: VANCOMYCIN 1,300 MG in NS 250 ML IV SCH (22:51)
[2019-04-23] MEDS: ATIVAN IV PRN ×3 (00:50→13:58)
[2019-04-23] MEDS: ZOSYN 3.375 GM in NS 50 ML IV SCH ×4 (01:05→17:31)
[2019-04-23] MEDS: NS 1,000 ML IV SCH ×4 (01:06→17:08)
[2019-04-23] MEDS: MORPHINE IV PRN ×6 (02:20→23:49)
[2019-04-23] MEDS: DILAUDID IV PRN ×2 (05:33→21:13)
[2019-04-23] MEDS: PHENERGAN IV PRN ×4 (05:35→21:12)
[2019-04-23 07:43] LABS: BASO# 0.03 X1000 (0.0-0.2); BASO% 0.6 % (0.0-0.8); EOS# 0.09 X1000 (0.0-0.7); EOS% 1.9 % (0.0-10.0); HEMATOCRIT 24.7 % (37.0-47.0); HEMOGLOBIN 7.8 g/dL (12.0-16.0); IMM GRAN% 4.3 % (0.0-0.5); LYMPH% 30.1 % (20.5-51.1); MCH 29.1 PG (27-31); MCHC 31.6 g/dL (33-37); MCV 92.2 FL (81-99); MONO# 0.68 X1000 (0.11-0.59); MONO% 14.6 % (1.7-9.3); MPV 10.2 FL (7.4-10.4); NEUT# 2.25 X1000 (1.4-6.5); NEUT% 48.5 % (42.2-75.2); PLT 166 X1000 (130-400); RBC 2.68 XMIL (4.2-5.4); RDW 15.2 % (11.5-14.5); WBC 4.65 X1000 (4.8-10.8)
[2019-04-23 08:11] LABS: LYMPHS 34 % (21-51); SEGS 66 % (42-75)
[2019-04-23 08:25] LABS: AGAP 9; BUN 14 mg/dL (8-22); CALCIUM 7.8 mg/dL (8.8-10.2); CHLORIDE 111 mmol/L (98-107); COSMO 288; CREATININE 0.9 mg/dL (0.5-0.9); ESTIMATED GFR > 60; GLUCOSE 112 mg/dL (70-104); MAGNESIUM 1.6 mg/dL (1.5-2.7); PHOSPHORUS 3.8 mg/dL (2.7-4.5); SODIUM 144 mmol/L (136-145); TCO2 24 mmol/L (25-35)
[2019-04-23 08:42] LABS: POTASSIUM 2.3 mmol/L (3.5-5.1)
[2019-04-23] MEDS ORDERED: MAGNESIUM SULFATE 2 GM/S.W.I. 2 GM/50 ML IVPB IV ONE (09:13)
[2019-04-23] MEDS: POTASSIUM CHLORIDE 40 MEQ/SWI 40 MEQ/100 ML IVPB IV SCH ×2 (09:47→17:46)
--- NOTE | 2019-04-23 09:50 | HEMO/ONC PROGRESS NOTE ---
DATE: 04/23/2019 SUBJECTIVE: Not much change in the patient today. She states that she actually feels much better than she did yesterday. She feels that her irritated skin is improving. She does appear comfortable today. OBJECTIVE: Vital Signs: Temperature 98.3 degrees, pulse rate 69, respiratory rate 20, blood pressure 107/67, O2 saturation 100% on room air. She was in 0/10 pain at the time of the exam. General: She is awake, alert, oriented x3, in no acute distress. Resting comfortably. Respiratory: Chest is clear to auscultation. Cardiovascular: Normal S1 and S2. Abdomen: Soft, nontender, nondistended. She has a fistula bag over her drainage site. Her skin is less red. Extremities: No edema noted. Moves all 4 extremities. LABORATORY: WBCs 4.65, hemoglobin 7.8, hematocrit 24.7, platelet count 166. Potassium 2.3, magnesium 1.6. ASSESSMENT AND PLAN: 1. Metastatic colon cancer. The patient has been on FOLFIRI and Vectibix chemotherapy since August of 2018. Her scans show control of her disease. Her last chemotherapy was approximately 2 weeks ago. Her cytopenias are most likely related to chemotherapy. 2. Neutropenia. Continue Neupogen as needed to keep an ANC greater than 1. 3. Hypokalemia. Continue to monitor daily basic metabolic panels and replete potassium per protocol. 4. Hypomagnesemia. This is most likely due to her Vectibix therapy. Continues to give her intravenous magnesium to replete per hospital protocol. 5. Deep venous thrombosis prophylaxis. The patient is high risk for deep vein thrombosis. Continue Lovenox treatment. 6. Anemia. She is status post 2 units packed red blood cells. Her hemoglobin and hematocrit continue to wax and wane, so we will continue to monitor. Use Procrit protocol as needed. 7. Enterocutaneous fistula. Recomendations per Dr. Torres. Dictated by CHRISTIAN Mckinney for Asa Hein MD Patient seen and examined. As above. Continue current management. No new recommendations from my standpoint. I will continue to hold chemotherapy for now. We will follow her peripherally. Asa Hein M.D. cc: Asa Hein MD [facility]
[2019-04-23] MEDS: SODIUM CHLORIDE 0.9% INJ PRN ×2 (11:05→18:17)
[2019-04-23] MEDS: LOVENOX SUBQ SCH (11:06)
--- NOTE | 2019-04-23 12:44 | PROGRESS NOTE ---
DATE: 04/23/2019 SUBJECTIVE: The patient is lying comfortably in bed. She is not complaining of pain at this moment. She is anxious and she is hungry. Potassium level is low and magnesium level is borderline low so I will replace both. OBJECTIVE: Vital Signs: Temperature 98.3 degrees, pulse 82, respiratory rate 12, blood pressure 116/76, oxygen saturation 100% on room air. HEENT: Head normocephalic. No trauma. PERRLA. Neck: Supple. No JVD. No masses. Central trachea. Chest: Clear to auscultation. No wheezing. No rales. Abdomen: Soft. She has a midline enterocutaneous fistula that is still draining a little bit. Also, she has an ileostomy that is working fine. Her abdomen is soft with a little bit of discomfort to palpation. Neurological Examination: This patient is alert. She is oriented x3. No focal deficits. Laboratory: WBC 4.6, hemoglobin 7.8, hematocrit 24.7, platelets 166,000. Sodium 144, potassium 2.3, chloride 111, bicarbonate 24, BUN 14, creatinine 0.9, glucose 112, calcium 7.8, magnesium 1.6. ASSESSMENT AND PLAN: 1. Metastatic colon cancer. Now, she has an enterocutaneous fistula that has been managed by the surgery department. She is getting total parenteral nutrition. She is nothing per oral. I think she is getting some ice chips. We will continue with the same management. 2. Enterocutaneous fistula, as above. Continue with nothing per oral, total parenteral nutrition. 3. Neutropenia, stable. Hematology/oncology department following this patient. 4. Hypokalemia. I will replace this patient's potassium today. 5. Hypomagnesemia. Today, it is borderline low. I will replace it. 6. Deep vein thrombosis prophylaxis with Lovenox. 7. Anemia, status post 2 units of packed red blood cells. Hemoglobin dropped from 8.6 to 7.8. If the hemoglobin drops below 7 or if she is having symptoms, I will transfuse her. 8. This patient is Full Code. cc: Ricardo Ramirez MD
[2019-04-23] MEDS ORDERED: [UNRECOGNIZED DRUG - OTHER] IV SCH ×8 (17:00)
[2019-04-23] MEDS ORDERED: MAGNESIUM SULFATE IV SCH ×8 (17:00)
[2019-04-23] MEDS ORDERED: POTASSIUM CHLORIDE IV SCH ×8 (17:00)
[2019-04-23] MEDS ORDERED: TPN ELECTROLYTES IV SCH ×8 (17:00)
[2019-04-23] MEDS: LIPOSYN 20% 250 ML IV SCH (17:09)
[2019-04-23] MEDS: VANCOMYCIN 1,300 MG in NS 250 ML IV SCH (21:13)
[2019-04-24] MEDS: ZOSYN 3.375 GM in NS 50 ML IV SCH ×5 (01:01→23:10)
[2019-04-24] MEDS: DILAUDID IV PRN ×3 (05:14→18:29)
[2019-04-24] MEDS: PHENERGAN IV PRN ×3 (05:14→18:29)
[2019-04-24] MEDS: NS 1,000 ML IV SCH ×4 (07:40→11:03)
[2019-04-24 07:45] LABS: BASO# 0.01 X1000 (0.0-0.2); BASO% 0.2 % (0.0-0.8); EOS% 2.3 % (0.0-10.0); HEMOGLOBIN 8.7 g/dL (12.0-16.0); IMM GRAN# 0.14 X1000 (0.0-0.04); IMM GRAN% 3.2 % (0.0-0.5); LYMPH# 1.41 X1000 (1.2-3.4); LYMPH% 32.6 % (20.5-51.1); MCH 29.6 PG (27-31); MCHC 32.2 g/dL (33-37); MCV 91.8 FL (81-99); MONO# 0.48 X1000 (0.11-0.59); MONO% 11.1 % (1.7-9.3); NEUT# 2.19 X1000 (1.4-6.5); NEUT% 50.6 % (42.2-75.2); PLT 169 X1000 (130-400); RBC 2.94 XMIL (4.2-5.4); RDW 15.3 % (11.5-14.5); WBC 4.33 X1000 (4.8-10.8)
[2019-04-24 08:10] LABS: CALCIUM 8.9 mg/dL (8.8-10.2); MAGNESIUM 1.6 mg/dL (1.5-2.7); PHOSPHORUS 3.5 mg/dL (2.7-4.5)
[2019-04-24] MEDS: MORPHINE IV PRN ×4 (08:10→23:28)
[2019-04-24 08:16] LABS: POTASSIUM 2.9 mmol/L (3.5-5.1)
[2019-04-24] MEDS ORDERED: POTASSIUM CHLORIDE 40 MEQ/SWI 40 MEQ/100 ML IVPB IV ONE (09:50)
[2019-04-24] MEDS ORDERED: D5W 1,000 ML IV SCH (10:00)
[2019-04-24] MEDS: SODIUM CHLORIDE 0.9% INJ PRN (10:58)
[2019-04-24] MEDS: ZYVOX 600 MG/D5W 600 MG/300 ML IVPB IV SCH ×2 (11:26→23:11)
[2019-04-24] MEDS: LOVENOX SUBQ SCH (11:33)
--- NOTE | 2019-04-24 15:22 | PROGRESS NOTE ---
DATE: 04/22/2019 SUBJECTIVE: Patient is lying comfortably in bed. She is not complaining of pain at this moment. She is anxious. Her potassium level is still low. I will replace it and the case has been discussed with the dietitian and we will increase the dose of potassium that goes through her TPN. Her sodium level is also slightly elevated so I will put this patient on D5 W, I will decrease the rate of the normal saline. OBJECTIVE: Vital Signs: Temperature 98.6 degrees, pulse 73, respiratory rate 17, blood pressure 121/77 oxygen saturation 100% on room air. HEENT: Head normocephalic, no trauma PERRLA. Neck: Supple. No JVD. No masses. Central trachea. Chest: Clear to auscultation. No wheezing. No rales. Abdomen: Soft. She has a midline enterocutaneous fistula that is still draining. Also she has an ileostomy that is working fine. Her abdomen is soft with a little bit of discomfort to palpation. Neurological: This patient is alert. She is oriented x3. No focal deficits. LABORATORY: WBC 4.3, hemoglobin 8.7, hematocrit 27, platelets 169,000. Sodium 147, potassium 2.9, chloride 113, bicarbonate 23, BUN 14, creatinine 1, glucose 92, calcium 8.9, magnesium 1.6. ASSESSMENT AND PLAN: 1. Metastatic colon cancer, now she has an enterocutaneous fistula that has been managed by surgery department. She is getting total parenteral nutrition. We will try to decrease the dose of the potassium that total parenteral nutrition bag. She is n.p.o., but she is tolerating some ice chips. We will continue with the same management for now. 2. Enterocutaneous fistula coma as above. Continue with nothing per mouth, and parenteral nutrition. 3. Hypernatremia. I will place this patient on D5W at 50 mL/hours and will monitor. 4. Neutropenia, stable Hematology-Oncology following this patient. 5. Hypokalemia. I will replace the potassium today. 6. Hypomagnesemia is borderline low, but I will monitor. 7. Deep vein thrombosis prophylaxis with Lovenox. 8. Anemia status post 2 packed red blood cells. Hemoglobin seems to be stable. Continue to monitor. 9. This patient is full code. cc: Ricardo Ramirez MD
[2019-04-24] MEDS: MAGNESIUM SULFATE IV SCH ×8 (18:05)
[2019-04-24] MEDS: POTASSIUM CHLORIDE IV SCH ×8 (18:05)
[2019-04-24] MEDS: [UNRECOGNIZED DRUG - OTHER] IV SCH ×8 (18:05)
[2019-04-24] MEDS: TPN ELECTROLYTES IV SCH ×8 (18:05)
[2019-04-24] MEDS: LIPOSYN 20% 250 ML IV SCH (18:24)
[2019-04-24] MEDS: ATIVAN IV PRN ×2 (19:47→23:28)
[2019-04-25] MEDS: DILAUDID IV PRN ×4 (01:14→22:02)
[2019-04-25] MEDS: PHENERGAN IV PRN ×3 (01:15→22:02)
[2019-04-25] MEDS: MORPHINE IV PRN ×6 (03:30→23:50)
[2019-04-25] MEDS: ZOSYN 3.375 GM in NS 50 ML IV SCH ×4 (03:30→20:08)
[2019-04-25] MEDS: ATIVAN IV PRN ×3 (03:30→20:00)
[2019-04-25] MEDS: NS 1,000 ML IV SCH (06:25)
[2019-04-25 07:27] LABS: BASO# 0.02 X1000 (0.0-0.2); BASO% 0.4 % (0.0-0.8); EOS# 0.11 X1000 (0.0-0.7); EOS% 2.4 % (0.0-10.0); HEMATOCRIT 26.7 % (37.0-47.0); HEMOGLOBIN 8.7 g/dL (12.0-16.0); IMM GRAN% 2.2 % (0.0-0.5); LYMPH# 1.47 X1000 (1.2-3.4); LYMPH% 31.7 % (20.5-51.1); MCH 29.6 PG (27-31); MCHC 32.6 g/dL (33-37); MCV 90.8 FL (81-99); MONO# 0.62 X1000 (0.11-0.59); MONO% 13.4 % (1.7-9.3); MPV 9.7 FL (7.4-10.4); NEUT# 2.32 X1000 (1.4-6.5); NEUT% 49.9 % (42.2-75.2); PLT 155 X1000 (130-400); RBC 2.94 XMIL (4.2-5.4); RDW 14.9 % (11.5-14.5); WBC 4.64 X1000 (4.8-10.8)
[2019-04-25 07:50] LABS: CALCIUM 7.8 mg/dL (8.8-10.2); CREATININE 1.1 mg/dL (0.5-0.9); MAGNESIUM 1.6 mg/dL (1.5-2.7); PHOSPHORUS 4.4 mg/dL (2.7-4.5); POTASSIUM 2.7 mmol/L (3.5-5.1); PREALBUMIN 12.2 mg/dL (20-40)
[2019-04-25] MEDS ORDERED: POTASSIUM CHLORIDE 40 MEQ/SWI 40 MEQ/100 ML IVPB IV ONE (09:36)
[2019-04-25] MEDS: ZYVOX 600 MG/D5W 600 MG/300 ML IVPB IV SCH ×2 (10:10→22:02)
[2019-04-25] MEDS: LOVENOX SUBQ SCH (10:18)
[2019-04-25] MEDS: 1/2 NS 1,000 ML IV SCH (10:27)
--- NOTE | 2019-04-25 12:17 | PROGRESS NOTE ---
DATE: 04/25/2019 SUBJECTIVE: Ms. Post is a 53-year-old white female patient of Dr. Blaine Torres, who is chronically ill. She has an ostomy. She has developed an enterocutaneous fistula. She has been admitted and she is now on TPN and only ice chips p.o. in hopes to get this enterocutaneous fistula to heal. This enterocutaneous fistula is being dressed with an ostomy bag. She is also receiving IV antibiotics. cc: Shanel Stevens MD
--- NOTE | 2019-04-25 13:57 | PROGRESS NOTE ---
DATE: 04/25/2019 SUBJECTIVE: No acute events overnight. Potassium level is low and I will replace it. I will stop the D5W and normal saline and I will put this patient on half NS. OBJECTIVE: Vital Signs: Temperature 97.8 degrees, pulse 84, respiratory rate 16, blood pressure 100/65, oxygen saturation 99 on room air. HEENT: Head normocephalic. No trauma. PERRLA. Neck: Supple. No JVD. No masses. Central trachea. Chest: Clear to auscultation. No wheezing. No rales. Abdomen: Soft. She has a midline enterocutaneous fistula and it looks like it is still draining still. Also she has an ileostomy that is working fine. Her abdomen is soft. A little bit of discomfort to palpation. Neurological: Alert and oriented x3. No focal deficits. LABORATORY: WBC 4.6, hemoglobin 8.7, hematocrit 26.7, platelets 155,000. Sodium 141, potassium 2.7, chloride 105, bicarbonate 26, BUN 17, creatinine 1.1, glucose 101, calcium 7.8. ASSESSMENT AND PLAN: 1. Metastatic colon cancer, now she has an enterocutaneous fistula that has been managed by Surgery Department. We will continue with the same management. She is on TPN, we replaced electrolytes. She is n.p.o. and she is tolerating some ice chips. 2. Hypernatremia resolved. 3. Enterocutaneous fistula as per #1. 4. Neutropenia, stable. Continue Hematology Oncology recommendations. 5. Hypokalemia. I will replace the magnesium. 6. Hypomagnesemia. It is borderline low, but I will monitor. 7. Deep vein thrombosis prophylaxis with Lovenox. 8. Anemia status post 2 PRBCs, stable. cc: Ricardo Ramirez MD
[2019-04-25] MEDS: [UNRECOGNIZED DRUG - OTHER] IV SCH ×8 (18:55)
[2019-04-25] MEDS: POTASSIUM CHLORIDE IV SCH ×8 (18:55)
[2019-04-25] MEDS: MAGNESIUM SULFATE IV SCH ×8 (18:55)
[2019-04-25] MEDS: TPN ELECTROLYTES IV SCH ×8 (18:55)
[2019-04-25] MEDS: LIPOSYN 20% 250 ML IV SCH (18:55)
[2019-04-25] MEDS: ZOFRAN IV PRN (20:01)
[2019-04-26] MEDS: 1/2 NS 1,000 ML IV SCH ×4 (00:10→16:26)
[2019-04-26] MEDS: MORPHINE IV PRN ×5 (01:47→21:58)
[2019-04-26] MEDS: ZOSYN 3.375 GM in NS 50 ML IV SCH ×4 (04:11→21:17)
[2019-04-26] MEDS: PHENERGAN IV PRN ×3 (04:12→17:33)
[2019-04-26] MEDS: DILAUDID IV PRN ×3 (04:12→17:36)
[2019-04-26] MEDS: SODIUM CHLORIDE 0.9% INJ PRN ×3 (04:12→17:34)
[2019-04-26 07:15] LABS: ALB/GLOB RATIO 0.8; ALBUMIN 2.4 g/dL (3.5-5.0); CALCIUM 8.2 mg/dL (8.8-10.2); CREATININE 1.2 mg/dL (0.5-0.9); MAGNESIUM 1.7 mg/dL (1.5-2.7); PHOSPHORUS 4.9 mg/dL (2.7-4.5); POTASSIUM 2.8 mmol/L (3.5-5.1); TOTAL BILIRUBIN 0.48 mg/dL (0.20-1.00); TOTAL PROTEIN 5.6 g/dL (6.3-8.3)
[2019-04-26 07:19] LABS: BASO# 0.02 X1000 (0.0-0.2); BASO% 0.4 % (0.0-0.8); EOS# 0.13 X1000 (0.0-0.7); EOS% 2.8 % (0.0-10.0); HEMATOCRIT 26.3 % (37.0-47.0); HEMOGLOBIN 8.4 g/dL (12.0-16.0); IMM GRAN# 0.07 X1000 (0.0-0.04); IMM GRAN% 1.5 % (0.0-0.5); LYMPH# 1.46 X1000 (1.2-3.4); LYMPH% 31.2 % (20.5-51.1); MCH 29.2 PG (27-31); MCHC 31.9 g/dL (33-37); MCV 91.3 FL (81-99); MONO# 0.54 X1000 (0.11-0.59); MONO% 11.5 % (1.7-9.3); MPV 10.4 FL (7.4-10.4); NEUT# 2.46 X1000 (1.4-6.5); NEUT% 52.6 % (42.2-75.2); PLT 152 X1000 (130-400); RBC 2.88 XMIL (4.2-5.4); RDW 15.1 % (11.5-14.5); WBC 4.68 X1000 (4.8-10.8)
[2019-04-26] MEDS: ATIVAN IV PRN ×3 (07:51→21:16)
--- NOTE | 2019-04-26 08:49 | PROGRESS NOTE ---
DATE: 04/26/2019 SUBJECTIVE: Ms. Cira Post has an enterocutaneous fistula, and we are trying to get it to close by keeping her n.p.o., and she is on parenteral nutrition. She is awake and comfortable this morning. Her heart rate is 77, blood pressure 101/66, O2 saturation 99%. She is afebrile. She has an ostomy bag over her enterocutaneous fistula. Her hematocrit is 26%. Her BUN and creatinine are 50 and 1.2. Her potassium is a little low this morning. This is being corrected. cc: Shanel Stevens MD
[2019-04-26] MEDS: ZYVOX 600 MG/D5W 600 MG/300 ML IVPB IV SCH ×2 (10:48→21:58)
[2019-04-26] MEDS ORDERED: POTASSIUM CHLORIDE 60 MEQ in NS 500 ML IV ONE (10:52)
[2019-04-26] MEDS: LOVENOX SUBQ SCH (10:55)
--- NOTE | 2019-04-26 13:55 | PROGRESS NOTE ---
DATE: 04/26/2019 SUBJECTIVE: No acute events overnight. Her potassium level is low and I will replace it. Continue with the same management for now. OBJECTIVE: Vital Signs: Temperature 98.4 degrees, pulse 96, respiratory rate 16, blood pressure 99/61, oxygen saturation 100% on room air. HEENT: Head normocephalic. No trauma. PERRLA. Neck: Supple. No JVD. No masses. Central trachea. Chest: Clear to auscultation. No wheezing. No rales. Abdomen: Soft. She has a midline enterocutaneous fistula and it looks like it is still draining. She has an ileostomy that is working fine. Her abdomen is soft. A little bit of discomfort to palpation. Neurological Examination: The patient is alert and oriented x3. No focal deficits. Laboratory: WBC 4.6, hemoglobin 8.4, hematocrit 26.3, platelets 152,000. Sodium 140, potassium 2.8, chloride 104, bicarbonate 31, BUN 20, creatinine 1.2, glucose 107, calcium 8.2, albumin 2.4. ASSESSMENT AND PLAN: 1. Metastatic colon cancer with an enterocutaneous fistula that has been managed by surgery department. We will continue with same management. She is getting total parenteral nutrition. I will replace the electrolytes. She is nothing per oral and tolerating ice chips. 2. Hypernatremia, resolved. 3. Enterocutaneous fistula, as per #1. 4. Neutropenia, stable. Continue with hematology/oncology recommendations. 5. Hypokalemia. I will replace the potassium. 6. Hypomagnesemia, resolved. 7. Deep vein thrombosis prophylaxis with Lovenox. 8. Anemia, status post 2 units of packed red blood cells, stable. cc: Ricardo Ramirez MD
[2019-04-26] MEDS ORDERED: [UNRECOGNIZED DRUG - OTHER] IV SCH ×8 (17:00)
[2019-04-26] MEDS ORDERED: TPN ELECTROLYTES IV SCH ×8 (17:00)
[2019-04-26] MEDS ORDERED: POTASSIUM CHLORIDE IV SCH ×8 (17:00)
[2019-04-26] MEDS ORDERED: MAGNESIUM SULFATE IV SCH ×8 (17:00)
[2019-04-26] MEDS: LIPOSYN 20% 250 ML IV SCH (17:36)
[2019-04-27] MEDS: DILAUDID IV PRN ×3 (00:27→21:47)
[2019-04-27] MEDS: PHENERGAN IV PRN ×3 (00:27→17:19)
[2019-04-27] MEDS: MORPHINE IV PRN ×4 (01:56→17:10)
[2019-04-27] MEDS: ZOSYN 3.375 GM in NS 50 ML IV SCH ×4 (03:29→21:43)
[2019-04-27] MEDS: 1/2 NS 1,000 ML IV SCH ×2 (04:51→15:02)
[2019-04-27 05:33] LABS: CALCIUM 8.6 mg/dL (8.8-10.2); CREATININE 1.2 mg/dL (0.5-0.9); MAGNESIUM 1.9 mg/dL (1.5-2.7); PHOSPHORUS 5.3 mg/dL (2.7-4.5); POTASSIUM 3.8 mmol/L (3.5-5.1); PREALBUMIN 14.5 mg/dL (20-40)
[2019-04-27] MEDS: ATIVAN IV PRN ×3 (08:30→19:08)
[2019-04-27] MEDS: SODIUM CHLORIDE 0.9% INJ PRN ×2 (08:30→17:11)
[2019-04-27] MEDS: ZYVOX 600 MG/D5W 600 MG/300 ML IVPB IV SCH ×2 (11:00→21:45)
[2019-04-27] MEDS: LOVENOX SUBQ SCH (11:20)
--- NOTE | 2019-04-27 11:51 | PROGRESS NOTE ---
DATE: 04/27/2019 SUBJECTIVE: No acute events overnight. Her potassium level is normal today. We will continue with the same management for now. She has a mild output from her fistula. OBJECTIVE: Vital Signs: Temperature 98.2 degrees, pulse 79, respiratory rate 18, blood pressure 93/60, and oxygen saturation 97% on room air. HEENT: Head normocephalic. No trauma. PERRLA. Neck: Supple. No JVD. No masses. Central trachea. Chest: Clear to auscultation. No wheezing. No rales. Abdomen: Soft. She has a midline enterocutaneous fistula, and it looks like it is still draining but just a little bit. She has an ileostomy that is working fine. Her abdomen is soft. A little bit discomfort to palpation. Neurological: Alert and oriented x3. No focal deficits but generalized weakness. LABORATORY: Sodium 135, potassium 3.8, chloride 100, bicarbonate 26, BUN 22, creatinine 1.2, glucose 84, and calcium 8.6. Phosphorus 5.3. AST 11. ASSESSMENT AND PLAN: 1. Metastatic colon cancer with an enterocutaneous fistula that has been managed by Surgery Department. She is still having some output from that fistula. She is getting TPN. We have been replacing her electrolytes. She is tolerating ice chips. 2. Hypernatremia, resolved. 3. Enterocutaneous fistula, as per #1. Surgery Department following this patient closely. 4. Neutropenia, stable. Hematology/Oncology Department on board. We will follow their recommendations. 5. Hypokalemia. Today, the potassium is normal. 6. Hypomagnesemia resolved. 7. Deep vein thrombosis prophylaxis with Lovenox. 8. Anemia status post 2 packed red blood cells, stable. I will get a new hemoglobin and hematocrit in the morning. cc: Ricardo Ramirez MD
[2019-04-27] MEDS ORDERED: POTASSIUM CHLORIDE IV SCH ×8 (17:00)
[2019-04-27] MEDS ORDERED: MAGNESIUM SULFATE IV SCH ×8 (17:00)
[2019-04-27] MEDS ORDERED: TPN ELECTROLYTES IV SCH ×8 (17:00)
[2019-04-27] MEDS ORDERED: [UNRECOGNIZED DRUG - OTHER] IV SCH ×8 (17:00)
[2019-04-27] MEDS: LIPOSYN 20% 250 ML IV SCH (17:15)
--- NOTE | 2019-04-27 18:21 | GENERAL SURGERY PROGRESS NOTE ---
DATE: 04/27/2019 SUBJECTIVE: She is feeling better. No abdominal pain, nausea, vomiting. She is having pretty good control of drainage from her ostomy appliance. OBJECTIVE: General: She is awake and alert in no acute distress. Gastrointestinal: Soft, nontender, nondistended. The fistula bag appears to have a good seal. Her right lower quadrant ileostomy bag also has a good seal. ASSESSMENT AND PLAN: A 53-year-old female with enterocutaneous fistula, stage IV rectal cancer, skin breakdown around the fistula, malnutrition. Overall, the plan is to try to obtain a fistulogram and small bowel series tomorrow to further evaluate the section of small bowel that is involved. She will continue with bowel rest and TPN for the next several weeks to allow the skin to continue to heal. At minimum, we are seeking to let the inflammation down for about 3 months before any operative intervention is entertained, and it is very possible this may heal completely without an operation with these conservative measures. cc: Blaine Torrse MD
[2019-04-28] MEDS: PHENERGAN IV PRN ×4 (00:27→21:06)
[2019-04-28] MEDS: MORPHINE IV PRN ×4 (00:30→21:07)
[2019-04-28] MEDS: 1/2 NS 1,000 ML IV SCH ×3 (00:35→18:00)
[2019-04-28] MEDS: ZOSYN 3.375 GM in NS 50 ML IV SCH ×4 (02:59→21:01)
[2019-04-28 05:21] LABS: BASO# 0.06 X1000 (0.0-0.2); BASO% 1.3 % (0.0-0.8); EOS# 0.15 X1000 (0.0-0.7); EOS% 3.1 % (0.0-10.0); HEMATOCRIT 26.7 % (37.0-47.0); HEMOGLOBIN 8.6 g/dL (12.0-16.0); IMM GRAN# 0.04 X1000 (0.0-0.04); IMM GRAN% 0.8 % (0.0-0.5); LYMPH# 1.32 X1000 (1.2-3.4); LYMPH% 27.5 % (20.5-51.1); MCH 30.4 PG (27-31); MCHC 32.2 g/dL (33-37); MCV 94.3 FL (81-99); MONO# 0.46 X1000 (0.11-0.59); MONO% 9.6 % (1.7-9.3); MPV 11.3 FL (7.4-10.4); NEUT# 2.77 X1000 (1.4-6.5); NEUT% 57.7 % (42.2-75.2); PLT 117 X1000 (130-400); RBC 2.83 XMIL (4.2-5.4); RDW 15.6 % (11.5-14.5)
[2019-04-28] MEDS: DILAUDID IV PRN ×3 (05:35→18:38)
[2019-04-28 05:51] LABS: CALCIUM 8.4 mg/dL (8.8-10.2); CREATININE 1.3 mg/dL (0.5-0.9); PHOSPHORUS 4.8 mg/dL (2.7-4.5); POTASSIUM 3.9 mmol/L (3.5-5.1)
[2019-04-28] MEDS: ATIVAN IV PRN (11:55)
[2019-04-28] MEDS: ZYVOX 600 MG/D5W 600 MG/300 ML IVPB IV SCH ×2 (11:58→23:37)
--- NOTE | 2019-04-28 11:58 | Diag Imaging Result Doc PS360 ---
SMALL BOWEL SERIES ONLY - 04/28/2019 INDICATION: enterocutaneous fistula evaluation TECHNIQUE: Total fluoroscopy time was 56 seconds. 19 images were obtained. COMPARISON: CT from 04/17/2019 FINDINGS: The stomach and proximal small bowel are nondilated. At the distal small bowel, there is a fistula rectum. This extends directly down and posteriorly, from the central pelvic inlet to the rectal stump. IMPRESSION: Enterorectal fistula. Electronically signed by Abdelrahman Bradshaw 04/28/2019 11:56 AM
[2019-04-28] MEDS: LOVENOX SUBQ SCH (12:06)
--- NOTE | 2019-04-28 12:08 | HEMO/ONC PROGRESS NOTE ---
DATE: 04/28/2019 CHIEF COMPLAINT/SUBJECTIVE: Patient continues to feel better. She denies abdominal pain, nausea, or vomiting. She is happy with the control of her drainage, allowing the skin to heal. OBJECTIVE: Vital Signs: Temperature 97.7 degrees, pulse rate 86, respiratory rate 19, blood pressure 87/56, O2 saturation 100, 0/10 pain. Physical Examination : Chest: Clear to auscultation. Cardiovascular: Normal S1, S2. Gastrointestinal: Abdomen is soft. Good seal around her fistula bag. Ileostomy bag intact with a good seal. Neurological: A and O x3. Laboratory: WBC is 4.8, hemoglobin 8.6, hematocrit 26.7, platelet count 117,000, ANC 2.77. Creatinine 1.3, calcium 8.4. ASSESSMENT: 1. Metastatic colon cancer. 2. Leukopenia. 3. Electrolyte abnormalities. 4. Deep venous thrombosis prophylaxis. 5. Anemia. 6. Enterocutaneous fistula. PLAN: We are following the plan per Dr. Torres. He continues to allow bowel rest and keep the fistula bag in place to allow her skin to heal. We continue to follow peripherally. Continue to manage potassium and magnesium deficiencies per protocol. Continue patient on Procrit protocol for her anemia. Please call if needed over the holiday weekend. Dictated by CHRISTIAN Mckinney for Asa Hein MD Patient seen and examined. As above. Continue to await recovery from her fistula. Plan to reinitiate chemotherapy when okay with Dr. Torres. We will continue to follow her peripherally. Call if needed. Asa Hein M.D. cc: Asa Hein MD [facility]
[2019-04-28] MEDS: LIPOSYN 20% 250 ML IV SCH (16:11)
[2019-04-28] MEDS: [UNRECOGNIZED DRUG - OTHER] IV SCH ×8 (16:36)
[2019-04-28] MEDS: POTASSIUM CHLORIDE IV SCH ×8 (16:36)
[2019-04-28] MEDS: MAGNESIUM SULFATE IV SCH ×8 (16:36)
[2019-04-28] MEDS: TPN ELECTROLYTES IV SCH ×8 (16:36)
--- NOTE | 2019-04-28 16:44 | PROGRESS NOTE ---
DATE: 04/28/2019 SUBJECTIVE: Ms. Post is feeling better. She is sitting up in a chair. She is requesting some food. She is on peripheral nutrition at this time, or IV nutrition. OBJECTIVE: Temperature is 98.8 degrees, pulse 96, respirations 17, blood pressure 89/61. Her blood pressures have remained between 88 and 102 over 48 to 67. Pupils are equal and round. Lungs are clear in all lung sarmiento.Cardiovascular: Regular rhythm and rate without murmur or S3. Abdomen is soft. Skin is warm and dry. ASSESSMENT AND PLAN: 1. Metastatic colon cancer. 2. Leukopenia. 3. Electrolyte abnormalities. 4. She has had history of deep venous thrombosis. 5. She has an enteric cutaneous fistula. We are trying to allow the bowel to rest and keep the fistula bag in place to allow her skin. Continue to manage her potassium and magnesium. She is anxious to go home, but I will discuss with Dr. Hein and Dr. Torres. DIAGNOSTIC STUDIES: Her white count has come up to 4800, hematocrit 26, hemoglobin is 8.6, platelet count 117,000. Sodium 136, potassium 3.9, chloride 101, BUN is 25, creatinine 1.3, blood sugars of 145, 131, and 110. REVIEW OF HER ORDERS: She is on Zosyn 3.375 g IV q.6 h. She is on linezolid 600 mg IV q.12 h. She is getting TPN. She does feel better. Electrolytes look good. Note magnesium is 2.0. We will discuss what our discharge plans are with the crew. cc: Markus Lucio MD
--- NOTE | 2019-04-28 19:35 | GENERAL SURGERY PROGRESS NOTE ---
DATE: 04/28/2019 SUBJECTIVE: The patient is doing okay today. No new changes. OBJECTIVE: Vital Signs: She is afebrile. Vital signs are stable. General: She is awake, alert, and oriented x3. No acute distress. IMAGING: Her small bowel series shows a fistula of the distal small bowel which interestingly appears to connect with the rectal stump as well as the skin. There is no distal bowel obstruction. ASSESSMENT AND PLAN: A 53-year-old female with enterocutaneous and enterorectal fistula. She is doing better now with good pouching of the fistulous tract. The skin is healing. Going forward, her biggest issues will be ongoing nutritional support with bowel rest. This will require total parenteral nutrition for at least 4 more weeks to allow this to heal. Then, we will introduce an oral diet to see what changes with her fistulous tract. Hopefully, this will close with simply conservative measures and not require a risky operation. cc: Blaine Torres MD
[2019-04-29] MEDS: ZOSYN 3.375 GM in NS 50 ML IV SCH ×4 (03:04→22:30)
[2019-04-29] MEDS: DILAUDID IV PRN ×3 (03:06→17:26)
[2019-04-29 05:27] LABS: CALCIUM 8.4 mg/dL (8.8-10.2); CREATININE 1.3 mg/dL (0.5-0.9); PHOSPHORUS 4.2 mg/dL (2.7-4.5); POTASSIUM 4.2 mmol/L (3.5-5.1)
[2019-04-29] MEDS: MORPHINE IV PRN ×3 (08:12→21:28)
[2019-04-29] MEDS: 1/2 NS 1,000 ML IV SCH ×3 (08:16→21:30)
[2019-04-29] MEDS: ATIVAN IV PRN (08:24)
[2019-04-29] MEDS: ZYVOX 600 MG/D5W 600 MG/300 ML IVPB IV SCH ×2 (10:09→23:00)
[2019-04-29] MEDS: LOVENOX SUBQ SCH (10:09)
[2019-04-29] MEDS: PHENERGAN IV PRN ×2 (12:22→19:47)
--- NOTE | 2019-04-29 14:03 | PROGRESS NOTE ---
DATE: 04/29/2019 SUBJECTIVE: Ms. Post was resting in bed, laying on her left side. Remains afebrile. OBJECTIVE: Temperature 97.4 degrees, pulse 91, respirations 17, blood pressure 105/65. Pupils are equal and round. Lungs are clear in all lung sarmiento. Cardiovascular Examination: Regular rhythm and rate without murmur or S3. Urine output was 5000 mL. ASSESSMENT AND PLAN: 1. A 53-year-old female with an enterocutaneous and enterorectal fistula. Doing better. She has good pouching of her fistula track. Skin seems to be healing. We will need to continue her intravenous nutritional support for at least 4 more weeks to allow this to heal and then probably initiate oral diet again and see how we do. See if we can set her up for total parenteral nutrition to go home. 2. Leukopenia, which is improved. 3. Electrolyte abnormalities. Continue to follow. 4. Malabsorption syndrome. Aware. 5. Metastatic colon cancer. Continue present orders. REVIEW OF LABS: Today, hematocrit is stable at 26, hemoglobin 8.6. Electrolytes unremarkable. Sodium 137, potassium 4.2, chloride 102, BUN 28, creatinine 1.3. Blood sugars 113, 116, 98, and 102. cc: Markus Lucio MD
[2019-04-29] MEDS: LIPOSYN 20% 250 ML IV SCH (16:00)
[2019-04-29] MEDS: [UNRECOGNIZED DRUG - OTHER] IV SCH ×8 (17:29)
[2019-04-29] MEDS: TPN ELECTROLYTES IV SCH ×8 (17:29)
[2019-04-29] MEDS: MAGNESIUM SULFATE IV SCH ×8 (17:29)
[2019-04-29] MEDS: POTASSIUM CHLORIDE IV SCH ×8 (17:29)
[2019-04-30] MEDS: DILAUDID IV PRN ×4 (01:12→20:10)
[2019-04-30] MEDS: ZOFRAN IV PRN ×2 (01:15→17:10)
[2019-04-30] MEDS: ZOSYN 3.375 GM in NS 50 ML IV SCH ×4 (04:59→22:56)
[2019-04-30] MEDS: PHENERGAN IV PRN ×3 (05:02→20:10)
[2019-04-30] MEDS: MORPHINE IV PRN (05:04)
[2019-04-30] MEDS: 1/2 NS 1,000 ML IV SCH ×2 (07:34→12:10)
[2019-04-30 07:49] LABS: CALCIUM 9.1 mg/dL (8.8-10.2); CREATININE 1.2 mg/dL (0.5-0.9); PHOSPHORUS 4.1 mg/dL (2.7-4.5); POTASSIUM 4.1 mmol/L (3.5-5.1)
[2019-04-30] MEDS: ZYVOX 600 MG/D5W 600 MG/300 ML IVPB IV SCH (09:15)
[2019-04-30] MEDS: ATIVAN IV PRN ×2 (09:52→22:51)
--- NOTE | 2019-04-30 10:23 | GENERAL SURGERY PROGRESS NOTE ---
DATE: 04/30/2019 ADDENDUM: In regards to her chemotherapy, this will need to be held for the next 4 to 6 weeks minimum until the fistula closes. cc: Blaine Torres MD
--- NOTE | 2019-04-30 10:23 | GENERAL SURGERY PROGRESS NOTE ---
DATE: 04/30/2019 SUBJECTIVE: She is doing fine. No new problems overnight. Her bag has not been changed in days, according to her. OBJECTIVE: She is afebrile. Vital signs are stable. General: She is awake, alert, and oriented x3. No acute distress. GI: Soft, nontender, nondistended. I removed the bag from the fistula. The skin is much improved. There is very minimal skin breakdown and redness. There is much less tenderness and there is scant drainage from the fistulous tract at this time. 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 She will need to remain nothing per oral for 1 more month, on total parenteral nutrition only. She may take ice chips and a small sip of water for oral medicines only. For the wound care, we are going to place Triad cream around the fistula on the skin and then cover it with gauze and tape today, and see how much leakage there is. If there is minimal leakage, we will continue with this indefinitely without an ostomy appliance bag to the fistula. If she has more significant leakage, then we will have to go back to placing a ostomy bag over it. Long-term plans include re-evaluation of healing of this fistula in the next 4 to 6 weeks. If it appears to be healed, we will reintroduce an oral diet and observe for any changes. If she requires an operation, we are at least 2 to 3 months away from an elective operation to deal with this fistula. cc: Blaine Torres MD
--- NOTE | 2019-04-30 10:35 | PROGRESS NOTE ---
DATE: 04/30/2019 SUBJECTIVE: Ms. Post does feel a little better. Feels like her abdomen is not leaking as much. It is a little less tender. She did have a lot of reflux last night. OBJECTIVE: Temperature 98.6 degrees, pulse 88, respirations 18, blood pressure 114/68. Pupils are equal and round. Lungs are clear in all lung sarmiento. Cardiovascular Examination: Regular rhythm and rate without murmur or S3. Abdomen is soft. Skin is warm and dry. Urine output 5000 mL. ASSESSMENT AND PLAN: 1. Enterocutaneous, enterorectal fistula. She is doing better. Good pouching of her fistula track. Holding her nothing per oral and getting intravenous parenteral nutrition. 2. Leukopenia, which has improved. 3. Electrolyte abnormalities. Following. Supplement as needed. 4. Malabsorption syndrome. 5. Metastatic colon cancer. Trying to arrange for her to be able to get home total parenteral nutrition. We will continue to work on that. LABORATORY DATA: From the 2nd appreciated. Electrolytes from today, sodium 137, potassium 4.1, bicarb 23, BUN 24, creatinine 1.2. Blood sugars 132, 147, and 117. cc: Markus Lucio MD
[2019-04-30] MEDS: LOVENOX SUBQ SCH (12:10)
[2019-04-30] MEDS: LIPOSYN 20% 250 ML IV SCH (17:10)
[2019-04-30] MEDS: TPN ELECTROLYTES IV SCH ×8 (18:44)
[2019-04-30] MEDS: MAGNESIUM SULFATE IV SCH ×8 (18:44)
[2019-04-30] MEDS: POTASSIUM CHLORIDE IV SCH ×8 (18:44)
[2019-04-30] MEDS: [UNRECOGNIZED DRUG - OTHER] IV SCH ×8 (18:44)
[2019-04-30] MEDS: SODIUM CHLORIDE 0.9% INJ PRN (20:10)
[2019-05-01] MEDS: ZYVOX 600 MG/D5W 600 MG/300 ML IVPB IV SCH ×3 (00:22→23:08)
[2019-05-01] MEDS: MORPHINE IV PRN (01:19)
[2019-05-01] MEDS: SODIUM CHLORIDE 0.9% INJ PRN ×4 (03:31→20:57)
[2019-05-01] MEDS: DILAUDID IV PRN ×4 (03:31→20:49)
[2019-05-01] MEDS: PHENERGAN IV PRN ×3 (03:32→15:39)
[2019-05-01] MEDS: ZOSYN 3.375 GM in NS 50 ML IV SCH ×5 (05:00→22:00)
[2019-05-01 05:27] LABS: CALCIUM 8.4 mg/dL (8.8-10.2); CREATININE 1.1 mg/dL (0.5-0.9); POTASSIUM 3.8 mmol/L (3.5-5.1)
[2019-05-01 05:28] LABS: MAGNESIUM 1.6 mg/dL (1.5-2.7); PHOSPHORUS 2.7 mg/dL (2.7-4.5)
[2019-05-01] MEDS: TYLENOL PO PRN ×2 (08:34→20:57)
[2019-05-01] MEDS: 1/2 NS 1,000 ML IV SCH ×3 (08:34→23:07)
[2019-05-01] MEDS: LOVENOX SUBQ SCH (10:30)
--- NOTE | 2019-05-01 12:44 | PROGRESS NOTE ---
DATE: 05/01/2019 SUBJECTIVE: Ms. Post feels a little better. She has less nausea than yesterday. OBJECTIVE: She remains afebrile. Temperature 99.6 degrees, pulse 112, respirations 20, and blood pressure 100/60. Pupils are equal and round.Lungs: Clear in all lung sarmiento. Cardiovascular: Regular rhythm and rate without murmur or S3. Abdomen: Soft. Skin: Warm and dry. Blood sugars 121, 115 and 153. ASSESSMENT AND PLAN: Enterocutaneous anorectal fistula. Continue TPN in hopes that it may close. Follow electrolytes and liver functions. Hematocrit stable at 26. Hemoglobin 8.6. Electrolytes look good. Her sodium is 131, potassium is 3.8, chloride 96, BUN 21, and creatinine 1.1. Blood sugars 149, 151 and 153. We are trying to find a way she can get TPN at home, and trying to get that arranged. Appreciate Nutrition's help. Continue Zosyn and linezolid. cc: Markus Lucio MD
[2019-05-01] MEDS: POTASSIUM CHLORIDE IV SCH ×8 (17:47)
[2019-05-01] MEDS: MAGNESIUM SULFATE IV SCH ×8 (17:47)
[2019-05-01] MEDS: TPN ELECTROLYTES IV SCH ×8 (17:47)
[2019-05-01] MEDS: LIPOSYN 20% 250 ML IV SCH (17:47)
[2019-05-01] MEDS: [UNRECOGNIZED DRUG - OTHER] IV SCH ×8 (17:47)
[2019-05-02] MEDS: ATIVAN IV PRN (01:20)
[2019-05-02] MEDS: 1/2 NS 1,000 ML IV SCH ×2 (02:59→12:47)
[2019-05-02] MEDS: ZOSYN 3.375 GM in NS 50 ML IV SCH ×4 (03:00→21:00)
[2019-05-02] MEDS: PHENERGAN IV PRN ×3 (03:00→20:59)
[2019-05-02] MEDS: SODIUM CHLORIDE 0.9% INJ PRN ×2 (03:01→21:00)
[2019-05-02] MEDS: DILAUDID IV PRN ×3 (03:04→18:38)
[2019-05-02] MEDS: MORPHINE IV PRN ×2 (07:43→20:59)
[2019-05-02 08:06] LABS: CALCIUM 8.2 mg/dL (8.8-10.2); CREATININE 1.1 mg/dL (0.5-0.9); MAGNESIUM 1.8 mg/dL (1.5-2.7); PREALBUMIN 15.7 mg/dL (20-40)
[2019-05-02] MEDS: ZYVOX 600 MG/D5W 600 MG/300 ML IVPB IV SCH ×2 (09:26→22:09)
[2019-05-02] MEDS: LOVENOX SUBQ SCH (10:59)
--- NOTE | 2019-05-02 12:09 | PROGRESS NOTE ---
DATE: 05/02/2019 SUBJECTIVE: Ms. Post is a little blue today, just a little depressed about being in the hospital. She does feel like her tummy is doing better. She has remained afebrile in the last 24 hours. OBJECTIVE: Vitals: T-max was 99.2 degrees, pulse 100, respirations 16, blood pressure 106/75. HEENT: Pupils are equal and round. Lungs: Clear in all lung sarmiento. Cardiovascular: Regular rhythm and rate, without murmur or S3. Abdomen: Soft. Skin: Warm and dry. DIAGNOSTIC DATA: Urine output was good. Blood sugars, last 3, 115, 116, and 124. ASSESSMENT AND PLAN: Enterocutaneous anorectal and an enterocutaneous fistula. Continue TPN. Holding NPO. It seems like the skin is healing a little bit around the stomach, and the plan is to continue TPN for at least several more weeks, see if we can arrange that for home following her electrolytes. I do not see any changes. cc: Markus Lucio MD
[2019-05-02] MEDS: MAGNESIUM SULFATE IV SCH ×8 (17:03)
[2019-05-02] MEDS: LIPOSYN 20% 250 ML IV SCH (17:03)
[2019-05-02] MEDS: TPN ELECTROLYTES IV SCH ×8 (17:03)
[2019-05-02] MEDS: [UNRECOGNIZED DRUG - OTHER] IV SCH ×8 (17:03)
[2019-05-02] MEDS: POTASSIUM CHLORIDE IV SCH ×8 (17:03)
[2019-05-03] MEDS: ZOFRAN IV PRN ×2 (00:20→09:15)
[2019-05-03] MEDS: DILAUDID IV PRN ×4 (00:20→18:35)
[2019-05-03] MEDS: MORPHINE IV PRN ×3 (03:21→21:04)
[2019-05-03] MEDS: ZOSYN 3.375 GM in NS 50 ML IV SCH ×4 (03:21→21:05)
[2019-05-03] MEDS: SODIUM CHLORIDE 0.9% INJ PRN ×3 (05:17→18:35)
[2019-05-03] MEDS: PHENERGAN IV PRN ×3 (05:17→18:35)
[2019-05-03] MEDS: ATIVAN IV PRN ×3 (05:17→16:01)
[2019-05-03 07:28] LABS: AGAP 12; BUN 18 mg/dL (8-22); CALCIUM 8.4 mg/dL (8.8-10.2); CHLORIDE 94 mmol/L (98-107); COSMO 260; CREATININE 0.9 mg/dL (0.5-0.9); ESTIMATED GFR > 60; GLUCOSE 125 mg/dL (70-104); MAGNESIUM 1.7 mg/dL (1.5-2.7); PHOSPHORUS 2.8 mg/dL (2.7-4.5); POTASSIUM 3.6 mmol/L (3.5-5.1); SODIUM 128 mmol/L (136-145); TCO2 22 mmol/L (25-35)
[2019-05-03] MEDS: 1/2 NS 1,000 ML IV SCH ×3 (09:15→22:04)
[2019-05-03] MEDS: LOVENOX SUBQ SCH (10:41)
[2019-05-03] MEDS: ZYVOX 600 MG/D5W 600 MG/300 ML IVPB IV SCH ×2 (10:41→22:04)
[2019-05-03 12:36] LABS: CALCIUM 8.2 mg/dL (8.8-10.2); MAGNESIUM 1.7 mg/dL (1.5-2.7); PHOSPHORUS 2.4 mg/dL (2.7-4.5); POTASSIUM 3.6 mmol/L (3.5-5.1)
[2019-05-03 12:53] LABS: PREALBUMIN 16.4 mg/dL (20-40)
[2019-05-03 13:10] LABS: ALB/GLOB RATIO 0.6; ALBUMIN 2.6 g/dL (3.5-5.0); DIRECT BILIRUBIN 0.2 mg/dL (0.00-0.20); TOTAL BILIRUBIN 0.39 mg/dL (0.20-1.00); TOTAL PROTEIN 6.6 g/dL (6.3-8.3)
[2019-05-03] MEDS: POTASSIUM CHLORIDE IV SCH ×8 (17:22)
[2019-05-03] MEDS: [UNRECOGNIZED DRUG - OTHER] IV SCH ×8 (17:22)
[2019-05-03] MEDS: MAGNESIUM SULFATE IV SCH ×8 (17:22)
[2019-05-03] MEDS: LIPOSYN 20% 250 ML IV SCH (17:22)
[2019-05-03] MEDS: TPN ELECTROLYTES IV SCH ×8 (17:22)
--- NOTE | 2019-05-03 19:45 | PROGRESS NOTE ---
DATE: 05/03/2019 May did feel a little better, no nausea today, abdomen is less uncomfortable. Vital Signs: Stable. Lungs: Are clear in all lung sarmiento. Cardiovascular: Regular rhythm, rate without murmur or S3. Abdomen: Dry. IV site looks good. No pedal edema. ASSESSMENT/PLAN: Metastatic colon cancer with internal cutaneous fistula hopefully this is closing up. Continue total parental nutrition and we probably will change her nutrition to normal saline, sodium is little lower and try to arrange for her to get TPN at home. cc: Markus Lucio MD
[2019-05-04] MEDS: PHENERGAN IV PRN ×4 (00:56→22:54)
[2019-05-04] MEDS: DILAUDID IV PRN ×4 (00:56→21:53)
[2019-05-04] MEDS: ZOSYN 3.375 GM in NS 50 ML IV SCH ×4 (03:21→21:00)
[2019-05-04] MEDS: 1/2 NS 1,000 ML IV SCH ×2 (03:26→12:50)
[2019-05-04] MEDS: MORPHINE IV PRN ×3 (05:25→20:36)
[2019-05-04 06:36] LABS: CALCIUM 7.9 mg/dL (8.8-10.2); MAGNESIUM 1.8 mg/dL (1.5-2.7); PHOSPHORUS 3.5 mg/dL (2.7-4.5); POTASSIUM 3.8 mmol/L (3.5-5.1)
[2019-05-04] MEDS: ZYVOX 600 MG/D5W 600 MG/300 ML IVPB IV SCH ×2 (10:37→22:56)
[2019-05-04] MEDS: LOVENOX SUBQ SCH (11:28)
[2019-05-04] MEDS: ATIVAN IV PRN ×2 (11:33→18:32)
--- NOTE | 2019-05-04 13:02 | HEMO/ONC PROGRESS NOTE ---
DATE: 05/04/2019 CHIEF COMPLAINT/SUBJECTIVE: Ms. Post is continuing to improve. She states that her fistula is improving. There is no drainage in the drain bag at this time. She is interested in resuming chemotherapy if she is still in the hospital this week. She is also interested in doing TPN at home if need be. She states she does have abdominal pain. OBJECTIVE: Vital Signs: Temperature 98.9 degrees, pulse rate 95, respiratory rate 16, blood pressure 84/51, O2 saturation 100% on room air. She is in 8/10 abdominal pain. Physical Examination: Lungs were clear to auscultation. Cardiovascular: Normal S1, S2. Abdomen was soft and nondistended. However, tender in upper quadrants. Skin site appears to be doing well. Ileostomy bag as well as fistula bag noted in place and intact. Skin otherwise pink, warm, and dry. Laboratory Data: Sodium is 129, creatinine 1.0. ASSESSMENT: 1. Metastatic colon cancer. 2. Leukopenia. 3. Electrolyte abnormalities. 4. Deep venous thrombosis prophylaxis. 5. Anemia. 6. Enterocutaneous fistula and enterorectal fistula. PLAN: We continue to follow the recommendations per Dr. Torres. We will consider proceeding with chemotherapy this week if it is okay per Dr. Torres. We are following the patient peripherally. Please let us know if we are needed for anything. Dictated by CHRISTIAN Mckinney for Asa Hein MD As above. Will discuss with Dr. Torres to see if we can reinitiate chemotherapy this week. Asa Hein M.D. cc: Asa Hein MD [facility]
[2019-05-04] MEDS: LIPOSYN 20% 250 ML IV SCH (17:23)
[2019-05-04] MEDS: [UNRECOGNIZED DRUG - OTHER] IV SCH ×8 (17:24)
[2019-05-04] MEDS: POTASSIUM CHLORIDE IV SCH ×8 (17:24)
[2019-05-04] MEDS: MAGNESIUM SULFATE IV SCH ×8 (17:24)
[2019-05-04] MEDS: TPN ELECTROLYTES IV SCH ×8 (17:24)
--- NOTE | 2019-05-04 18:13 | PROGRESS NOTE ---
DATE: 05/04/2019 SUBJECTIVE: She had a better day today. OBJECTIVE: Abdomen looks good and dry. Her lungs are clear. Breathing comfortably. No nausea today. Temperature 98.0 degrees, pulse 96, respirations 17, blood pressure 94/46. Pupils are equal. No pedal edema. ASSESSMENT AND PLAN: 1. Metastatic colon cancer. 2. Leukopenia. 3. Electrolyte abnormalities from an enterocutaneous fistula. 4. Deep venous thrombosis prophylaxis. Continue. 5. Anemia, stable. 6. Enterocutaneous fistula and anorectal fistula. On TPN feeding and it looks like the fistula is closing down, which is encouraging. We are trying to arrange for her to get home peripheral TPN and get her eligible for that. REVIEW OF ORDERS: I do not see any change on her orders. REVIEW OF LABORATORIES: Chemistries today: Sodium 129, potassium 3.8, chloride 96, BUN 18, creatinine 1.0, blood sugars have been 112, 113, 110, 140, and 116. Continue present measures. cc: Markus Lucio MD
[2019-05-05] MEDS: ATIVAN IV PRN ×3 (01:54→15:47)
[2019-05-05] MEDS: 1/2 NS 1,000 ML IV SCH ×2 (01:55→15:39)
[2019-05-05] MEDS: MORPHINE IV PRN ×3 (04:15→13:50)
[2019-05-05] MEDS: ZOSYN 3.375 GM in NS 50 ML IV SCH ×4 (04:50→22:25)
[2019-05-05] MEDS: DILAUDID IV PRN ×3 (05:12→17:42)
[2019-05-05 06:41] LABS: AGAP 12; BUN 16 mg/dL (8-22); CALCIUM 8.1 mg/dL (8.8-10.2); CHLORIDE 98 mmol/L (98-107); COSMO 267; CREATININE 0.9 mg/dL (0.5-0.9); ESTIMATED GFR > 60; GLUCOSE 114 mg/dL (70-104); MAGNESIUM 1.8 mg/dL (1.5-2.7); PHOSPHORUS 3.1 mg/dL (2.7-4.5); POTASSIUM 3.7 mmol/L (3.5-5.1); SODIUM 132 mmol/L (136-145); TCO2 22 mmol/L (25-35)
[2019-05-05] MEDS: PHENERGAN IV PRN ×2 (08:02→17:42)
[2019-05-05] MEDS: ZYVOX 600 MG/D5W 600 MG/300 ML IVPB IV SCH ×2 (10:42→22:25)
[2019-05-05] MEDS: LOVENOX SUBQ SCH (11:34)
[2019-05-05] MEDS: LIPOSYN 20% 250 ML IV SCH (17:14)
[2019-05-05] MEDS: [UNRECOGNIZED DRUG - OTHER] IV SCH ×8 (17:15)
[2019-05-05] MEDS: POTASSIUM CHLORIDE IV SCH ×8 (17:15)
[2019-05-05] MEDS: MAGNESIUM SULFATE IV SCH ×8 (17:15)
[2019-05-05] MEDS: TPN ELECTROLYTES IV SCH ×8 (17:15)
[2019-05-05] MEDS ORDERED: MORPHINE IV PRN (18:17)
--- NOTE | 2019-05-05 18:52 | PROGRESS NOTE ---
DATE: 05/05/2019 SUBJECTIVE: Overnight, no acute events on Ms. February. She did have a fever of 100.1 degrees, and she is tachycardic with pulse of 107. She is denying any chest pain, shortness of breath, abdominal pain. She has been on total parenteral nutrition, awaiting further social work arrangement of home TPN. We discussed about exam findings, long-term antibiotic plan, and answered all of her questions. VITAL SIGNS: Currently, temperature 99.1 degrees, pulse 107, respiratory rate 18, blood pressure 90/50, saturating 100% room air. PHYSICAL EXAMINATION: General: She does not appear in any acute distress. Oral Cavity: Moist. Lungs: Air entry bilaterally equal. No wheeze, rhonchi, crackles. Cardiovascular: S1, S2 normal. Tachycardic. No murmur, rub, or gallop. Abdomen: Soft. She has a right lower quadrant ileostomy with liquidy output. She also has about 2 x 2 cm enterocutaneous fistula in the midline under abdominal fold. Extremities: No lower extremity edema. She has left-sided PICC line through which she is receiving intravenous fluids. LABS: No CBC today. Her sodium and chloride are in acceptable range. I am going to stop the intravenous fluids and repeat BMP tomorrow. ASSESSMENT AND PLAN: 1. Rectal adenocarcinoma with liver metastases, status post ileostomy since August 2018, on FOLFIRI chemotherapy, who now presented with enterocutaneous and enterorectal fistula, with Escherichia coli and Klebsiella pneumoniae and Enterococcus faecalis. Continue n.p.o. status at least until 05/17/2019. Continue intravenous linezolid and intravenous Zosyn. My plan is to possibly discharge her on oral amoxicillin and cephalexin. Continue total parenteral nutrition. I will consult Infectious Disease for home antibiotic management plan. Resume her home extended release morphine and immediate release morphine tablets for pain control. 2. Suspected sepsis from enterocutaneous fistula. Follow up with CBC tomorrow. Follow up electrocardiogram for tachycardia. 3. Acute kidney injury on presentation, resolved. Will follow up with sodium level tomorrow and stop intravenous fluids. 4. Disposition. We are awaiting social work team arrangement of total parenteral nutrition at home. When that is set up, my plan is to discharge her on oral antibiotics. Plan of care discussed with the patient. All of her questions have been answered. cc: Irving Lee MD
[2019-05-05] MEDS: TYLENOL PO PRN (19:54)
[2019-05-05] MEDS: MS CONTIN PO SCH (21:59)
--- NOTE | 2019-05-05 22:31 | EKG Report ---
Test Performed on : 05/05/2019 6:32:55 PM Test Reason : Evaluate for tachycardia rhythm Blood Pressure : / mmHG Vent. Rate : 120 BPM Atrial Rate : 120 BPM P-R Int : 160 ms QRS Dur : 074 ms QT Int : 324 ms P-R-T Axes : 064 010 052 degrees QTc Int : 457 ms Sinus tachycardia. Otherwise normal ECG When compared with ECG of 23-OCT-2017 12:23, No significant change was found Confirmed by Liam Bliss MD ([id number]) on 05/06/2019 4:52:16 PM
[2019-05-06] MEDS: ZOSYN 3.375 GM in NS 50 ML IV SCH ×3 (04:57→17:22)
[2019-05-06 05:53] LABS: AGAP 11; BUN 14 mg/dL (8-22); CALCIUM 8.2 mg/dL (8.8-10.2); CHLORIDE 96 mmol/L (98-107); COSMO 259; CREATININE 0.8 mg/dL (0.5-0.9); ESTIMATED GFR > 60; GLUCOSE 123 mg/dL (70-104); MAGNESIUM 1.7 mg/dL (1.5-2.7); PHOSPHORUS 2.9 mg/dL (2.7-4.5); POTASSIUM 3.4 mmol/L (3.5-5.1); SODIUM 128 mmol/L (136-145); TCO2 21 mmol/L (25-35)
[2019-05-06 06:13] LABS: BASO# 0.02 X1000 (0.0-0.2); BASO% 0.6 % (0.0-0.8); EOS# 0.05 X1000 (0.0-0.7); EOS% 1.4 % (0.0-10.0); HEMATOCRIT 19.3 % (37.0-47.0); HEMOGLOBIN 6.4 g/dL (12.0-16.0); LYMPH# 0.72 X1000 (1.2-3.4); LYMPH% 19.9 % (20.5-51.1); MCH 29.1 PG (27-31); MCHC 33.2 g/dL (33-37); MCV 87.7 FL (81-99); MONO# 0.57 X1000 (0.11-0.59); MONO% 15.7 % (1.7-9.3); MPV 11.3 FL (7.4-10.4); NEUT# 2.26 X1000 (1.4-6.5); NEUT% 62.4 % (42.2-75.2); PLT 75 X1000 (130-400); RDW 14.6 % (11.5-14.5); WBC 3.62 X1000 (4.8-10.8)
--- NOTE | 2019-05-06 09:30 | Diag Imaging Result Doc PS360 ---
EXAM: CHEST-2 VIEWS HISTORY: fever TECHNIQUE: Chest two views COMPARISON: 04/17/2019 FINDINGS: The lungs are well expanded. The heart is not enlarged. No change in the right jugular portacatheter. Placement of a left-sided PICC line. The tip lies at the junction of the superior vena cava and right atrium. The vessels are not distended. There are no infiltrates. No pleural effusions. IMPRESSION: No pneumonia. Electronically signed by Denny Estrella 05/06/2019 9:27 AM
[2019-05-06] MEDS: MS CONTIN PO SCH ×2 (09:57→21:34)
[2019-05-06] MEDS: PHENERGAN IV PRN ×2 (10:18→17:53)
[2019-05-06] MEDS: SODIUM CHLORIDE 0.9% INJ PRN ×2 (10:18→17:53)
[2019-05-06] MEDS ORDERED: SODIUM CHLORIDE 0.9% 10 ML ONE (10:32)
--- NOTE | 2019-05-06 10:46 | Diag Imaging Result Doc PS360 ---
EXAM: CT ABD/PELVIS W/PO AND IV CON 05/06/2019 HISTORY: enterocutaneous fistula, fever TECHNIQUE: This exam was performed using automated exposure control, adjustment of mA or kV according to patient size, and/or use of iterative reconstruction technique. COMMENT: The current examination is compared with the previous study of 04/17/2019. There is platelike atelectasis in the lateral costophrenic sulcus of the left lower lobe which was not previously present. There are multiple partially calcified hepatic masses. These appear smaller than on the previous noncontrast study of 10/04/2018 and also somewhat smaller than on 04/17/2019. The aorta is not distended. The mesenteric and renal arteries are patent. There is some atherosclerotic calcifications. There are no apparent gallstones. The gallbladder is slightly distended. There is atrophy of the lower pole moiety of the left kidney. There is hydronephrosis on the right despite the presence of a stent. There are apparently two stents one in the upper and one in the lower pole of the right kidney. There is also a stone in the renal pelvis on the left measuring 11 mm in diameter. Both ureteral stents on the right are in the bladder. There is a ventral hernia associated with the ostomy anteriorly and superiorly on the right side. There is no evidence of bowel obstruction. Multiple small bowel loops are present in the hernia. There is an apparent second hernia on the medial aspect of the larger collection which contains a knuckle of small bowel. These findings were also present on the previous study. There are left periaortic nodes which have not changed appreciably since the previous study. The adrenal glands are stable in appearance. Pelvis: There is an apparent fistulous tract extending from the midline near the former surgical incision around image 108 posteriorly and caudally between the enlarged left ovary and the uterine fundus posteriorly where there is contrast within the fistula which may connect with the rectum. There may be some communication with a small bowel loop as well which is demonstrated best on image 128. There is increased soft tissue density in the presacral region with apparent fluid collections also on the left side deep to the sacrospinous ligament. This was also present previously and there was gas in the fluid collection in this location previously. The left ovarian cystic mass was also present previously and currently measures 3.9 cm in anterior posterior dimension, essentially unchanged since the previous study. The regional skeleton is stable in appearance. IMPRESSION: 1. Mild left lower lobe subsegmental atelectasis. 2. Improved hepatic calcified masses. 3. Right hydronephrosis despite the presence of stents. 4. [id number] fistula, apparently somewhat improved since 04/17/2019. 5. Stable left cystic ovarian mass. 6. Slightly improved pelvic fluid collections. Electronically signed by Yan Moreno 05/06/2019 10:44 AM
--- NOTE | 2019-05-06 10:56 | INFECTIOUS DISEASE CONSULT REP ---
DATE: 05/06/2019 CONCLUSION: The patient has fever; it went up to 102 degrees last night. The exact cause of the fever is uncertain to me. She could have an intra-abdominal focus of infection. RECOMMENDATION: I agree with treating the patient with Zosyn. I think we can stop Zyvox and Keflex. I have ordered a CT scan of the abdomen and pelvis and also a chest x-ray. I am also ordering blood cultures. DISCUSSION: 1. The patient was admitted the hospital. She had been having a fever and she had an enterocutaneous fistula. Her CBC shows a white count of 3620, hemoglobin 6.4, and platelet count 75,000. Creatinine is 0.8. GFR is greater than 60. From the patient's abdominal wound which is actually an enterocutaneous fistula, E coli, Enterococcus and Klebsiella were isolated. The patient's chest x-ray shows no pneumonia. The patient's CT scan of the abdomen and pelvis showed stable to slightly improved hepatic masses 2. Slight decrease in the size of the left adnexal cystic mass. 3. Right-sided hydronephrosis remains, even though there are 2 ureteral stents. 4. Small presacral fluid collections now contain air. These may represent small abscesses. PAST MEDICAL HISTORY/REVIEW OF SYSTEMS: Eyes and ears: She does not have any problems seeing or hearing. Neck: No stiffness. Respiratory: No cough or shortness of breath. Cardiac: No chest pain or palpitations. GI: The patient has an ileostomy, and she has developed an enterocutaneous fistula. : No dysuria or flank pain. The patient has on CT scan obstructive uropathy, even though the stents are in place. Neurologic: No seizures. No loss of motor or sensory function. 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 She has had a tubal ligation. PRESENT ILLNESS: The patient's urine and blood cultures are sterile. Abdominal wound culture grew E coli, Klebsiella and Enterococcus. PREVIOUS HOSPITALIZATIONS AND OPERATIONS: She has had labor and deliveries, tubal ligation, a colectomy with formation of an ileostomy. She has a right Port-A-Cath in place. MEDICAL DISEASES: Positive for rectal cancer with liver metastatic disease, bilateral obstructive uropathy, even though ureteral stents have been placed. INFECTIOUS DISEASE HISTORY: Positive for urinary tract infection. Negative for pneumonia. FAMILY HISTORY: The patient could not think of any illnesses that run in her family. SOCIAL HISTORY: [place] . She lives alone. She has a cat as a pet. ALLERGIES: Her chart lists an allergy to Lasix. HOME MEDICATIONS: Include morphine, Prilosec and Phenergan. PHYSICAL EXAMINATION: Vital Signs: Temperature is 102 degrees, pulse 116, respirations 14, blood pressure 112/67. Patient is 5 feet 5 inches tall, weighs 117 pounds. General: This is an ill- appearing, middle-aged female. She is in no acute distress. Head/eyes/ears/nose/throat: She can hear my spoken words and see near objects. She does not have any white patches on her tongue. Neck: No meningismus. Lungs: Clear to auscultation. Cardiovascular: Regular heart rate. Thorax: The patient has a Port-A-Cath present on the right side. The Port-A-Cath site is not swollen or red. Abdomen: Soft and nontender. Lower part of the abdomen: There is an enterocutaneous fistula. When I looked at it this morning, there was no drainage. The patient also has a functioning ileostomy. Neurologic: Patient is alert. She can move her extremities. There is no tremor. Her sensation is intact to touch. Her memory as regarding her medical history was intact. Integument: No rash noted. cc: Dionicio Whitt MD
[2019-05-06] MEDS ORDERED: NS 500 ML IV SCH (11:00)
[2019-05-06] MEDS: LOVENOX SUBQ SCH (11:05)
[2019-05-06] MEDS: TYLENOL PO PRN ×2 (12:45→18:32)
[2019-05-06 15:14] LABS: BASO# 0.01 X1000 (0.0-0.2); BASO% 0.3 % (0.0-0.8); EOS# 0.04 X1000 (0.0-0.7); HEMATOCRIT 20.2 % (37.0-47.0); HEMOGLOBIN 6.8 g/dL (12.0-16.0); LYMPH# 0.65 X1000 (1.2-3.4); LYMPH% 16.5 % (20.5-51.1); MCH 29.4 PG (27-31); MCHC 33.7 g/dL (33-37); MCV 87.4 FL (81-99); MONO# 0.44 X1000 (0.11-0.59); MONO% 11.2 % (1.7-9.3); MPV 11.6 FL (7.4-10.4); NEUT# 2.79 X1000 (1.4-6.5); PLT 91 X1000 (130-400); RBC 2.31 XMIL (4.2-5.4); RDW 14.8 % (11.5-14.5); WBC 3.93 X1000 (4.8-10.8)
[2019-05-06] MEDS: POTASSIUM CHLORIDE 20 MEQ/SWI 20 MEQ/100 ML IVPB IV SCH ×2 (15:28→17:59)
[2019-05-06] MEDS: NS 1,000 ML IV SCH (15:31)
[2019-05-06] MEDS ORDERED: KLOR-CON PO ONE (17:15)
[2019-05-06] MEDS: LIPOSYN 20% 250 ML IV SCH (17:36)
[2019-05-06] MEDS: MAGNESIUM SULFATE IV SCH ×8 (17:47)
[2019-05-06] MEDS: POTASSIUM CHLORIDE IV SCH ×8 (17:47)
[2019-05-06] MEDS: [UNRECOGNIZED DRUG - OTHER] IV SCH ×8 (17:47)
[2019-05-06] MEDS: TPN ELECTROLYTES IV SCH ×8 (17:47)
[2019-05-06] MEDS ORDERED: VANCOMYCIN IV PER PHARMACY MISC SCH (18:30)
[2019-05-06] MEDS ORDERED: VANCOMYCIN 1,500 MG in NS 250 ML IV ONE (19:00)
--- NOTE | 2019-05-06 19:50 | PROGRESS NOTE ---
DATE: 05/06/2019 INTERVAL HISTORY: The patient continues to develop multiple episodes of fever. Infectious Disease was consulted and she was recommended to be on Zosyn. She did have a drop in her hemoglobin, for which a blood transfusion was ordered. However, considering her persistent fever, it was held. She has been tachycardic with pulse of 112. Her blood cultures have been ordered. She has also been started on normal saline. SUBJECTIVE: She is not feeling well because of fever. Denies any new complaints. PHYSICAL EXAMINATION: vital signs: Temperature 99.9 degrees, pulse 111, respiratory rate 12, blood pressure 95/80, saturating 100% on room air. Oral cavity is dry. Air entry bilaterally equal. No wheeze, rhonchi, crackles. S1, S2 normal. Tachycardic. EKG had normal sinus rhythm and sinus tachycardia. No murmur, rub, or gallop. Abdomen is soft. She has right lower quadrant ileostomy with liquid output. She also has about 2 x 2 cm enterocutaneous fistula in the midline, draining some mucoid material under the abdominal fat. She had left upper extremity PICC line. The site appears not infected. No lower extremity edema. She is alert, oriented x3. LABORATORY: Suggestive of hemoglobin of 6.8, platelet of 91,000. Repeat blood cultures are in lab. IMAGING: CT scan of the abdomen and pelvis today suggested improved hepatic calcified masses, right hydronephrosis, despite the presence of stent. Entero-colocutaneous fistula somewhat improved since about 2 weeks ago. Left cystic ovarian mass and slightly improved pelvic fluid collection. ASSESSMENT AND PLAN: 1. Rectal adenocarcinoma with liver metastasis, status post ileostomy since August 2018. On FOLFIRI, the last dose in March 2019. Her chemotherapy is on hold considering her enterocutaneous and entero-rectal fistula. 2. Sepsis due to enterocutaneous and entero-rectal fistula with Escherichia coli, Klebsiella pneumoniae, Enterococcus faecalis. Continue intravenous Zosyn as per ID recommendation. I will appreciate recommendation regarding adding intravenous vancomycin considering her persistent fever. Continue NPO status until 05/17/2019. Continue home extended-release morphine and immediate-release morphine for pain control. 3. Acute symptomatic anemia with malaise and tachycardia. I will go ahead and give her 1 unit of PRBC if her fever episode resolves. 4. Acute kidney injury on presentation and frequent hyponatremia, hypochloremia, likely because of poor oral intake. I will continue her on intravenous fluid resuscitation. 5. Nutrition. Patient is on total parenteral nutrition until we can start oral feed once her fistula improves. 6. Disposition. Unfortunately, we would not be able to set up home TPN, so plan is to keep patient inside the hospital as we await improvement in her fistula and we can start feeding her by mouth. Plan of care discussed with the patient. All of her questions have been answered. Her hypokalemia is currently being repleted. cc: Irving Lee MD
[2019-05-06] MEDS ORDERED: TORADOL IV ONE (20:04)
[2019-05-06] MEDS ORDERED: AMOXIL PO SCH (21:00)
[2019-05-06] MEDS ORDERED: KEFLEX PO SCH (21:00)
[2019-05-07 07:55] LABS: AGAP 10; BUN 17 mg/dL (8-22); CALCIUM 8.6 mg/dL (8.8-10.2); CHLORIDE 98 mmol/L (98-107); COSMO 262; CREATININE 0.9 mg/dL (0.5-0.9); ESTIMATED GFR > 60; GLUCOSE 130 mg/dL (70-104); MAGNESIUM 1.9 mg/dL (1.5-2.7); PHOSPHORUS 2.9 mg/dL (2.7-4.5); POTASSIUM 4.4 mmol/L (3.5-5.1); SODIUM 129 mmol/L (136-145); TCO2 21 mmol/L (25-35)
[2019-05-07] MEDS: NS 1,000 ML IV SCH ×2 (09:17→11:30)
[2019-05-07] MEDS: MS CONTIN PO SCH ×2 (09:18→20:38)
[2019-05-07] MEDS: ZOSYN 3.375 GM in NS 50 ML IV SCH ×4 (09:20→20:39)
[2019-05-07] MEDS: LOVENOX SUBQ SCH (12:41)
[2019-05-07] MEDS: PHENERGAN IV PRN ×2 (12:41→22:25)
--- NOTE | 2019-05-07 14:13 | INFECTIOUS DISEASE PROGRESS NO ---
DATE: 05/07/2019 PRESENT ILLNESS: The patient has an enterocutaneous fistula and a right hydronephrosis. There is also decreased pelvic fluid, but she still is having fever. MEDICATIONS: The patient is on vancomycin, and I have re-added back Zosyn. PHYSICAL EXAMINATION: Vital Signs: Temperature is 99.4 degrees, pulse 97, respirations 12, blood pressure 99/60. General: This is an ill-appearing, middle-aged female. She is in no acute distress. HEENT: She can hear my spoken words and see near objects. She does not have any white coating on her tongue. Neck: No meningismus. Lungs: Clear to auscultation. Cardiovascular: Heart rate is regular. Abdomen: No tenderness. There is an ileostomy present and it is functional. The patient's enterocutaneous wound site is slightly erythematous, but there is no drainage. Extremities: The patient has a PICC in her left arm. The site is not erythematous or tender. Thorax: The patient has a Port-A-Cath present on the right side. That site is not erythematous or swollen or tender. Neurologic: The patient is alert. She can move her extremities. There is no tremor. Extremities: The patient has a PICC in the left arm. That site also is not erythematous, swollen, or tender. LAB AND RADIOLOGY: CBC-WBC 3.93, hgb 6.8, platelets 91K. Creatinine-0.9. GFR- >60. No new radiology. ASSESSMENT AND PLAN: This was discussed with Dr. Lee. For now, the plan is to keep the patient in the hospital under observation. Dr. Lee added vancomycin yesterday, and the patient had been on Zosyn, but it was stopped yesterday, so I have restarted it. The patient also is on hyperalimentation. The plan is to keep her in the hospital on vancomycin and Zosyn, and continue her hyperalimentation. COMORBIDITIES: The patient has rectal cancer with liver metastatic disease. She also has bilateral obstructive uropathy, even though stents are in place. cc: MD BLAKE Rowe
[2019-05-07] MEDS: VANCOMYCIN 1,200 MG in NS 250 ML IV SCH (15:57)
[2019-05-07] MEDS: [UNRECOGNIZED DRUG - OTHER] IV SCH ×8 (17:14)
[2019-05-07] MEDS: TPN ELECTROLYTES IV SCH ×8 (17:14)
[2019-05-07] MEDS: POTASSIUM CHLORIDE IV SCH ×8 (17:14)
[2019-05-07] MEDS: MAGNESIUM SULFATE IV SCH ×8 (17:14)
[2019-05-07] MEDS: LIPOSYN 20% 250 ML IV SCH (17:14)
[2019-05-07] MEDS: MORPHINE IV PRN ×2 (17:50→22:25)
--- NOTE | 2019-05-07 18:55 | PROGRESS NOTE ---
DATE: 05/07/2019 INTERVAL HISTORY: Ms. Post had a significant fever episode throughout the day, though all the temperatures were not charted. We could not give her blood transfusion because her fever was as high as 102 degrees Fahrenheit. Repeat blood count had suggested a hemoglobin of 6.8. I had added vancomycin to her regimen. SUBJECTIVE: She is feeling better today as compared to yesterday. However, she is still feeling a little feverish. We discussed about another antibiotic, CT scan finding. We also discussed about low hemoglobin. VITALS: Currently temperature of 99.9 degrees, pulse 101, respiratory rate 18, blood pressure 90/57, saturating 100% on room air. PHYSICAL EXAMINATION: General: Appears cachectic, not in acute distress. Mouth: Oral cavity is moist. Lungs: Air entry bilaterally equal. No wheeze, rhonchi, crackles. Cardiovascular: S1, S2 normal. Tachycardic. No murmur, rub, or gallop and regular rhythm. Abdomen: Soft. The right lower quadrant ileostomy with liquidy output. 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 Extremities: She had left upper extremity PICC line. The site appears not infected. No lower extremity edema. Neurologic: She is alert and oriented x3. LABS: The latest lab had WBC of 3.9, hemoglobin 6.8, platelet of 91,000. Chemistry suggestive of sodium of 129, chloride of 98, BUN and creatinine are within normal range. MICROBIOLOGY: Repeat blood cultures are in lab. ASSESSMENT AND PLAN: 1. 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 CT scan of the abdomen and pelvis had suggested slight decrease in the fistula. If she continues to spike fever despite dual antibiotic after discussion with Infectious Disease, I would consider removing her PICC line. Continue n.p.o. status at least until 05/17/2019. Continue total parenteral nutrition through left-sided PICC line. 2. Rectal adenocarcinoma with liver metastasis, status post ileostomy since August 2018, on FOLFIRI. The last dose in March 2019. The chemotherapy has been on hold considering current fistula. Continue her extended-release morphine, immediate-release morphine and IV morphine as needed for pain control. 3. Acute symptomatic anemia with amylase and tachycardia. She could not receive blood transfusion yesterday because of persistent high-grade fever. I will repeat blood count tomorrow and if it is still less than 7 and she is not febrile, I will give 1 packed red blood cells transfusion. 4. Electrolyte abnormalities including hyponatremia, hypochloremia and acute kidney injury. Since presentation have been in acceptable range, likely because of poor p.o. intake. Continue intravenous fluids and total parenteral nutrition. DISPOSITION: The patient would likely remain inside the hospital for total parenteral nutrition. Plan of care discussed with her. All of her questions have been answered. cc: Irving Lee MD
[2019-05-08] MEDS: MYCAMINE 100 MG in NS 100 ML IV SCH ×2 (00:29→23:35)
[2019-05-08] MEDS: ZOSYN 3.375 GM in NS 50 ML IV SCH ×2 (01:55→09:41)
[2019-05-08] MEDS: MORPHINE IR PO PRN (02:33)
[2019-05-08] MEDS: MORPHINE IV PRN (05:38)
[2019-05-08] MEDS: PHENERGAN IV PRN ×3 (05:38→21:51)
[2019-05-08] MEDS: NS 1,000 ML IV SCH ×2 (06:25→21:36)
[2019-05-08 08:36] LABS: BASO# 0.01 X1000 (0.0-0.2); BASO% 0.3 % (0.0-0.8); EOS# 0.11 X1000 (0.0-0.7); EOS% 3.1 % (0.0-10.0); HEMATOCRIT 17.9 % (37.0-47.0); HEMOGLOBIN 5.9 g/dL (12.0-16.0); IMM GRAN# 0.03 X1000 (0.0-0.04); IMM GRAN% 0.8 % (0.0-0.5); LYMPH# 0.92 X1000 (1.2-3.4); LYMPH% 25.9 % (20.5-51.1); MCH 29.6 PG (27-31); MCV 89.9 FL (81-99); MONO# 0.85 X1000 (0.11-0.59); MONO% 23.9 % (1.7-9.3); MPV 12.2 FL (7.4-10.4); NEUT# 1.63 X1000 (1.4-6.5); PLT 109 X1000 (130-400); RBC 1.99 XMIL (4.2-5.4); WBC 3.55 X1000 (4.8-10.8)
[2019-05-08 08:44] LABS: AGAP 11; BUN 17 mg/dL (8-22); CALCIUM 8.3 mg/dL (8.8-10.2); CHLORIDE 98 mmol/L (98-107); COSMO 264; CREATININE 0.9 mg/dL (0.5-0.9); ESTIMATED GFR > 60; GLUCOSE 126 mg/dL (70-104); MAGNESIUM 1.9 mg/dL (1.5-2.7); POTASSIUM 4.3 mmol/L (3.5-5.1); SODIUM 130 mmol/L (136-145); TCO2 21 mmol/L (25-35)
[2019-05-08 08:48] LABS: PREALBUMIN 15.6 mg/dL (20-40)
[2019-05-08] MEDS ORDERED: TYLENOL PO ONE (08:48)
[2019-05-08] MEDS: MS CONTIN PO SCH ×2 (09:41→21:51)
[2019-05-08] MEDS: SODIUM CHLORIDE 0.9% INJ PRN (11:57)
[2019-05-08] MEDS: LOVENOX SUBQ SCH (11:57)
[2019-05-08] MEDS: VANCOMYCIN 1,200 MG in NS 250 ML IV SCH (12:02)
[2019-05-08] MEDS: TYLENOL PO PRN (21:51)
[2019-05-09] MEDS: NS 1,000 ML IV SCH ×3 (03:07→22:53)
[2019-05-09] MEDS: PHENERGAN IV PRN ×4 (04:17→22:59)
[2019-05-09 08:12] LABS: BASO# 0.02 X1000 (0.0-0.2); BASO% 0.4 % (0.0-0.8); EOS# 0.13 X1000 (0.0-0.7); EOS% 2.6 % (0.0-10.0); HEMATOCRIT 24.6 % (37.0-47.0); HEMOGLOBIN 8.2 g/dL (12.0-16.0); IMM GRAN# 0.07 X1000 (0.0-0.04); IMM GRAN% 1.4 % (0.0-0.5); LYMPH# 0.96 X1000 (1.2-3.4); MCH 29.5 PG (27-31); MCHC 33.3 g/dL (33-37); MCV 88.5 FL (81-99); MONO# 1.04 X1000 (0.11-0.59); MONO% 20.6 % (1.7-9.3); MPV 11.2 FL (7.4-10.4); NEUT# 2.84 X1000 (1.4-6.5); RBC 2.78 XMIL (4.2-5.4); RDW 15.2 % (11.5-14.5); WBC 5.06 X1000 (4.8-10.8)
--- NOTE | 2019-05-09 08:30 | PROGRESS NOTE ---
DATE: 05/08/2019 INTERVAL HISTORY: Both the blood cultures are growing yeast. The patient was overnight started on intravenous micafungin. In the morning time her PICC line was removed. Peripheral IV access is pending. SUBJECTIVE: Patient is feeling low today since she has been in the hospital and has been accruing more and more medical problems. I discussed with her about exam findings, future nutrition plan and answered all of her questions. She denies any chest pain or shortness of breath. She denies nausea or vomiting. She has been febrile with temperature of 100 degrees Fahrenheit. Her pulse has been in 90s. Her blood pressure is 94/49. PHYSICAL EXAMINATION: Vital Signs: She is saturating 100% on room air. General: Cachectic, severe protein energy malnutrition, not in acute distress. HEENT: Oral cavity is dry. Lungs: Air entry bilaterally equal. No wheeze, rhonchi, crackles. Cardiovascular: S1, S2 normal. No murmur, rub, or gallop. Tachycardic and regular rhythm. Abdomen: Soft. Right lower quadrant ileostomy with liquidy greenish output, 2 x 2 cm enterocutaneous fistula in the midline and abdominal fold without any discharge. Extremities: Left upper extremity PICC line has been removed. No lower extremity edema. Neurologic: She is alert and oriented x3. LABS: Suggestive of hemoglobin of 5.9, WBC of 3.5, platelet of 109,000. Hyponatremia. Normal kidney function. Microbiology, both blood cultures growing fungus yeast. Fecal occult blood test is pending. ASSESSMENT AND PLAN: 1. 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 Her fistula on repeat CT scan on May 06 has been healing better and she does not have any more discharge. Her intravenous vancomycin and Zosyn have been stopped by Infectious Disease team. 2. Persistent fever due to fungemia associated with total parenteral nutrition and left PICC line, status post removal of PICC line on May 08. Continue intravenous micafungin as per Infectious Disease recommendation. Follow up with repeat blood culture. 3. Rectal adenocarcinoma with liver metastasis, status post ileostomy since August 2018, currently on FOLFIRI chemotherapy, last dose in March 2019. Chemotherapy has been on hold considering current fistula. Continue extended release morphine, immediate release morphine by mouth and IV morphine as needed for pain control. 4. Severe protein energy malnutrition in the setting of a metastatic malignancy. Plan is to get peripheral intravenous access and accordingly start intravenous Clinimix for peripheral nutrition tomorrow. We will repeat blood cultures in the future. Once they clear, then at that point total parenteral nutrition would be considered again after getting a new PICC line. The patient is n.p.o. at least until 05/17/2019 to allow sufficient time for her enterocutaneous and enterorectal fistula to heal as per Surgery recommendation. 5. Acute symptomatic anemia with tachycardia and malaise. She is status post 1 unit PRBC on May 08. Follow up fecal occult blood test. Her anemia could be in the setting of bone marrow suppression due to ongoing sepsis. 6. Others, continue intravenous fluids for hyponatremia. DISPOSITION: We could not set up total parenteral nutrition for patient for home considering insurance. The patient is self-pay. Plan is to keep patient inside the hospital until her fistula is healed and she is able to take oral by mouth. Plan of care discussed with the patient and her questions were answered. cc: Irving Lee MD
[2019-05-09 08:34] LABS: MAGNESIUM 1.7 mg/dL (1.5-2.7); PHOSPHORUS 4.3 mg/dL (2.7-4.5); POTASSIUM 4.4 mmol/L (3.5-5.1); PREALBUMIN 18.4 mg/dL (20-40)
--- NOTE | 2019-05-09 08:54 | INFECTIOUS DISEASE PROGRESS NO ---
DATE: 05/08/2019 PRESENT ILLNESS: The patient has a fungemia most likely originating from her PICC. She has an enterocutaneous fistula, but that has stopped draining for days. MEDICATIONS: The patient is on a combination of vancomycin and Zosyn and micafungin. PHYSICAL EXAMINATION: Vital Signs: Temperature is 100 degrees, pulse 97, respirations 18, blood pressure 98/60. General: This is an ill-appearing, middle-aged female. She is in no acute distress. Head/eyes/ears/nose/throat: She can hear my spoken words and see near objects. She does not have any white patches in her mouth. Neck: She does not have any neck pain when she moves her neck or turns her head. Lungs: Clear to auscultation. Cardiovascular: Heart rate is regular. Abdomen: Soft. It is not tender. There is an ileostomy which is functioning well. The patient has an enterocutaneous fistula site, but there is no drainage and no erythema. Extremities: The patient has a PICC in her left arm. The site is not erythematous or swollen or tender. Thorax: The patient did previously have a Port-A-Cath on the right side. That site is not erythematous or draining. Neurologic: The patient is alert. She can move her extremity. There is no tremor. LABORATORY AND RADIOLOGY: Patient's blood cultures are positive for a yeast. Her CBC shows a white count of 3550, hemoglobin 5.9, and platelet count 109,000. Creatinine is 0.9. GFR is greater than 60. ASSESSMENT AND PLAN: The patient has a fungemia. I agree with keeping the patient on micafungin pending the identification of the organism. I think the PICC has to be removed. I plan to repeat the patient's blood cultures in 2 days, and if they are sterile then a PICC can be reinserted. COMORBIDITIES: The patient has rectal cancer with liver metastatic disease. She also has obstructive uropathy, even though stents are in place. cc: Dionicio Whitt MD
[2019-05-09] MEDS: MS CONTIN PO SCH ×2 (09:30→20:05)
[2019-05-09 09:42] LABS: BANDS 1 % (0-1); EOS 4 % (1-10); LYMPHS 20 % (21-51); MONO 18 % (1-9); SEGS 57 % (42-75)
[2019-05-09 09:43] LABS: ANISOCYTOSIS 1+; LARGE PLATELETS OCCASIONAL; MICROCYTOSIS 1+; POLYCHROM 1+
[2019-05-09 09:44] LABS: PLT 165 X1000 (130-400)
[2019-05-09] MEDS: MORPHINE IV PRN ×2 (11:26→17:13)
[2019-05-09] MEDS: LOVENOX SUBQ SCH (11:27)
--- NOTE | 2019-05-09 19:51 | PROGRESS NOTE ---
DATE: 05/09/2019 SUBJECTIVE: The patient reports feeling fine. Denies any fever, chills or abdominal pain. OBJECTIVE: Vital signs: Temperature 98.7 degrees, heart rate 105, respiratory 16, blood pressure 110/72, O2 saturation 100% on room air. On general examination, this is a chronically ill- appearing 53-year-old female lying in bed, in no acute distress.HEENT: Head is normocephalic and atraumatic. Neck: No JVD noted. No carotid bruits. No lymphadenopathy. Cardiovascular: S1, S2 heard. No murmurs, gallops or rubs. Regular rate and rhythm. Respiratory: Clear bilaterally to auscultation. No rhonchi or crackles noted. Abdomen is soft. Right lower quadrant ileostomy with greenish drainage. There is a 2 x 2 enterocutaneous fistula in the midline in abdominal fold without any discharge. Extremities: There is a left upper extremity PICC line. No clubbing, cyanosis or edema. Peripheral pulses present in both legs. Neurological: The patient is alert and oriented x3. Moves all 4 extremities. LABORATORY DATA: Hemoglobin is 8.2. Normal CBC. Sodium 129, creatinine 1.0. ASSESSMENT AND PLAN: 1. 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 The patient has had temperature of 100 degrees yesterday. The patient does not seem to have any more discharge, so vancomycin and Zosyn have been stopped by Infectious Disease. Actually what we found out was a fungemia associated with total parenteral nutrition catheter and left peripherally inserted central catheter line. At this point, we will continue with intravenous micafungin as per Infectious Disease recommendation. 2. Rectal adenocarcinoma with liver metastasis, status post ileostomy since 08/2018. We will continue with current management. Actually chemotherapy has been placed on hold. 3. Severe protein-calorie malnutrition in the setting of metastatic malignancy. 4. Acute symptomatic anemia. The patient has been transfused 1 unit of blood. Hemoglobin is 8.2 today. 5. Disposition: The patient is self-pay so we could not set up total parenteral nutrition at home. We will continue with the same management at this time. cc: Hi Westbrook MD
[2019-05-09] MEDS: MYCAMINE 100 MG in NS 100 ML IV SCH (22:59)
[2019-05-10] MEDS: MORPHINE IV PRN ×3 (05:22→18:28)
[2019-05-10] MEDS: PHENERGAN IV PRN ×3 (05:23→18:28)
[2019-05-10 07:35] LABS: CALCIUM 8.8 mg/dL (8.8-10.2); MAGNESIUM 1.7 mg/dL (1.5-2.7); PHOSPHORUS 5.1 mg/dL (2.7-4.5); POTASSIUM 3.7 mmol/L (3.5-5.1)
[2019-05-10] MEDS: MS CONTIN PO SCH ×2 (10:23→20:00)
[2019-05-10] MEDS: DIFLUCAN 400 MG/NS 400 MG/200 ML IVPB IV SCH (10:26)
[2019-05-10] MEDS: NS 1,000 ML IV SCH (12:40)
[2019-05-10] MEDS: LOVENOX SUBQ SCH (12:41)
[2019-05-10 13:00] LABS: BASO# 0.02 X1000 (0.0-0.2); BASO% 0.3 % (0.0-0.8); EOS# 0.17 X1000 (0.0-0.7); EOS% 2.9 % (0.0-10.0); HEMATOCRIT 24.2 % (37.0-47.0); IMM GRAN# 0.08 X1000 (0.0-0.04); IMM GRAN% 1.4 % (0.0-0.5); LYMPH# 1.06 X1000 (1.2-3.4); LYMPH% 18.1 % (20.5-51.1); MCH 29.6 PG (27-31); MCHC 33.1 g/dL (33-37); MCV 89.6 FL (81-99); MONO# 1.32 X1000 (0.11-0.59); MONO% 22.5 % (1.7-9.3); MPV 10.9 FL (7.4-10.4); NEUT# 3.22 X1000 (1.4-6.5); NEUT% 54.8 % (42.2-75.2); PLT 224 X1000 (130-400); RDW 15.4 % (11.5-14.5); WBC 5.87 X1000 (4.8-10.8)
[2019-05-10 13:35] LABS: BANDS 2 % (0-1); EOS 3 % (1-10); LYMPHS 26 % (21-51); MONO 14 % (1-9); SEGS 54 % (42-75)
[2019-05-10 13:36] LABS: ANISOCYTOSIS 1+; LARGE PLATELETS 1+; POIKILOCYTOSIS 1+; POLYCHROM 1+; TARGET CELLS 1+
--- NOTE | 2019-05-10 15:04 | PROGRESS NOTE ---
DATE: 05/10/2019 SUBJECTIVE: The patient reports feeling fine. She asked about eating something by mouth. She reports muscle cramps and requests a muscle relaxer. OBJECTIVE: Vital Signs: Temperature 98.9 degrees, heart rate 91, respiratory 16, blood pressure 122/74, O2 saturation 100% on room air. General Examination: This is a chronically ill-appearing 53-year-old female lying in bed, in no acute distress. HEENT: Head is normocephalic, atraumatic. Neck: No JVD noted. No carotid bruits. No lymphadenopathy. Cardiovascular: S1, S2 heard. No murmurs, gallops, or rubs. Regular rate and rhythm. Respiratory: Clear bilaterally to auscultation. No work of breathing or using accessory muscles. Abdomen: Soft. Right lower quadrant ileostomy with greenish drainage. There is also a #2 enterocutaneous fistula in the midline in the abdominal fold without any discharge. Extremities: There is no clubbing or cyanosis or edema. Peripheral pulses present in both legs. Neurological: Patient alert oriented x3. Moves 4 extremities. LABORATORY DATA: Those are still pending at time of but the BMP shows sodium 132 with normal creatinine. ASSESSMENT AND PLAN: 1. 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 Patient has been on vancomycin and Zosyn but those medications have been stopped by ID. 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 At this point, we will continue following recommendations from ID. 2. Rectal adenocarcinoma with liver metastasis status post ileostomy since August 2019. At this point, recommendations from general surgery is to not have anything by mouth for least a month to re-evaluate that fistula. Chemotherapy has been placed on hold of course. 3. Severe protein calorie malnutrition in the setting of metastatic malignancy. The patient has been receiving total parenteral nutrition via PICC line but that has been removed because of infection. At this time, I think we are going to access the port for a couple days while we wait for results of blood cultures. If those are negative then we can place another PICC line. 4. Symptomatic anemia. At this point, the patient is definitely feeling much better. Hemoglobin is 8.2. We will continue to monitor. 5. Disposition. We will continue with current management. cc: Hi Westbrook MD
[2019-05-10] MEDS: POTASSIUM CHLORIDE IV SCH ×8 (15:16)
[2019-05-10] MEDS: [UNRECOGNIZED DRUG - OTHER] IV SCH ×8 (15:16)
[2019-05-10] MEDS: MAGNESIUM SULFATE IV SCH ×8 (15:16)
[2019-05-10] MEDS: TPN ELECTROLYTES IV SCH ×8 (15:16)
[2019-05-10] MEDS: SODIUM CHLORIDE 0.9% INJ PRN (18:28)
[2019-05-10] MEDS: ZANAFLEX PO SCH (20:01)
[2019-05-11] MEDS: MORPHINE IV PRN ×4 (00:52→20:06)
[2019-05-11] MEDS: PHENERGAN IV PRN ×4 (00:52→20:06)
[2019-05-11 07:17] LABS: BASO# 0.02 X1000 (0.0-0.2); BASO% 0.4 % (0.0-0.8); EOS# 0.15 X1000 (0.0-0.7); EOS% 2.7 % (0.0-10.0); HEMATOCRIT 21.8 % (37.0-47.0); HEMOGLOBIN 7.2 g/dL (12.0-16.0); IMM GRAN# 0.07 X1000 (0.0-0.04); IMM GRAN% 1.3 % (0.0-0.5); LYMPH# 1.39 X1000 (1.2-3.4); LYMPH% 25.1 % (20.5-51.1); MCH 29.4 PG (27-31); MONO# 1.15 X1000 (0.11-0.59); MONO% 20.8 % (1.7-9.3); MPV 10.5 FL (7.4-10.4); NEUT# 2.75 X1000 (1.4-6.5); NEUT% 49.7 % (42.2-75.2); PLT 278 X1000 (130-400); RBC 2.45 XMIL (4.2-5.4); RDW 15.4 % (11.5-14.5); WBC 5.53 X1000 (4.8-10.8)
[2019-05-11 07:33] LABS: CHLORIDE 102 mmol/L (98-107); POTASSIUM 4.1 mmol/L (3.5-5.1); SODIUM 134 mmol/L (136-145); TCO2 22 mmol/L (25-35)
[2019-05-11 07:34] LABS: AGAP 10; BUN 14 mg/dL (8-22); COSMO 269; CREATININE 0.8 mg/dL (0.5-0.9); ESTIMATED GFR > 60; GLUCOSE 110 mg/dL (70-104); MAGNESIUM 1.9 mg/dL (1.5-2.7); PHOSPHORUS 3.4 mg/dL (2.7-4.5)
[2019-05-11 07:53] LABS: EOS 2 % (1-10); LYMPHS 26 % (21-51); MONO 20 % (1-9); SEGS 52 % (42-75)
[2019-05-11] MEDS: ZANAFLEX PO SCH ×2 (10:09→22:26)
[2019-05-11] MEDS: MS CONTIN PO SCH ×2 (10:09→22:26)
[2019-05-11] MEDS: NS 1,000 ML IV SCH ×2 (10:12→15:50)
[2019-05-11] MEDS: DIFLUCAN 400 MG/NS 400 MG/200 ML IVPB IV SCH (10:13)
[2019-05-11] MEDS: LOVENOX SUBQ SCH (11:10)
[2019-05-11] MEDS: [UNRECOGNIZED DRUG - OTHER] IV SCH ×8 (14:20)
[2019-05-11] MEDS: POTASSIUM CHLORIDE IV SCH ×8 (14:20)
[2019-05-11] MEDS: TPN ELECTROLYTES IV SCH ×8 (14:20)
[2019-05-11] MEDS: MAGNESIUM SULFATE IV SCH ×8 (14:20)
--- NOTE | 2019-05-11 14:52 | PROGRESS NOTE ---
DATE: 05/11/2019 SUBJECTIVE: The patient reports feeling fine. Denies any fever or chills. OBJECTIVE: Vital Signs: Temperature 97.9 degrees, heart rate 80, respiratory rate 20, blood pressure 96/50, O2 saturation 100% on room air. General Examination: This is a chronically ill- appearing, 53-year-old, female lying in bed, in no acute distress. Cardiovascular Examination: S1 and S2 heard. No murmurs, gallops, or rubs. Regular rate and rhythm. Respiratory Examination: Clear bilaterally to auscultation. No work of breathing or using accessory muscles. Abdomen: Soft. Right lower quadrant ileostomy with greenish drainage. There is also #2 enterocutaneous fistula in the midline in the abdominal fold without any discharge. Extremities: No clubbing, cyanosis, or edema. Peripheral pulses present in both legs. Neurological Examination: The patient is alert and oriented x3. Moves 4 extremities. Laboratory Data: White cell count 5.53, hemoglobin 7.2, hematocrit 21.8, platelets 278,000. Sodium 134. ASSESSMENT AND PLAN: 1. Sepsis due to an enterorectal fistula with Escherichia coli and Klebsiella pneumoniae and Enterococcus faecalis. Persistent fever. 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 The patient currently is on intravenous Diflucan. We will continue with the same management. Blood culture is still pending to see if this infection is being eradicated or not. 2. Rectal adenocarcinoma with liver metastasis, status post ileostomy since August 2018. At this point, from general surgery, the plan is to keep her nothing per oral and total parenteral nutrition for at least a month to reevaluate this fistula. 3. Severe protein calorie malnutrition in the setting of metastatic malignancy. We will continue with total parenteral nutrition. 4. Symptomatic anemia. The patient's hemoglobin is 7.2 so we are going to transfuse 1 unit of blood. 5. Disposition. We will continue to monitor this patient closely. cc: Hi Westbrook MD
--- NOTE | 2019-05-11 17:25 | HEMO/ONC PROGRESS NOTE ---
DATE: 05/11/2019 CHIEF COMPLAINT: The patient does not have any complaints today. She states she is getting a little upset about being in here for so long. She feels like she may not ever leave. She denies any pain today. She states her fistula has greatly improved and is no longer draining. OBJECTIVE: Vital Signs: Temperature 98.4 degrees, pulse rate 94, heart rate 20, blood pressure 112/74, O2 saturation 100% on room air. She is in 0/10 pain. PHYSICAL EXAMINATION: General: Patient is sitting up in bed, in no acute distress. She appears weaker than normal. Respiratory: Her lungs are clear to auscultation. Cardiovascular: Normal S1, S2. Regular rate and rhythm. Abdomen: Soft, nontender, nondistended. Extremities: No edema noted. Neurological: She is awake, alert, oriented x3. Moves all 4 extremities well. No focal motor deficits. Skin: Her skin looked very good around her fistula and around her ileostomy. LABORATORY DATA: WBC is 5.53, hemoglobin is 7.2, hematocrit 21.8, platelet count 278,000. ANC 2.75, magnesium 1.9. Blood cultures were positive for Nancy albicans. ASSESSMENT: 1. Metastatic colon cancer. 2. Leukopenia. 3. Electrolyte abnormalities. 4. Deep venous thrombosis prophylaxis. 5. Anemia. 6. Fungemia. PLAN: Continue to follow along peripherally. We have nothing to add at this time. Dr. Torres states she needs 4 to 6 weeks off from chemotherapy while her fistula heals. We will restart chemotherapy at Dr. Torres's permission. Please contact us if needed for anything. Dictated by CHRISTIAN Mckinney for Asa Hein MD Patients and examined. As above. I understand that she is currently being treated for sepsis and fungemia. Dr. Whitt is following. Continue current management. I will be in touch with Dr. Torres to decide when we can restart her chemotherapy which I dont think will be any time soon. Asa Hein M.D. cc: Asa Hein MD [facility]
[2019-05-11] MEDS: SODIUM CHLORIDE 0.9% INJ PRN (20:06)
--- NOTE | 2019-05-11 20:20 | INFECTIOUS DISEASE PROGRESS NO ---
DATE: 05/11/2019 PRESENT ILLNESS: Ms. Post is being treated for fungemia most likely due to her PICC line which has been removed. She also has an enterocutaneous fistula which she states has not drained for days. MEDICATIONS: She is receiving fluconazole 400 mg IV once a day. PHYSICAL EXAMINATION: Vital Signs: Temperature is 98.5 degrees, pulse rate 81, respiratory rate 20, blood pressure 91/48, O2 saturation is 100% on room air. General: This is a chronically ill- appearing middle-aged female. She is sitting up in bed currently in no acute distress. HEENT: Atraumatic, normocephalic. Oral mucous membranes are pink and moist. Conjunctivae are pale. Neck: Supple. Trachea is midline. Respiratory: Lung sounds are clear to auscultation bilaterally. No work of breathing is noted. Cardiovascular: Heart rate is regular. Abdomen: Soft, flat and nontender. There is a an ileostomy pouch in place as well as an enterocutaneous fistula site, which is dry. Integument: There is a Port-A-Cath site to the right chest. That site is accessed, and without any edema, erythema or drainage. Neurologic: She is awake, alert, oriented, and able to move around in the bed independently. LABORATORY AND X-RAY: Today her white count is 5.53, hemoglobin 7.2, platelet count 278,000, creatinine is 0.8, estimated GFR is greater than 60. Blood cultures have grown Nancy albicans. Another set of blood cultures were drawn yesterday and are preliminary. No imaging reports today. ASSESSMENT AND PLAN: Ms. Post is being treated for a fungemia. We are awaiting the results of her most recent blood cultures. Once those are clear, she will need another PICC line inserted . At this point she is receiving fluconazole 400 mg intravenous daily, which we will continue. These plans have been discussed with and recommended by Dr. Whitt. COMORBIDITIES: Include rectal cancer with liver metastases, obstructive uropathy, persistent anemia, enterocutaneous and enterorectal fistulas, requiring the patient to be NPO with TPN for nutrition at this time. Dictated by CHRISTIAN Boyer for Dionicio Whitt MD cc: Dionicio Whitt MD [facility]ALTH PARTNERSLeanne
[2019-05-12] MEDS: MORPHINE IV PRN ×3 (03:00→16:29)
[2019-05-12] MEDS: PHENERGAN IV PRN ×4 (03:01→22:44)
[2019-05-12 07:59] LABS: HEMATOCRIT 25.6 % (37.0-47.0); HEMOGLOBIN 8.4 g/dL (12.0-16.0); MCH 29.9 PG (27-31); MCHC 32.8 g/dL (33-37); MCV 91.1 FL (81-99); PLT 319 X1000 (130-400); RBC 2.81 XMIL (4.2-5.4); RDW 15.3 % (11.5-14.5); WBC 5.98 X1000 (4.8-10.8)
[2019-05-12 08:00] LABS: BASO# 0.02 X1000 (0.0-0.2); BASO% 0.3 % (0.0-0.8); EOS# 0.28 X1000 (0.0-0.7); EOS% 4.7 % (0.0-10.0); IMM GRAN# 0.08 X1000 (0.0-0.04); IMM GRAN% 1.3 % (0.0-0.5); LYMPH# 1.23 X1000 (1.2-3.4); LYMPH% 20.6 % (20.5-51.1); MONO# 1.06 X1000 (0.11-0.59); MONO% 17.7 % (1.7-9.3); MPV 10.3 FL (7.4-10.4); NEUT# 3.31 X1000 (1.4-6.5); NEUT% 55.4 % (42.2-75.2)
[2019-05-12 08:21] LABS: AGAP 8; BUN 13 mg/dL (8-22); CALCIUM 8.7 mg/dL (8.8-10.2); CHLORIDE 103 mmol/L (98-107); COSMO 271; CREATININE 0.6 mg/dL (0.5-0.9); ESTIMATED GFR > 60; GLUCOSE 111 mg/dL (70-104); MAGNESIUM 1.9 mg/dL (1.5-2.7); PHOSPHORUS 3.3 mg/dL (2.7-4.5); POTASSIUM 4.9 mmol/L (3.5-5.1); SODIUM 135 mmol/L (136-145); TCO2 24 mmol/L (25-35)
[2019-05-12] MEDS: MS CONTIN PO SCH ×2 (09:33→21:00)
[2019-05-12] MEDS: DIFLUCAN 400 MG/NS 400 MG/200 ML IVPB IV SCH (09:33)
[2019-05-12] MEDS: ZANAFLEX PO SCH ×2 (09:34→21:35)
[2019-05-12] MEDS: NS 1,000 ML IV SCH (13:00)
[2019-05-12] MEDS: TPN ELECTROLYTES IV SCH ×8 (13:24)
[2019-05-12] MEDS: [UNRECOGNIZED DRUG - OTHER] IV SCH ×8 (13:24)
[2019-05-12] MEDS: LOVENOX SUBQ SCH (13:24)
[2019-05-12] MEDS: MAGNESIUM SULFATE IV SCH ×8 (13:24)
[2019-05-12] MEDS: POTASSIUM CHLORIDE IV SCH ×8 (13:24)
[2019-05-12] MEDS: LIPOSYN 20% 250 ML IV SCH (13:25)
[2019-05-12] MEDS: MORPHINE IR PO PRN (13:29)
--- NOTE | 2019-05-12 14:55 | PROGRESS NOTE ---
DATE: 05/12/2019 SUBJECTIVE: Patient reports feeling fine. No complaints at this time. OBJECTIVE: Vital Signs: Temperature 98.2, heart rate 79, respiratory rate 18, blood pressure 111/72, O2 saturation 100% on room air. General Examination: This is a chronically ill- appearing, 53-year-old female, lying in bed in no acute distress. Cardiovascular exam: S1, S2 heard. No murmurs, gallops, or rubs. Regular rate and rhythm. Respiratory exam: Clear bilaterally to auscultation. No work of breathing or using accessory muscles. Abdomen: Soft. There is a right lower quadrant ileostomy. Greenish drainage. There is intracutaneous fistula of the midline on the abdominal wall without any discharge. Extremities: No clubbing, cyanosis, or edema. Peripheral pulses present in both legs. Neurological exam: Patient alert and oriented x3. Moves 4 extremities. LABORATORY DATA: Reviewed. Hemoglobin is 8.4. ASSESSMENT AND PLAN: 1. Sepsis due to anorectal fistula with Escherichia coli and Klebsiella pneumonia and Enterococcus faecalis. Now, those infections are resolved. We have found fungemia secondary to Nancy albicans. So, she continues to receive intravenous Diflucan. Infectious Disease is following this patient. We will follow recommendations. Repeat blood cultures did not show any bacteria or fungal, so we are going to place a PICC line tomorrow morning. 2. Rectal adenocarcinoma with liver metastasis status post ileostomy since August 2018. At this point, from General Surgery review, we are going to keep this patient on nothing by mouth for a month with total parenteral nutrition, and we will re-evaluate this fistula by restarting diet on her, probably clear liquids. We will continue to monitor. 3. Severe protein calorie malnutrition in the setting of metastatic malignancy. Will continue with total parenteral nutrition. 4. Symptomatic anemia. The patient has been transfused 1 unit of blood and hemoglobin is 8.4 today. 5. Disposition: We will continue to monitor this patient closely. cc: Hi Westbrook MD
--- NOTE | 2019-05-12 18:42 | INFECTIOUS DISEASE PROGRESS NO ---
DATE: 05/12/2019 PRESENT ILLNESS: Ms. Post is being treated for Nancy albicans fungemia that is most likely related to her PICC line, which has been discontinued. 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 MEDICATIONS: She is receiving IV fluconazole 400 mg once a day. Based on her sterile blood cultures, today is day 2 of her treatment for the fungemia. PHYSICAL EXAMINATION: Vital Signs: Temperature is 98.2 degrees, pulse rate 79, respiratory rate 18, blood pressure 111/72, O2 saturation is 100% on room air. General: This is a chronically ill- appearing, middle-aged female. She is sitting up in bed, currently in no acute distress. HEENT: Atraumatic, normocephalic. Oral mucous membranes are pink and moist. Conjunctivae are pale. Neck: Supple. Trachea is midline. Cardiovascular: Heart rate is regular. Respiratory: Lung sounds are clear to auscultation bilaterally. There is no work of breathing noted. Abdomen: Soft, flat, nontender. Bowel sounds are hypoactive. She does have an ileostomy pouch as well as an enterocutaneous fistula site with no drainage noted. There is a Port-A-Cath access to the right chest. That site is without edema, erythema, or drainage. Neurologic: She is awake, alert, oriented, and can move around independently in the bed. LABORATORY AND X-RAY: Today, her white count is 4.21, hemoglobin 7.8, platelet count 153,00. Creatinine is 0.7, estimated GFR is greater than 60. Her blood cultures have grown out Nancy albicans. The most recent set of blood cultures are sterile. No imaging reports today. ASSESSMENT AND PLAN: Ms. Post is being treated for a Nancy fungemia and is currently NPO to allow gut rest for the enterocutaneous fistula. She is receiving IV fluconazole once a day, which we will continue. Her blood cultures are now sterile, making today day 2 of treatment for her fungemia. She will need a total of 14 days. I have talked to her about home IV administration. At this point, she does not have any insurance, so she says she will be able to come in to outpatient once a day for her IV fluconazole. Orders for a PICC line and morning blood work have been put into the computer. These plans have been discussed with and recommended by Dr. Whitt. COMORBIDITIES: Include rectal cancer with liver metastases, obstructive uropathy, persistent anemia, enterocutaneous and enterorectal fistula, and NPO status with protein- calorie malnutrition. Dictated by CHRISTIAN Boyer for Dionicio Whitt MD cc: Dionicio Whitt MD [facility]
[2019-05-13] MEDS: PHENERGAN IV PRN ×3 (04:51→18:00)
[2019-05-13] MEDS: NS 1,000 ML IV SCH ×2 (04:55→05:55)
[2019-05-13 05:53] LABS: INR 0.94; PROTIME 13.3 Seconds (11.0-16.0)
[2019-05-13 06:01] LABS: BASO# 0.03 X1000 (0.0-0.2); BASO% 0.5 % (0.0-0.8); EOS# 0.27 X1000 (0.0-0.7); EOS% 4.2 % (0.0-10.0); HEMATOCRIT 26.3 % (37.0-47.0); HEMOGLOBIN 8.5 g/dL (12.0-16.0); IMM GRAN% 1.6 % (0.0-0.5); LYMPH# 1.39 X1000 (1.2-3.4); LYMPH% 21.7 % (20.5-51.1); MCH 29.4 PG (27-31); MCHC 32.3 g/dL (33-37); MONO# 0.72 X1000 (0.11-0.59); MONO% 11.2 % (1.7-9.3); MPV 9.8 FL (7.4-10.4); NEUT# 3.91 X1000 (1.4-6.5); NEUT% 60.8 % (42.2-75.2); PLT 340 X1000 (130-400); RBC 2.89 XMIL (4.2-5.4); RDW 15.2 % (11.5-14.5); WBC 6.42 X1000 (4.8-10.8)
[2019-05-13 06:19] LABS: ALB/GLOB RATIO 0.6; ALBUMIN 2.5 g/dL (3.5-5.0); DIRECT BILIRUBIN 0.1 mg/dL (0.00-0.20); TOTAL BILIRUBIN 0.31 mg/dL (0.20-1.00); TOTAL PROTEIN 6.4 g/dL (6.3-8.3)
[2019-05-13 06:20] LABS: AGAP 11; BUN 12 mg/dL (8-22); CALCIUM 8.5 mg/dL (8.8-10.2); CHLORIDE 104 mmol/L (98-107); COSMO 270; CREATININE 0.6 mg/dL (0.5-0.9); ESTIMATED GFR > 60; GLUCOSE 105 mg/dL (70-104); MAGNESIUM 1.8 mg/dL (1.5-2.7); PHOSPHORUS 3.1 mg/dL (2.7-4.5); SODIUM 135 mmol/L (136-145); TCO2 20 mmol/L (25-35)
[2019-05-13] MEDS ORDERED: NS 250 ML ONE (08:30)
[2019-05-13] MEDS: MS CONTIN PO SCH ×2 (08:42→21:21)
[2019-05-13] MEDS: ZANAFLEX PO SCH ×2 (08:42→20:58)
[2019-05-13] MEDS: DIFLUCAN 400 MG/NS 400 MG/200 ML IVPB IV SCH (09:42)
[2019-05-13] MEDS: LOVENOX SUBQ SCH (11:18)
[2019-05-13] MEDS: SODIUM CHLORIDE 0.9% INJ PRN ×2 (11:18→18:00)
[2019-05-13] MEDS: MORPHINE IV PRN ×2 (11:20→18:00)
--- NOTE | 2019-05-13 13:32 | PROGRESS NOTE ---
DATE: 05/13/2019 SUBJECTIVE: The patient reports feeling okay. Denies any fever or chills. OBJECTIVE: Vital Signs: Temperature 97.9 degrees, heart rate 80, respiratory 16, blood pressure 132/79, and O2 saturation 100% on room air. General: This is a chronically ill-appearing, malnourished 53-year-old female lying in bed in no acute distress. Cardiovascular: S1, S2 heard. No murmurs, gallops, or rubs. Regular rate and rhythm. Respiratory: Clear bilaterally to auscultation. No work of breathing or using accessory muscles. Abdomen: Soft. There is a right lower quadrant colostomy with greenish drainage. There is an enterocutaneous fistula in the middle of the abdomen wall without any discharge. Extremities: No clubbing, cyanosis, or edema. Peripheral pulses present in both legs. Neurological: Patient alert and oriented x3. Moves all 4 extremities. LABORATORY DATA: Reviewed. Hemoglobin is 8.5 today. ASSESSMENT AND PLAN: 1. Sepsis due to enterocutaneous fistula with E. Coli and Klebsiella pneumonia. Enterococcus faecalis. Now, that condition is completely resolved, patient has a fungemia secondary to Nancy albicans. We have checked blood cultures, and those are negative. Currently, she is on Diflucan, actually day #[address] Whitt is on board. He is planning to provide 14 days of treatment. The patient already got a PICC line placed. From their standpoint, the patient is stable. 2. Rectal adenocarcinoma with liver metastasis status post ileostomy since August of 2019. At this point, from General Surgery, we have to keep this patient on NPO for a month on TPN. Then, we will reevaluated by the starting clear liquids to see if the fistula is still patent or not. If not, probably he can be restarted on regular food, and she can be discharged. We will follow recommendations from them. 3. Severe protein calorie malnutrition in the setting of metastatic malignancy. At this point, we will continue with TPN to complete a month. 4. Anemia of chronic disease. After she was transfused 1 unit of blood yesterday hemoglobin is stable. 5. Disposition. We will continue to monitor. cc: MD BLAKE Beth
[2019-05-13] MEDS: [UNRECOGNIZED DRUG - OTHER] IV SCH ×8 (14:10)
[2019-05-13] MEDS: TPN ELECTROLYTES IV SCH ×8 (14:10)
[2019-05-13] MEDS: MAGNESIUM SULFATE IV SCH ×8 (14:10)
[2019-05-13] MEDS: POTASSIUM CHLORIDE IV SCH ×8 (14:10)
[2019-05-13] MEDS: LIPOSYN 20% 250 ML IV SCH (14:10)
[2019-05-13] MEDS: MORPHINE IR PO PRN (14:22)
--- NOTE | 2019-05-13 17:17 | INFECTIOUS DISEASE PROGRESS NO ---
DATE: 05/13/2019 PRESENT ILLNESS: The patient is being treated for a Nancy albicans fungemia that most likely it arose from her PICC which has been removed. The patient also has an enterocutaneous fistula. However, there has been no drainage from the fistula for days, and hopefully that means it is closed off. MEDICATIONS: The only antimicrobial agent the patient is receiving his fluconazole 400 mg IV daily. The patient has had 3 days of treatment with fluconazole and will require 11 more days to complete a 2-week treatment. PHYSICAL EXAMINATION: Vital Signs: Temperature is 97.9 degrees, pulse 80, respirations 16, blood pressure 132/79. General: This is a chronically ill-appearing middle-aged female. She is in no acute distress. Head, Eyes, Ears, Nose, and Throat: She can hear my spoken words and see near objects. She does not have any white coating on her tongue. Neck: No meningismus. Cardiovascular: Heart rate is regular. Respiratory: Lungs clear to auscultation. Abdomen: Soft and nontender. The patient has an ileostomy in place. It is functional. The patient in the lower part of the her abdomen has what was thought to be a draining fistula. There has not been any drainage coming from the fistula for days and the site is not swelling and it is not erythematous. Neurologic: The patient is awake. She is able to ambulate. There is no tremor. DIAGNOSTIC STUDIES: CBC shows a white count of 6420, hemoglobin 8.5, and platelet count 340,000. Creatinine 0.6, GFR is greater than 60. Liver function studies are normal. ASSESSMENT AND PLAN: The patient has a Nancy fungemia. She has had already 3 days of treatment for the patient's fungemia and will require 11 more days to complete a 2-week treatment for the fungemia. The patient's fistula is not draining. I do not think she will need any more antibiotics for it at this time. I would suggest treating the patient with fluconazole 400 mg either p.o. if she is not having any drainage from her fistula or IV for a total of 11 more days to complete a 2-week treatment. The patient is on day 3 of treatment with fluconazole. The patient will need 11 more days of treatment to complete a 2-week treatment course. COMORBIDITIES: 1. The patient has rectal cancer with liver metastases. 2. She also has obstructive uropathy. 3. Persistent anemia. 4. Enterocutaneous and anorectal fistulae, both of which are not draining. 5. The patient is n.p.o. except for water. 6. She also has protein calorie malnutrition. I am signing off the patient's case now, but I am available to see her on a p.r.n. basis. Please continue fluconazole 400 mg IV for 11 more days. PATIENT'S COMORBIDITIES: 1. Rectal cancer with liver metastases. 2. Obstructive uropathy. 3. Persistent anemia. 4. Enterocutaneous and anorectal fistula and n.p.o. status with resulting protein-calorie malnutrition. INTEGUMENT: No rash noted. Thank you for allowing me to see the patient. I am signing off her case, but I am available to see her on a p.r.n. basis the Vannessa Whitt in. cc: Dionicio Whitt MD
[2019-05-14] MEDS: PHENERGAN IV PRN ×4 (00:22→22:47)
[2019-05-14] MEDS: MORPHINE IV PRN ×4 (00:23→19:02)
[2019-05-14] MEDS: NS 1,000 ML IV SCH (02:47)
[2019-05-14 07:37] LABS: AGAP 10; BUN 13 mg/dL (8-22); CALCIUM 8.7 mg/dL (8.8-10.2); CHLORIDE 103 mmol/L (98-107); CHOLESTEROL 106 mg/dL (0-200); COSMO 267; CREATININE 0.7 mg/dL (0.5-0.9); ESTIMATED GFR > 60; GLUCOSE 107 mg/dL (70-104); GOT 18 U/L (10-30); MAGNESIUM 1.8 mg/dL (1.5-2.7); PHOSPHORUS 3.9 mg/dL (2.7-4.5); PREALBUMIN 15.9 mg/dL (20-40); SODIUM 133 mmol/L (136-145); TCO2 20 mmol/L (25-35); TRIGLYCERIDES 114 mg/dL (35-135)
[2019-05-14] MEDS: DIFLUCAN 400 MG/NS 400 MG/200 ML IVPB IV SCH (09:44)
[2019-05-14] MEDS: MS CONTIN PO SCH ×2 (09:45→21:24)
[2019-05-14] MEDS: ZANAFLEX PO SCH ×2 (09:46→21:24)
--- NOTE | 2019-05-14 11:36 | PROGRESS NOTE ---
DATE: 05/14/2019 SUBJECTIVE: Patient reports feeling fine. No fever or chills. OBJECTIVE: Vital Signs: Temperature 98.1, heart rate 91, respiratory rate 16, blood pressure 113/74, O2 saturation 99% on room air. General Examination: This is a 53-year-old female, lying in bed in no acute distress. Cardiovascular exam: S1, S2 heard. No murmurs, gallops, or rubs. Regular rate and rhythm. Respiratory exam: Clear bilaterally to auscultation. No work of breathing. Not using accessory muscles. Abdomen: Abdomen is soft with the right lower quadrant colostomy revealing drainage, intracutaneous fistula in the middle of the abdomen with no drainage at all. Extremities: No clubbing, cyanosis or edema. Peripheral pulses present in both legs. Neurological exam: Patient is alert, oriented x3. Moves 4 extremities. LABORATORY DATA: Reviewed. ASSESSMENT AND PLAN: 1. Sepsis due to intracutaneous fistula with Escherichia coli and Klebsiella pneumonia. The condition is resolved. Now, we are treating Nancy fungemia. The patient is supposed to complete 14 days of treatment with fluconazole as per Dr. Whitt recommendation. We will continue with the same management. 2. Rectal adenocarcinoma with liver metastasis status post ileostomy of August 2018. Recommendations from General Surgery is to keep this patient on nothing by mouth for a month on total parenteral nutrition; that will be next Saturday. From there, we will see if she can tolerate food. We will most likely re-consult General Surgery next Saturday. We will go from there. 3. Protein-calorie malnutrition in the setting of metastatic malignancy. We will continue with total parenteral nutrition to complete a month. 4. Anemia of chronic disease. After 1 unit of blood has been transfused, hemoglobin is stable. 5. Disposition: We will continue to monitor. cc: Hi Westbrook MD
[2019-05-14] MEDS: MAGNESIUM SULFATE IV SCH ×8 (14:17)
[2019-05-14] MEDS: TPN ELECTROLYTES IV SCH ×8 (14:17)
[2019-05-14] MEDS: POTASSIUM CHLORIDE IV SCH ×8 (14:17)
[2019-05-14] MEDS: [UNRECOGNIZED DRUG - OTHER] IV SCH ×8 (14:17)
[2019-05-14] MEDS: LIPOSYN 20% 250 ML IV SCH (14:17)
[2019-05-14] MEDS: LOVENOX SUBQ SCH (14:29)
[2019-05-15] MEDS: NS 1,000 ML IV SCH ×3 (03:48→18:41)
[2019-05-15] MEDS: PHENERGAN IV PRN ×2 (05:25→22:49)
[2019-05-15] MEDS: DIFLUCAN 400 MG/NS 400 MG/200 ML IVPB IV SCH (09:45)
[2019-05-15] MEDS: MS CONTIN PO SCH ×2 (09:46→20:57)
[2019-05-15] MEDS: MORPHINE IV PRN ×3 (09:47→22:50)
[2019-05-15] MEDS: ZANAFLEX PO SCH ×2 (09:47→20:57)
[2019-05-15] MEDS: ZOFRAN IV PRN (10:29)
[2019-05-15 10:56] LABS: AGAP 11; ALBUMIN 2.8 g/dL (3.5-5.0); BUN 14 mg/dL (8-22); CALCIUM 8.9 mg/dL (8.8-10.2); CHLORIDE 101 mmol/L (98-107); COSMO 270; CREATININE 0.8 mg/dL (0.5-0.9); ESTIMATED GFR > 60; GLUCOSE 94 mg/dL (70-104); MAGNESIUM 1.8 mg/dL (1.5-2.7); PHOSPHORUS 3.3 mg/dL (2.7-4.5); SODIUM 135 mmol/L (136-145); TCO2 23 mmol/L (25-35)
[2019-05-15] MEDS: LOVENOX SUBQ SCH (12:21)
--- NOTE | 2019-05-15 14:03 | PROGRESS NOTE ---
DATE: 05/15/2019 SUBJECTIVE: The patient reports feeling fine. There are no new complaints noted. OBJECTIVE: Vital Signs: Temperature 98.7 degrees, heart rate 82, respiratory rate 20, blood pressure 100/66 and O2 saturation 100% on room air. General Examination: This is a chronically ill-appearing and malnourished 53-year-old female lying in bed in no acute distress. Cardiovascular: S1, S2 heard. No murmurs, gallops, or rubs. Regular rate and rhythm. Respiratory: Clear bilaterally to auscultation. No work of breathing or using accessory muscles. Abdomen: Soft. There is in the right lower quadrant colostomy with greenish drainage. There is an enterocutaneous fistula in the middle of the abdomen with no drainage at all. Extremities: No clubbing, cyanosis, or edema. Peripheral pulses present in both legs. Neurological: Patient alert and oriented x3. Moves 4 extremities. LABORATORY DATA: Reviewed. ASSESSMENT AND PLAN: 1. Sepsis due to enterocutaneous fistula with an Escherichia coli and Klebsiella pneumonia. Condition is resolved. Now, we are treating Nancy fungemia. We will treat this patient with 14 days of IV fluconazole. Today is day #4 of treatment. 2. Rectal adenocarcinoma with liver metastasis status post ileostomy in August of 2019. At this point, the recommendation is to keep this patient NPO with TPN 4 months. Today is day #28. On Saturday, we will restart a clear liquid diet. We will re-consult Dr. Torres or any of his colleagues from General Surgery to see if this patient tolerates food. I think this patient can be discharged, and TPN can be stopped. 3. Protein-calorie malnutrition. 4. Metastatic malignancy. We will continue with TPN by now to complete a month. 5. Anemia of chronic disease. Aware. Hemoglobin stable. 6. Disposition. We will continue to monitor this patient closely. cc: Hi Westbrook MD
[2019-05-15] MEDS: TPN ELECTROLYTES IV SCH ×8 (14:40)
[2019-05-15] MEDS: LIPOSYN 20% 250 ML IV SCH (14:40)
[2019-05-15] MEDS: [UNRECOGNIZED DRUG - OTHER] IV SCH ×8 (14:40)
[2019-05-15] MEDS: POTASSIUM CHLORIDE IV SCH ×8 (14:40)
[2019-05-15] MEDS: MAGNESIUM SULFATE IV SCH ×8 (14:40)
[2019-05-15] MEDS: SODIUM CHLORIDE 0.9% INJ PRN (22:50)
[2019-05-16] MEDS: NS 1,000 ML IV SCH (03:31)
[2019-05-16] MEDS: ZOFRAN IV PRN ×4 (03:32→22:29)
[2019-05-16] MEDS: MORPHINE IV PRN ×5 (03:32→22:29)
[2019-05-16 07:51] LABS: AGAP 9; CHLORIDE 106 mmol/L (98-107); GLUCOSE 99 mg/dL (70-104); POTASSIUM 4.2 mmol/L (3.5-5.1); SODIUM 139 mmol/L (136-145); TCO2 24 mmol/L (25-35)
[2019-05-16 07:52] LABS: BUN 15 mg/dL (8-22); CHOLESTEROL 123 mg/dL (0-200); COSMO 278; CREATININE 0.8 mg/dL (0.5-0.9); ESTIMATED GFR > 60; GOT 28 U/L (10-30); MAGNESIUM 1.8 mg/dL (1.5-2.7); PHOSPHORUS 4.2 mg/dL (2.7-4.5); TRIGLYCERIDES 105 mg/dL (35-135)
[2019-05-16 08:11] LABS: PREALBUMIN 20.4 mg/dL (20-40)
[2019-05-16] MEDS: PHENERGAN IV PRN ×3 (08:11→20:42)
[2019-05-16] MEDS: SODIUM CHLORIDE 0.9% INJ PRN ×2 (08:12→20:42)
[2019-05-16] MEDS: DIFLUCAN 400 MG/NS 400 MG/200 ML IVPB IV SCH (08:21)
[2019-05-16] MEDS: MS CONTIN PO SCH ×2 (08:22→20:43)
[2019-05-16] MEDS: ZANAFLEX PO SCH ×2 (08:23→20:43)
[2019-05-16] MEDS: LOVENOX SUBQ SCH (12:16)
[2019-05-16] MEDS: LIPOSYN 20% 250 ML IV SCH (14:23)
[2019-05-16] MEDS: [UNRECOGNIZED DRUG - OTHER] IV SCH ×8 (14:31)
[2019-05-16] MEDS: TPN ELECTROLYTES IV SCH ×8 (14:31)
[2019-05-16] MEDS: POTASSIUM CHLORIDE IV SCH ×8 (14:31)
[2019-05-16] MEDS: MAGNESIUM SULFATE IV SCH ×8 (14:31)
[2019-05-16] MEDS: MORPHINE IR PO PRN (14:50)
--- NOTE | 2019-05-16 20:18 | PROGRESS NOTE ---
DATE: 05/16/2019 SUBJECTIVE: The patient reports feeling okay. No complaints noted. Reports working with physical therapy, and she has been able to walk normally in the hallways. OBJECTIVE: Vital Signs: Temperature 98.7 degrees, heart rate 91, respiratory 17 blood pressure 100/64, O2 saturation 100% on room air. General: This is a [id number], malnourished 53-year-old female lying in bed in no acute distress. Cardiovascular: S1, S2 heard. No murmurs, gallops, or rubs. Regular rate and rhythm. Respiratory: Clear bilaterally to auscultation. No work of breathing or using accessory muscles. Abdomen: Soft. There is in the right lower quadrant a colostomy with greenish drainage. There is an enterocutaneous fistula in the middle of the abdomen with no drainage at all. Extremities: No clubbing, cyanosis, or edema. Peripheral pulses present in both legs. Neurological: Patient alert and oriented x3. Moves 4 extremities. LABORATORY DATA: Reviewed. ASSESSMENT AND PLAN: 1. Sepsis due to enterocutaneous fistula with Escherichia coli and Klebsiella pneumoniae. That condition is resolved. Now we are treating her for Nancy fungemia. We will treat the patient with 14 days of IV fluconazole total. Today is day number 5 of treatment. We will continue providing this medication for her. 2. Rectal adenocarcinoma with liver metastasis, status post ileostomy in August 2018. At this point, we are going to complete n.p.o. for this patient, who has been for a month here in the hospital with total parenteral nutrition, and on Saturday we will restart a clear liquid diet and see if this patient has some leaking or not. We will re-consult Dr. Torres. If she tolerates food and no leaking is noticed, then I think patient can be discharged, and total parenteral nutrition can be stopped. 3. Protein-calorie malnutrition. On total parenteral nutrition right now. 4. Anemia of chronic disease. Aware. Hemoglobin is stable. DISPOSITION: As mentioned above. cc: Hi Westbrook MD
[2019-05-17] MEDS: MORPHINE IR PO PRN ×3 (00:27→10:24)
[2019-05-17] MEDS: NS 1,000 ML IV SCH ×3 (00:31→20:40)
[2019-05-17] MEDS: PHENERGAN IV PRN ×3 (03:51→17:25)
[2019-05-17] MEDS: SODIUM CHLORIDE 0.9% INJ PRN ×3 (03:51→17:25)
[2019-05-17] MEDS: MORPHINE IV PRN ×5 (03:51→21:35)
[2019-05-17] MEDS: ZOFRAN IV PRN ×2 (05:19→21:35)
[2019-05-17 07:40] LABS: AGAP 12; BUN 18 mg/dL (8-22); CALCIUM 8.4 mg/dL (8.8-10.2); CHLORIDE 103 mmol/L (98-107); COSMO 274; CREATININE 0.8 mg/dL (0.5-0.9); ESTIMATED GFR > 60; GLUCOSE 93 mg/dL (70-104); MAGNESIUM 1.8 mg/dL (1.5-2.7); PHOSPHORUS 4.4 mg/dL (2.7-4.5); POTASSIUM 4.4 mmol/L (3.5-5.1); SODIUM 136 mmol/L (136-145); TCO2 21 mmol/L (25-35)
[2019-05-17] MEDS: ZANAFLEX PO SCH ×2 (08:08→20:39)
[2019-05-17] MEDS: MS CONTIN PO SCH ×2 (08:08→20:39)
[2019-05-17 09:32] LABS: BASO% 0.7 % (0.0-0.8); EOS# 0.28 X1000 (0.0-0.7); EOS% 4.7 % (0.0-10.0); HEMATOCRIT 27.1 % (37.0-47.0); HEMOGLOBIN 8.5 g/dL (12.0-16.0); IMM GRAN% 0.3 % (0.0-0.5); LYMPH# 1.57 X1000 (1.2-3.4); LYMPH% 26.3 % (20.5-51.1); MCH 29.7 PG (27-31); MCHC 31.4 g/dL (33-37); MCV 94.8 FL (81-99); MONO# 0.52 X1000 (0.11-0.59); MONO% 8.7 % (1.7-9.3); MPV 9.7 FL (7.4-10.4); NEUT# 3.55 X1000 (1.4-6.5); NEUT% 59.3 % (42.2-75.2); PLT 332 X1000 (130-400); RBC 2.86 XMIL (4.2-5.4); RDW 14.4 % (11.5-14.5); WBC 5.98 X1000 (4.8-10.8)
[2019-05-17 09:33] LABS: BASO# 0.04 X1000 (0.0-0.2); IMM GRAN# 0.02 X1000 (0.0-0.04)
[2019-05-17] MEDS: LOVENOX SUBQ SCH (11:48)
[2019-05-17] MEDS: DIFLUCAN 400 MG/NS 400 MG/200 ML IVPB IV SCH (11:48)
--- NOTE | 2019-05-17 12:19 | PROGRESS NOTE ---
DATE: 05/17/2019 SUBJECTIVE: Patient reports feeling okay. No nausea or vomiting. No abdominal pain. OBJECTIVE: Vital Signs: Temperature 98.7 degrees, heart rate 101, respiratory rate 20, blood pressure 108/74, O2 saturation 99% on room air. General: This is a chronically ill-appearing, malnourished 53-year-old female looking older than her stated age, lying in bed, in no acute distress. Cardiovascular: S1, S2 heard. No murmurs, gallops, or rubs. Regular rate and rhythm. Respiratory: Clear bilaterally to auscultation. No work of breathing or using accessory muscles. Abdomen: Soft, nontender to palpation. There is right lower quadrant colostomy with some greenish drainage. There is enterocutaneous fistula in the middle of the abdomen with no drainage. Extremities: No clubbing, cyanosis, or edema. Peripheral pulses present in both legs. Neurological: Patient is alert and oriented x3. Moves 4 extremities. LABORATORY DATA: Reviewed. ASSESSMENT AND PLAN: 1. Sepsis due to enterocutaneous fistula with Escherichia coli pneumonia. That condition is completely resolved. Now, she is being treated for Nancy fungemia with fluconazole. She is supposed to complete 14 days of this medication. Today is day 7 of the treatment. As per Dr. Whitt's recommendation, we will complete 10 days of this medication. 2. Rectal adenocarcinoma with liver metastasis status post ileostomy in August 2018. At this point, we are going to complete 1 month on NPO with TPN for this patient so as per surgery recommendations we can try some clear liquids tomorrow and see how this patient does. We will see what happens tomorrow. 3. Protein-calorie malnutrition. Patient is on TPN. 4. Anemia of chronic disease. Aware. Hemoglobin is stable. DISPOSITION: We will continue to monitor this patient closely. cc: Hi Westbrook MD
[2019-05-17] MEDS: [UNRECOGNIZED DRUG - OTHER] IV SCH ×8 (14:22)
[2019-05-17] MEDS: POTASSIUM CHLORIDE IV SCH ×8 (14:22)
[2019-05-17] MEDS: LIPOSYN 20% 250 ML IV SCH (14:22)
[2019-05-17] MEDS: MAGNESIUM SULFATE IV SCH ×8 (14:22)
[2019-05-17] MEDS: TPN ELECTROLYTES IV SCH ×8 (14:22)
[2019-05-18] MEDS: MORPHINE IV PRN ×5 (01:47→21:26)
[2019-05-18] MEDS: PHENERGAN IV PRN ×3 (01:48→20:10)
[2019-05-18] MEDS: ZOFRAN IV PRN ×2 (06:31→21:26)
[2019-05-18 07:13] LABS: BASO# 0.05 X1000 (0.0-0.2); EOS# 0.24 X1000 (0.0-0.7); EOS% 4.6 % (0.0-10.0); HEMATOCRIT 30.5 % (37.0-47.0); HEMOGLOBIN 9.6 g/dL (12.0-16.0); IMM GRAN# 0.02 X1000 (0.0-0.04); IMM GRAN% 0.4 % (0.0-0.5); LYMPH# 1.23 X1000 (1.2-3.4); LYMPH% 23.4 % (20.5-51.1); MCH 29.4 PG (27-31); MCHC 31.5 g/dL (33-37); MCV 93.3 FL (81-99); MONO% 7.6 % (1.7-9.3); MPV 9.6 FL (7.4-10.4); NEUT# 3.32 X1000 (1.4-6.5); PLT 345 X1000 (130-400); RBC 3.27 XMIL (4.2-5.4); RDW 14.5 % (11.5-14.5); WBC 5.26 X1000 (4.8-10.8)
[2019-05-18 07:36] LABS: AGAP 12; BUN 18 mg/dL (8-22); CALCIUM 9.2 mg/dL (8.8-10.2); CHLORIDE 101 mmol/L (98-107); COSMO 275; CREATININE 0.7 mg/dL (0.5-0.9); ESTIMATED GFR > 60; GLUCOSE 85 mg/dL (70-104); MAGNESIUM 1.8 mg/dL (1.5-2.7); PHOSPHORUS 4.6 mg/dL (2.7-4.5); POTASSIUM 4.1 mmol/L (3.5-5.1); SODIUM 137 mmol/L (136-145); TCO2 24 mmol/L (25-35)
[2019-05-18] MEDS: DIFLUCAN 400 MG/NS 400 MG/200 ML IVPB IV SCH (08:41)
[2019-05-18] MEDS: ZANAFLEX PO SCH ×2 (08:41→20:10)
[2019-05-18] MEDS: MS CONTIN PO SCH ×2 (08:41→20:10)
[2019-05-18] MEDS: LOVENOX SUBQ SCH (12:04)
[2019-05-18] MEDS: NS 1,000 ML IV SCH ×2 (12:04→15:29)
--- NOTE | 2019-05-18 12:22 | PROGRESS NOTE ---
DATE: 05/18/2019 SUBJECTIVE: Patient reports feeling fine. Denies any nausea or vomiting. OBJECTIVE: Vital Signs: Temperature 98.6 degrees, heart rate 84, respiratory rate 18, blood pressure 92/51, and O2 sat 100 percent on room air. General: This is a chronically ill- appearing, malnourished 53-year-old female looking older than her stated age lying in bed in no acute distress. Cardiovascular: S1, S2 heard. No murmurs, gallops, or rubs. Regular rate and rhythm. Respiratory: Clear bilaterally to auscultation. No work of breathing or using accessory muscles. Abdomen: Soft. Nontender to palpation. There is right lower quadrant colostomy with some greenish drainage. There is an enterocutaneous fistula in the middle of the abdomen with no drainage. Extremities: No clubbing, cyanosis, or edema. Peripheral pulses present in both legs. Neurological: Patient alert and oriented x3. Moves 4 extremities. LABORATORY DATA: Reviewed. ASSESSMENT AND PLAN: 1. Sepsis secondary due to enterocutaneous fistula with Escherichia coli and Klebsiella pneumonia. Condition is resolved. Now, she is being treated for Nancy fungemia with fluconazole. She is supposed to complete 14 days of this medication. Today is day #8 of the treatment. 2. Rectal adenocarcinoma with liver metastasis status post ileostomy in 2019. The patient has been kept one month on NPO with TPN. As per general surgery recommendations, we will start some clear liquids and see how she does. If she tolerates the diet today, we will advance diet tomorrow to GI soft diet and see how she does. If she tolerates the diet, she can be discharged soon. 3. Protein-calorie malnutrition. Patient is on TPN. A clear liquid diet has been started. We will continue to monitor. 4. Anemia of chronic disease. Aware. Hemoglobin is stable. Continue with the same management. 5. Disposition. We will continue to monitor this patient, and we will see this patient tolerates the diet or not. cc: Hi Westbrook MD
[2019-05-18] MEDS: LIPOSYN 20% 250 ML IV SCH (14:50)
[2019-05-18] MEDS: TPN ELECTROLYTES IV SCH ×7 (16:01)
[2019-05-18] MEDS: MAGNESIUM SULFATE IV SCH ×7 (16:01)
[2019-05-18] MEDS: POTASSIUM CHLORIDE IV SCH ×7 (16:01)
[2019-05-18] MEDS: [UNRECOGNIZED DRUG - OTHER] IV SCH ×7 (16:01)
[2019-05-19] MEDS: MORPHINE IV PRN ×5 (01:40→21:36)
[2019-05-19] MEDS: ZOFRAN IV PRN ×3 (01:41→19:43)
[2019-05-19] MEDS: PHENERGAN IV PRN ×3 (06:00→21:37)
[2019-05-19 06:04] LABS: BASO# 0.03 X1000 (0.0-0.2); BASO% 0.7 % (0.0-0.8); EOS% 4.8 % (0.0-10.0); HEMATOCRIT 28.5 % (37.0-47.0); HEMOGLOBIN 8.9 g/dL (12.0-16.0); LYMPH# 1.24 X1000 (1.2-3.4); LYMPH% 29.5 % (20.5-51.1); MCH 29.4 PG (27-31); MCHC 31.2 g/dL (33-37); MCV 94.1 FL (81-99); MONO# 0.36 X1000 (0.11-0.59); MONO% 8.6 % (1.7-9.3); MPV 9.5 FL (7.4-10.4); NEUT# 2.38 X1000 (1.4-6.5); NEUT% 56.4 % (42.2-75.2); PLT 273 X1000 (130-400); RBC 3.03 XMIL (4.2-5.4); RDW 14.1 % (11.5-14.5); WBC 4.21 X1000 (4.8-10.8)
[2019-05-19 06:33] LABS: AGAP 7; BUN 18 mg/dL (8-22); CALCIUM 8.6 mg/dL (8.8-10.2); CHLORIDE 106 mmol/L (98-107); COSMO 278; CREATININE 0.8 mg/dL (0.5-0.9); ESTIMATED GFR > 60; GLUCOSE 98 mg/dL (70-104); MAGNESIUM 1.8 mg/dL (1.5-2.7); PHOSPHORUS 4.4 mg/dL (2.7-4.5); POTASSIUM 4.6 mmol/L (3.5-5.1); SODIUM 138 mmol/L (136-145); TCO2 25 mmol/L (25-35)
[2019-05-19] MEDS: MS CONTIN PO SCH ×3 (08:04→22:28)
[2019-05-19] MEDS: ZANAFLEX PO SCH ×3 (08:04→22:28)
[2019-05-19] MEDS: DIFLUCAN 400 MG/NS 400 MG/200 ML IVPB IV SCH ×2 (08:06→09:47)
[2019-05-19 08:50] LABS: PREALBUMIN 19.5 mg/dL (20-40)
[2019-05-19] MEDS: LOVENOX SUBQ SCH (10:34)
[2019-05-19] MEDS: NS 1,000 ML IV SCH (10:34)
[2019-05-19] MEDS: LIPOSYN 20% 250 ML IV SCH (13:17)
--- NOTE | 2019-05-19 13:39 | PROGRESS NOTE ---
DATE: 05/19/2019 SUBJECTIVE: Patient reports feeling okay. She did tolerate a clear liquid diet very well. No leaking from enterocutaneous fistula. OBJECTIVE: Vital Signs: Temperature 99 degrees, heart rate 87, respiratory rate 18, blood pressure 97/57, and O2 saturation 100% on room air. General: This is a chronically ill- appearing, 53-year-old female lying in bed in no acute distress. Cardiovascular: S1, S2 heard. No murmurs, gallops, or rubs. Regular rate and rhythm. Respiratory: Clear bilaterally to auscultation. No work of breathing. Not using accessory muscles. Abdomen: Soft and nontender to palpation. There is a right lower quadrant colostomy with some greenish drainage. There is enterocutaneous fistula in the middle of the abdomen with no drainage at all. Extremities: No clubbing, cyanosis, or edema. Peripheral pulses present in both legs. Neurological: Patient alert and oriented x3. Moves all 4 extremities. LABORATORY DATA: Reviewed. ASSESSMENT AND PLAN: 1. Sepsis secondary to enterocutaneous fistula with E. coli and Klebsiella pneumonia. Condition is resolved now. She is being treated for Nancy fungemia with fluconazole according to ID recommendation. She is supposed to complete 14 days of antibiotics. Fourteen days of this medication to oral. Today is day #9 of treatment. We will continue with the same management. 2. Rectal adenocarcinoma with liver metastases status post colostomy in August of 2018. The patient with first day of clear liquid diet. She is not having any drainage from the fistula. At this point, we are going to re-consult Dr. Torres to see what else we can do for this patient. I think if she tolerates diet, she can be discharged. 3. Nutrition. At this point, patient is on TPN on clear liquid diet. Diet will be advanced to a GI soft diet. We will see how she does. 4. Anemia of chronic disease. Stable. 5. Disposition. We will continue to monitor this patient closely. We will see how this this patient tolerates GI soft diet. cc: Hi Westbrook MD [facility]
[2019-05-19] MEDS: SODIUM CHLORIDE 0.9% INJ PRN (15:05)
[2019-05-19] MEDS: POTASSIUM CHLORIDE IV SCH ×7 (16:59)
[2019-05-19] MEDS: MAGNESIUM SULFATE IV SCH ×7 (16:59)
[2019-05-19] MEDS: [UNRECOGNIZED DRUG - OTHER] IV SCH ×7 (16:59)
[2019-05-19] MEDS: TPN ELECTROLYTES IV SCH ×7 (16:59)
[2019-05-20] MEDS: ZOFRAN IV PRN ×2 (03:22→12:28)
[2019-05-20] MEDS: MORPHINE IV PRN ×3 (03:22→12:28)
[2019-05-20 07:20] LABS: AGAP 8; BUN 17 mg/dL (8-22); CHLORIDE 103 mmol/L (98-107); COSMO 274; CREATININE 0.9 mg/dL (0.5-0.9); ESTIMATED GFR > 60; GLUCOSE 101 mg/dL (70-104); MAGNESIUM 1.9 mg/dL (1.5-2.7); POTASSIUM 4.3 mmol/L (3.5-5.1); SODIUM 136 mmol/L (136-145); TCO2 25 mmol/L (25-35)
[2019-05-20] MEDS: PHENERGAN IV PRN (07:43)
[2019-05-20] MEDS: SODIUM CHLORIDE 0.9% INJ PRN (07:44)
[2019-05-20] MEDS: NS 1,000 ML IV SCH (07:47)
[2019-05-20] MEDS: DIFLUCAN 400 MG/NS 400 MG/200 ML IVPB IV SCH (09:15)
[2019-05-20] MEDS: ZANAFLEX PO SCH (09:16)
[2019-05-20] MEDS: MS CONTIN PO SCH (09:16)
--- NOTE | 2019-05-20 10:16 | GENERAL SURGERY PROGRESS NOTE ---
DATE: 05/20/2019 SUBJECTIVE: The patient denies abdominal pain, nausea, or vomiting. She began eating again with a liquid diet 2 days ago. Yesterday, she advanced to a soft diet. So far, she is tolerating this quite well without any signs of leakage from her fistula. OBJECTIVE: She is afebrile. Vital signs are stable. General: She is awake, alert, and oriented x4. No acute distress. GI: Soft, nontender, nondistended. The lower midline wound is quite superficial. No surrounding erythema. No succus entericus or bilious drainage noted. ASSESSMENT AND PLAN: A 53-year-old female with recent enterocutaneous fistula and stage IV rectal cancer. The fistula appears to have healed. I would allow her to eat as tolerated. At this time, there are no surgical plans. Out of caution, I would recommend withholding chemotherapy for another 2 weeks to continue to allow the fistula tract to scar down and heal completely. cc: Blaine Torres MD
[2019-05-20] MEDS: LOVENOX SUBQ SCH (12:27)
[2019-05-20 13:43] VITALS: BP 96/64
[2019-05-20] MEDS: [UNRECOGNIZED DRUG - OTHER] IV SCH ×7 (14:01)
[2019-05-20] MEDS: MAGNESIUM SULFATE IV SCH ×7 (14:01)
[2019-05-20] MEDS: LIPOSYN 20% 250 ML IV SCH (14:01)
[2019-05-20] MEDS: TPN ELECTROLYTES IV SCH ×7 (14:01)
[2019-05-20] MEDS: POTASSIUM CHLORIDE IV SCH ×7 (14:01)
--- NOTE | 2019-05-21 00:01 | DISCHARGE SUMMARY ---
ADMISSION DATE: 04/17/2019 DISCHARGE DATE: 05/20/2019 CONSULTATIONS: 1. Dr. Asa Hein with Oncology. 2. Dr. Blaine Torres with General Surgery. 3. Dr. Dionicio Whitt with Infectious Disease. PERTINENT PROCEDURES: 1. Abdomen and pelvis CT, stable to slightly improved hepatic masses,, slight decrease in the size of the left adrenal cystic mass. Right-sided hydronephrosis remains in another 2 urethral stents. Small perisacral fluid collections now that contain air may represent small abscesses. 2. Small bowel x-ray enterorectal fistula. 3. Abdomen and pelvis CT near left lower submental atelectasis, improved hepatic calcified masses, right hydronephrosis despite presence of stents, entero- colocutaneous fistula Improved since 04/17/2019, stable left cystic ovarian mass, slightly improved pelvic fluid collection. DISCHARGE DIAGNOSES: 1. Recent enterocutaneous fistula with stage IV rectal cancer, fistula has healed. The patient is allowed to eat as tolerated. There are no surgical plans at this time. Per Dr. Torres out of caution he recommends withholding chemotherapy for another 2 weeks to allow the fistula tract to scar down and heal completely. 2. Sepsis secondary to enterocutaneous fistula with E coli and Klebsiella pneumoniae, condition has now resolved. She was followed by Dr. Whitt with Infectious Disease. He has signed off on the case. 3. Fungemia. The patient has been on fluconazole and will continue for 6 more days. He will receive his treatment as an outpatient. 4. Rectal adenocarcinoma with liver metastasis status post colostomy in August of 2018, followed by Dr. Hein who has also signed up on the case and the patient will follow up in his office. 5. Anemia of chronic disease, stable. 6. Acute kidney injury, resolved. 7. Electrolyte abnormalities including hyponatremia and hypochloremia, resolved. HOSPITAL COURSE: Briefly, Ms. Post is a 53-year-old female who carries a past medical history of metastatic rectal adenocarcinoma, who is followed by Dr. Hein and is on chemotherapy with known fistula. She started having stool draining through her fistula through a small wound in the midline after a cholecystectomy. Upon evaluation in the ED she was found to be hypotensive and was admitted to the ICU and placed on a Levophed drip, IV antibiotics and IV fluids, and plans were being made for a PICC line for her to receive TPN, and we will replenish her many electrolyte abnormalities. Her chemotherapy was placed on hold. General Surgery was brought on board as well. She continued long duration throughout her hospital stay, and was continued on broad- spectrum antibiotics and we brought Dr. Whitt on board with Infectious Disease. Her antibiotics were changed according to her cultures, and I added fluconazole for her fungemia. Her fistula now appeared to have healed. She is now allowed to eat as tolerated. There are no surgical plans at this moment; however, out of caution Dr. Torres recommends withholding chemotherapy for another 2 weeks to continue to allow for the fistula track to scar down and heal completely. She has finished all her IV antibiotic treatment. Dr. Whitt has signed off. She will, however, come and get 6 more doses of fluconazole for her fungemia. Vital signs at the time of discharge, temperature is 98.7 degrees, heart rate 94, respirations 16, blood pressure 108/70, O2 saturation is 100% on room air. DISCHARGE DIET: GI soft with Ensure. DISCHARGE MEDICATIONS: 1. Morphine IR 15 mg p.o. q.4 hours p.r.n. 2. Phenergan 25 mg p.o. q.4 hours p.r.n. 3. Prilosec 20 mg p.o. b.i.d. 4. MS Contin 30 mg p.o. q.12 hours. 5. Potassium chloride 20 mEq p.o. b.i.d. 6. Zanaflex 4 mg p.o. b.i.d. FOLLOW-UP: Ms. Post is being discharged back home with self-care. I believe there are plans made for her to receive outpatient fluconazole for 6 more doses. She is to take all medications as prescribed. Continue to follow up with Dr. Torres and Dr. Hein. She can resume chemotherapy in [address] Torres's instructions. She can return to the ED or call 911 for any worsening of symptoms. Dictated by CHRISTIAN Solorio for Hi Westbrook MD Addendum: Patient seen and examined by myself. Agree with CHRISTIAN note. It reflects my assessment and plan. Patient is being discharged from hospital in stable condition and will be seen by Dr. Hein in 2 weeks. cc: MD Asa Beth MD Jason R. Seale, MD [facility]ENTER[facility]anne
== END 2019-05-20 14:24 | disposition home or self-care (01) | DRG 871 ==
LOC: ED 10:35 → ICU 14:09 → SUATTDRO 14:09 → 3N 04-21 23:18
PROVIDERS: ATTEND Internal Medicine
CPT/HCPCS: 36430; 36569; 36584; 51702; 71010; 71020; 71045; 71046; 74177; 74250; 80048; 80053; 80076; 80202; 81001; 82040; 82465; 82550; 82948; 83605; 83735; 84100; 84132; 84134; 84450; 84478; 84484; 85014; 85018; 85025; 85610; 85730; 86850; 86900; 86901; 86920; 87040; 87070; 87077; 87088; 87186; 93005; 93010; 94760; 94761; 96361; 96365; 96366; 96375; 97161; 99285; 99291; A9270; J1170; J1446; J1447; J1450; J1650; J1885; J2020; J2060; J2248; J2270; J2405; J2543; J2550; J3370; J3475; J3480; J7030; J7040; J7050; J7070; P9016; Q9967; XXXXX

== ENCOUNTER 2019-06-03 13:12 | Inpatient (IN) ==
--- NOTE | 2019-06-03 17:04 | HISTORY AND PHYSICAL ---
CHIEF COMPLAINT: The patient is being admitted for a course of chemotherapy for metastatic adenocarcinoma. HISTORY OF PRESENT ILLNESS: Mrs. Post is a 53-year-old female with rectal adenocarcinoma with liver metastases, who is undergoing chemotherapy. She has had a two month delay in her chemotherapy due to the development of a fistula which has now improved. She reports Dr. Torres has advised her to restart chemotherapy. The patient's last chemotherapy was April 08. The patient has had a good response so far to her therapy. She has not had any side effects or adverse reactions. PAST MEDICAL HISTORY: Obstructive uropathy with stent, pelvic abscess, fistula PAST SURGICAL HISTORY: Colostomy, Port-A-Cath placement, ureteral stenting. FAMILY HISTORY: Liver failure and brain aneurysm. SOCIAL HISTORY: She currently smokes. She denies alcohol or substance use. HOME MEDICATIONS: MS Contin, MSIR, Phenergan, Reglan, Zofran, Prilosec. ALLERGIES: Latex. REVIEW OF SYSTEMS: Negative other than HPI. PHYSICAL EXAMINATION: VITAL SIGNS: Temperature 99.0 degrees, pulse rate 97, respiratory rate 16, blood pressure 104/65, O2 saturation 100 on room air. PAIN: She is in 8/10 abdominal pain. GENERAL: Awake, alert, and oriented, in no acute distress. Well developed, hydrated, well nourished. SKIN: Warm, dry, and intact without rashes or lesions. EYES: Sclera are anicteric. PERRLA. EARS, NOSE, AND THROAT: Oral mucosa is pink and moist with poor dentition. CARDIOVASCULAR: Normal S1, S2. Heart rate and rhythm are regular RESPIRATORY: No signs of respiratory distress. Lung sounds are clear in all lobes bilaterally. ABDOMEN: Soft, symmetric, and nontender without distension. EXTREMITIES: Upper and lower extremities are atraumatic in appearance without edema or deformity. LYMPH SURVEY: No lymphadenopathy is appreciated. LABORATORY: WBC is 9.62, hemoglobin 9.9, hematocrit 30.5, platelet count 286,000, ANC 6.48. Sodium 134, potassium 3.7. Magnesium 1.4. CEA is 4.5. ASSESSMENT AND PLAN: 1. Metastatic colorectal adenocarcinoma. Patient has been tolerating chemotherapy very well. She will continue FOLFIRI and Vectibix at 100% of the doses. We will continue to monitor for side effects. 2. Nausea prophylaxis. The patient will receive Zofran and Decadron prior to her treatment. 3. Neutropenia prophylaxis. We will continue to monitor with CBC. Monitor her for any fevers greater than 100.5 and neutropenia. 4. Pain management. Continue the patient's home medication regimen as ordered. 5. Diarrhea prophylaxis. The patient will receive atropine prior to her infusion. Patient also has p.r.n. medication to use. 6. Supportive care. The patient needs receive protein shakes and exercises while hospitalized. Dictated by CHRISTIAN Mckinney for Asa Hein MD cc: Asa Hein MD [facility]
[2019-06-03] MEDS: MORPHINE IR PO PRN (17:13)
[2019-06-03] MEDS: PHENERGAN PO PRN (17:13)
[2019-06-03] MEDS: ZANAFLEX PO SCH (20:07)
[2019-06-03] MEDS: PRILOSEC PO SCH (20:07)
[2019-06-03] MEDS: KLOR-CON PO SCH (20:07)
[2019-06-03] MEDS: MS CONTIN PO SCH (20:07)
[2019-06-04] MEDS: MORPHINE IR PO PRN ×4 (00:11→22:22)
[2019-06-04] MEDS: PHENERGAN PO PRN ×2 (00:12→22:23)
[2019-06-04] MEDS: ZANAFLEX PO SCH ×2 (08:17→20:39)
[2019-06-04] MEDS: KLOR-CON PO SCH ×2 (08:17→20:40)
[2019-06-04] MEDS: PRILOSEC PO SCH ×2 (08:17→20:40)
[2019-06-04] MEDS: MS CONTIN PO SCH ×2 (08:17→20:40)
--- NOTE | 2019-06-04 09:02 | PROGRESS NOTE ---
DATE: 06/04/2019 SUBJECTIVE: Ms. Post is in for her next cycle of chemotherapy for rectal adenocarcinoma with liver metastases. She states she is feeling fairly well today. She does have abdominal pain. She requests IV medication instead of p.o. She states she had a good night's sleep. Appetite is good. OBJECTIVE: Vital Signs: Temperature 98.9 degrees, pulse rate 91, respiratory rate 20, blood pressure 108/64, O2 saturation 99% on room air. She is in 10/10 back and abdominal pain. General: Awake, alert, and oriented. No acute distress. Healthy weight. BMI of 20.5. Skin: Warm, dry, and intact, without rashes or lesions. Fistula site to lower abdomen is healing well. HEENT: Sclerae anicteric. PERRLA. Oral mucosa is pink and moist with poor dentition. Cardiovascular: Normal S1, S2. Heart rate and rhythm regular. Respiratory: No signs of respiratory distress. Lung sounds are clear. Abdomen: Soft, symmetric, nontender, without distention. Extremities: Upper and lower extremities are atraumatic in appearance, without edema or deformity. Neurological: No focal motor deficit. No gait abnormalities appreciated. Lymph Survey: No lymphadenopathy noted. LABORATORY DATA: Pending for the day. ASSESSMENT AND PLAN: 1. Metastatic colorectal adenocarcinoma. The patient will begin her chemotherapy today with FOLFIRI and Vectibix at 100%. Will monitor for side effects and adverse reactions. 2. Nausea prophylaxis. The patient will receive Zofran and Decadron prior to her treatment. 3. Neutropenia prophylaxis. We will continue to monitor with daily CBCs. Continue to monitor her for any fevers greater than 100.5 and neutropenia. 4. Pain management. Continue the patient's home medication regimen as ordered. 5. Diarrhea prophylaxis. The patient will receive atropine prior to her infusion. 6. Supportive care. The patient will continue to need protein shakes and up ad sarika for exercises while in the hospital. Dictated by CHRISTIAN Mckinney for Asa Hein MD cc: Asa Hein MD [facility]
[2019-06-04] MEDS ORDERED: PHENERGAN IV PRN (09:37)
[2019-06-04] MEDS ORDERED: REGLAN IV PRN (09:37)
[2019-06-04] MEDS ORDERED: SODIUM CHLORIDE 0.9% INJ PRN (09:37)
[2019-06-04 09:50] LABS: BASO# 0.01 X1000 (0.0-0.2); BASO% 0.1 % (0.0-0.8); EOS# 0.24 X1000 (0.0-0.7); EOS% 2.6 % (0.0-10.0); HEMATOCRIT 27.8 % (37.0-47.0); HEMOGLOBIN 9.1 g/dL (12.0-16.0); IMM GRAN# 0.02 X1000 (0.0-0.04); IMM GRAN% 0.2 % (0.0-0.5); LYMPH# 1.43 X1000 (1.2-3.4); LYMPH% 15.7 % (20.5-51.1); MCH 29.6 PG (27-31); MCHC 32.7 g/dL (33-37); MCV 90.6 FL (81-99); MONO# 0.68 X1000 (0.11-0.59); MONO% 7.5 % (1.7-9.3); MPV 9.4 FL (7.4-10.4); NEUT% 73.9 % (42.2-75.2); PLT 259 X1000 (130-400); RBC 3.07 XMIL (4.2-5.4); RDW 13.9 % (11.5-14.5); WBC 9.08 X1000 (4.8-10.8)
[2019-06-04 10:09] LABS: AGAP 15; CHLORIDE 98 mmol/L (98-107); GLUCOSE 127 mg/dL (70-104); POTASSIUM 3.3 mmol/L (3.5-5.1); SODIUM 134 mmol/L (136-145); TCO2 21 mmol/L (25-35)
[2019-06-04 10:10] LABS: ALB/GLOB RATIO 0.7; ALBUMIN 2.9 g/dL (3.5-5.0); ALKALINE PHOSPHATASE 161 U/L (32-104); BUN 5 mg/dL (8-22); CALCIUM 8.5 mg/dL (8.8-10.2); COSMO 267; CREATININE 0.9 mg/dL (0.5-0.9); ESTIMATED GFR > 60; GOT 16 U/L (10-30); GPT 18 U/L (10-36); TOTAL BILIRUBIN 0.48 mg/dL (0.20-1.00); TOTAL PROTEIN 6.9 g/dL (6.3-8.3)
[2019-06-04] MEDS ORDERED: ZOFRAN IV ONE (11:00)
[2019-06-04] MEDS ORDERED: NS IV ONE ×4 (11:00→16:00)
[2019-06-04] MEDS ORDERED: TYLENOL PO ONE (11:00)
[2019-06-04] MEDS ORDERED: MAGNESIUM SULFATE 4 GM/S.W.I. 4 GM/100 ML IVPB IV ONE (11:00)
[2019-06-04] MEDS ORDERED: BENADRYL IV ONE (11:00)
[2019-06-04] MEDS ORDERED: [UNRECOGNIZED DRUG - OTHER] IV ONE (13:00)
[2019-06-04] MEDS ORDERED: DECADRON IV ONE (13:30)
[2019-06-04] MEDS ORDERED: ATROPINE IV ONE (14:00)
[2019-06-04] MEDS ORDERED: D5W IV ONE ×2 (14:00)
[2019-06-04] MEDS ORDERED: [UNRECOGNIZED DRUG - OTHER] IV ONE (14:00)
[2019-06-04] MEDS ORDERED: CAMPTOSAR IV ONE (14:00)
[2019-06-04] MEDS ORDERED: [UNRECOGNIZED DRUG - OTHER] IV ONE (16:00)
[2019-06-04] MEDS ORDERED: [UNRECOGNIZED DRUG - OTHER] IV ONE (16:00)
[2019-06-04] MEDS ORDERED: DILUENT IV ONE (16:00)
[2019-06-05] MEDS: MORPHINE IR PO PRN ×2 (06:36→14:38)
[2019-06-05] MEDS: PHENERGAN PO PRN (06:36)
[2019-06-05 07:20] LABS: HEMATOCRIT 28.7 % (37.0-47.0); HEMOGLOBIN 9.5 g/dL (12.0-16.0); IMM GRAN# 0.02 X1000 (0.0-0.04); IMM GRAN% 0.2 % (0.0-0.5); LYMPH# 0.83 X1000 (1.2-3.4); LYMPH% 8.4 % (20.5-51.1); MCH 29.3 PG (27-31); MCHC 33.1 g/dL (33-37); MCV 88.6 FL (81-99); MONO# 0.17 X1000 (0.11-0.59); MONO% 1.7 % (1.7-9.3); MPV 9.4 FL (7.4-10.4); NEUT# 8.85 X1000 (1.4-6.5); NEUT% 89.7 % (42.2-75.2); PLT 252 X1000 (130-400); RBC 3.24 XMIL (4.2-5.4); RDW 13.5 % (11.5-14.5); WBC 9.87 X1000 (4.8-10.8)
[2019-06-05 07:37] LABS: AGAP 12; ALB/GLOB RATIO 0.7; ALBUMIN 3.1 g/dL (3.5-5.0); ALKALINE PHOSPHATASE 155 U/L (32-104); BUN 9 mg/dL (8-22); CALCIUM 8.9 mg/dL (8.8-10.2); CHLORIDE 99 mmol/L (98-107); COSMO 265; CREATININE 0.8 mg/dL (0.5-0.9); ESTIMATED GFR > 60; GLUCOSE 160 mg/dL (70-104); GOT 18 U/L (10-30); GPT 17 U/L (10-36); POTASSIUM 3.9 mmol/L (3.5-5.1); SODIUM 131 mmol/L (136-145); TCO2 20 mmol/L (25-35); TOTAL BILIRUBIN 0.47 mg/dL (0.20-1.00); TOTAL PROTEIN 7.5 g/dL (6.3-8.3)
[2019-06-05] MEDS: PRILOSEC PO SCH ×2 (08:04→20:04)
[2019-06-05] MEDS: MS CONTIN PO SCH ×2 (08:04→20:03)
[2019-06-05] MEDS: ZANAFLEX PO SCH ×2 (08:05→20:04)
[2019-06-05] MEDS: KLOR-CON PO SCH ×2 (08:05→20:03)
--- NOTE | 2019-06-05 08:57 | HEMO/ONC PROGRESS NOTE ---
DATE: 06/05/2019 SUBJECTIVE: Ms. Post is here for her second day of chemotherapy for rectal adenocarcinoma with liver metastasis. She tolerated yesterday's chemotherapy without issue. She continues to feel fairly well. She does continue to have abdominal pain. She states she had a good night's sleep. Feels good this morning. Appetite remains good. She is up and about, getting out of her bed several times daily, doing exercises and drinking protein shakes. OBJECTIVE: Vital Signs: Temperature 97.8 degrees, pulse rate 72, respiratory rate 16, blood pressure 104/67, O2 saturation 100% on room air. She is in 8/10 pain. General: She is awake, alert, and oriented. No acute distress. Appears calm and comfortable. Skin: Warm, dry, and intact without rashes or lesions. Fistula site to lower abdomen is healing well. HEENT: Sclera is anicteric. PERRLA. Oral mucosa is pink and moist with poor dentition. Cardiovascular: Normal S1, S2. Heart rate and rhythm is regular. Respiratory: No signs of respiratory distress. Lung sounds are clear. Abdomen: Soft, symmetric, nontender without distention. Neurological: No focal motor deficits. No gait abnormalities appreciated. LABORATORY: WBCs 9.87, hemoglobin 9.5, hematocrit 28.7, platelet count 252,000. ANC 8.85. Sodium 131, potassium 3.9, creatinine 0.8, alkaline phosphatase 155, albumin 3.1. ASSESSMENT/PLAN: 1. Metastatic colorectal adenocarcinoma. Patient will be given her second day of chemotherapy today with FOLFIRI and Vectibix 100%. Continue to monitor for side effects and adverse reactions. The patient has tolerated her prior treatments without issue. 2. Nausea prophylaxis. The patient should receive Zofran and Decadron prior to her infusion. 3. Neutropenia prophylaxis. Continue to monitor for neutropenia and fevers greater than 100.5. Please notify Dr. Hein's office if this occurs. 4. Pain management. Continue the patient home medication regimen as ordered. 5. Diarrhea prophylaxis. The patient will receive atropine prior to her infusion and supportive care. The patient will continue to need protein shakes and ad sarika for exercises. Dictated by CHRISTIAN Mckinney for Asa Hein MD cc: Asa Hein MD
[2019-06-05] MEDS ORDERED: ZOFRAN 16 MG in NS 50 ML IV ONE (16:30)
[2019-06-05] MEDS ORDERED: [UNRECOGNIZED DRUG - OTHER] IV ONE (17:00)
[2019-06-05] MEDS ORDERED: DILUENT IV ONE (17:00)
[2019-06-05] MEDS ORDERED: NS IV ONE (17:00)
[2019-06-05] MEDS ORDERED: [UNRECOGNIZED DRUG - OTHER] IV ONE (17:00)
[2019-06-06] MEDS: MORPHINE IR PO PRN ×2 (00:05→14:28)
[2019-06-06] MEDS: PHENERGAN PO PRN ×3 (00:05→14:28)
[2019-06-06] MEDS: PRILOSEC PO SCH (09:10)
[2019-06-06] MEDS: MS CONTIN PO SCH (09:11)
[2019-06-06] MEDS: KLOR-CON PO SCH (09:11)
[2019-06-06] MEDS: ZANAFLEX PO SCH (09:11)
--- NOTE | 2019-06-06 12:26 | HEMO/ONC PROGRESS NOTE ---
DATE: 06/06/2019 SUBJECTIVE: Ms. Post is here for her day 2 of chemotherapy for rectal adenocarcinoma with liver metastasis. She has had no reactions or side effects the 1st cycle of chemotherapy. She states she states she feels very good. She does continue to have abdominal pain. She states she has a good night's sleep. Her appetite is good. She states she would like to go home after todays infusions are complete. OBJECTIVE: Vital signs: Temperature 97.5 degrees, pulse rate 71, respiratory rate 16, blood pressure 110/60, O2 saturation 100% on room air. She is in 4/10 pain. PHYSICAL EXAMINATION: General: Awake, alert, and oriented, in no acute distress. Appears comfortable. Skin: Warm, dry, and intact without rashes or lesions. Fistula site has completely closed and appears well healed. HEENT: Sclera is anicteric. PERRLA. Oral mucosa is pink and moist. Cardiovascular: Normal S1, S2. Heart rate and rhythm is regular Respiratory: No signs of respiratory distress. Lung sounds are clear. Abdomen: Soft, symmetric, nontender without distention. Neurological: No focal motor deficits. No gait abnormalities appreciated. LABORATORY DATA: No labs were drawn today. The patient will follow up with CBC next Saturday in the clinic. ASSESSMENT AND PLAN: 1. Metastatic colorectal adenocarcinoma. Patient will complete her chemotherapy cycle this afternoon of FOLFIRI and Vectibix. Nursing staff will continue to monitor for side effects and adverse reactions. She has not had any problems with prior treatments. 2. For nausea prophylaxis, the patient has not had any issue with nausea. She has p.r.n. medications to take at home. 3. Neutropenia prophylaxis. The patient knows to monitor for any fevers greater than 100.5 degrees, and notify the office. We will repeat a CBC on Saturday to monitor for neutropenia. 4. Pain management. Continue the patient's home medication regimen. She has medications at home for after discharge. 5. Diarrhea prophylaxis. The patient was treated prior to her infusion. She had home medications to help if diarrhea started after discharge. 6. Disposition. The patient will be discharged after the completion of her infusions today. We will follow up with her in the clinic next week. Dictated by CHRISTIAN Mckinney for Asa Hein MD cc: Asa Hein MD [facility]
[2019-06-06] MEDS ORDERED: MAGNESIUM SULFATE 4 GM/S.W.I. 4 GM/100 ML IVPB IV ONE (15:00)
[2019-06-06 16:24] VITALS: BP 107/69
--- NOTE | 2019-06-08 12:15 | DISCHARGE SUMMARY ---
ADMISSION DATE: 06/03/2019 DISCHARGE DATE: 06/06/2019 HOSPITAL SUMMARY: Ms. Post was admitted for her 3 day round of chemotherapy as an inpatient. She tolerated FOLFIRI and Vectibix at 100% of the doses without any complications or side effects. The patient continues to have improvement in control of her disease. She will continue to have chemotherapy every 2 weeks. DISCHARGE MEDICATIONS: Promethazine, omeprazole, morphine IR 15 mg, potassium chloride 20 mEq, morphine ER 30 mg, Zanaflex 4 mg. FOLLOWUP: Patient is to be in the clinic on Saturday, June 10, for a post chemotherapy CBC. She has been given a schedule calender for continued followup appointments. The patient verbalizes understanding of the followup care. She remains stable at this time upon discharge. Dictated by CHRISTIAN Mckinney for Asa Heni MD cc: Asa Hein MD
== END 2019-06-06 18:18 | disposition home or self-care (01) | DRG 847 ==
LOC: DIRADM 13:12 → 3N 15:25
PROVIDERS: ADMIT Internal Medicine Medical Oncology; ATTEND Internal Medicine Medical Oncology

== ENCOUNTER 2019-06-17 13:15 | Inpatient (IN) ==
[2019-06-17] MEDS ORDERED: TYLENOL PO PRN (14:09)
--- NOTE | 2019-06-17 14:26 | EKG Report ---
Test Performed on : 06/17/2019 2:19:44 PM Test Reason : new admit Blood Pressure : / mmHG Vent. Rate : 100 BPM Atrial Rate : 100 BPM P-R Int : 172 ms QRS Dur : 086 ms QT Int : 356 ms P-R-T Axes : 065 016 050 degrees QTc Int : 459 ms Normal sinus rhythm. Possible Left atrial enlargement Borderline ECG When compared with ECG of 05-MAY-2019 18:32, No significant change was found Confirmed by Danica Sheppard MD ([id number]) on 06/22/2019 8:30:51 AM
[2019-06-17 14:43] LABS: BASO# 0.03 X1000 (0.0-0.2); BASO% 1.3 % (0.0-0.8); EOS# 0.06 X1000 (0.0-0.7); EOS% 2.6 % (0.0-10.0); HEMATOCRIT 27.8 % (37.0-47.0); HEMOGLOBIN 9.5 g/dL (12.0-16.0); LYMPH# 1.14 X1000 (1.2-3.4); LYMPH% 48.7 % (20.5-51.1); MCH 29.6 PG (27-31); MCHC 34.2 g/dL (33-37); MCV 86.6 FL (81-99); MONO# 0.53 X1000 (0.11-0.59); MONO% 22.6 % (1.7-9.3); MPV 9.1 FL (7.4-10.4); NEUT# 0.58 X1000 (1.4-6.5); NEUT% 24.8 % (42.2-75.2); PLT 276 X1000 (130-400); RBC 3.21 XMIL (4.2-5.4); RDW 13.2 % (11.5-14.5); WBC 2.34 X1000 (4.8-10.8)
--- NOTE | 2019-06-17 14:47 | Diag Imaging Result Doc PS360 ---
CHEST-PORTABLE - 06/17/2019 INDICATION: new admit COMPARISON: 05/06/2019 FINDINGS: Stable right chest port. The lungs are clear. Heart size is normal. No pneumothorax or pleural effusion. IMPRESSION: Negative exam. Electronically signed by Abdelrahman Bradshaw 06/17/2019 2:45 PM
[2019-06-17 15:11] LABS: ALB/GLOB RATIO 0.9; ALBUMIN 3.4 g/dL (3.5-5.0); CALCIUM 8.8 mg/dL (8.8-10.2); POTASSIUM 2.6 mmol/L (3.5-5.1); TOTAL BILIRUBIN 0.65 mg/dL (0.20-1.00); TOTAL PROTEIN 7.3 g/dL (6.3-8.3)
[2019-06-17 15:43] LABS: EOS 2 % (1-10); LYMPHS 46 % (21-51); MONO 18 % (1-9); SEGS 34 % (42-75)
[2019-06-17] MEDS: KEFZOL 1 GM/D5W 1 GM/50 ML IVPB IV SCH ×2 (15:51→22:40)
[2019-06-17] MEDS: NS 1,000 ML IV SCH (15:51)
--- NOTE | 2019-06-17 15:55 | HISTORY AND PHYSICAL ---
PRIMARY CARE PROVIDER: None. GENERAL SURGEON: Dr. Torres CABLE RIGGER: Dr. Hein. CHIEF COMPLAINT: Direct admit for abdominal fistula. HISTORY OF PRESENT ILLNESS: Ms. Post is a 53-year-old female with a history of rectal adenocarcinoma with liver metastasis, who is undergoing chemotherapy with Dr. Hein. Her last treatment was a week and a half ago. She had previously had a 2 month delay in chemotherapy secondary to the fistula that had improved, and she was re-initiate on her chemotherapy. Unfortunately, after since being re initiated on her chemotherapy, her abdominal fistula has opened back up. She did have some oozing. She went to go see Dr. Torres who has requested us to directly admit her, and continue with wound care and start her on Ancef. We will make her NPO and initiate on TPN and consult Dr. Hein as well. PAST MEDICAL HISTORY: 1. Obstructive uropathy with stent. 2. Pelvic abscesses. 3. Abdominal fistula. PAST SURGICAL HISTORY: 1. Colostomy. 2. Port-A-Cath placement. 3. Urethral stenting. FAMILY HISTORY: Liver failure and brain aneurysm. SOCIAL HISTORY: She currently smokes. No alcohol or illicit drug use. HOME MEDICATIONS: Have not been verified. ALLERGIES: Latex. REVIEW OF SYSTEMS: Twelve-point review of systems completely negative. She denies any headache, fever, chills, dizziness, shortness of breath, chest pain, no bright red blood or dark tarry stools. No issues with urination. She did report that she has had some problems after she eats food, but she felt it was secondary to her chemotherapy being re-initiated. PHYSICAL EXAMINATION: VITAL SIGNS: Currently pending. GENERAL: Ms. Post is a pleasant 53-year-old female who is sitting up in the bed in no acute distress. HEENT: Atraumatic, normocephalic. PERRL. CARDIOVASCULAR: S1, S2 appreciated. No murmurs, gallops, or rubs noted. RESPIRATORY: Lung sounds clear bilaterally. ABDOMEN: Soft and nontender. She does have a large dressing to her wound. She has already been seen by Wound Care. NEUROLOGIC: No focal deficits noted. LABORATORY AND DIAGNOSTICS: Pending. ASSESSMENT/PLAN: 1. Recent enterocutaneous fistula that had healed after NPO status and TPN that has opened up they believe secondary to disease process as well as possibly chemotherapy. We will continue with wound care. Continue n.p.o. status and reinitiate her on TPN. She will be followed by Dr. Torres. We will initiate Ancef as well and continue with daily wound care with the wound care nurse. 2. Stage IV metastatic colorectal adenocarcinoma. We will consult Dr. Hein. Further recommendations to follow physician evaluation, laboratory and diagnostic data. Dictated by CHRISTIAN Solorio for Jorge Tang MD cc: MD Dr. Angel Luis Narayanan MD [facility]
[2019-06-17] MEDS ORDERED: MAGNESIUM SULFATE 2 GM/S.W.I. 2 GM/50 ML IVPB IV ONE (16:11)
--- NOTE | 2019-06-17 18:31 | HISTORY AND PHYSICAL ---
ADDENDUM: Ms. Post is a 53-year-old female who has a history of rectal adenocarcinoma with liver metastasis. Currently undergoes chemotherapy with Dr. Hein. Last treatment was about a week and half ago. The patient went for a regular check this morning with Dr. Hein but because she was having excessive drainage from the fistula in her lower abdomen, Dr. Hein recommended that the patient go see Dr. Zambrano who evaluated the patient and recommended admission. Currently, Ms. Post's labs do show leukopenia with lymphocytic predominant, normocytic anemia with normal platelet count. Chemistry shows hyponatremia and hypokalemia and mild renal function abnormality. A chest x-ray was stable. No pneumothorax or pneumonia. I have reviewed all of her other imaging and laboratory data. ASSESSMENT AND PLAN: 1. Ms. Post will be admitted for enterocutaneous fistula with excessive drainage. We will keep her n.p.o. Start her on TPN. There is erythematous changes around the area of the fistula which is concerning for cellulitis, so she has been started on Ancef. 2. Stage IV metastatic colorectal cancer. The patient follows up with Dr. Hein. 3. Protein calorie malnutrition. We will continue with supplement. 4. Electrolyte abnormality (hypokalemia, hyponatremia), will all be replaced. 5. Mild acute kidney injury. We will continue with IV fluids. I have also reviewed the H P which has been dictated in the chart by the [employer] RECREATION COORDINATOR and I do agree with the contents. cc: Jorge Tang MD
[2019-06-17] MEDS ORDERED: D10W 1,000 ML IV SCH (19:00)
[2019-06-17] MEDS ORDERED: TPN ELECTROLYTES 20 ML, MAGNESIUM SULFATE 5 MEQ, POTASSIUM CHLORIDE 40 MEQ, SODIUM PHOS... IV SCH ×8 (20:00)
[2019-06-17] MEDS: POTASSIUM CHLORIDE 20 MEQ/SWI 20 MEQ/100 ML IVPB IV SCH ×2 (20:09→22:00)
[2019-06-17] MEDS: MS CONTIN PO SCH (20:09)
[2019-06-17] MEDS: LIPOSYN 20% 250 ML IV SCH (20:09)
[2019-06-17] MEDS: PRILOSEC PO SCH (20:10)
[2019-06-17] MEDS: ZOFRAN IV PRN (20:10)
[2019-06-17] MEDS: KLOR-CON PO SCH (20:10)
[2019-06-17] MEDS: ZANAFLEX PO SCH (20:10)
[2019-06-18] MEDS: LIPOSYN 20% 250 ML IV SCH (00:30)
[2019-06-18] MEDS: PHENERGAN PO PRN ×2 (02:48→14:03)
[2019-06-18] MEDS: MORPHINE IR PO PRN ×2 (02:49→14:03)
[2019-06-18] MEDS: NS 1,000 ML IV SCH ×3 (04:10→18:28)
[2019-06-18] MEDS: KEFZOL 1 GM/D5W 1 GM/50 ML IVPB IV SCH ×3 (06:25→23:26)
[2019-06-18] MEDS: ZOFRAN IV PRN ×2 (06:32→20:04)
[2019-06-18 06:55] LABS: BASO# 0.01 X1000 (0.0-0.2); BASO% 0.4 % (0.0-0.8); EOS# 0.09 X1000 (0.0-0.7); EOS% 3.9 % (0.0-10.0); HEMATOCRIT 22.9 % (37.0-47.0); HEMOGLOBIN 7.8 g/dL (12.0-16.0); LYMPH# 1.43 X1000 (1.2-3.4); LYMPH% 61.6 % (20.5-51.1); MCH 29.5 PG (27-31); MCHC 34.1 g/dL (33-37); MCV 86.7 FL (81-99); MONO# 0.46 X1000 (0.11-0.59); MONO% 19.8 % (1.7-9.3); MPV 9.4 FL (7.4-10.4); NEUT% 14.3 % (42.2-75.2); PLT 224 X1000 (130-400); RBC 2.64 XMIL (4.2-5.4); RDW 12.9 % (11.5-14.5); WBC 2.32 X1000 (4.8-10.8)
[2019-06-18 07:15] LABS: AGAP 11; ALB/GLOB RATIO 0.7; ALBUMIN 2.6 g/dL (3.5-5.0); ALKALINE PHOSPHATASE 85 U/L (32-104); BUN 6 mg/dL (8-22); CALCIUM 7.9 mg/dL (8.8-10.2); CHLORIDE 106 mmol/L (98-107); COSMO 279; CREATININE 0.8 mg/dL (0.5-0.9); ESTIMATED GFR > 60; GLUCOSE 109 mg/dL (70-104); GOT 14 U/L (10-30); GPT 14 U/L (10-36); POTASSIUM 3.2 mmol/L (3.5-5.1); SODIUM 141 mmol/L (136-145); TCO2 24 mmol/L (25-35); TOTAL BILIRUBIN 0.33 mg/dL (0.20-1.00); TOTAL PROTEIN 6.2 g/dL (6.3-8.3)
[2019-06-18 07:17] LABS: MAGNESIUM 2.2 mg/dL (1.5-2.7); PHOSPHORUS 3.4 mg/dL (2.7-4.5); PREALBUMIN 9.6 mg/dL (20-40)
[2019-06-18 07:34] LABS: BANDS 1 % (0-1); EOS 3 % (1-10); LYMPHS 67 % (21-51); MONO 10 % (1-9); SEGS 19 % (42-75)
[2019-06-18 07:41] LABS: NEUT# 0.33 X1000 (1.4-6.5)
[2019-06-18] MEDS: ZANAFLEX PO SCH ×2 (08:18→20:00)
[2019-06-18] MEDS: KLOR-CON PO SCH ×2 (08:18→20:00)
[2019-06-18] MEDS: PRILOSEC PO SCH ×2 (08:18→20:00)
[2019-06-18] MEDS: MS CONTIN PO SCH ×2 (08:18→20:01)
[2019-06-18] MEDS ORDERED: GRANIX SUBQ SCH (09:00)
--- NOTE | 2019-06-18 09:09 | HEMO/ONC CONSULTATION ---
DATE: 06/18/2019 CHIEF COMPLAINT: The patient is being admitted for reopening of abdominal fistula. HISTORY OF PRESENT ILLNESS: Ms. Post is a 53-year-old patient of ours with rectal adenocarcinoma with liver metastases, who is currently undergoing chemotherapy. Her last chemotherapy was June 04 through the . There were no complications. The patient was recently hospitalized from 04/17/2019 to 05/20/2019 for this abdominal fistula. Upon her discharge, it was closed and appearing to heal. She came to the office yesterday explaining to us that it had opened up again last and was draining again. Her skin around it was red and irritated. We sent her to Dr. Torres's office, who direct admitted her. PAST MEDICAL HISTORY: Obstructive uropathy with stent, enterocutaneous fistula. PAST SURGICAL HISTORY: Colostomy, Port-A-Cath placement, and ureteral stenting. SOCIAL HISTORY: She currently smokes daily. She denies alcohol or substance use. HOME MEDICATIONS: MS Contin, MSIR, Phenergan, Reglan, Zofran, Prilosec. ALLERGIES: Latex. REVIEW OF SYSTEMS: Negative other than HPI. OBJECTIVE: Vital signs: Temperature 98.3 degrees, pulse rate 69, blood pressure 91/56, O2 saturation 100% on room air. She is in 9/10 abdominal pain. PHYSICAL EXAM: General: She is awake, alert, and oriented, in no acute distress. Skin: Mostly warm, dry and intact without rashes or lesions. Abdomen: Open abdominal fistula midline, an inch below her umbilicus. The skin surrounding the area is erythemic with fecal drainage noted. HEENT: Sclera is anicteric. PERRLA. Oral mucosa is pink and moist. Cardiovascular: Normal S1, S2. Heart rate and rhythm regular. Respiratory: No signs of respiratory distress. Lung sounds are clear to auscultation. Abdomen: Colostomy bag in place. Dressing to absorb drainage placed over open abdominal fistula. No pain with palpation. Extremities: Upper and lower extremities are atraumatic in appearance without edema or deformity. Lymph survey: No head, neck, or axillary lymphadenopathy noted. Neurological: Awake, alert, and oriented. Nogait abnormalities appreciated. LABORATORY: WBCs 2.32, RBCs 2.64, hemoglobin 7.8, hematocrit 22.9, platelet count 224, ANC 0.33, potassium 3.2, creatinine 0.8, calcium 7.9. ASSESSMENT: 1. Enterocutaneous fistula with excessive drainage. 2. Metastatic colorectal adenocarcinoma. PLAN: The patient is being admitted per Dr. Torres. She will be n.p.o. She will start TPN and Dr. Torres has begun Ancef. We will hold the patient's chemotherapy until cleared by Dr. Torres. We will continue to monitor closely. Dictated by CHRISTIAN Mckinney for Asa Bains MD Patient seen and examined. Patient received her last chemotherapy about 2 weeks ago. Now admitted with recurrent fistula. NPO and TPN. Also neutropenic. Start neupogen. Asa bains MD. cc: Asa Bains MD [facility]
[2019-06-18 09:32] LABS: IRON SATURATION 31 %; TIBC 131 ug/dL; TOTAL IRON 41 ug/dL (49-151); UNBOUND IRON 90 ug/dL (112-346)
[2019-06-18 09:59] LABS: FERRITIN 1856 ng/mL (13-150)
--- NOTE | 2019-06-18 14:07 | GENERAL SURGERY PROGRESS NOTE ---
DATE: 06/18/2019 SUBJECTIVE: The patient was examined on rounds today after being seen in my office yesterday. There has been no change overnight. She continues to have some drainage but now has an ostomy bag over her fistula site and it is controlling the drainage well. OBJECTIVE: Vital signs: She is afebrile. Vital signs are stable. General: She is awake, alert, oriented x3. No acute distress. Gastrointestinal: Soft, tender in the lower abdomen where her skin is erythematous. There is a bag over the fistula site. Her ileostomy bag is intact without leaking. LABORATORY DATA: White blood cell count 2.3, hemoglobin 7.8. Electrolytes reviewed and unremarkable. Prealbumin is 9.6. 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 She underwent recent chemotherapy and the fistula which had been closed has re-opened, so at this point, she needs to be put back on TPN and made n.p.o. with local wound care for the fistula site. I expect with conservative measures the fistula to heal again. I do not think she is a viable surgery candidate and I believe hospice care is most appropriate going forward as it does not appear that she will be able to tolerate chemotherapy. cc: Blaine Torres MD
--- NOTE | 2019-06-18 14:28 | PROGRESS NOTE ---
DATE: 06/18/2019 SUBJECTIVE: Today, Ms. Post refers to be doing okay. She was seen sitting up in a chair. She denies any complaints. According to her, the drainage from the lower abdominal fistula seems to be improving. Ms. Post did complain of mild muscle spasms. OBJECTIVE: Vital Signs: Blood pressure is 88/59, pulse is 68, respirations are 18, temperature is 98.2 degrees, the patient is saturating 100% on room air. General Examination: Ms. Post is a 53-year-old, female. She was sitting up in a chair. No distress. HEENT: Mucosa is pink and moist. Anicteric. Acyanotic. Neck: Supple. Chest: Good air entry bilaterally. There were no crepitations. No rhonchi. Cardiovascular: Regular rate and rhythm. Abdomen: Soft. There is an ileostomy at the right lower abdomen which the bag has some fecal material in. There is also a small fistula in the lower midline abdomen which is currently covered. Bowel sounds were present. Extremities: No pedal edema. 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 Laboratory Data: Has been reviewed. Hemoglobin is 7.8, WBC is 2.32. Chemistry is also reviewed. Potassium is 3.2. Iron studies are within normal range. So far, blood cultures have been negative. ASSESSMENT: 1. Enterocutaneous fistula with excessive drainage. This seems to be doing better. 2. Lida-fistula cellulitis. The patient is currently on Ancef. 3. Stage IV metastatic colorectal cancer. Patient follows up with Dr. Hein. 4. Protein calorie malnutrition. Patient is on total parenteral nutrition. 5. Hypokalemia, improving. 6. Normocytic anemia with normal iron studies, consistent with anemia of chronic disease. Hemoglobin is down to 7.8. We are going to continue to observe. We will transfuse if it is less than 7. cc: Jorge Tang MD
[2019-06-18] MEDS ORDERED: TPN ELECTROLYTES 20 ML, MAGNESIUM SULFATE 5 MEQ, POTASSIUM CHLORIDE 40 MEQ, SODIUM PHOS... IV SCH ×8 (20:00)
[2019-06-19] MEDS: LIPOSYN 20% 250 ML IV SCH (00:52)
[2019-06-19] MEDS: MORPHINE IR PO PRN ×2 (04:38→15:15)
[2019-06-19] MEDS: ZOFRAN IV PRN (04:39)
[2019-06-19 06:31] LABS: AGAP 8; BUN 4 mg/dL (8-22); CALCIUM 8.4 mg/dL (8.8-10.2); CHLORIDE 107 mmol/L (98-107); COSMO 271; CREATININE 0.8 mg/dL (0.5-0.9); ESTIMATED GFR > 60; GLUCOSE 111 mg/dL (70-104); MAGNESIUM 1.9 mg/dL (1.5-2.7); PHOSPHORUS 3.3 mg/dL (2.7-4.5); POTASSIUM 3.6 mmol/L (3.5-5.1); SODIUM 137 mmol/L (136-145); TCO2 22 mmol/L (25-35)
[2019-06-19] MEDS: KEFZOL 1 GM/D5W 1 GM/50 ML IVPB IV SCH ×4 (07:06→21:49)
[2019-06-19] MEDS: ZANAFLEX PO SCH ×2 (08:43→21:12)
[2019-06-19] MEDS: KLOR-CON PO SCH ×2 (08:43→21:12)
[2019-06-19] MEDS: PRILOSEC PO SCH ×2 (08:43→21:12)
[2019-06-19] MEDS: MS CONTIN PO SCH ×2 (08:43→21:12)
[2019-06-19] MEDS: NS 1,000 ML IV SCH ×3 (08:44→21:49)
[2019-06-19] MEDS ORDERED: NEUPOGEN SUBQ SCH (09:00)
[2019-06-19] MEDS ORDERED: GRANIX SUBQ SCH (09:16)
[2019-06-19 11:48] LABS: BASO# 0.02 X1000 (0.0-0.2); BASO% 0.4 % (0.0-0.8); EOS# 0.13 X1000 (0.0-0.7); EOS% 2.5 % (0.0-10.0); HEMATOCRIT 23.1 % (37.0-47.0); HEMOGLOBIN 7.7 g/dL (12.0-16.0); IMM GRAN# 0.05 X1000 (0.0-0.04); LYMPH# 1.53 X1000 (1.2-3.4); LYMPH% 29.9 % (20.5-51.1); MCH 29.4 PG (27-31); MCHC 33.3 g/dL (33-37); MCV 88.2 FL (81-99); MONO# 0.73 X1000 (0.11-0.59); MONO% 14.3 % (1.7-9.3); MPV 9.8 FL (7.4-10.4); NEUT# 2.66 X1000 (1.4-6.5); NEUT% 51.9 % (42.2-75.2); PLT 235 X1000 (130-400); RBC 2.62 XMIL (4.2-5.4); RDW 13.3 % (11.5-14.5); WBC 5.12 X1000 (4.8-10.8)
[2019-06-19 12:04] LABS: BANDS 10 % (0-1); EOS 2 % (1-10); LYMPHS 29 % (21-51); MONO 9 % (1-9); SEGS 50 % (42-75)
--- NOTE | 2019-06-19 13:11 | HEMO/ONC PROGRESS NOTE ---
DATE: 06/19/2019 SUBJECTIVE: Cira Post is a 53-year-old patient of ours with rectal adenocarcinoma and liver metastasis. Since her last discharge with her abdominal fistula, Ms. Post had 1 cycle of chemotherapy with FOLFIRI and Vectibix on 06/04/2019 through 06/06/2019. She was due to have her next cycle when she came into the office with her reopened fistula. The patient states that she is feeling better. She has a drain on her abdomen, keeping the stool from seeping and irritating her skin. She is somewhat depressed that she is not able to move forward with chemotherapy. She appears sad but she understands why. OBJECTIVE: Vital Signs: Temperature 98.2 degrees, pulse rate 84, respiratory rate 16, blood pressure 98/50, O2 saturation 100% on room air. She is in 8/10 abdominal pain. General: This is a chronically ill-appearing female in no acute distress. Skin: Warm, dry, and intact without rashes or lesions. She does have erythema around her fistula site on her abdomen. HEENT: Sclerae is anicteric. PERRLA. Oral mucosa is pink and moist. Cardiovascular: Normal S1, S2. Heart rate and rhythm regular. Respiratory: No signs of respiratory distress. Lung sounds clear to auscultation. Abdomen: Has a colostomy bag in place. She has a drainage bag on her fistula allowing the irritated skin to heal around. Abdomen otherwise nontender, nondistended. Musculoskeletal: Upper and lower extremities are atraumatic in appearance without edema or deformity. Neurological: Awake, alert, and oriented. No gait abnormalities appreciated. LABORATORY DATA: WBC 5.12, hemoglobin 7.7, hematocrit 23.1, platelet count 235,000, ANC 2.66. ASSESSMENT: 1. Enterocutaneous fistula with excessive drainage. 2. Metastatic colon adenocarcinoma with liver metastasis. PLAN: The patient remains NPO on TPN and antibiotics. We have been instructed to hold chemotherapy until the patient's fistula heals. The patient may or may not be able to resume chemotherapy due to wound healing difficulty. Her neutropenia has resolved. Continue CBCs daily and give Neupogen for any ANC less than 1. Please call us as needed over the weekend. Dictated by CHRISTIAN Mckinney for Asa Hein MD cc: MD BLAKE Yang
--- NOTE | 2019-06-19 13:42 | PROGRESS NOTE ---
DATE: 06/19/2019 SUBJECTIVE: This morning, Ms. Post refers to be doing okay. She did not have any new complaints. OBJECTIVE: Vital signs: Blood pressure is 98/50, pulse 84, respirations 16, temperature 98.2 degrees. Patient was saturating 100%. General: Ms. Post is a 53-year-old female. She is in bed. She did not seem to be in any cardiopulmonary distress. HEENT: Mucosa is pink and moist. Anicteric. Acyanotic. Neck: Supple. Chest: Good air entry bilaterally. No crepitations. No rhonchi. Cardiovascular: Regular rate and rhythm. Abdomen: Soft, nontender. There is an ileostomy at the right lower abdomen. The ostomy bag has some fecal material. There is also a fistulization under the lower abdomen with mild surrounding erythematous changes. Extremities: No pedal edema. Central nervous system: The patient is awake, alert, and oriented. LABORATORY DATA: WBC is up to 5.12, hemoglobin is 7.7, platelet count of 235,000. Chemistry is reviewed, is completely normal. So far microbiology data, blood cultures have been 48 hours negative. There is not any new imaging data. CURRENT MEDICATIONS: Have all been reviewed. Patient is on cefazolin 1 g q.8. Today is day 2. She is also on Granix as well as TPN. ASSESSMENT: 1. Enterocutaneous fistula with drainage associated with mild robert-fistula cellulitis. Patient is on IV antibiotics and she is also getting care with wound care nurse. 2. Stage IV metastatic colorectal cancer. The patient follows up with Dr. Hein. 3. Protein calorie malnutrition. Patient is on TPN. 4. Normocytic anemia with normal iron studies. Hemoglobin and hematocrit are fairly stable. We are going to continue to trend this. Patient will be transfuse if hemoglobin and hematocrit are less than 7. 5. Leukopenia, improved with Granix. So, in general, I think Ms. Post is fairly stable. She is on antimicrobial therapy. She is getting care with wound care nurse. We are going to continue to monitor the fistula output. We will follow up with further recommendations from both Surgery and Hematology/Oncology. cc: Jorge Tang MD
[2019-06-19] MEDS ORDERED: NS 500 ML ONE (13:59)
[2019-06-19] MEDS ORDERED: NS 500 ML IV ONE (14:06)
[2019-06-19] MEDS: PHENERGAN IV PRN ×2 (17:07→21:18)
[2019-06-19] MEDS: SODIUM CHLORIDE 0.9% INJ PRN (17:07)
[2019-06-20] MEDS: LIPOSYN 20% 250 ML IV SCH ×2 (00:05→23:50)
[2019-06-20] MEDS: TPN ELECTROLYTES 20 ML, MAGNESIUM SULFATE 5 MEQ, POTASSIUM CHLORIDE 40 MEQ, SODIUM PHOS... IV SCH ×16 (00:05→23:50)
[2019-06-20] MEDS: PHENERGAN IV PRN ×6 (02:03→23:50)
[2019-06-20] MEDS: MORPHINE IR PO PRN ×6 (02:03→23:50)
[2019-06-20 06:50] LABS: BASO# 0.01 X1000 (0.0-0.2); BASO% 0.2 % (0.0-0.8); EOS# 0.12 X1000 (0.0-0.7); HEMATOCRIT 23.9 % (37.0-47.0); HEMOGLOBIN 7.7 g/dL (12.0-16.0); IMM GRAN# 0.05 X1000 (0.0-0.04); IMM GRAN% 1.2 % (0.0-0.5); LYMPH% 41.9 % (20.5-51.1); MCH 28.9 PG (27-31); MCHC 32.2 g/dL (33-37); MCV 89.8 FL (81-99); MONO# 0.52 X1000 (0.11-0.59); MONO% 12.8 % (1.7-9.3); MPV 9.8 FL (7.4-10.4); NEUT# 1.66 X1000 (1.4-6.5); NEUT% 40.9 % (42.2-75.2); PLT 241 X1000 (130-400); RBC 2.66 XMIL (4.2-5.4); RDW 13.6 % (11.5-14.5); WBC 4.06 X1000 (4.8-10.8)
[2019-06-20 07:24] LABS: AGAP 3; BUN 4 mg/dL (8-22); CALCIUM 8.5 mg/dL (8.8-10.2); CHLORIDE 113 mmol/L (98-107); COSMO 281; CREATININE 0.7 mg/dL (0.5-0.9); ESTIMATED GFR > 60; GLUCOSE 110 mg/dL (70-104); MAGNESIUM 1.9 mg/dL (1.5-2.7); PHOSPHORUS 3.8 mg/dL (2.7-4.5); POTASSIUM 3.5 mmol/L (3.5-5.1); SODIUM 142 mmol/L (136-145); TCO2 26 mmol/L (25-35)
--- NOTE | 2019-06-20 08:06 | PROGRESS NOTE ---
DATE: 06/20/2019 SUBJECTIVE: This morning, Ms. Post refers to be doing okay. Denies any new complaints. She said yesterday they had to put like an ostomy bag on the fistula. It is currently draining some fecal material. OBJECTIVE: Vital signs: Blood pressure 91/61, pulse of 75, respiration is 18, temperature 97.7 degrees, patient is saturating 100% on room air. General: Ms. Post is a 53-year-old female. She is in bed, no distress. HEENT: Mucosa is pink and moist. Anicteric. Acyanotic. Neck: Supple. Chest: Good air entry bilateral. There were no crepitations, no rhonchi. Cardiovascular: Regular rate and rhythm. Gastrointestinal: Abdomen is soft, nontender. There is an ileostomy at the right lower abdomen with a bag filled with some fecal material. There is also an ostomy bag over the enterocutaneous fistula which is also draining fecal material. There are a little erythematous changes around the enterocutaneous fistula. There is an old surgical scar on the anterior abdominal wall. Central nervous system: Patient is awake, alert, and oriented. LABORATORY DATA: WBC is 4.05, hemoglobin is 7.7, platelet count of 241,000. Chemistry is reviewed, is completely within normal range. So far, blood cultures have been 48 hours negative. CURRENT MEDICATIONS: Have all been reviewed. She is still on cefazolin. ASSESSMENT: 1. Enterocutaneous fistula with excessive drainage associated with mild perifistula cellulitis. The patient is currently on antimicrobial therapy. There is an ostomy bag that has been placed on the fistula and the drainage seems to be fecal. 2. Stage IV metastatic colorectal cancer. Patient follows up with Dr. Hein. 3. Protein calorie malnutrition. Patient is on TPN. 4. Normocytic anemia with normal iron studies. Hemoglobin and hematocrit continues to be fairly stable. We will transfuse if it is below 7. 5. Leukopenia, improved. PLAN: In general, we think Ms. Post is clinically stable. No new complaints. We hope that the enterocutaneous fistula wells off on its on with medical management. Surgery and Heme-Onc on board. cc: Jorge Tang MD
[2019-06-20] MEDS: PRILOSEC PO SCH ×3 (10:17→20:35)
[2019-06-20] MEDS: ZANAFLEX PO SCH ×3 (10:17→20:35)
[2019-06-20] MEDS: MS CONTIN PO SCH ×3 (10:18→20:35)
[2019-06-20] MEDS: KEFZOL 1 GM/D5W 1 GM/50 ML IVPB IV SCH ×3 (10:18→23:50)
[2019-06-20] MEDS: KLOR-CON PO SCH ×3 (10:18→20:35)
[2019-06-20] MEDS: NS 1,000 ML IV SCH ×2 (11:01→23:55)
[2019-06-21] MEDS: NS 1,000 ML IV SCH (00:06)
[2019-06-21] MEDS: PHENERGAN IV PRN ×5 (04:06→22:12)
[2019-06-21] MEDS: MORPHINE IR PO PRN ×4 (04:06→22:12)
[2019-06-21 07:10] LABS: BASO# 0.05 X1000 (0.0-0.2); BASO% 0.4 % (0.0-0.8); EOS# 0.19 X1000 (0.0-0.7); EOS% 1.6 % (0.0-10.0); HEMATOCRIT 27.9 % (37.0-47.0); HEMOGLOBIN 8.6 g/dL (12.0-16.0); IMM GRAN# 0.17 X1000 (0.0-0.04); IMM GRAN% 1.4 % (0.0-0.5); LYMPH# 2.26 X1000 (1.2-3.4); LYMPH% 19.2 % (20.5-51.1); MCH 28.8 PG (27-31); MCHC 30.8 g/dL (33-37); MCV 93.3 FL (81-99); MONO# 1.02 X1000 (0.11-0.59); MONO% 8.7 % (1.7-9.3); MPV 9.9 FL (7.4-10.4); NEUT# 8.09 X1000 (1.4-6.5); NEUT% 68.7 % (42.2-75.2); PLT 267 X1000 (130-400); RBC 2.99 XMIL (4.2-5.4); RDW 14.3 % (11.5-14.5); WBC 11.78 X1000 (4.8-10.8)
[2019-06-21 07:43] LABS: AGAP 11; BUN 5 mg/dL (8-22); CALCIUM 8.3 mg/dL (8.8-10.2); CHLORIDE 113 mmol/L (98-107); COSMO 282; CREATININE 0.6 mg/dL (0.5-0.9); ESTIMATED GFR > 60; GLUCOSE 89 mg/dL (70-104); MAGNESIUM 1.6 mg/dL (1.5-2.7); PHOSPHORUS 2.8 mg/dL (2.7-4.5); POTASSIUM 3.5 mmol/L (3.5-5.1); SODIUM 143 mmol/L (136-145); TCO2 19 mmol/L (25-35)
[2019-06-21] MEDS: ZANAFLEX PO SCH ×2 (08:46→20:06)
[2019-06-21] MEDS: KLOR-CON PO SCH ×2 (08:46→20:07)
[2019-06-21] MEDS: MS CONTIN PO SCH ×2 (08:46→20:06)
[2019-06-21] MEDS: KEFZOL 1 GM/D5W 1 GM/50 ML IVPB IV SCH ×2 (08:46→17:59)
[2019-06-21] MEDS: PRILOSEC PO SCH ×2 (08:46→20:07)
--- NOTE | 2019-06-21 12:55 | PROGRESS NOTE ---
DATE: 06/21/2019 SUBJECTIVE: This morning, Ms. Post refers to be doing okay. She refers that the enterocutaneous fistula drainage seems to be getting less. OBJECTIVE: Vital Signs: Stable. Blood pressure 97/59, pulse of 77, respirations 16, temperature 97.9 degrees. General: Ms. Post is a 53-year-old female. She is in bed. No distress. HEENT: Mucosa is pink and moist. Anicteric. Acyanotic. Neck: Supple. Chest: Clear to auscultation. Cardiovascular: Regular rate and rhythm. Abdomen: Soft. Extremities: No pedal edema. PHYSICIAN AIDE: The patient is awake, alert, and oriented. GI: Abdomen is soft. There is an ileostomy at the right lower abdomen. The ostomy bag has some fecal material. The enterocutaneous fistula also has an ostomy bag. The output looks still yellowish, but less of fecal material than yesterday. LABORATORY DATA: This morning, WBC is up to 11.78, hemoglobin is 8.6, platelet count of 267,000. Chemistry is also reviewed and completely normal. ASSESSMENT: 1. Enterocutaneous fistula with excessive drainage associated with mild robert-fistula cellulitis. The patient is on intravenous antibiotics. The drainage from the enterocutaneous fistula seems to be reducing and less feculent. 2. Stage IV metastatic colorectal cancer. 3. Protein calorie malnutrition. The patient is on total parenteral nutrition. 4. Normocytic anemia with normal iron studies. 5. Leukopenia, resolved. We have discontinued the Neupogen since this morning. 6. Disposition is going to depend on further recommendation from both Surgery and Hematology/Oncology. cc: Jorge Tang MD
[2019-06-22] MEDS: KEFZOL 1 GM/D5W 1 GM/50 ML IVPB IV SCH ×3 (00:13→18:25)
[2019-06-22] MEDS: TPN ELECTROLYTES 20 ML, MAGNESIUM SULFATE 5 MEQ, POTASSIUM CHLORIDE 40 MEQ, SODIUM PHOS... IV SCH ×8 (00:13)
[2019-06-22] MEDS: LIPOSYN 20% 250 ML IV SCH ×2 (00:13→23:49)
[2019-06-22] MEDS: MORPHINE IR PO PRN ×5 (02:23→22:58)
[2019-06-22] MEDS: PHENERGAN IV PRN ×6 (02:23→22:57)
[2019-06-22 06:50] LABS: AGAP 7; BUN 7 mg/dL (8-22); CALCIUM 8.5 mg/dL (8.8-10.2); CHLORIDE 110 mmol/L (98-107); COSMO 277; CREATININE 0.7 mg/dL (0.5-0.9); ESTIMATED GFR > 60; GLUCOSE 92 mg/dL (70-104); MAGNESIUM 1.7 mg/dL (1.5-2.7); PHOSPHORUS 3.7 mg/dL (2.7-4.5); POTASSIUM 3.6 mmol/L (3.5-5.1); SODIUM 140 mmol/L (136-145); TCO2 23 mmol/L (25-35)
[2019-06-22 06:52] LABS: BASO# 0.02 X1000 (0.0-0.2); BASO% 0.3 % (0.0-0.8); EOS# 0.16 X1000 (0.0-0.7); EOS% 2.1 % (0.0-10.0); HEMATOCRIT 25.4 % (37.0-47.0); HEMOGLOBIN 8.2 g/dL (12.0-16.0); IMM GRAN# 0.35 X1000 (0.0-0.04); IMM GRAN% 4.6 % (0.0-0.5); LYMPH# 1.76 X1000 (1.2-3.4); LYMPH% 23.2 % (20.5-51.1); MCH 29.4 PG (27-31); MCHC 32.3 g/dL (33-37); MONO# 0.64 X1000 (0.11-0.59); MONO% 8.4 % (1.7-9.3); MPV 9.5 FL (7.4-10.4); NEUT# 4.66 X1000 (1.4-6.5); NEUT% 61.4 % (42.2-75.2); PLT 243 X1000 (130-400); RBC 2.79 XMIL (4.2-5.4); RDW 14.2 % (11.5-14.5); WBC 7.59 X1000 (4.8-10.8)
[2019-06-22 07:37] LABS: EOS 2 % (1-10); LYMPHS 27 % (21-51); MONO 8 % (1-9); SEGS 63 % (42-75)
--- NOTE | 2019-06-22 09:58 | GENERAL SURGERY PROGRESS NOTE ---
DATE: 06/22/2019 SUBJECTIVE: The patient is feeling better. She has had a drain over her fistula site all weekend with little output. OBJECTIVE: Vital Signs: She is afebrile. Vital signs are stable. General: She is awake, alert, oriented x3. No acute distress. GI: Soft, nondistended, nontender. Fistula site has an ostomy bag with scant succus entericus. LABORATORY DATA: CBC and metabolic profile were reviewed and unremarkable. ASSESSMENT AND PLAN: A 53-year-old female with stage IV rectal cancer and recurrent enterocutaneous fistula. She is nothing by mouth now. This is the fifth day she is on total parenteral nutrition. I am going to wait until Saturday, and then restart her on a clear liquid diet to see how much fistula output recurs. cc: Blaine Torres MD
[2019-06-22] MEDS: MS CONTIN PO SCH ×2 (10:14→20:29)
[2019-06-22] MEDS: ZANAFLEX PO SCH ×2 (10:14→20:29)
[2019-06-22] MEDS: KLOR-CON PO SCH ×2 (10:14→20:29)
[2019-06-22] MEDS: PRILOSEC PO SCH ×2 (10:14→20:29)
[2019-06-22] MEDS: KLONOPIN PO SCH ×2 (13:13→20:27)
--- NOTE | 2019-06-22 14:14 | PROGRESS NOTE ---
DATE: 06/22/2019 SUBJECTIVE: This morning, Ms. Post refers to be doing okay. No new complaints. Has been evaluated by surgery. There is a plan to continue keeping her NPO, re-evaluate her on Saturday, and hopefully start some enteral feeding. OBJECTIVE: Vital Signs: Blood pressure is 91/53, pulse of 75, respirations are 15, temperature is 98.8 degrees. General Examination: Ms. Post is a 53-year-old, female. She is in bed. No distress. HEENT: Mucosa is pink and moist. Anicteric. Acyanotic. Neck: Supple. Chest: Clear to auscultation. Cardiovascular: Regular rate and rhythm. Abdomen: Soft. There is an ostomy in the right lower abdomen. There is also an enterocutaneous fistula on the mid lower abdomen, has an ostomy bag over it. There is an old infraumbilical surgical scar from previous laparoscopic surgeries. MASSAGE THERAPIST: The patient is awake, alert, and oriented. Is and Os: Fecal output was about 200 in the ostomy. Laboratory Data: WBC has normalized. The patient has mild normocytic anemia. Chemistry is also reviewed and completely normal. So far, blood cultures have been 48 hours negative. The patient's current medication list has all been reviewed and there are no changes. ASSESSMENT: 1. Enterocutaneous fistula with excessive drain, associated with mild robert-fistula cellulitis, improved. The patient is currently on intravenous cefazolin. Today is day 5. We will plan to treat this for a total of 7 days. 2. Stage IV metastatic colorectal cancer. Patient follows up with Dr. Hein. 3. Protein calorie malnutrition. Patient is on total parenteral nutrition. 4. Normocytic anemia with normal iron studies, suggestive of anemia of chronic disease. 5. Leukopenia, improved. PLAN: In general, Ms. Post is currently NPO except for medications. She has been by both hematology/oncology and surgery. Surgery plans to keep her NPO, continue with the TPN, and allow the enterocutaneous fistula enough time to heal. There is a plan to start her on clear/some form of diet by Saturday. cc: Jorge Tang MD
[2019-06-22] MEDS: SEROQUEL PO SCH (20:29)
[2019-06-22] MEDS: POTASSIUM CHLORIDE IV SCH ×8 (23:58)
[2019-06-22] MEDS: [UNRECOGNIZED DRUG - OTHER] IV SCH ×8 (23:58)
[2019-06-22] MEDS: MAGNESIUM SULFATE IV SCH ×8 (23:58)
[2019-06-22] MEDS: TPN ELECTROLYTES IV SCH ×8 (23:58)
[2019-06-23] MEDS: KEFZOL 1 GM/D5W 1 GM/50 ML IVPB IV SCH ×5 (00:10→23:15)
[2019-06-23] MEDS: PHENERGAN IV PRN ×3 (03:42→15:22)
[2019-06-23] MEDS: MORPHINE IR PO PRN ×5 (03:42→23:04)
[2019-06-23] MEDS: ZOFRAN IV PRN ×3 (05:15→21:07)
[2019-06-23 07:13] LABS: BASO# 0.03 X1000 (0.0-0.2); BASO% 0.6 % (0.0-0.8); EOS% 2.1 % (0.0-10.0); HEMATOCRIT 25.4 % (37.0-47.0); HEMOGLOBIN 8.1 g/dL (12.0-16.0); IMM GRAN# 0.25 X1000 (0.0-0.04); IMM GRAN% 5.3 % (0.0-0.5); LYMPH# 1.53 X1000 (1.2-3.4); LYMPH% 32.3 % (20.5-51.1); MCH 29.1 PG (27-31); MCHC 31.9 g/dL (33-37); MCV 91.4 FL (81-99); MONO# 0.54 X1000 (0.11-0.59); MONO% 11.4 % (1.7-9.3); MPV 9.6 FL (7.4-10.4); NEUT# 2.28 X1000 (1.4-6.5); NEUT% 48.3 % (42.2-75.2); PLT 217 X1000 (130-400); RBC 2.78 XMIL (4.2-5.4); RDW 14.1 % (11.5-14.5); WBC 4.73 X1000 (4.8-10.8)
[2019-06-23 07:15] LABS: AGAP 10; BUN 9 mg/dL (8-22); CALCIUM 8.4 mg/dL (8.8-10.2); CHLORIDE 109 mmol/L (98-107); CHOLESTEROL 73 mg/dL (0-200); COSMO 284; CREATININE 0.6 mg/dL (0.5-0.9); ESTIMATED GFR > 60; GLUCOSE 98 mg/dL (70-104); GOT 18 U/L (10-30); MAGNESIUM 1.7 mg/dL (1.5-2.7); POTASSIUM 4.1 mmol/L (3.5-5.1); SODIUM 143 mmol/L (136-145); TCO2 24 mmol/L (25-35); TRIGLYCERIDES 45 mg/dL (35-135)
[2019-06-23 07:26] LABS: EOS 4 % (1-10); LYMPHS 34 % (21-51); SEGS 52 % (42-75)
[2019-06-23] MEDS: KLONOPIN PO SCH ×3 (07:56→20:57)
[2019-06-23] MEDS: MS CONTIN PO SCH ×3 (07:58→20:58)
[2019-06-23] MEDS: ZANAFLEX PO SCH ×3 (07:58→20:57)
[2019-06-23] MEDS: KLOR-CON PO SCH ×3 (07:58→20:57)
[2019-06-23] MEDS: PRILOSEC PO SCH ×2 (07:59→20:57)
[2019-06-23 08:00] LABS: PREALBUMIN 11.9 mg/dL (20-40)
--- NOTE | 2019-06-23 16:43 | PROGRESS NOTE ---
DATE: 06/23/2019 INTERVAL HISTORY: Patient continues to complain of some mild nausea but no vomiting. Improved with supportive care. Currently NPO, but may be starting some liquids later today after evaluation by surgery. No new complaints. No acute events overnight. REVIEW OF SYSTEMS: Twelve point review of systems negative except as per interval history. LABS: WBC 4.7, hemoglobin 8.1, hematocrit 25.4, platelets 217,000. Sodium 143, potassium 4.1, bicarbonate 24, BUN 9, creatinine 0.7, glucose 117.Vitals: T-max 98.8 degrees, pulse 77, respirations 21, blood pressure 87/46, O2 saturation 100% on room air. PHYSICAL EXAMINATION: General: No acute distress. Chronically ill-appearing. Vitals: As above. HEENT: Normocephalic, atraumatic. Moist mucous membranes. No cervical adenopathy. Cardiovascular: Regular rate and rhythm. No murmurs noted. Pulmonary: Clear to auscultation bilaterally. Abdomen: Soft. Ostomy in right lower abdomen. Fistula in mid abdomen with ostomy bag over it. Well healed surgical scars. Bowel sounds decreased but present. Extremities: Peripheral pulses intact. No clubbing, cyanosis. Neurologic: Cranial nerves grossly intact. Mild global weakness but no focal deficits. Psychiatric: Normal mood and affect. Awake, alert, oriented x3. Skin: No new rashes or lesions identified. Abdominal findings as above. ASSESSMENT AND PLAN: 1. Enterocutaneous fistula with drainage. Perifistular cellulitis much improved. Patient on day 6 of 7 of cefazolin. Surgery considering starting her on clear liquids today and monitor to see if fistula output again increases. Will await further recommendations from them. 2. Stage IV colon cancer. Patient follows with Dr. Hein. 3. Protein calorie malnutrition. Patient currently on total parenteral nutrition. Hopefully we will be able start some limited enteral intake today. 4. Anemia of chronic disease. Blood counts essentially stable. 5. Hypertension. Patient with low normal to slightly low blood pressure, but pretty stable overall. Likely baseline. Monitor. 6. Chronic pain. Continue home MS Contin and morphine IR.
[2019-06-23] MEDS: SEROQUEL PO SCH (21:00)
[2019-06-24] MEDS: POTASSIUM CHLORIDE IV SCH ×8 (00:58)
[2019-06-24] MEDS: MAGNESIUM SULFATE IV SCH ×8 (00:58)
[2019-06-24] MEDS: [UNRECOGNIZED DRUG - OTHER] IV SCH ×8 (00:58)
[2019-06-24] MEDS: TPN ELECTROLYTES IV SCH ×8 (00:58)
[2019-06-24] MEDS: LIPOSYN 20% 250 ML IV SCH (01:00)
[2019-06-24] MEDS: MORPHINE IR PO PRN ×3 (04:10→18:42)
[2019-06-24] MEDS: PHENERGAN IV PRN ×4 (04:11→18:44)
[2019-06-24] MEDS: ZOFRAN IV PRN ×2 (06:30→22:17)
[2019-06-24 06:45] LABS: BASO# 0.02 X1000 (0.0-0.2); BASO% 0.4 % (0.0-0.8); EOS% 2.2 % (0.0-10.0); HEMATOCRIT 25.6 % (37.0-47.0); HEMOGLOBIN 8.2 g/dL (12.0-16.0); IMM GRAN% 4.4 % (0.0-0.5); LYMPH% 32.8 % (20.5-51.1); MCH 29.6 PG (27-31); MCV 92.4 FL (81-99); MONO# 0.48 X1000 (0.11-0.59); MONO% 10.5 % (1.7-9.3); MPV 9.5 FL (7.4-10.4); NEUT# 2.28 X1000 (1.4-6.5); NEUT% 49.7 % (42.2-75.2); PLT 194 X1000 (130-400); RBC 2.77 XMIL (4.2-5.4); RDW 14.1 % (11.5-14.5); WBC 4.58 X1000 (4.8-10.8)
[2019-06-24 07:18] LABS: AGAP 9; BUN 13 mg/dL (8-22); CALCIUM 8.9 mg/dL (8.8-10.2); CHLORIDE 108 mmol/L (98-107); COSMO 284; CREATININE 0.7 mg/dL (0.5-0.9); ESTIMATED GFR > 60; GLUCOSE 107 mg/dL (70-104); POTASSIUM 4.3 mmol/L (3.5-5.1); SODIUM 142 mmol/L (136-145); TCO2 25 mmol/L (25-35)
[2019-06-24] MEDS: KLONOPIN PO SCH ×2 (08:21→22:17)
[2019-06-24] MEDS: MS CONTIN PO SCH ×2 (08:22→22:16)
[2019-06-24] MEDS: ZANAFLEX PO SCH ×2 (08:23→22:17)
[2019-06-24] MEDS: KLOR-CON PO SCH ×2 (08:23→22:16)
[2019-06-24] MEDS: PRILOSEC PO SCH ×2 (08:23→22:17)
[2019-06-24] MEDS: KEFZOL 1 GM/D5W 1 GM/50 ML IVPB IV SCH ×2 (08:24→17:54)
[2019-06-24 09:13] LABS: MAGNESIUM 1.8 mg/dL (1.5-2.7); PHOSPHORUS 4.4 mg/dL (2.7-4.5)
[2019-06-24] MEDS: SODIUM CHLORIDE 0.9% INJ PRN ×3 (09:21→18:44)
--- NOTE | 2019-06-24 16:56 | PROGRESS NOTE ---
DATE: 06/24/2019 INTERVAL HISTORY: No acute events overnight. Remains NPO currently. REVIEW OF SYSTEMS: Twelve point review of systems negative except as per interval history. LABS: 4.5, hemoglobin 8.2, hematocrit 25.6, platelets 194,000. Basic metabolic panel unremarkable. VITALS: T-max 98.5 degrees, pulse 78, respirations 16, blood pressure 97/58 O2 saturation 100% on room air. PHYSICAL EXAMINATION: General: No acute distress, chronically ill appearing. Vitals: As above. HEENT: Normocephalic, atraumatic. Moist mucous membranes. No cervical adenopathy. Cardiovascular: Regular rate and rhythm. No murmurs noted. Pulmonary: Clear to auscultation bilaterally. No wheezing, rales, or rhonchi. Abdomen: Soft. Ostomy in right lower abdomen. Fistula in mid abdomen still with ostomy bag over it. Well healed surgical scars, unchanged. Bowel sounds remain decreased but present. Extremities: Peripheral pulses intact. No clubbing, cyanosis. Neurologic: Cranial nerves grossly intact. No focal deficit deficits. Still some mild global weakness. Psychiatric: Normal mood and affect. Awake, alert, oriented x3. Skin: No new rashes or lesions identified. ASSESSMENT AND PLAN: 1. Enterocutaneous fistula drainage, perifistular cellulitis. Cellulitis, essentially resolved. Patient on day 7 of cefazolin. Surgery following and we will see what they say about timing of initiating diet. 2. Stage IV colon cancer. Patient follows with Dr. Hein. 3. Protein calorie malnutrition. Patient currently on total parenteral nutrition, pending ability to take p.o. 4. Anemia of chronic disease. Blood counts stable monitor. 5. Hypotension. The patient with consistently low normal blood pressure. Likely baseline. No dizziness or difficulty with orthostasis. 6. Chronic pain continue home MS Contin and morphine IR.
--- NOTE | 2019-06-24 21:48 | GENERAL SURGERY PROGRESS NOTE ---
DATE: 06/24/2019 SUBJECTIVE: The patient has no new complaints. OBJECTIVE: Vital signs: She is afebrile. Vital signs are stable. General: She is awake, alert, no acute distress. Gastrointestinal: Soft, nontender, nondistended. Her enterocutaneous fistula still has a small amount of succus entericus drainage. ASSESSMENT AND PLAN: A 53-year-old female with enterocutaneous fistula secondary to chemotherapy and stage IV rectal cancer. We are keeping her n.p.o. for now and awaiting the fistula to close. She is getting TPN. Once closed, we will advance her diet. I am planning to have a charcoal slurry given to her when there is no further drainage from the wound prior to advancing her diet. cc: Blaine Torres MD
[2019-06-24] MEDS: SEROQUEL PO SCH (22:17)
[2019-06-25] MEDS: KEFZOL 1 GM/D5W 1 GM/50 ML IVPB IV SCH ×2 (00:28→09:21)
[2019-06-25] MEDS: MORPHINE IR PO PRN ×5 (00:29→23:17)
[2019-06-25] MEDS: PHENERGAN IV PRN ×6 (00:29→23:17)
[2019-06-25] MEDS: LIPOSYN 20% 250 ML IV SCH (00:51)
[2019-06-25] MEDS ORDERED: POTASSIUM CHLORIDE IV SCH ×8 (01:00)
[2019-06-25] MEDS ORDERED: TPN ELECTROLYTES IV SCH ×8 (01:00)
[2019-06-25] MEDS ORDERED: MAGNESIUM SULFATE IV SCH ×8 (01:00)
[2019-06-25] MEDS ORDERED: [UNRECOGNIZED DRUG - OTHER] IV SCH ×8 (01:00)
[2019-06-25 08:10] LABS: BASO# 0.03 X1000 (0.0-0.2); BASO% 0.6 % (0.0-0.8); EOS# 0.11 X1000 (0.0-0.7); EOS% 2.1 % (0.0-10.0); HEMOGLOBIN 8.5 g/dL (12.0-16.0); IMM GRAN# 0.12 X1000 (0.0-0.04); IMM GRAN% 2.3 % (0.0-0.5); LYMPH# 1.29 X1000 (1.2-3.4); LYMPH% 25.1 % (20.5-51.1); MCH 29.3 PG (27-31); MCHC 31.5 g/dL (33-37); MCV 93.1 FL (81-99); MONO# 0.53 X1000 (0.11-0.59); MONO% 10.3 % (1.7-9.3); MPV 10.3 FL (7.4-10.4); NEUT# 3.06 X1000 (1.4-6.5); NEUT% 59.6 % (42.2-75.2); PLT 201 X1000 (130-400); RDW 14.2 % (11.5-14.5); WBC 5.14 X1000 (4.8-10.8)
[2019-06-25 08:39] LABS: AGAP 9; BUN 18 mg/dL (8-22); CALCIUM 9.5 mg/dL (8.8-10.2); CHLORIDE 106 mmol/L (98-107); COSMO 283; CREATININE 0.8 mg/dL (0.5-0.9); ESTIMATED GFR > 60; GLUCOSE 103 mg/dL (70-104); SODIUM 141 mmol/L (136-145); TCO2 26 mmol/L (25-35)
[2019-06-25] MEDS: KLOR-CON PO SCH ×2 (09:20→20:38)
[2019-06-25] MEDS: PRILOSEC PO SCH ×2 (09:20→20:40)
[2019-06-25] MEDS: SODIUM CHLORIDE 0.9% INJ PRN ×2 (09:20→13:34)
[2019-06-25] MEDS: MS CONTIN PO SCH ×2 (09:21→20:41)
[2019-06-25] MEDS: ZANAFLEX PO SCH ×2 (09:22→20:41)
[2019-06-25 10:22] LABS: PHOSPHORUS 4.8 mg/dL (2.7-4.5)
[2019-06-25] MEDS: KLONOPIN PO SCH ×2 (10:30→20:40)
--- NOTE | 2019-06-25 15:32 | PROGRESS NOTE ---
DATE: 06/25/2019 INTERVAL HISTORY: The patient still with some drainage from fistula. Otherwise stable. No acute events overnight. No new complaints. REVIEW OF SYSTEMS: Twelve point review of systems negative, except as per interval history. LABORATORY DATA: CBC with mild stable anemia, otherwise unremarkable. Sodium 141, potassium 5, BUN 18, creatinine 0.8, glucose 108, phosphorus 4.8, magnesium 2. VITALS: T-max 98.4 degrees, pulse 98, respirations 17, blood pressure 96/58, O2 saturation 100% on room air. PHYSICAL EXAMINATION: General: No acute distress, chronically ill appearing. Vitals: As above. HEENT: Normocephalic, atraumatic. Neck: No cervical adenopathy. Cardiovascular: Regular rate and rhythm. No murmurs noted. Pulmonary: Clear to auscultation bilaterally. No wheezing, rales, or rhonchi. Abdomen: Soft. Ostomy in right lower abdomen with brown liquid stool. Fistula in mid abdomen. Stool with ostomy bag over it. Still with drainage, although not a lot. Well-healed surgical scars unchanged. Bowel sounds decreased, but present. Extremities: Peripheral pulses intact. No clubbing, cyanosis. Neurologic: Cranial nerves grossly intact. No focal deficits. Mild global weakness, unchanged. Psychiatric: Normal mood and affect. Awake, alert, oriented x3. Skin: No new rashes or lesions identified. ASSESSMENT AND PLAN: 1. Enterocutaneous fistula drainage, perifistular cellulitis. The patient now status post 7 days of cefazolin for cellulitis, which is essentially resolved. Continued small amount of drainage from fistula. Surgery on board. Plans on giving her charcoal slurry for further assessment once drainage has essentially stopped. We will follow their recommendations. 2. Stage IV colon cancer. Patient follows with Dr. Hein. 3. Malnutrition. Patient remains on total parenteral nutrition pending ability to take oral. 4. Anemia of chronic disease. Blood counts stable. 5. Hypotension. Patient with consistent low normal blood pressure, asymptomatic. No need for acute intervention at this time. 6. Chronic pain, stable on home MS Contin and morphine IR.
[2019-06-25] MEDS: ZOFRAN IV PRN (20:36)
[2019-06-25] MEDS: SEROQUEL PO SCH (20:38)
[2019-06-26] MEDS ORDERED: [UNRECOGNIZED DRUG - OTHER] IV SCH ×8 (01:00)
[2019-06-26] MEDS ORDERED: POTASSIUM CHLORIDE IV SCH ×8 (01:00)
[2019-06-26] MEDS ORDERED: TPN ELECTROLYTES IV SCH ×8 (01:00)
[2019-06-26] MEDS ORDERED: MAGNESIUM SULFATE IV SCH ×8 (01:00)
[2019-06-26] MEDS: MORPHINE IR PO PRN ×4 (03:24→22:20)
[2019-06-26] MEDS: PHENERGAN IV PRN ×5 (03:25→22:33)
[2019-06-26] MEDS: LIPOSYN 20% 250 ML IV SCH (03:28)
[2019-06-26 07:30] LABS: BASO# 0.03 X1000 (0.0-0.2); BASO% 0.6 % (0.0-0.8); EOS# 0.11 X1000 (0.0-0.7); EOS% 2.1 % (0.0-10.0); HEMOGLOBIN 7.9 g/dL (12.0-16.0); IMM GRAN# 0.09 X1000 (0.0-0.04); IMM GRAN% 1.7 % (0.0-0.5); LYMPH# 1.43 X1000 (1.2-3.4); LYMPH% 27.7 % (20.5-51.1); MCH 29.3 PG (27-31); MCHC 31.6 g/dL (33-37); MCV 92.6 FL (81-99); MONO# 0.45 X1000 (0.11-0.59); MONO% 8.7 % (1.7-9.3); MPV 10.3 FL (7.4-10.4); NEUT# 3.05 X1000 (1.4-6.5); NEUT% 59.2 % (42.2-75.2); PLT 175 X1000 (130-400); RDW 13.9 % (11.5-14.5); WBC 5.16 X1000 (4.8-10.8)
[2019-06-26 07:52] LABS: AGAP 9; BUN 21 mg/dL (8-22); CHLORIDE 107 mmol/L (98-107); CHOLESTEROL 92 mg/dL (0-200); COSMO 281; CREATININE 0.8 mg/dL (0.5-0.9); ESTIMATED GFR > 60; GLUCOSE 109 mg/dL (70-104); GOT 15 U/L (10-30); MAGNESIUM 1.8 mg/dL (1.5-2.7); PHOSPHORUS 4.7 mg/dL (2.7-4.5); POTASSIUM 4.1 mmol/L (3.5-5.1); PREALBUMIN 15.7 mg/dL (20-40); SODIUM 139 mmol/L (136-145); TCO2 23 mmol/L (25-35); TRIGLYCERIDES 67 mg/dL (35-135)
[2019-06-26] MEDS: MS CONTIN PO SCH ×2 (09:11→22:20)
[2019-06-26] MEDS: PRILOSEC PO SCH ×2 (09:11→22:22)
[2019-06-26] MEDS: ZANAFLEX PO SCH ×2 (09:11→22:22)
[2019-06-26] MEDS: KLONOPIN PO SCH ×2 (09:11→22:19)
[2019-06-26] MEDS: KLOR-CON PO SCH ×2 (09:11→22:20)
--- NOTE | 2019-06-26 10:14 | GENERAL SURGERY PROGRESS NOTE ---
DATE: 06/26/2019 SUBJECTIVE: She has no acute complaints or changes. OBJECTIVE: Vital signs: She is afebrile. Vital signs are stable. General: She is awake, alert, oriented x3. No acute distress. Gastrointestinal: Soft, nontender, nondistended. The fistula site bag has some beige thin fluid in it, but it is not a lot and she says it has been there for over a day without any increase. ASSESSMENT AND PLAN: A 53-year-old female with enterocutaneous fistula and stage IV rectal cancer. My plan is to have the bag removed and replaced with a dry gauze. We will observe this for a couple more days. If there is no evidence for ongoing drainage of succus entericus, then we will do a charcoal slurry on Saturday. If that is negative for ongoing fistula, then we will begin her diet at that time. cc: Blaine Torres MD
[2019-06-26] MEDS: SODIUM CHLORIDE 0.9% INJ PRN (13:44)
--- NOTE | 2019-06-26 16:15 | PROGRESS NOTE ---
DATE: 06/26/2019 INTERVAL HISTORY: The patient still with minimal drainage and ostomy bag covering fistula, but has not been changed a while so it is difficult to say exactly how much. She is otherwise stable. No acute events overnight. No new complaints. REVIEW OF SYSTEMS: Twelve point review of systems negative except as per interval history. LABORATORY: Hemoglobin 7.9 and hematocrit 25. Basic metabolic panel unremarkable. VITALS: T-max 99.2 degrees, pulse 78, respirations 18, blood pressure 89/51, and O2 saturation 100% on room air. PHYSICAL EXAMINATION: General: No acute distress. Chronically ill appearing. Vitals: As above. HEENT: Normocephalic, atraumatic. No cervical adenopathy. Cardiovascular: Regular rate and rhythm. No murmurs noted. Pulmonary: Clear to auscultation bilaterally. No wheezing, rales, or rhonchi. Abdomen: Soft and nontender. Ostomy in right lower abdomen with brown liquid stool. fistula in mid abdomen with ostomy bag covering it. Minimal drainage in bag. Well-healed surgical scars stable. Bowel sounds remain decreased but present. Extremities: Peripheral pulses intact. No clubbing, cyanosis, or edema. Neurologic: Cranial nerves grossly intact. No focal deficits. Mild global weakness stable. Psychiatric: Normal mood and affect. Awake, alert, and oriented x3. Skin: No new rashes or lesions identified. ASSESSMENT AND PLAN: 1. Enterocutaneous fistula with perifistular cellulitis. The patient is status post antibiotics for cellulitis, which is essentially resolved. Still some drainage in the ostomy bag covering the fistula, but not certain how much of this new and how much has been in there for a bit. Surgery planning on removing ostomy bag and placing bandage to better assess degree of output. Planning on giving her charcoal slurry for further assessment once drain has essentially stopped. We will follow their recommendations as they come. 2. Stage IV colon cancer. The patient follows with Dr. Hein. 3. Malnutrition. Patient remains TPN pending ability to take p.o. intake. 4. Anemia of chronic disease. Slight down trend but essentially stable. No need for transfusion at this time. 5. Hypotension. Patient with consistent low normal blood pressure but remains asymptomatic. We will continue to monitor, but no need for intervention unless it decreases further or patient becomes symptomatic. 6. Chronic pain, stable. On home Ms Contin and morphine IR. [facility]
[2019-06-26] MEDS: SEROQUEL PO SCH (22:21)
[2019-06-27] MEDS ORDERED: MAGNESIUM SULFATE IV SCH ×8 (01:00)
[2019-06-27] MEDS ORDERED: TPN ELECTROLYTES IV SCH ×8 (01:00)
[2019-06-27] MEDS ORDERED: POTASSIUM CHLORIDE IV SCH ×8 (01:00)
[2019-06-27] MEDS ORDERED: [UNRECOGNIZED DRUG - OTHER] IV SCH ×8 (01:00)
[2019-06-27] MEDS: MORPHINE IR PO PRN ×6 (02:06→21:51)
[2019-06-27] MEDS: PHENERGAN IV PRN ×6 (02:06→21:33)
[2019-06-27] MEDS: LIPOSYN 20% 250 ML IV SCH (02:07)
[2019-06-27 07:22] LABS: BASO# 0.04 X1000 (0.0-0.2); BASO% 0.6 % (0.0-0.8); EOS# 0.14 X1000 (0.0-0.7); EOS% 2.2 % (0.0-10.0); HEMATOCRIT 29.6 % (37.0-47.0); HEMOGLOBIN 9.6 g/dL (12.0-16.0); IMM GRAN# 0.08 X1000 (0.0-0.04); IMM GRAN% 1.3 % (0.0-0.5); LYMPH# 1.72 X1000 (1.2-3.4); MCH 29.6 PG (27-31); MCHC 32.4 g/dL (33-37); MCV 91.4 FL (81-99); MONO# 0.46 X1000 (0.11-0.59); MONO% 7.2 % (1.7-9.3); MPV 10.7 FL (7.4-10.4); NEUT# 3.93 X1000 (1.4-6.5); NEUT% 61.7 % (42.2-75.2); PLT 196 X1000 (130-400); RBC 3.24 XMIL (4.2-5.4); RDW 14.2 % (11.5-14.5); WBC 6.37 X1000 (4.8-10.8)
[2019-06-27 07:38] LABS: AGAP 13; BUN 26 mg/dL (8-22); CALCIUM 9.3 mg/dL (8.8-10.2); CHLORIDE 102 mmol/L (98-107); COSMO 281; CREATININE 0.7 mg/dL (0.5-0.9); ESTIMATED GFR > 60; GLUCOSE 105 mg/dL (70-104); MAGNESIUM 1.9 mg/dL (1.5-2.7); PHOSPHORUS 5.4 mg/dL (2.7-4.5); POTASSIUM 4.4 mmol/L (3.5-5.1); SODIUM 138 mmol/L (136-145); TCO2 23 mmol/L (25-35)
--- NOTE | 2019-06-27 07:58 | GENERAL SURGERY PROGRESS NOTE ---
DATE: 06/27/2019 SUBJECTIVE: Patient seems to be doing okay. OBJECTIVE: Vital Signs: Patient is currently afebrile. Her vital signs are stable. General: No acute distress. HEENT: Normocephalic, atraumatic. Pupils equal, round, reactive to light. Mucous membranes are moist. Oropharynx benign. Neck: Supple. Trachea midline. Cardiovascular: Regular rate and rhythm. Lungs: Grossly clear. Abdomen: Soft, nondistended. Her EC fistula ostomy appliance did not see any drainage. Extremities: Moves all extremities. Neurologic: Grossly intact. Skin: No signs of jaundice. Vascular: All extremities perfused. ASSESSMENT AND PLAN: A 53-year-old female with enterocutaneous fistula with stage IV rectal cancer. Enterocutaneous fistula. At this time, she has got an ostomy appliance in her fistula and does not seem to have much drainage. We may consider charcoal slurry on Saturday. cc: Stephane Daily MD
[2019-06-27] MEDS: KLOR-CON PO SCH ×2 (09:17→21:34)
[2019-06-27] MEDS: ZANAFLEX PO SCH ×2 (09:17→21:34)
[2019-06-27] MEDS: PRILOSEC PO SCH ×2 (09:18→21:34)
[2019-06-27] MEDS: KLONOPIN PO SCH ×2 (09:18→21:54)
[2019-06-27] MEDS: MS CONTIN PO SCH ×2 (09:18→21:33)
--- NOTE | 2019-06-27 19:11 | PROGRESS NOTE ---
DATE: 06/27/2019 INTERVAL HISTORY: The patient is essentially stable. No new complaints or acute events overnight. Surgery tentatively planning on giving charcoal slurry Saturday if drainage from fistula remains minimal. REVIEW OF SYSTEMS: Twelve point review of systems negative except as per Interval History. LABS: WBC 6.3, hemoglobin 9.6, hematocrit 29.6, platelets 196,000. Sodium 138, potassium 4.4, bicarb 23, BUN 26, creatinine 0.7, glucose 105. PHYSICAL EXAMINATION: Vital Signs: T-max 98.6 degrees, pulse 85, blood pressure 195/63, O2 saturation 100% on room air. General: No acute distress. Vitals as above. HEENT: Normocephalic and Normocephalic. No JVD. No cervical adenopathy. Cardiovascular: Regular rate and rhythm. Pulmonary: Clear to auscultation bilaterally. No wheezing, rales, or rhonchi. Abdomen: Soft, nontender. Ostomy in right lower abdomen with brown liquid stool. Well healed surgical scar stable. Bowel sounds remain decreased, but present. Extremities: Peripheral pulses intact. No clubbing, cyanosis or edema. Neurologic: Cranial nerves grossly intact. No focal deficits, mild global weakness unchanged. Psychiatric: Normal mood and affect. Awake, alert, and oriented x3. Skin: No new rashes or lesions identified. ASSESSMENT AND PLAN: 1. Enterocutaneous fistula with perifistular cellulitis. Cellulitis is now resolved, status post course of antibiotics. Minimal drainage from fistula. Surgery tentatively planning on giving charcoal slurry for further assessment on Saturday and treatment will be based on results. 2. Stage IV colon cancer. Patient follows with Dr. Hein. 3. Malnutrition, remains on TPN pending ability to take p.o. 4. Anemia of chronic disease. Blood counts are actually somewhat improved today. Will continue to monitor. 5. Hypertension. Patient with consistently low normal blood pressure but remains asymptomatic. Continue to monitor. No need for acute intervention unless blood pressure decreases further or if patient becomes symptomatic. 6. Chronic pain, stable on Ms Contin and morphine IR. [facility]
[2019-06-27] MEDS: SEROQUEL PO SCH (21:32)
[2019-06-28] MEDS: MORPHINE IR PO PRN ×6 (01:21→23:58)
[2019-06-28] MEDS: PHENERGAN IV PRN ×7 (01:21→23:58)
[2019-06-28] MEDS: MAGNESIUM SULFATE IV SCH ×7 (01:21)
[2019-06-28] MEDS: TPN ELECTROLYTES IV SCH ×7 (01:21)
[2019-06-28] MEDS: POTASSIUM CHLORIDE IV SCH ×7 (01:21)
[2019-06-28] MEDS: [UNRECOGNIZED DRUG - OTHER] IV SCH ×7 (01:21)
[2019-06-28] MEDS: LIPOSYN 20% 250 ML IV SCH (01:21)
[2019-06-28 07:09] LABS: BASO# 0.03 X1000 (0.0-0.2); BASO% 0.5 % (0.0-0.8); EOS# 0.15 X1000 (0.0-0.7); EOS% 2.4 % (0.0-10.0); HEMOGLOBIN 8.9 g/dL (12.0-16.0); IMM GRAN# 0.03 X1000 (0.0-0.04); IMM GRAN% 0.5 % (0.0-0.5); LYMPH# 1.35 X1000 (1.2-3.4); LYMPH% 21.2 % (20.5-51.1); MCH 30.3 PG (27-31); MCV 91.8 FL (81-99); MONO% 6.3 % (1.7-9.3); MPV 11.2 FL (7.4-10.4); NEUT# 4.42 X1000 (1.4-6.5); NEUT% 69.1 % (42.2-75.2); PLT 155 X1000 (130-400); RBC 2.94 XMIL (4.2-5.4); RDW 14.3 % (11.5-14.5); WBC 6.38 X1000 (4.8-10.8)
[2019-06-28 07:15] LABS: AGAP 10; BUN 29 mg/dL (8-22); CALCIUM 9.4 mg/dL (8.8-10.2); CHLORIDE 104 mmol/L (98-107); COSMO 278; CREATININE 0.7 mg/dL (0.5-0.9); ESTIMATED GFR > 60; GLUCOSE 104 mg/dL (70-104); MAGNESIUM 1.7 mg/dL (1.5-2.7); PHOSPHORUS 4.1 mg/dL (2.7-4.5); POTASSIUM 4.8 mmol/L (3.5-5.1); SODIUM 136 mmol/L (136-145); TCO2 22 mmol/L (25-35)
--- NOTE | 2019-06-28 07:29 | GENERAL SURGERY PROGRESS NOTE ---
DATE: 06/28/2019 SUBJECTIVE: The patient seems to be doing okay. She has had no fistula output at this point. OBJECTIVE: Vital Signs: The patient is currently afebrile. Her vital signs are stable. General: No acute distress. HEENT: Normocephalic, atraumatic. Pupils equal, round, reactive to light. Mucous membranes moist. Oropharynx benign. Neck: Supple. Trachea midline. Cardiovascular: Regular rate and rhythm. Lungs: Grossly clear. Abdomen: Soft, nondistended. Her enterocutaneous fistula appliance does not have any drainage. Extremities: Moves all extremities. Neurologic: Grossly intact. Skin: No signs of jaundice. Vascular: All extremities perfused. LABORATORY DATA: Currently pending for this morning. ASSESSMENT AND PLAN: A 53-year-old female with enterocutaneous fistula and stage IV rectal cancer. Enterocutaneous fistula. At this time, will plan on giving her a charcoal slurry tomorrow to see if she has any output. If she does not, then we can give her oral intake. cc: Stephane Daily MD
[2019-06-28] MEDS: KLONOPIN PO SCH ×2 (08:41→21:00)
[2019-06-28] MEDS: ZANAFLEX PO SCH ×2 (08:41→21:16)
[2019-06-28] MEDS: PRILOSEC PO SCH ×2 (08:41→21:16)
[2019-06-28] MEDS: MS CONTIN PO SCH ×2 (08:41→21:14)
[2019-06-28] MEDS: KLOR-CON PO SCH ×2 (08:41→21:15)
--- NOTE | 2019-06-28 13:13 | PROGRESS NOTE ---
DATE: 06/28/2019 SUBJECTIVE: Ms. Post was sitting up. She was coloring. No complaints. Feels pretty good. OBJECTIVE: Vital Signs: Temp 98.1 degrees, pulse 90, respirations 18, blood pressure 105/77. HEENT: Pupils are equal and round. Lungs: Clear in all lung sarmiento. Cardiovascular: Regular rhythm and rate without murmur or S3. Urine output was 2700 mL. ASSESSMENT AND PLAN: 1. A 53-year-old with enterocutaneous fistula, stage IV rectal cancer. Giving her charcoal slurry tomorrow to see if she has any output. If she does not, then we can give her oral intake. The cellulitis is resolved status post a course of antibiotics. 2. Stage IV colon cancer. Followed by Dr. Hein. 3. Malnutrition. Remains on total parenteral nutrition pending ability to take by mouth. 4. Anemia of chronic disease. Counts are actually stable. 5. Hypertension. Blood pressure controlled. 6. Chronic pain, on MS Contin and morphine IR. REVIEW OF ORDERS: I do not see any change at this point. cc: Markus Lucio MD
[2019-06-28] MEDS: SEROQUEL PO SCH (21:15)
[2019-06-29] MEDS: KLONOPIN PO SCH ×3 (01:52→20:15)
[2019-06-29] MEDS: LIPOSYN 20% 250 ML IV SCH (01:54)
[2019-06-29] MEDS: POTASSIUM CHLORIDE IV SCH ×7 (01:54)
[2019-06-29] MEDS: TPN ELECTROLYTES IV SCH ×7 (01:54)
[2019-06-29] MEDS: [UNRECOGNIZED DRUG - OTHER] IV SCH ×7 (01:54)
[2019-06-29] MEDS: MAGNESIUM SULFATE IV SCH ×7 (01:54)
[2019-06-29] MEDS: MORPHINE IR PO PRN ×4 (05:05→15:44)
[2019-06-29] MEDS: PHENERGAN IV PRN ×5 (05:06→20:15)
[2019-06-29] MEDS ORDERED: [UNRECOGNIZED DRUG - OTHER] NG ONE (06:31)
--- NOTE | 2019-06-29 07:16 | GENERAL SURGERY PROGRESS NOTE ---
DATE: 06/29/2019 SUBJECTIVE: Patient doing okay. No real drainage from her appliance on her enterocutaneous fistula. OBJECTIVE: Vital Signs: The patient is currently afebrile. Her vital signs are stable. General: No acute distress. HEENT: Normocephalic, atraumatic. Pupils equal, round, reactive to light. Mucous membranes moist. Oropharynx benign. Neck: Supple. Trachea midline. Cardiovascular: Regular rate and rhythm. Lungs: Grossly clear. Abdomen: Soft. No output from her enterocutaneous fistula. Ostomy appears to be functioning. Extremities: Moves all extremities. Neurologic: Grossly intact. Skin: No signs of jaundice. Vascular: All extremities perfused. LABORATORY DATA: Reviewed from yesterday. ASSESSMENT AND PLAN: A 53-year-old female with enterocutaneous fistula and stage IV rectal cancer. Enterocutaneous fistula. At this time, will start a charcoal slurry today and see how she does and see if any charcoal comes out of her enterocutaneous fistula. cc: Stephane Daily MD
[2019-06-29 07:17] LABS: BASO# 0.03 X1000 (0.0-0.2); BASO% 0.6 % (0.0-0.8); EOS# 0.13 X1000 (0.0-0.7); EOS% 2.4 % (0.0-10.0); HEMATOCRIT 26.5 % (37.0-47.0); HEMOGLOBIN 8.5 g/dL (12.0-16.0); IMM GRAN# 0.02 X1000 (0.0-0.04); IMM GRAN% 0.4 % (0.0-0.5); LYMPH# 1.35 X1000 (1.2-3.4); LYMPH% 24.8 % (20.5-51.1); MCH 29.5 PG (27-31); MCHC 32.1 g/dL (33-37); MONO# 0.37 X1000 (0.11-0.59); MONO% 6.8 % (1.7-9.3); MPV 11.2 FL (7.4-10.4); NEUT# 3.55 X1000 (1.4-6.5); PLT 172 X1000 (130-400); RBC 2.88 XMIL (4.2-5.4); RDW 14.3 % (11.5-14.5); WBC 5.45 X1000 (4.8-10.8)
[2019-06-29 07:52] LABS: AGAP 11; BUN 29 mg/dL (8-22); CALCIUM 9.3 mg/dL (8.8-10.2); CHLORIDE 103 mmol/L (98-107); COSMO 278; CREATININE 0.7 mg/dL (0.5-0.9); ESTIMATED GFR > 60; GLUCOSE 94 mg/dL (70-104); MAGNESIUM 1.7 mg/dL (1.5-2.7); PHOSPHORUS 4.1 mg/dL (2.7-4.5); POTASSIUM 4.1 mmol/L (3.5-5.1); SODIUM 136 mmol/L (136-145); TCO2 22 mmol/L (25-35)
[2019-06-29] MEDS: KLOR-CON PO SCH ×2 (08:51→20:15)
[2019-06-29] MEDS: SODIUM CHLORIDE 0.9% INJ PRN ×3 (08:51→15:45)
[2019-06-29] MEDS: PRILOSEC PO SCH ×2 (08:51→20:16)
[2019-06-29] MEDS: MS CONTIN PO SCH ×2 (08:52→20:17)
[2019-06-29] MEDS: ZANAFLEX PO SCH ×2 (08:52→20:16)
--- NOTE | 2019-06-29 11:01 | PROGRESS NOTE ---
DATE: 06/29/2019 SUBJECTIVE: Ms. Post is feeling better. She has been drinking fluids, and anxious to get a little more food down. OBJECTIVE: Vital Signs: Her temp is 99 degrees, pulse 88, respirations 16, blood pressure 94/53. HEENT: Pupils are equal and round. Lungs: Clear in all lung sarmiento. Cardiovascular: Regular rhythm and rate without murmur or S3. Abdomen: Soft. Skin: Warm and dry. ASSESSMENT AND PLAN: 1. Stage IV rectal cancer. Start her on charcoal slurry today, see if any charcoal comes out of the enterocutaneous fistula. Hopefully, can advance her oral intake. 2. Malnutrition. Total parental nutrition at this time. 3. Anemia of chronic disease, stable. 4. Hypertension. 5. Chronic pain. She is on MS Contin and morphine IR. REVIEW OF ORDERS: I do not see any change. cc: Markus Lucio MD
[2019-06-29] MEDS: SEROQUEL PO SCH (20:16)
[2019-06-30] MEDS: PHENERGAN IV PRN ×6 (00:19→22:35)
[2019-06-30] MEDS: LIPOSYN 20% 250 ML IV SCH ×2 (00:20→23:56)
[2019-06-30] MEDS: ZOFRAN IV PRN ×4 (03:30→23:55)
[2019-06-30] MEDS: [UNRECOGNIZED DRUG - OTHER] IV SCH ×7 (03:30)
[2019-06-30] MEDS: MAGNESIUM SULFATE IV SCH ×7 (03:30)
[2019-06-30] MEDS: TPN ELECTROLYTES IV SCH ×7 (03:30)
[2019-06-30] MEDS: POTASSIUM CHLORIDE IV SCH ×7 (03:30)
[2019-06-30] MEDS: SODIUM CHLORIDE 0.9% INJ PRN ×5 (04:48→22:35)
--- NOTE | 2019-06-30 10:10 | GENERAL SURGERY PROGRESS NOTE ---
DATE: 06/30/2019 SUBJECTIVE: The patient has had no acute events over the weekend. No reported drainage from her fistula site. OBJECTIVE: She is afebrile. Vital signs are stable.General: She is awake, alert, oriented x3. No acute distress. Gastrointestinal: Soft, nontender, nondistended. There is charcoal slurry in her ileostomy bag, but none in the fistula bag. ASSESSMENT AND PLAN: A 53-year-old female with stage IV rectal cancer and recurrent area of cutaneous fistula. It appears that the fistula may be closed as she has not had any charcoal slurry evidence leaking from it, so I will start a clear liquid diet today and advance her diet to food tomorrow if she tolerates it. cc: Blaine Torres MD
[2019-06-30 10:51] LABS: AGAP 9; BUN 30 mg/dL (8-22); CALCIUM 9.9 mg/dL (8.8-10.2); CHLORIDE 104 mmol/L (98-107); CHOLESTEROL 106 mg/dL (0-200); COSMO 281; CREATININE 0.7 mg/dL (0.5-0.9); ESTIMATED GFR > 60; GLUCOSE 141 mg/dL (70-104); GOT 21 U/L (10-30); MAGNESIUM 1.7 mg/dL (1.5-2.7); POTASSIUM 4.8 mmol/L (3.5-5.1); SODIUM 136 mmol/L (136-145); TCO2 23 mmol/L (25-35); TRIGLYCERIDES 32 mg/dL (35-135)
[2019-06-30] MEDS: MS CONTIN PO SCH ×2 (12:55→20:03)
[2019-06-30] MEDS ORDERED: MORPHINE IV PRN (12:56)
[2019-06-30] MEDS: MORPHINE IV PRN ×4 (13:28→23:55)
[2019-06-30] MEDS: KLONOPIN PO SCH ×2 (13:44→20:02)
[2019-06-30] MEDS: KLOR-CON PO SCH ×2 (13:45→20:02)
[2019-06-30] MEDS: PRILOSEC PO SCH ×2 (13:46→20:03)
[2019-06-30] MEDS: ZANAFLEX PO SCH ×2 (13:46→20:04)
--- NOTE | 2019-06-30 14:13 | PROGRESS NOTE ---
DATE: 06/30/2019 SUBJECTIVE: Patient reports feeling fine. Denies more drainage from his fistula. OBJECTIVE: Vital Signs: Temperature 97.3, heart rate 89, respiratory rate 20, blood pressure 149/85, O2 saturation 100% on room air. General Examination: This is a chronically ill- appearing, 53-year-old female, lying in bed in no acute distress. Cardiovascular exam: S1, S2 heard. No murmurs, gallops, or rubs. Regular rate and rhythm. Respiratory exam: Clear bilaterally to auscultation. No work of breathing or using accessory muscles. Abdomen: Soft. Nontender to palpation. Also in the right lower quadrant, there is brown liquid stool. There is a well-healed surgical scar. This is stable. No drainage noted. Bowel sounds decreased, but present. Extremities: No clubbing, cyanosis, or edema. Peripheral pulses present in all legs. Neurological exam: Patient is alert and oriented x3. Moves 4 extremities. LABORATORY DATA: The BMP from today is normal. ASSESSMENT AND PLAN: 1. Enteric cutaneous fistula on stage IV rectal cancer. Apparently, there is no more drainage from that fistula. So, General Surgery has decided to start a clear liquid diet on this patient. 2. Constipation. We will continue with total parenteral nutrition at this time. 3. Anemia of chronic disease. Stable. We will continue to monitor complete blood count. 4. Hypertension. Blood pressure is under control. We will continue with same management. 5. Chronic pain. Patient because of nausea not able to take any medication at this time. We will switch to intravenous morphine once the patient gets better. 6. Disposition: We will follow the lead from General Surgery. cc: Hi Westbrook MD
[2019-06-30] MEDS: ATIVAN IV PRN (20:04)
[2019-06-30] MEDS: SEROQUEL PO SCH (20:04)
[2019-07-01] MEDS: MAGNESIUM SULFATE IV SCH ×8 (01:16)
[2019-07-01] MEDS: POTASSIUM CHLORIDE IV SCH ×8 (01:16)
[2019-07-01] MEDS: TPN ELECTROLYTES IV SCH ×8 (01:16)
[2019-07-01] MEDS: [UNRECOGNIZED DRUG - OTHER] IV SCH ×8 (01:16)
[2019-07-01] MEDS: MORPHINE IV PRN ×5 (03:15→22:26)
[2019-07-01] MEDS: PHENERGAN IV PRN ×4 (03:15→21:10)
[2019-07-01] MEDS: SODIUM CHLORIDE 0.9% INJ PRN (03:15)
[2019-07-01] MEDS: ATIVAN IV PRN ×4 (03:32→22:25)
[2019-07-01] MEDS: ZOFRAN IV PRN ×2 (07:37→18:30)
[2019-07-01 08:33] LABS: AGAP 11; BUN 28 mg/dL (8-22); CALCIUM 9.4 mg/dL (8.8-10.2); CHLORIDE 101 mmol/L (98-107); CHOLESTEROL 111 mg/dL (0-200); COSMO 275; CREATININE 0.6 mg/dL (0.5-0.9); ESTIMATED GFR > 60; GLUCOSE 113 mg/dL (70-104); GOT 56 U/L (10-30); MAGNESIUM 1.7 mg/dL (1.5-2.7); PHOSPHORUS 3.9 mg/dL (2.7-4.5); POTASSIUM 3.8 mmol/L (3.5-5.1); PREALBUMIN 26.4 mg/dL (20-40); SODIUM 134 mmol/L (136-145); TCO2 22 mmol/L (25-35); TRIGLYCERIDES 66 mg/dL (35-135)
[2019-07-01] MEDS: PRILOSEC PO SCH ×2 (09:48→21:08)
[2019-07-01] MEDS: ZANAFLEX PO SCH ×2 (09:48→21:09)
[2019-07-01] MEDS: KLOR-CON PO SCH ×2 (09:48→21:08)
[2019-07-01] MEDS: MS CONTIN PO SCH ×2 (09:50→21:07)
[2019-07-01] MEDS: KLONOPIN PO SCH ×2 (09:51→21:09)
--- NOTE | 2019-07-01 13:11 | PROGRESS NOTE ---
DATE: 07/01/2019 SUBJECTIVE: Patient reports feeling fine. She denies any more drainage from the fistula. She did not tolerate a clear liquid diet very well. She continues to be on TPN. OBJECTIVE: Vital Signs: Temperature 98.4 degrees, heart rate 86, respiratory rate 16, blood pressure 133/77, and O2 saturation 100% on room air. General: This is a chronically ill- appearing, 53-year-old female lying in bed in no acute distress. Cardiovascular: S1 and S2 heard. No murmurs, gallops, or rubs. Regular rate and rhythm. Respiratory: Clear bilaterally to auscultation. No work of breathing or using accessory muscles. Abdomen: Soft. Nontender to palpation in right lower quadrant with brown liquid stool, well-healed surgical scar. No drainage noted. Bowel sounds decreased but present. Extremities: No clubbing, cyanosis, or edema. Peripheral pulses present in both legs. Peripheral pulses present in both legs. Neurological: The patient is alert and oriented x3. Moves all 4 extremities. ASSESSMENT AND PLAN: 1. Enterocutaneous fistula on stage IV rectal cancer. The patient has been started on clear liquid diet as per general surgery. Apparently, there has not been any drainage from fistula. We are following the lead from General Surgery. We will leave to them to decide when they are going to start GI soft diet. In the meantime, we will continue with TPN. 2. Anemia of chronic disease. Stable. Continue to monitor. 3. Hypertension. Blood pressure is under control. We will continue with same management. 4. Chronic pain. Patient reports that morphine is not controlling completely her pain even though in the computer she is on morphine in the ER, she is not able to take any. She is feeling nauseated at some point, so she is not taking her medications by mouth so we will increase the doses of IV morphine. We will go from there. 5. Disposition. We will follow leads from General Surgery. cc: Hi Westbrook MD
[2019-07-01 16:07] LABS: AGAP 12; BUN 28 mg/dL (8-22); CALCIUM 9.5 mg/dL (8.8-10.2); CHLORIDE 101 mmol/L (98-107); CHOLESTEROL 107 mg/dL (0-200); COSMO 274; CREATININE 0.8 mg/dL (0.5-0.9); ESTIMATED GFR > 60; GLUCOSE 103 mg/dL (70-104); GOT 67 U/L (10-30); MAGNESIUM 1.8 mg/dL (1.5-2.7); PHOSPHORUS 4.1 mg/dL (2.7-4.5); POTASSIUM 4.1 mmol/L (3.5-5.1); PREALBUMIN 26.6 mg/dL (20-40); SODIUM 134 mmol/L (136-145); TCO2 21 mmol/L (25-35); TRIGLYCERIDES 37 mg/dL (35-135)
[2019-07-01] MEDS: SEROQUEL PO SCH (21:09)
[2019-07-02] MEDS: ZOFRAN IV PRN ×3 (00:38→11:46)
[2019-07-02] MEDS: MORPHINE IR PO PRN ×4 (00:38→21:25)
[2019-07-02] MEDS: [UNRECOGNIZED DRUG - OTHER] IV SCH ×8 (00:41)
[2019-07-02] MEDS: POTASSIUM CHLORIDE IV SCH ×8 (00:41)
[2019-07-02] MEDS: TPN ELECTROLYTES IV SCH ×8 (00:41)
[2019-07-02] MEDS: MAGNESIUM SULFATE IV SCH ×8 (00:41)
[2019-07-02] MEDS: LIPOSYN 20% 250 ML IV SCH (00:42)
[2019-07-02] MEDS: MORPHINE IV PRN ×4 (03:10→23:08)
[2019-07-02] MEDS: PHENERGAN IV PRN ×4 (03:11→21:30)
[2019-07-02] MEDS: ATIVAN IV PRN ×2 (06:37→13:02)
[2019-07-02] MEDS ORDERED: [UNRECOGNIZED DRUG - OTHER] PO ONE (10:02)
[2019-07-02] MEDS: KLONOPIN PO SCH ×2 (10:14→20:24)
[2019-07-02] MEDS: PRILOSEC PO SCH ×2 (10:14→20:24)
[2019-07-02] MEDS: KLOR-CON PO SCH ×2 (10:14→20:23)
[2019-07-02] MEDS: ZANAFLEX PO SCH ×2 (10:14→20:32)
[2019-07-02] MEDS: MS CONTIN PO SCH ×2 (10:15→20:25)
[2019-07-02] MEDS: SODIUM CHLORIDE 0.9% INJ PRN ×3 (10:15→21:26)
--- NOTE | 2019-07-02 18:30 | PROGRESS NOTE ---
DATE: 07/02/2019 SUBJECTIVE: Patient reports having some drainage from fistula yesterday. Dr. Torres has recommended to start charcoal with slurry. She is not having any nausea or vomiting. OBJECTIVE: Vital Signs: Temperature 97.5 degrees, heart rate 102, respiratory rate 20, blood pressure 102/60, O2 saturation 99% on room air. General Examination: This is a chronically ill- appearing and frail, 53-year-old female lying in bed, in no acute distress. Cardiovascular: S1, S2 heard. No murmurs, gallops, or rubs. Regular rate and rhythm. Respiratory: Clear bilaterally to auscultation. No work of breathing or using accessory muscles. Abdomen: Soft. Nontender to palpation. In the right lower quadrant there is a colostomy bag with brown liquid stool and well-healed surgical scar. No drainage is noted. Bowel sounds decreased but present. Extremities: No clubbing, cyanosis, or edema. Peripheral pulses present in both legs. Neurological: The patient is alert and oriented x3. Moves 4 extremities. ASSESSMENT AND PLAN: 1. Enterocutaneous fistula on stage IV rectal cancer. The patient continues to be on a liquid diet. She is tolerating it very well. Apparently she has had some drainage from the fistula, so she has been recommended to continue with charcoal. Will continue to follow the lead from General Surgery. We will continue with TPN. 2. Anemia of chronic disease, stable. We will continue to monitor. 3. Hypertension. Blood pressure is under control. We will continue with the same management. 4. Chronic pain. Pain is under control. She is receiving morphine IV 6 mg IV q.3 hours p.r.n. 5. Disposition. Following lead from General Surgery. We will discharge her once she is cleared by them. cc: Hi Westbrook MD [facility]
--- NOTE | 2019-07-02 19:10 | GENERAL SURGERY PROGRESS NOTE ---
DATE: 07/02/2019 SUBJECTIVE: The patient has no new complaints. OBJECTIVE: Vital signs: She is afebrile. Vital signs are stable. General: She is awake, alert, oriented x3 in no acute distress. Gastrointestinal: Soft, nondistended. The ileostomy bag has dark drainage that appears to be dark green but no black. The fistula site has some green drainage that I am suspicious for succus entericus still. There is no black on the gauze. ASSESSMENT AND PLAN: A 53-year-old female with enterocutaneous fistula. I am not sure if it has closed yet. We will reintroduce a charcoal slurry today and continue observation with a clear liquid diet. cc: Blaine Torres MD
[2019-07-02] MEDS: SEROQUEL PO SCH (20:25)
[2019-07-03] MEDS: LIPOSYN 20% 250 ML IV SCH (00:17)
[2019-07-03] MEDS: TPN ELECTROLYTES IV SCH ×8 (00:50)
[2019-07-03] MEDS: MAGNESIUM SULFATE IV SCH ×8 (00:50)
[2019-07-03] MEDS: [UNRECOGNIZED DRUG - OTHER] IV SCH ×8 (00:50)
[2019-07-03] MEDS: POTASSIUM CHLORIDE IV SCH ×8 (00:50)
[2019-07-03] MEDS: PHENERGAN IV PRN ×5 (01:50→22:05)
[2019-07-03] MEDS: MORPHINE IR PO PRN (03:25)
[2019-07-03] MEDS: MORPHINE IV PRN ×5 (05:58→22:05)
[2019-07-03 09:21] LABS: AGAP 8; ALB/GLOB RATIO 0.8; ALBUMIN 3.2 g/dL (3.5-5.0); ALKALINE PHOSPHATASE 129 U/L (32-104); BUN 26 mg/dL (8-22); CALCIUM 9.2 mg/dL (8.8-10.2); CHLORIDE 101 mmol/L (98-107); COSMO 270; CREATININE 0.7 mg/dL (0.5-0.9); ESTIMATED GFR > 60; GLUCOSE 103 mg/dL (70-104); GOT 23 U/L (10-30); GPT 29 U/L (10-36); MAGNESIUM 1.9 mg/dL (1.5-2.7); PHOSPHORUS 4.5 mg/dL (2.7-4.5); SODIUM 132 mmol/L (136-145); TCO2 23 mmol/L (25-35); TOTAL BILIRUBIN 0.46 mg/dL (0.20-1.00); TOTAL PROTEIN 7.2 g/dL (6.3-8.3)
[2019-07-03] MEDS: ZANAFLEX PO SCH ×2 (09:26→20:21)
[2019-07-03] MEDS: KLOR-CON PO SCH ×2 (09:26→20:21)
[2019-07-03] MEDS: KLONOPIN PO SCH ×2 (09:27→20:20)
[2019-07-03] MEDS: PRILOSEC PO SCH ×2 (09:27→20:21)
[2019-07-03] MEDS: MS CONTIN PO SCH ×2 (09:27→20:20)
[2019-07-03] MEDS: SODIUM CHLORIDE 0.9% INJ PRN ×3 (10:39→22:05)
[2019-07-03] MEDS: ATIVAN IV PRN ×2 (14:00→22:06)
--- NOTE | 2019-07-03 14:48 | PROGRESS NOTE ---
DATE: 07/03/2019 SUBJECTIVE: The patient reports still some tiny drainage from fistula today. She has been restarted on charcoal with a slurry. She is not having any nausea or vomiting, she is on TPN. She is tolerating a clear liquid diet. OBJECTIVE: Vital Signs: Temperature 98.1 degrees, heart rate 94, respiratory rate 18, blood pressure 108/65. O2 saturation 100% on room air. General: This is a chronically ill-appearing and frail, 53-year-old female lying in bed, in no acute distress. Cardiovascular: S1, S2 heard. No murmurs, gallops, or rubs. Regular rate and rhythm. Respiratory: Clear bilaterally to auscultation. No work of breathing. Not using accessory muscles. Abdomen: Soft, a little bit distended but nontender to palpation. In the right lower quadrant, there is a colostomy bag with brown liquid stool. There is also a surgical scar in the midline and some greenish drainage. Neurological: Patient alert oriented x3. Moves 4 extremities. ASSESSMENT/PLAN: 1. Enterocutaneous fistula on patient with stage IV rectal cancer. As we mentioned before, patient is on clear liquids and total parenteral nutrition. She is tolerating diet very well. Apparently, she has had some drainage from the fistula yesterday so that is why she has been restarted on charcoal with a slurry. We will continue to monitor this patient closely. 2. Anemia of chronic disease. Stable. Hemoglobin is stable. We will continue to monitor. 3. Hypertension. Blood pressure is well controlled. We will continue with the same medications. 4. Chronic pain. Patient is on morphine 6 mg IV 6 hours. We will continue to monitor. 5. Disposition: Following lead from General Surgery, she will be discharged once okay with General Surgery. cc: Hi Westbrook MD
[2019-07-03] MEDS: SEROQUEL PO SCH (20:21)
[2019-07-03] MEDS: ZOFRAN IV PRN (20:21)
--- NOTE | 2019-07-03 21:39 | GENERAL SURGERY PROGRESS NOTE ---
DATE: 07/03/2019 SUBJECTIVE: The patient is doing okay this morning. No acute complaints or changes. OBJECTIVE: She is afebrile. Vital signs are stable.General: She is awake, alert, and oriented x4. No acute distress. Gastrointestinal: Soft, nontender, nondistended. The enterocutaneous fistula site has some cloudy drainage. It is not clearly black or succus. ASSESSMENT AND PLAN: A 53-year-old female with enterocutaneous fistula and stage IV rectal cancer. We will advance her to a regular diet and monitor for any worsening drainage. cc: Blaine Torres MD
[2019-07-04] MEDS: MORPHINE IV PRN ×5 (01:05→23:40)
[2019-07-04] MEDS: LIPOSYN 20% 250 ML IV SCH (01:05)
[2019-07-04] MEDS: ZOFRAN IV PRN ×3 (01:06→22:24)
[2019-07-04] MEDS: POTASSIUM CHLORIDE IV SCH ×8 (01:30)
[2019-07-04] MEDS: MAGNESIUM SULFATE IV SCH ×8 (01:30)
[2019-07-04] MEDS: [UNRECOGNIZED DRUG - OTHER] IV SCH ×8 (01:30)
[2019-07-04] MEDS: TPN ELECTROLYTES IV SCH ×8 (01:30)
[2019-07-04] MEDS: ATIVAN IV PRN ×3 (04:09→20:20)
[2019-07-04] MEDS: PHENERGAN IV PRN ×4 (04:09→23:40)
[2019-07-04] MEDS: SODIUM CHLORIDE 0.9% INJ PRN ×3 (04:09→23:40)
[2019-07-04 08:01] LABS: AGAP 11; BUN 25 mg/dL (8-22); CALCIUM 8.9 mg/dL (8.8-10.2); CHLORIDE 102 mmol/L (98-107); CHOLESTEROL 94 mg/dL (0-200); COSMO 273; CREATININE 0.7 mg/dL (0.5-0.9); ESTIMATED GFR > 60; GLUCOSE 105 mg/dL (70-104); GOT 14 U/L (10-30); MAGNESIUM 1.8 mg/dL (1.5-2.7); PHOSPHORUS 4.1 mg/dL (2.7-4.5); POTASSIUM 3.9 mmol/L (3.5-5.1); PREALBUMIN 21.2 mg/dL (20-40); SODIUM 134 mmol/L (136-145); TCO2 21 mmol/L (25-35); TRIGLYCERIDES 50 mg/dL (35-135)
[2019-07-04] MEDS: PRILOSEC PO SCH ×2 (09:30→22:22)
[2019-07-04] MEDS: KLOR-CON PO SCH ×2 (09:30→22:22)
[2019-07-04] MEDS: ZANAFLEX PO SCH ×2 (09:30→22:22)
[2019-07-04] MEDS: MS CONTIN PO SCH ×2 (09:40→22:23)
[2019-07-04] MEDS: KLONOPIN PO SCH ×2 (09:40→22:22)
[2019-07-04] MEDS: MORPHINE IR PO PRN (11:40)
--- NOTE | 2019-07-04 15:15 | PROGRESS NOTE ---
DATE: 07/04/2019 Ms. Cira Post is a 53-year-old white female who has been hospitalized a lot over the last year because of a bowel fistula. It is slowly closing. She remains on TPN but we are trying to feed her and she has tolerated her liquid diet and there has been no increase of drainage out of her fistula so we will advance her diet to a regular diet. cc: Shanel Stevens MD
--- NOTE | 2019-07-04 16:44 | PROGRESS NOTE ---
DATE: 07/04/2019 INTERVAL HISTORY: No acute events overnight. She did have temperature of 100.2 degrees, she has been tolerating regular diet well. There has been stable drainage from the enterocutaneous fistula. SUBJECTIVE: She denies any chest pain or shortness of breath. We discussed about getting an EKG for QTc monitoring. Patient denies any chest pain or shortness of breath. She has been able to walk in the hallway without any difficulty. Currently vitals temperature of 99.3 degrees, pulse 97, respiratory rate 15, blood pressure 90/46, she is saturating 100% on room air. Her MAP has been anywhere between 55 to 65 recently, input and output not significant. PHYSICAL EXAMINATION: General: Does not appear in any acute distress. Oral cavity is moist. Air entry bilaterally equal. No wheeze, rhonchi, crackles. She does have severe protein energy malnutrition. S1, S2 normal. No murmur or gallop. Abdomen: Soft. Right lower quadrant ileostomy with liquid yellowish output, there is 2 x 2 cm enterocutaneous fistula in the midline abdominal fold in hypogastric region. There is some discharge, I could not assess the character of it. She has a right-sided chest port. No lower extremity edema. She is alert and oriented x3. LABS: Suggestive of mild hyponatremia, normal kidney function. No microbiological data. IMAGING: No new imaging. ASSESSMENT AND PLAN: 1. 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 Continue total parenteral nutrition and regular diet as per surgery recommendation. She is status post ileostomy. Continue oral immediate release as well as extended release morphine for pain management as well as IV morphine as needed. Continue clonazepam as needed for anxiety. 2. Anemia of chronic disease currently stable, essential hypertension currently well controlled without any medications. Chronic pain aware. 3. Disposition. Awaiting final surgical team's plan for fistula management. Based on that will decide disposition. Currently her fistula still draining though minimal output. Plan of care discussed with the patient. Her questions have been answered. cc: Irving Lee MD MTDD
--- NOTE | 2019-07-04 19:35 | EKG Report ---
Test Performed on : 07/04/2019 4:32:00 PM Test Reason : Follow up QTc interval Blood Pressure : / mmHG Vent. Rate : 093 BPM Atrial Rate : 093 BPM P-R Int : 154 ms QRS Dur : 070 ms QT Int : 346 ms P-R-T Axes : 061 000 043 degrees QTc Int : 430 ms Normal sinus rhythm. Low voltage QRS Borderline ECG When compared with ECG of 17-JUN-2019 14:19, Questionable change in QRS duration Confirmed by Yousif HARLEY, Michael Zelaya ([id number]) on 07/05/2019 8:30:27 AM
[2019-07-04] MEDS: SEROQUEL PO SCH (22:22)
[2019-07-04] MEDS: LOVENOX SUBQ SCH (22:31)
[2019-07-05] MEDS: MAGNESIUM SULFATE IV SCH ×8 (01:17)
[2019-07-05] MEDS: [UNRECOGNIZED DRUG - OTHER] IV SCH ×8 (01:17)
[2019-07-05] MEDS: POTASSIUM CHLORIDE IV SCH ×8 (01:17)
[2019-07-05] MEDS: TPN ELECTROLYTES IV SCH ×8 (01:17)
[2019-07-05] MEDS: LIPOSYN 20% 250 ML IV SCH (01:17)
[2019-07-05] MEDS: MORPHINE IV PRN ×6 (02:56→23:07)
[2019-07-05] MEDS: ZOFRAN IV PRN ×2 (02:56→09:07)
[2019-07-05] MEDS: ATIVAN IV PRN ×4 (02:56→23:07)
[2019-07-05] MEDS: SODIUM CHLORIDE 0.9% INJ PRN (06:26)
[2019-07-05] MEDS: PHENERGAN IV PRN ×5 (06:26→23:07)
[2019-07-05 07:41] LABS: BASO# 0.03 X1000 (0.0-0.2); BASO% 0.6 % (0.0-0.8); EOS# 0.16 X1000 (0.0-0.7); EOS% 3.1 % (0.0-10.0); HEMATOCRIT 23.8 % (37.0-47.0); HEMOGLOBIN 7.6 g/dL (12.0-16.0); LYMPH# 1.44 X1000 (1.2-3.4); LYMPH% 27.5 % (20.5-51.1); MCH 29.8 PG (27-31); MCHC 31.9 g/dL (33-37); MCV 93.3 FL (81-99); MONO# 0.64 X1000 (0.11-0.59); MONO% 12.2 % (1.7-9.3); MPV 10.5 FL (7.4-10.4); NEUT# 2.97 X1000 (1.4-6.5); NEUT% 56.6 % (42.2-75.2); PLT 189 X1000 (130-400); RBC 2.55 XMIL (4.2-5.4); RDW 15.2 % (11.5-14.5); WBC 5.24 X1000 (4.8-10.8)
[2019-07-05 08:09] LABS: AGAP 10; BUN 23 mg/dL (8-22); CALCIUM 8.9 mg/dL (8.8-10.2); CHLORIDE 105 mmol/L (98-107); COSMO 278; CREATININE 0.8 mg/dL (0.5-0.9); ESTIMATED GFR > 60; GLUCOSE 105 mg/dL (70-104); MAGNESIUM 1.8 mg/dL (1.5-2.7); PHOSPHORUS 3.9 mg/dL (2.7-4.5); POTASSIUM 4.2 mmol/L (3.5-5.1); SODIUM 137 mmol/L (136-145); TCO2 22 mmol/L (25-35)
[2019-07-05] MEDS: MS CONTIN PO SCH ×2 (09:07→20:46)
[2019-07-05] MEDS: KLOR-CON PO SCH ×2 (09:07→20:46)
[2019-07-05] MEDS: PRILOSEC PO SCH ×2 (09:07→20:46)
[2019-07-05] MEDS: KLONOPIN PO SCH ×2 (09:07→20:45)
[2019-07-05] MEDS: ZANAFLEX PO SCH ×2 (09:07→20:45)
[2019-07-05] MEDS: MORPHINE IR PO PRN ×2 (12:54→16:06)
--- NOTE | 2019-07-05 13:53 | PROGRESS NOTE ---
DATE: 07/05/2019 I have advanced Ms. Sejal to a regular diet. She seems to have tolerated that it without increased drainage from her enterocutaneous fistula. She is receiving TPN, but maybe we can transfer to p.o. diet from TPN over the next several days with discharge. Her electrolytes were within normal limits. Her white blood cell count is normal. Her hematocrit was 24%.. cc: Shanel Stevens MD
--- NOTE | 2019-07-05 16:58 | PROGRESS NOTE ---
DATE: 07/05/2019 INTERVAL HISTORY: No acute events overnight. SUBJECTIVE: She is feeling fine. She is bored of staying in the hospital. She denies any complaints, except occasional nausea and abdominal cramp, which is her baseline. No vomiting. She has adequate output in the colostomy. She has not had any more fever episode. OBJECTIVE: Vital Signs: Temperature of 99 degrees, pulse 99, respiratory rate 14, blood pressure 95/53, saturating 100% on room air. General: Does not appear in any acute distress. Mild protein energy malnutrition. Oral cavity is moist. Air entry bilaterally equal, no wheeze, rhonchi, crackles. S1, S2 normal, no murmur or gallop. Abdomen is soft. Right lower quadrant ileostomy with yellowish semi-solid output. There is 2 x 2 cm enterocutaneous fistula in the midline abdominal fold in hypogastric region, which is dressed. Dressing has been recently changed. Mild abdominal tenderness. No lower extremity edema. She has a right-sided chest port. Alert and oriented x3. DIAGNOSTIC STUDIES: Labs suggestive of hemoglobin of 7.6, normal platelet count. Normal electrolytes. No new microbiological data. No new imaging. ASSESSMENT AND PLAN: 1. Metastatic colorectal cancer with metastases to liver and now enterocutaneous fistula. Continue total parenteral nutrition and regular diet as per Surgery recommendation. She is status post ileostomy. Continue immediate-release as well as extended-release morphine for pain management, as well as IV morphine as needed. Continue clonazepam as needed for anxiety. Hematology/Oncology has been on board, and she received chemotherapy of FOLFIRI and Vectibix on 06/04/2019. 2. Anemia of chronic disease, currently stable. 3. Essential hypertension, currently on the lower side. If she develops worsening leukocytosis or worsening hypotension, I will re-initiate workup for sepsis, including urinalysis, blood cultures, and chest x-ray. She may need CT scan of the abdomen and pelvis, as well, but currently she does not have any other symptoms of infection. DISPOSITION: I am awaiting Surgery recommendation about stopping TPN and discharging her on oral diet. Plan of care discussed with her. All her questions have been answered. cc: Irving Lee MD
[2019-07-05] MEDS: LOVENOX SUBQ SCH (20:46)
[2019-07-05] MEDS: SEROQUEL PO SCH (20:46)
[2019-07-06] MEDS: LIPOSYN 20% 250 ML IV SCH (00:04)
[2019-07-06] MEDS: [UNRECOGNIZED DRUG - OTHER] IV SCH ×8 (00:04)
[2019-07-06] MEDS: TPN ELECTROLYTES IV SCH ×8 (00:04)
[2019-07-06] MEDS: MAGNESIUM SULFATE IV SCH ×8 (00:04)
[2019-07-06] MEDS: POTASSIUM CHLORIDE IV SCH ×8 (00:04)
[2019-07-06] MEDS: MORPHINE IV PRN ×4 (02:27→14:25)
[2019-07-06] MEDS: PHENERGAN IV PRN ×4 (02:29→14:25)
[2019-07-06 07:39] LABS: AGAP 10; BUN 23 mg/dL (8-22); CALCIUM 8.9 mg/dL (8.8-10.2); CHLORIDE 101 mmol/L (98-107); COSMO 272; CREATININE 0.8 mg/dL (0.5-0.9); ESTIMATED GFR > 60; GLUCOSE 100 mg/dL (70-104); MAGNESIUM 1.9 mg/dL (1.5-2.7); PHOSPHORUS 4.5 mg/dL (2.7-4.5); POTASSIUM 3.9 mmol/L (3.5-5.1); SODIUM 134 mmol/L (136-145); TCO2 23 mmol/L (25-35)
[2019-07-06] MEDS: ZANAFLEX PO SCH (09:15)
[2019-07-06] MEDS: MS CONTIN PO SCH (09:15)
[2019-07-06] MEDS: PRILOSEC PO SCH (09:15)
[2019-07-06] MEDS: KLONOPIN PO SCH (09:15)
[2019-07-06] MEDS: KLOR-CON PO SCH (09:15)
[2019-07-06] MEDS: ATIVAN IV PRN ×2 (10:18→16:28)
[2019-07-06 12:11] VITALS: BP 93/59
--- NOTE | 2019-07-06 14:38 | GENERAL SURGERY PROGRESS NOTE ---
DATE: 07/06/2019 SUBJECTIVE: The patient is doing okay. No acute events over the weekend. She has been eating a regular diet with no increase in her fistula drainage. OBJECTIVE: Vital signs: She is afebrile. Vital signs are stable. General: She is awake, alert, oriented x3. No acute distress. GI: The ileostomy has good output. Her fistula has some seropurulent drainage but no definite succus entericus and the overall amount of drainage is much lower than when she was admitted. ASSESSMENT AND PLAN: A 53-year-old female with enterocutaneous fistula and stage IV rectal cancer. The fistula appears to be improving. We will maintain her on a regular diet and stop the TPN and she can be discharged. She will just cover her wound with gauze and tape as needed. cc: Blaine Torres MD
--- NOTE | 2019-07-07 10:07 | DISCHARGE SUMMARY ---
ADMISSION DATE: 06/17/2019 DISCHARGE DATE: 07/06/2019 DISCHARGE DISPOSITION: Home with hospice. DISCHARGE CONDITION: Hemodynamically stable. Her abdominal fistula is no longer draining. She still has intermittent abdominal pain. Considering the nature of her illness, abdominal pain and recurrent medical problems, as well as social situation the patient has decided to receive hospice service. DISCHARGE DIAGNOSES: 1. Enterocutaneous fistula. 2. Rectal adenocarcinoma with liver metastasis. 3. Protein energy malnutrition. 4. Anemia of chronic disease. 5. Hypotension. 6. Chronic pain and now opioid dependent. OTHER DIAGNOSES: 1. History of obstructive uropathy requiring stent. 2. History of pelvic abscesses. 3. History of colostomy and Port-A-Cath placement. CONSULTATIONS DURING HOSPITAL ADMISSION: General Surgeon: Dr. Torres. [facility] [employer] oncologist: Dr. Hein. DISCHARGE MEDICATIONS: 1. Morphine immediate release 15 mg every 4 hours as needed for pain. 2. Promethazine 25 mg every 4 hours as needed for nausea and vomiting. 3. Omeprazole 20 mg b.i.d. 4. Morphine extended release 30 mg every 12 hours. 5. Potassium chloride 20 mEq daily. 6. Tizanidine 4 mg b.i.d. VITALS AT THE TIME OF DISCHARGE: Temperature is 98.3 degrees, pulse 82, respiratory rate 17, blood pressure 93/59 saturating 100% room air. PHYSICAL EXAMINATION: General: Patient does not appear in any acute distress. HEENT: Oral cavity is dry. Lungs: Air entry bilaterally equal. No wheeze, rhonchi, or crackles. Cardiovascular: S1, S2 normal. No murmur, rub, or gallop. Abdomen: Soft. There is generalized tenderness. She has a lower quadrant right-sided colostomy with yellowish output. The enterocutaneous fistula on the hypogastric region has dry gauze which is not soaked and it is not draining. She has a midline laparotomy scar. Active bowel sounds. Extremity: No lower extremity. She is alert and oriented x3. SIGNIFICANT LABS: At the time of discharge, WBC 5.2, hemoglobin 7.6, platelet 189,000. Sodium 134, potassium 3.9, BUN 23, creatinine 0.8, magnesium 1.9. Significant microbiology blood culture did not have any growth. IMAGING: Significant imaging during hospital admission chest x-ray had no acute pathology. HOSPITAL COURSE SUMMARY: Ms. Cira Post is a 53-year-old lady with past medical history of rectal adenocarcinoma with liver metastases who had previously developed multiple intra-abdominal abscesses and had undergone placement of colostomy and who was receiving chemotherapy. However, her course was initially complicated by development of enterocutaneous fistula, who was recently in the hospital for need for intravenous TPN and intravenous antibiotics for allowing closure of enterocutaneous fistula and was discharged home. Received chemotherapy with FOLFIRI about 10 days ago, who had seen her outpatient oncology where she was found to have opening of her enterocutaneous fistula again with increasing drainage and so was directly admitted to the hospital. While inside the hospital, she was kept without food per mouth and was started on intravenous total parenteral nutrition. There was also initially local abdominal wall cellulitis around enterocutaneous fistula and she received intravenous antibiotics for 7 days following which her cellulitis has improved. Later on, slowly she was resumed on diet and closure of enterocutaneous fistula was conformed using charcoal slurry. At the time of discharge there is minimum to no drainage in enterocutaneous fistula and the gauze dressing appears dry, so it was decided to stop the TPN and keep the patient on regular diet. The patient had was living independently, has had issues with enterocutaneous fistula and her cancer was metastatic to liver. Considering everything, patient had decided to get hospice care evaluation and decided to go home with home hospice. At the time of discharge all of her questions were answered. TIME SPENT: More than 30 minutes spent in discharging this patient. cc: Irivng Lee MD
== END 2019-07-06 17:11 | disposition hospice, home (50) | DRG 394 ==
LOC: DIRADM 13:15 → SUATTDRO 13:15 → 3N 13:35
PROVIDERS: ATTEND Internal Medicine